=== PATIENT | female | born 1970 | race Caucasian/White ===

== ENCOUNTER 2017-12-30 13:15 | Inpatient (IN) | payer BC ==
[2017-12-30] MEDS ORDERED: SODIUM CHLORIDE 0.9% 1,000 ML IV ONE (14:04)
--- NOTE | 2017-12-30 14:12 | ED ---
Recheck HPI - General Chief Complaint: Recheck/Abnormal Lab/Rx Stated Complaint: Abnormal labs/Dr Sent Time Seen by Provider: 12/30/17 13:45 Source: patient Mode of arrival: ambulatory Limitations: physical limitation - History of Present Illness Initial Comments: This is a 47 show female who presents emergency department for bilateral lower extremity swelling. She states is been going on for the last couple of weeks. The right leg is been worse than the left. The patient does state that she sustained a spider bite to the right knee and had some swelling there however this has since subsided. No evidence for infection at this time and she went and saw Dr. Tejada's office who did an outpatient Doppler of bilateral lower [place] which was reportedly negative for DVT. The patient also had blood work performed that was reportedly abnormal. The patient states that she thinks that she had an elevated white blood cell count and anemia. She was directed to the emergency department for further evaluation. The patient otherwise states that she has no other complaints. States that she's been urinating normal amounts. Has not had any chest pain or shortness of breath. No lightheadedness. No fatigue. Denies any vaginal bleeding or discharge. No nausea, vomiting, or diarrhea. She states that she does have a history of lower extremity edema when she is on long flights. She also states that the edema seems to be better in the morning and worse throughout the day. She denies any other acute complaints. - Related Data Home Medications Medication Instructions Recorded Confirmed Amoxic-Pot Clav 875-125Mg 1 tab PO Q12HR 12/30/17 12/30/17 [Augmentin 875-125] Cyclafem 1 tab PO DAILY 12/30/17 12/30/17 Allergies Allergy/AdvReac Type Severity Reaction Status Date / Time No Known Allergies Allergy Verified 12/30/17 14:03 Review of Systems ROS Statement: Those systems with pertinent positive or pertinent negative responses have been documented in the HPI. ROS Other: All systems not noted in ROS Statement are negative. Past Medical History Past Medical History: No Reported History History of Any Multi-Drug Resistant Organisms: None Reported Past Surgical History: No Surgical Hx Reported Past Psychological History: No Psychological Hx Reported Smoking Status: Never smoker Past Alcohol Use History: None Reported Past Drug Use History: None Reported General Exam - General Exam Comments Initial Comments: Constitutional: Awake alert Appears comfortable Head: Normocephalic atraumatic Eyes: no conjunctival injection No scleral icterus EOMI Neck: No JVD Supple Heart: Regular rate rhythm normal S1-S2 no murmurs Lungs: Clear to auscultation bilaterally No wheezing No rales Abdomen: Soft nondistended nontender Extremities: There is edema to the right lower extremity from the knee down, there is mild pitting to this edema, left leg appears normal, there is a 0.5 cm round lesion to the anterior knee that is scabbed over. No surrounding erythema , no swelling, no fluctuance DP pulses intact Radial pulses intact Neuro: A&Ox3 No focal neurologic deficits Psych: Appropriate mood and affect . Limitations: physical limitation Course Vital Signs 12/30/17 12/30/17 13:35 14:53 Temperature 98.6 F Pulse Rate 108 H 131 H Respiratory 18 20 Rate Blood Pressure 132/68 O2 Sat by Pulse 96 97 Oximetry - Reevaluation(s) Reevaluation #1: 12/30/17 14:52 EKG showing normal sinus rhythm with a rate of 96. There is no abnormal ST segment changes or T-wave inversions. QTC is 451. Other intervals normal. No ectopy. Medical Decision Making - Medical Decision Making Is a 47 show female presents to the emergency department for abnormal labs. Labs are repeated and showed a significant leukocytosis also with anemia and from cytopenia. The findings are concerning for leukemia. The patient is going to stay in the hospital for blood transfusion and also to be seen by hematology. Spoke with Dr. Tejada who accepted the admission. - Lab Data Result diagrams: 12/30/17 14:25 12/30/17 14:25 Lab Results 12/30/17 12/30/17 12/30/17 Range/Units 14:25 14:25 14:25 WBC 29.9 H* (3.8-10.6) k/uL RBC 1.69 L (3.80-5.40) m/uL Hgb 5.9 L* (11.4-16.0) gm/dL Hct 16.8 L* (34.0-46.0) % MCV 99.8 (80.0-100.0) fL MCH 35.1 H (25.0-35.0) pg MCHC 35.1 (31.0-37.0) g/dL RDW 16.5 H (11.5-15.5) % PT 9.8 (9.0-12.0) sec INR 1.0 (<1.2) APTT 21.0 L (22.0-30.0) sec Sodium 140 (137-145) mmol/L Potassium 4.1 (3.5-5.1) mmol/L Chloride 105 (98-107) mmol/L Carbon Dioxide 23 (22-30) mmol/L Anion Gap 12 mmol/L BUN 13 (7-17) mg/dL Creatinine 0.60 (0.52-1.04) mg/dL Est GFR (CKD-EPI)AfAm >90 (>60 ml/min/1.73 sqM) Est GFR (CKD-EPI)NonAf >90 (>60 ml/min/1.73 sqM) Glucose 85 (74-99) mg/dL Calcium 8.7 (8.4-10.2) mg/dL Magnesium 1.9 (1.6-2.3) mg/dL Total Bilirubin 0.3 (0.2-1.3) mg/dL AST 16 (14-36) U/L ALT 22 (9-52) U/L Alkaline Phosphatase 54 (38-126) U/L Troponin I (0.000-0.034) ng/mL Total Protein 7.0 (6.3-8.2) g/dL Albumin 3.7 (3.5-5.0) g/dL Urine Color Urine Appearance (Clear) Urine pH (5.0-8.0) Ur Specific [place] (1.001-1.035) Urine Protein (Negative) Urine Glucose (UA) (Negative) Urine Ketones (Negative) Urine Blood (Negative) Urine Nitrite (Negative) Urine Bilirubin (Negative) Urine Urobilinogen (<2.0) mg/dL Ur Leukocyte Esterase (Negative) Urine RBC (0-5) /hpf Urine WBC (0-5) /hpf Ur Squamous Epith Cells (0-4) /hpf Urine Mucus (None) /hpf 18 12/30/17 Range/Units 14:25 14:50 WBC (3.8-10.6) k/uL RBC (3.80-5.40) m/uL Hgb (11.4-16.0) gm/dL Hct (34.0-46.0) % MCV (80.0-100.0) fL MCH (25.0-35.0) pg MCHC (31.0-37.0) g/dL RDW (11.5-15.5) % PT (9.0-12.0) sec INR (<1.2) APTT (22.0-30.0) sec Sodium (137-145) mmol/L Potassium (3.5-5.1) mmol/L Chloride (98-107) mmol/L Carbon Dioxide (22-30) mmol/L Anion Gap mmol/L BUN (7-17) mg/dL Creatinine (0.52-1.04) mg/dL Est GFR (CKD-EPI)AfAm (>60 ml/min/1.73 sqM) Est GFR (CKD-EPI)NonAf (>60 ml/min/1.73 sqM) Glucose (74-99) mg/dL Calcium (8.4-10.2) mg/dL Magnesium (1.6-2.3) mg/dL Total Bilirubin (0.2-1.3) mg/dL AST (14-36) U/L ALT (9-52) U/L Alkaline Phosphatase (38-126) U/L Troponin I <0.012 (0.000-0.034) ng/mL Total Protein (6.3-8.2) g/dL Albumin (3.5-5.0) g/dL Urine Color Light Yellow Urine Appearance Clear (Clear) Urine pH 5.5 (5.0-8.0) Ur Specific [place] 1.007 (1.001-1.035) Urine Protein Negative (Negative) Urine Glucose (UA) Negative (Negative) Urine Ketones Negative (Negative) Urine Blood Moderate H (Negative) Urine Nitrite Negative (Negative) Urine Bilirubin Negative (Negative) Urine Urobilinogen <2.0 (<2.0) mg/dL Ur Leukocyte Esterase Negative (Negative) Urine RBC 4 (0-5) /hpf Urine WBC 1 (0-5) /hpf Ur Squamous Epith Cells 1 (0-4) /hpf Urine Mucus Rare H (None) /hpf Disposition Clinical Impression: Leukocytosis, Anemia, Thrombocytopenia Disposition: ADMITTED IP TO THIS HOSP
[2017-12-30 14:55] LABS: Prothrombin Time 9.8 sec (9.0-12.0)
[2017-12-30 14:58] LABS: ALT 22 U/L (9-52); AST 16 U/L (14-36); Albumin 3.7 g/dL (3.5-5.0); Alkaline Phosphatase 54 U/L (38-126); Anion Gap 12 mmol/L; Blood Urea Nitrogen 13 mg/dL (7-17); Calcium 8.7 mg/dL (8.4-10.2); Carbon Dioxide 23 mmol/L (22-30); Chloride 105 mmol/L (98-107); Glucose 85 mg/dL (74-99); Magnesium 1.9 mg/dL (1.6-2.3); Potassium 4.1 mmol/L (3.5-5.1); Sodium 140 mmol/L (137-145); Total Bilirubin 0.3 mg/dL (0.2-1.3)
[2017-12-30 15:00] LABS: Anisocytosis Slight; MCH 35.1 pg (25.0-35.0); MCHC 35.1 g/dL (31.0-37.0); MCV 99.8 fL (80.0-100.0); Macrocytosis Slight; Mean Platelet Volume 8.4; RBC 1.69 m/uL (3.80-5.40); RDW 16.5 % (11.5-15.5)
[2017-12-30 15:07] LABS: Appearance,Urine Clear (Clear); Bilirubin,Urine Negative (Negative); Blood,Urine Moderate (Negative); Color,Urine Light Yellow; Glucose,Urine (UA) Negative (Negative); Ketones,Urine Negative (Negative); Leukocyte Esterase,Urine Negative (Negative); Mucus,Urine Rare /hpf; Nitrite,Urine Negative (Negative); PH, Urine 5.5 (5.0-8.0); Protein,Urine Negative (Negative); RBC,Urine 4 /hpf (0-5); Specific Gravity,Urine 1.007 (1.001-1.035); Squamous Epithelial Cell,Urine 1 /hpf (0-4); Urobilinogen,Urine <2.0 mg/dL (<2.0); WBC,Urine 1 /hpf (0-5)
[2017-12-30 15:10] LABS: HGB 5.9 gm/dL (11.4-16.0); WBC 29.9 k/uL (3.8-10.6)
[2017-12-30 15:11] LABS: HCT 16.8 % (34.0-46.0)
[2017-12-30 15:22] LABS: Platelet Count 8 k/uL (150-450)
[2017-12-30] MEDS ORDERED: NALOXONE 0.4 MG/ML 1 ML VIAL IV PRN (15:34)
[2017-12-30 17:41] VITALS: BMI 19.3
[2017-12-30] MEDS ORDERED: cefTRIAXone IN SWFI 1,000 MG/10 ML SYRINGE IVP SCH (20:30)
[2017-12-30 23:06] LABS: Nucleated Red Blood Cells 0 /100 WBC (0-0); Total Cells Counted 200
--- NOTE | 2017-12-31 07:13 | P.HPIM ---
History of Present Illness H&P Date: 12/31/17 Chief Complaint: Lower extremity edema. This is a history and physical a 47-year-old white female essentially with no significant past medical history except for ALLERGIC rhinitis who saw me 3 days ago for significant lower extremity edema with right knee cellulitis related to an insect bite. The patient states no fever or chills but is having mild dyspnea on exertion. The patient CBC showed significant anemia with, cytopenia. On recheck, this was found in the emergency room and the patient was then given appropriate transfusion. The patient is otherwise seemingly asymptomatic, she was at work yesterday when we called her. No voiding difficulties. No epistaxis no excessive menorrhagia. Although the patient is on contraception. The patient is nonsmoker. Family history is otherwise noncontributory to any type of hematologic illness except for a grandmother who had leukemia. Review of Systems Constitutional: Reports fatigue, Reports weakness Eyes: denies blurred vision, denies pain Ears, nose, mouth and throat: Denies headache, Denies sore throat Cardiovascular: Denies chest pain, Denies shortness of breath Respiratory: Denies cough Gastrointestinal: Denies abdominal pain, Denies diarrhea, Denies nausea, Denies vomiting Musculoskeletal: Denies myalgias Integumentary: Denies pruritus, Denies rash Neurological: Denies numbness, Denies weakness Past Medical History Past Medical History: No Reported History Additional Past Medical History / Comment(s): ALLERGIC rhinitis History of Any Multi-Drug Resistant Organisms: None Reported Past Surgical History: No Surgical Hx Reported Smoking Status: Never smoker - Past Family History Mother Family Medical History: No Reported History Father Family Medical History: No Reported History Medications and Allergies Home Medications Medication Instructions Recorded Confirmed Type Amoxic-Pot Clav 875-125Mg 1 tab PO Q12HR 12/30/17 12/30/17 History [Augmentin 875-125] Cyclafem 1 tab PO DAILY 12/30/17 12/30/17 History Allergies Allergy/AdvReac Type Severity Reaction Status Date / Time No Known Allergies Allergy Verified 12/30/17 14:03 Physical Exam Vitals: Vital Signs Temp Pulse Pulse Resp BP BP Pulse Ox 12/31/17 06:36 99.2 F 110 H 16 137/78 94 L 12/31/17 01:26 98.5 F 95 16 135/89 95 06/18/18 23:34 98.7 F 12/30/17 23:04 98.7 F 114 H 18 137/82 100 12/30/17 22:54 98.1 F 12/30/17 22:43 98.1 F 99 18 143/83 96 12/30/17 20:50 98.3 F 12/30/17 20:48 98.3 F 108 H 18 147/85 96 12/30/17 20:20 99.3 F 102 H 16 138/85 99 12/30/17 20:10 98.2 F 101 H 16 136/81 99 12/30/17 18:44 97.0 F L 99 18 125/67 100 12/30/17 18:14 98.0 F 100 20 132/78 100 12/30/17 18:04 96.7 F L 113 H 18 140/86 97 12/30/17 17:15 98.3 F 101 H 16 129/85 100 12/30/17 16:25 98.8 F 103 H 18 128/87 12/30/17 16:00 104 H 18 126/82 99 12/30/17 14:53 131 H 20 97 12/30/17 13:35 98.6 F 108 H 18 132/68 96 Intake and Output 12/30/17 12/31/17 12/31/17 22:59 06:59 14:59 Intake Total 612 360 Balance 612 360 Intake: IV 50 cefTRIAXone 1,000 mg In 50 Sodium Chloride 0.9% 50 ml @ 100 mls/hr IVPB Q24HR [facility] Rx#:[id number] Blood Product 612 310 Platelet Pheresis Acda2 302 Unit [id number] Rc As-1 Unit 0 310 [id number] Rc As-1 Unit 310 [id number] Other: Voiding Method Toilet # Voids 1 Weight 54.431 kg - Constitutional General appearance: no acute distress - EENT Eyes: EOMI - Neck Neck: no lymphadenopathy - Respiratory Respiratory: bilateral: CTA - Cardiovascular Rhythm: regular Heart sounds: normal: S1, S2 Abnormal Heart Sounds: no S3 Gallop - Gastrointestinal General gastrointestinal: no tenderness - Neurologic Neurologic: CNII-XII intact - Musculoskeletal Musculoskeletal: generalized weakness Results CBC & Chem 7: 12/30/17 14:25 12/30/17 14:25 Labs: Abnormal Lab Results - Last 24 Hours (Table) 12/30/17 12/30/17 12/30/17 Range/Units 14:25 14:25 14:25 WBC 29.9 H* (3.8-10.6) k/uL RBC 1.69 L (3.80-5.40) m/uL Hgb 5.9 L* (11.4-16.0) gm/dL Hct 16.8 L* (34.0-46.0) % MCH 35.1 H (25.0-35.0) pg RDW 16.5 H (11.5-15.5) % APTT 21.0 L (22.0-30.0) sec Urine Blood (Negative) Urine Mucus (None) /hpf Crossmatch See Detail 12/30/17 Range/Units 14:50 WBC (3.8-10.6) k/uL RBC (3.80-5.40) m/uL Hgb (11.4-16.0) gm/dL Hct (34.0-46.0) % MCH (25.0-35.0) pg RDW (11.5-15.5) % APTT (22.0-30.0) sec Urine Blood Moderate H (Negative) Urine Mucus Rare H (None) /hpf Crossmatch Thrombosis Risk Factor Assmnt - Choose All That Apply Any of the Below Risk Factors Present?: Yes Each Factor Represents 1 point: Age 41-60 years, Swollen legs (current) Other Risk Factors: No Other congenital or acquired thrombophilia - If yes, enter type in comment: No Thrombosis Risk Factor Assessment Total Risk Factor Score: 2 Thrombosis Risk Factor Assessment Level: Low Risk Assessment and Plan (1) Anemia Current Visit: Yes Status: Acute Code(s): D64.9 - ANEMIA, UNSPECIFIED SNOMED Code(s): 256340527 (2) Leukocytosis Current Visit: Yes Status: Acute Code(s): D72.829 - ELEVATED WHITE BLOOD CELL COUNT, UNSPECIFIED SNOMED Code(s): 367172255 (3) Thrombocytopenia Current Visit: Yes Status: Acute Code(s): D69.6 - THROMBOCYTOPENIA, UNSPECIFIED SNOMED Code(s): 343858285 Plan: Await hematologic workup. Transfusion of 2 units PRBC with platelets has been instituted. Check CBC and CMP in a.m. Appreciate oncologic/hematologic input. Otherwise, she is a full code. Time with Patient: Greater than 30
[2017-12-31 07:48] LABS: Anisocytosis Slight; HCT 25.7 % (34.0-46.0); MCH 33.2 pg (25.0-35.0); MCHC 35.7 g/dL (31.0-37.0); MCV 93.2 fL (80.0-100.0); Mean Platelet Volume 6.8; RBC 2.75 m/uL (3.80-5.40); RDW 17.8 % (11.5-15.5); WBC 23.3 k/uL (3.8-10.6)
[2017-12-31 08:04] LABS: HGB 9.2 gm/dL (11.4-16.0)
[2017-12-31 08:08] LABS: Platelet Count 38 k/uL (150-450)
[2017-12-31 10:36] LABS: Reticulocyte % 0.6 % (0.5-2.0)
[2017-12-31 11:22] LABS: Blast Cells # (M) 17.48 k/uL (0); Lymphocytes # (M) 4.19 k/uL (1.0-4.8); Neutrophils # (M) 0.47 k/uL (1.3-7.7); Neutrophils % (M) 2 %; Nucleated Red Blood Cells 0 /100 WBC (0-0); Total Cells Counted 200
[2017-12-31] MEDS ORDERED: LORazepam 2 MG/ML INJ IV STA (12:05)
[2017-12-31] MEDS ORDERED: HYDROmorphone 0.5 MG/0.5 ML SYRINGE IVP STA (12:06)
--- NOTE | 2017-12-31 12:45 | P.PN ---
Progress Note - Text Procedure note Bone Marrow aspirate & Biopsy Anesthesia: Local with 2% lidocaine Site: R iliac crest Details: utilizing sterile process, skin overlaying R iliac crest was prepared with Betadine & alcohol > after sterile draping size 11 Jamshidi needle was used to access R iliac crest with ease. Total of 16 ml aspirated, and 1 cm bone core biopsy obtained Total blood loss < 1ml The patient tolerated procedure very well Results: pending
--- NOTE | 2017-12-31 16:22 | P.CONS ---
History of Present Illness - Reason for Consult Consult date: 12/31/17 leukocytosis, anemia, thrombocytopenia Requesting physician: Matt Tejada - Chief Complaint Ankle swelling R>L - History of Present Illness Mrs. Garay is a very pleasant 47-year-old female patient of Dr. Tejada we have been asked to see for leukocytosis, anemia and thrombocytopenia. Patient denies any hematological history, she thinks she had a low white blood once about a year ago when she was sick. Patient states that at the end of November was when she first noted some changes in her health. Patient initially noted lower extremity "reddish rash", which on evaluation is petechiae, she noticed easy bruising over the last few weeks, no other bleeding to report. 2 weeks ago she noted ankle swelling, right greater than left, patient had a Doppler, no DVT, she has had BLE swelling before when she is flying. Patient had a spider bite on her right knee 5-6 days ago with swelling and redness of the knee which has now resolved. Patient is positive for 5 pound weight loss in 2 months, denies nausea or vomiting, "don't feel like eating", she has had shortness of breath on exertion and palpitations. Patient denies night sweats, lymphadenopathy, cold or flu, numbness or tingling, dysphagia, changes in bowel or bladder habits, pain or dizziness. Patient has no comorbid conditions, she had a mamogram last year, up to date on pelvic exams, she does travel frequently , was in [place] in November, [facility] in May, her only medication is control. Family healthy other than a maternal grandmother with pancreatic cancer and her paternal grandmother, she believes, had leukemia. Review of Systems 14 point ROS as stated in HPI Past Medical History Past Medical History: No Reported History Additional Past Medical History / Comment(s): ALLERGIC rhinitis History of Any Multi-Drug Resistant Organisms: None Reported Past Surgical History: No Surgical Hx Reported Past Psychological History: No Psychological Hx Reported Smoking Status: Never smoker Past Alcohol Use History: None Reported Past Drug Use History: None Reported - Past Family History Mother Family Medical History: No Reported History Father Family Medical History: No Reported History Additional Family Medical History / Comment(s): maternal grandmother pancreatic cancer, paternal grandmother leukemia Medications and Allergies Home Medications Medication Instructions Recorded Confirmed Type Amoxic-Pot Clav 875-125Mg 1 tab PO Q12HR 12/30/17 12/30/17 History [Augmentin 875-125] Cyclafem 1 tab PO DAILY 12/30/17 12/30/17 History Allergies Allergy/AdvReac Type Severity Reaction Status Date / Time No Known Allergies Allergy Verified 12/30/17 14:03 Physical Exam Vitals: Vital Signs Temp Pulse Pulse Resp BP BP Pulse Ox 12/31/17 07:43 94 L 12/31/17 07:22 100.0 F H 111 H 18 137/83 12/31/17 06:36 99.2 F 110 H 16 137/78 94 L 12/31/17 01:26 98.5 F 95 16 135/89 95 12/30/17 23:34 98.7 F 12/30/17 23:04 98.7 F 114 H 18 137/82 100 12/30/17 22:54 98.1 F 12/30/17 22:43 98.1 F 99 18 143/83 96 12/30/17 20:50 98.3 F 12/30/17 20:48 98.3 F 108 H 18 147/85 96 12/30/17 20:20 99.3 F 102 H 16 138/85 99 12/30/17 20:10 98.2 F 101 H 16 136/81 99 12/30/17 18:44 97.0 F L 99 18 125/67 100 12/30/17 18:14 98.0 F 100 20 132/78 100 12/30/17 18:04 96.7 F L 113 H 18 140/86 97 12/30/17 17:15 98.3 F 101 H 16 129/85 100 12/30/17 16:25 98.8 F 103 H 18 128/87 12/30/17 16:00 104 H 18 126/82 99 12/30/17 14:53 131 H 20 97 12/30/17 13:35 98.6 F 108 H 18 132/68 96 Intake and Output 12/30/17 12/31/17 12/31/17 22:59 06:59 14:59 Intake Total 612 360 Balance 612 360 Intake: IV 50 cefTRIAXone 1,000 mg In 50 Sodium Chloride 0.9% 50 ml @ 100 mls/hr IVPB Q24HR [facility] Rx#:[id number] Blood Product 612 310 Platelet Pheresis Acda2 302 Unit [id number] As-1 Unit 0 310 [id number] Rc As-1 Unit 310 [id number] Other: Voiding Method Toilet # Voids 1 Weight 54.431 kg - Constitutional General appearance: average body habitus, cooperative, no acute distress - EENT Eyes: anicteric sclerae, EOMI, normal appearance ENT: hearing grossly normal, normal oropharynx - Neck Neck: no lymphadenopathy - Respiratory Respiratory: bilateral: CTA - Cardiovascular Rhythm: regular Heart sounds: normal: S1, S2 Abnormal Heart Sounds: no systolic murmur, no diastolic murmur, no rub, no S3 Gallop, no S4 Gallop, no click, no other foot Peripheral Edema: bilateral: Trace - Gastrointestinal General gastrointestinal: no absent bowel sounds, no decreased bowel sounds, no distended, no hepatomegaly, no hyperactive bowel sounds, normal bowel sounds, no organomegaly, no rigid, no scaphoid, soft, no splenomegaly, no tenderness, no umbilical hernia, no ventral hernia - Integumentary Integumentary: normal turgor, pale - Neurologic Neurologic: CNII-XII intact - Musculoskeletal Musculoskeletal: strength equal bilaterally - Psychiatric Psychiatric: A&O x's 3, appropriate affect, intact judgment & insight Results CBC & Chem 7: 12/31/17 07:11 12/30/17 14:25 Labs: Abnormal Lab Results - Last 24 Hours (Table) 12/30/17 12/30/17 12/30/17 Range/Units 14:25 14:25 14:25 WBC 29.9 H* (3.8-10.6) k/uL RBC 1.69 L (3.80-5.40) m/uL Hgb 5.9 L* (11.4-16.0) gm/dL Hct 16.8 L* (34.0-46.0) % MCH 35.1 H (25.0-35.0) pg RDW 16.5 H (11.5-15.5) % Plt Count 8 L* (150-450) k/uL Neutrophils # (Manual) (1.3-7.7) k/uL Monocytes # (Manual) (0-1.0) k/uL Blast Cells # (Man) 28.70 H (0) k/uL APTT 21.0 L (22.0-30.0) sec Lactate Dehydrogenase (313-618) U/L Urine Blood (Negative) Urine Mucus (None) /hpf Crossmatch See Detail 12/30/17 12/31/17 12/31/17 Range/Units 14:50 07:11 09:47 WBC 23.3 H (3.8-10.6) k/uL RBC 2.75 L (3.80-5.40) m/uL Hgb 9.2 L D (11.4-16.0) gm/dL Hct 25.7 L (34.0-46.0) % MCH (25.0-35.0) pg RDW 17.8 H (11.5-15.5) % Plt Count 38 L* D (150-450) k/uL Neutrophils # (Manual) 0.47 L (1.3-7.7) k/uL Monocytes # (Manual) 1.40 H (0-1.0) k/uL Blast Cells # (Man) 17.48 H (0) k/uL APTT (22.0-30.0) sec Lactate Dehydrogenase 1037 H (313-618) U/L Urine Blood Moderate H (Negative) Urine Mucus Rare H (None) /hpf Crossmatch Assessment and Plan (1) Anemia Current Visit: Yes Status: Acute Priority: High Code(s): D64.9 - ANEMIA, UNSPECIFIED SNOMED Code(s): 905787695 (2) Leukocytosis Current Visit: Yes Status: Acute Priority: High Code(s): D72.829 - ELEVATED WHITE BLOOD CELL COUNT, UNSPECIFIED SNOMED Code(s): 390637688 (3) Thrombocytopenia Current Visit: Yes Status: Acute Priority: High Code(s): D69.6 - THROMBOCYTOPENIA, UNSPECIFIED SNOMED Code(s): 301797858 Plan: Pt has been transfused with PRBCs and platelets with anticipated increase in lab values. Conservative transfusions only. Irradiated/CMV negative blood products only Path review of peripheral smear report reviewed, 96% circulating blasts. Bone marrow biopsy and aspirate was discussed with pt when I saw her this AM, had RN ask pt if she was willing to do at bedside with local anesthetic or if she wanted to do it in the AM with sedation, pt opted for doing bone marrow now. Bone marrow has been done. Multiple other labs have been ordered for review. Acute leukemia is the anticipated diagnosis but, this has not been discussed in any detail with the pt. We will f/u in AM to discuss in more detail with patient and her . Doctor attests: I performed a history and physical examination of this patient, discussed with dictator. I agree with dictators note, documented as a scribe. Time with Patient: Greater than 30 (counseling and coordinating care)
[2017-12-31 17:27] LABS: Iron Saturation 96.09 (12.00-45.00); Protein, Total 6.8 g/dL (6.2-8.2); Rheumatoid Factor 7 IU/mL (0-15)
[2017-12-31 18:00] LABS: HIV AB P24 Non-Reactive (Non-Reactive); HIV P24 AG Non-Reactive (Non-Reactive)
[2017-12-31] MEDS: ACETAMINOPHEN TAB 325 MG TAB PO PRN (22:08)
--- NOTE | 2018-01-01 08:57 | P.PN ---
Subjective Progress Note Date: 01/01/18 Principal diagnosis: This is a continue process on a 47-year-old white female essentially admitted for leukocytosis, cytopenia and anemia. I suspect acute leukemia after discussing with pathology. Bone marrow biopsy is now pending. Objective - Vital Signs Vital signs: Vital Signs Temp 98.5 F 01/01/18 06:23 Pulse 108 H 01/01/18 06:23 Resp 16 01/01/18 06:23 BP 126/70 01/01/18 06:23 Pulse Ox 94 L 01/01/18 06:23 Intake & Output 12/31/17 01/01/18 01/01/18 18:59 06:59 18:59 Intake Total 240 600 Balance 240 600 Weight 54.431 kg Intake: Oral 240 600 Other: Voiding Method Toilet Toilet # Voids 2 2 - Constitutional General appearance: Present: average body habitus - EENT Eyes: Absent: abnormal pupil - Respiratory Respiratory: bilateral: CTA - Cardiovascular Rhythm: regular Heart sounds: normal: S1, S2 Abnormal Heart Sounds: Absent: S3 Gallop - Gastrointestinal General gastrointestinal: Present: soft. Absent: tenderness - Psychiatric Psychiatric: Present: A&O x's 3, appropriate affect - Labs CBC & Chem 7: 12/31/17 07:11 12/30/17 14:25 Labs: Abnormal Lab Results - Last 24 Hours (Table) 12/30/17 12/31/17 12/31/17 Range/Units 14:25 07:11 09:47 Plt Count 8 L* (150-450) k/uL Neutrophils # (Manual) 0.47 L (1.3-7.7) k/uL Monocytes # (Manual) 1.40 H (0-1.0) k/uL Blast Cells # (Man) 28.70 H 17.48 H (0) k/uL Pathologist Review See comment A Iron (50-170) ug/dL Iron Saturation (12.00-45.00) Ferritin (10.0-291.0) ng/mL Lactate Dehydrogenase 1037 H (313-618) U/L 12/31/17 Range/Units 09:47 Plt Count (150-450) k/uL Neutrophils # (Manual) (1.3-7.7) k/uL Monocytes # (Manual) (0-1.0) k/uL Blast Cells # (Man) (0) k/uL Pathologist Review Iron 270 H (50-170) ug/dL Iron Saturation 96.09 H (12.00-45.00) Ferritin 384.6 H (10.0-291.0) ng/mL Lactate Dehydrogenase (313-618) U/L Assessment and Plan (1) Anemia Current Visit: Yes Status: Acute Priority: High Code(s): D64.9 - ANEMIA, UNSPECIFIED SNOMED Code(s): 049005619 (2) Leukocytosis Current Visit: Yes Status: Acute Priority: High Code(s): D72.829 - ELEVATED WHITE BLOOD CELL COUNT, UNSPECIFIED SNOMED Code(s): 971760057 (3) Thrombocytopenia Current Visit: Yes Status: Acute Priority: High Code(s): D69.6 - THROMBOCYTOPENIA, UNSPECIFIED SNOMED Code(s): 025522873 (4) Acute leukemia Current Visit: Yes Status: Acute Code(s): C95.00 - ACUTE LEUKEMIA OF UNSP CELL TYPE NOT ACHIEVE REMISSION SNOMED Code(s): 85736928 Plan: Await bone marrow biopsy. Appreciate oncologic support. I spent a long time explaining to the patient expected course of treatment. Most likely this will be dependent on bone marrow biopsy results. We'll continue to follow closely.
[2018-01-01 09:23] LABS: Anisocytosis Slight; HCT 25.4 % (34.0-46.0); HGB 8.9 gm/dL (11.4-16.0); MCH 32.9 pg (25.0-35.0); MCHC 35.1 g/dL (31.0-37.0); MCV 93.7 fL (80.0-100.0); Mean Platelet Volume 6.7; RBC 2.71 m/uL (3.80-5.40); RDW 17.6 % (11.5-15.5); WBC 21.1 k/uL (3.8-10.6)
[2018-01-01 09:29] LABS: Platelet Count 28 k/uL (150-450)
[2018-01-01 09:38] LABS: ALT 23 U/L (9-52); AST 15 U/L (14-36); Albumin 3.7 g/dL (3.5-5.0); Alkaline Phosphatase 62 U/L (38-126); Anion Gap 13 mmol/L; Blood Urea Nitrogen 8 mg/dL (7-17); Calcium 8.8 mg/dL (8.4-10.2); Carbon Dioxide 24 mmol/L (22-30); Chloride 100 mmol/L (98-107); Glucose 126 mg/dL (74-99); Potassium 3.7 mmol/L (3.5-5.1); Sodium 137 mmol/L (137-145); Total Bilirubin 0.7 mg/dL (0.2-1.3); Total Protein 7.1 g/dL (6.3-8.2)
--- NOTE | 2018-01-01 10:30 | XR ---
EXAMINATION TYPE: XR chest 2V DATE OF EXAM: 01/01/2018 COMPARISON: NONE TECHNIQUE: PA and lateral views submitted. HISTORY: Fever FINDINGS: There is left lower lobe infiltrate correlate for pneumonia. Interstitial prominence also noted. No p neumothorax or pleural effusion. IMPRESSION: 1. Left lower lobe infiltrate correlate for pneumonia. Interstitial prominence may been the basis of interstitial pneumonitis or atypical pneumonia. Venous congestion not excluded. Correlate clinically.
--- NOTE | 2018-01-01 11:27 | P.PN ---
Subjective Progress Note Date: 01/01/18 Principal diagnosis: Acute leukemia Patient is seen today in follow-up. She is status post bone marrow biopsy and aspirate, results are pending. Patient and are very anxious about this diagnosis. Dr. Mari reviewed with the patient and can anticipate as a treatment course including inpatient chemotherapy, need for transfusions, risk for infections and side effects of medications. Patient today has no physical complaints, no bleeding, leg swelling is resolved, no pain to report, no complaints of pain or bruising at bone marrow site. Objective - Vital Signs Vital signs: Vital Signs Temp 98.5 F 01/01/18 06:23 Pulse 108 H 01/01/18 06:23 Resp 16 01/01/18 06:23 BP 126/70 01/01/18 06:23 Pulse Ox 94 L 01/01/18 06:23 Intake & Output 12/31/17 01/01/18 01/01/18 18:59 06:59 18:59 Intake Total 240 600 Balance 240 600 Weight 54.431 kg Intake: Oral 240 600 Other: Voiding Method Toilet Toilet # Voids 2 2 - Constitutional General appearance: Present: average body habitus, cooperative, no acute distress - EENT Eyes: Present: anicteric sclerae, normal appearance ENT: Present: normal oropharynx - Respiratory Respiratory: bilateral: CTA - Cardiovascular Rhythm: regular Heart sounds: normal: S1, S2 - Peripheral edema foot Peripheral Edema: bilateral: None - Gastrointestinal General gastrointestinal: Present: normal bowel sounds, soft. Absent: absent bowel sounds, decreased bowel sounds, distended, hepatomegaly, hyperactive bowel sounds, organomegaly, rigid, scaphoid, splenomegaly, tenderness, umbilical hernia, ventral hernia - Integumentary Integumentary: Present: normal - Neurologic Neurologic: Present: CNII-XII intact - Musculoskeletal Musculoskeletal: Present: strength equal bilaterally - Psychiatric Psychiatric: Present: A&O x's 3, appropriate affect, intact judgment & insight - Labs CBC & Chem 7: 01/01/18 07:27 01/01/18 07:27 Labs: Abnormal Lab Results - Last 24 Hours (Table) 12/30/17 12/31/17 12/31/17 Range/Units 14:25 07:11 09:47 WBC (3.8-10.6) k/uL RBC (3.80-5.40) m/uL Hgb (11.4-16.0) gm/dL Hct (34.0-46.0) % RDW (11.5-15.5) % Plt Count (150-450) k/uL Neutrophils # (Manual) 0.47 L (1.3-7.7) k/uL Monocytes # (Manual) 1.40 H (0-1.0) k/uL Blast Cells # (Man) 17.48 H (0) k/uL Pathologist Review See comment A Glucose (74-99) mg/dL Iron 270 H (50-170) ug/dL Iron Saturation 96.09 H (12.00-45.00) Ferritin 384.6 H (10.0-291.0) ng/mL 01/01/18 01/01/18 Range/Units 07:27 07:27 WBC 21.1 H (3.8-10.6) k/uL RBC 2.71 L (3.80-5.40) m/uL Hgb 8.9 L (11.4-16.0) gm/dL Hct 25.4 L (34.0-46.0) % RDW 17.6 H (11.5-15.5) % Plt Count 28 L* (150-450) k/uL Neutrophils # (Manual) (1.3-7.7) k/uL Monocytes # (Manual) (0-1.0) k/uL Blast Cells # (Man) (0) k/uL Pathologist Review Glucose 126 H (74-99) mg/dL Iron (50-170) ug/dL Iron Saturation (12.00-45.00) Ferritin (10.0-291.0) ng/mL Assessment and Plan (1) Anemia Current Visit: Yes Status: Acute Priority: High Code(s): D64.9 - ANEMIA, UNSPECIFIED SNOMED Code(s): 644667661 (2) Leukocytosis Current Visit: Yes Status: Acute Priority: High Code(s): D72.829 - ELEVATED WHITE BLOOD CELL COUNT, UNSPECIFIED SNOMED Code(s): 673129379 (3) Thrombocytopenia Current Visit: Yes Status: Acute Priority: High Code(s): D69.6 - THROMBOCYTOPENIA, UNSPECIFIED SNOMED Code(s): 258964547 Plan: Patient is status post bone marrow biopsy and aspirate, preliminary results are pending. It has been discussed with the patient and treatment course that can be anticipated (chemo drugs that will be used will not be determined until results of the cell line involved is known). Prognosis, side effects, risks of treatment including infection, need for transfusions, even the potential need for intensive care. Pt and verbalized understanding. Echo ordered for baseline cardiac function PICC line insertion ordered, platelets to be transfused during procedure Patient did have 100.5 fever, silva cultures ordered. Levaquin and Diflucan ordered prophylactically. Doctor attests: I performed a history and physical examination of this patient with dictator. I agree with dictators note, documented as a scribe. Time with Patient: Greater than 30 (counseling and coordinating care)
[2018-01-01] MEDS: LEVOFLOXACIN 500 MG TAB PO SCH (11:58)
[2018-01-01] MEDS: FLUCONAZOLE 100 MG TAB PO SCH (11:58)
[2018-01-01] MEDS: ACETAMINOPHEN TAB 325 MG TAB PO PRN (11:59)
--- NOTE | 2018-01-01 12:18 | ECHOF ---
Referral Reason:baseline cardiac function, chemotherapy MEASUREMENTS -------- HEIGHT: 165.1 cm WEIGHT: 54.4 kg BP: 126/70 RVIDd: 1.6 cm (< 3.3) IVSd: 0.9 cm (0.6 - 1.1) LVIDd: 3.2 cm (3.9 - 5.3) LVPWd: 1.2 cm (0.6 - 1.1) IVSs: 1.3 cm LVIDs: 2.7 cm LVPWs: 1.2 cm LA Diam: 3.1 cm (2.7 - 3.8) Ao Diam: 2.6 cm (2.0 - 3.7) AV Cusp: 1.6 cm (1.5 - 2.6) LA Diam: 3.1 cm (2.7 - 3.8) MV EXCURSION: 11.193 mm (> 18.000) MV EF SLOPE: 76 mm/s (70 - 150) EPSS: 0.4 cm MV E Valente: 0.82 m/s MV DecT: 179 ms MV A Valente: 0.99 m/s MV E/A Ratio: 0.84 RAP: 5.00 mmHg RVSP: 23.28 mmHg FINDINGS -------- Sinus rhythm. This was a technically good study. LV size, wall thickness and systolic function are normal, with an EF greater than 55%. The left karen tricular size is normal. The right ventricle is normal in size. The left atrial size is normal. The right atrial size is normal. The aortic valve is trileaflet, and appears structurally normal. No aortic stenosis or regurgitation. Mild mitral regurgitation is present. Mild tricuspid regurgitation present. There is no evidence of pulmonary hypertension. The right v entricular systolic pressure, as measured by Doppler, is 23.28mmHg. There is no pulmonic regurgitation present. The aortic root size is normal. There is no pericardial effusion. CONCLUSIONS -------- 1. LV size, wall thickness and systolic function are normal, with an EF greater than 55%. 2. The left ventricular size is normal. 3. The right ventricle is normal in size. 4. The left atrial size is normal. 5. The right atrial size is normal. 6. The aortic valve is trileaflet, and appears structurally normal. No aortic stenosis or regurgitati on. 7. Mild mitral regurgitation is present. 8. Mild tricuspid regurgitation present. 9. There is no evidence of pulmonary hypertension. 10. The right ventricular systolic pressure, as measured by Doppler, is 23.28mmHg. 11. There is no pulmonic regurgitation present. 12. The aortic root size is normal. 13. There is no pericardial effusion. OCCUPATIONAL THERAPIST AIDE: Ileana Elkins RDCS
[2018-01-01] MEDS ORDERED: LIDOCAINE 2% SYG (PF) 100 MG/5 ML MISCELLANE ONE (14:08)
--- NOTE | 2018-01-01 14:34 | IR ---
PICC LINE PLACEMENT: HISTORY: Chemotherapy PROCEDURE: Ultrasound and fluoroscopic guidance of PICC line placement. COMPLICATIONS: None ANESTHESIA: 1. 1% Lidocaine locally. FINDINGS/TECHNIQUE: The procedure was explained to the patient. The risks, complications, benefits and alternatives were discussed and any questions were answered. Informed consent was obtained. The patient was placed supine on the fluoroscopic table and prepped and draped in the usual sterile [facility] ion. Utilizing a 21 gauge needle and sonographic and fluoroscopic guidance, access in the vein was achieved and there is placement of a 0.018 guidewire. The vein is patent. A 5-Fr sheath was placed over the guidewire. The guidewire and dilator were removed and a 5-F. Double lumen PICC line was pl aced through the sheath with the tip at the level of the SVC. The sheath was removed, the catheter w as flushed and sutured into position. The patient was stable throughout the procedure and remained s table upon discharge from the Department of Radiology. The vein puncture was patent under ultrasound. A rashid scale image was obtained to document patency of the vein punctured. All elements of the maximal barrier technique were utilized. FLUOROSCOPY TIME: 0.2 minutes, one image submitted IMPRESSION: Successful PICC double lumen line placement under ultrasound and fluoroscopic guidance.
[2018-01-01] MEDS ORDERED: LORazepam 0.5 MG TAB PO PRN (18:43)
[2018-01-01 21:54] VITALS: RESP 18
[2018-01-02 06:09] VITALS: BP 118/75; PULSE 100; TEMP 98.2
[2018-01-02] MEDS: LEVOFLOXACIN 500 MG TAB PO SCH (09:09)
[2018-01-02] MEDS: FLUCONAZOLE 100 MG TAB PO SCH (09:10)
[2018-01-02 09:42] LABS: Albumin 3.27 g/dL (3.80-4.90); Gamma Globulin 1.39 g/dL (0.70-1.50)
--- NOTE | 2018-01-02 11:02 | P.PN ---
Subjective Progress Note Date: 01/02/18 Principal diagnosis: Acute leukemia Pt seen in f/u, she states feeling better today then yesterday, not feeling warm , no chills, she is eating and drinking without nausea or vomiting, no SOB, chest pain, cough, abd pain, diarrhea, constipation, bleeding, her lower extremity petechiae are less, fully ambulatory and independent, energy levels decent, she really wants to go home for a few days to prepare for chemo. Objective - Vital Signs Vital signs: Vital Signs Temp 98.2 F 01/02/18 06:08 Pulse 100 01/02/18 06:08 Resp 18 01/02/18 06:08 BP 118/75 01/02/18 06:08 Pulse Ox 94 L 01/02/18 06:08 Intake & Output 01/01/18 01/02/18 01/02/18 18:59 06:59 18:59 Intake Total 199 360 Balance 199 360 Intake: Oral 360 Blood Product 199 Platelet Irr Pheresis 3 199 Acda Unit [id number] Other: Voiding Method Toilet Toilet # Voids 1 1 - Constitutional General appearance: Present: average body habitus, cooperative, no acute distress - EENT Eyes: Present: anicteric sclerae, EOMI, normal appearance ENT: Present: hearing grossly normal, normal oropharynx - Respiratory Respiratory: bilateral: CTA (slightly diminished left base) - Cardiovascular Rhythm: regular Heart sounds: normal: S1, S2 Abnormal Heart Sounds: Absent: systolic murmur, diastolic murmur, rub, S3 Gallop , S4 Gallop, click, other - Peripheral edema leg Peripheral Edema: bilateral: None - Gastrointestinal General gastrointestinal: Present: normal bowel sounds, soft. Absent: absent bowel sounds, decreased bowel sounds, distended, hepatomegaly, hyperactive bowel sounds, organomegaly, rigid, scaphoid, splenomegaly, tenderness, umbilical hernia, ventral hernia - Integumentary Integumentary Comment(s): petechiae on BLE improved Integumentary: Present: normal - Neurologic Neurologic: Present: CNII-XII intact - Musculoskeletal Musculoskeletal: Present: strength equal bilaterally - Psychiatric Psychiatric: Present: A&O x's 3, appropriate affect, intact judgment & insight - Labs CBC & Chem 7: 01/02/18 11:54 01/01/18 07:27 Labs: Abnormal Lab Results - Last 24 Hours (Table) 12/31/17 Range/Units 09:47 Albumin (PEP) 3.27 L (3.80-4.90) g/dL Assessment and Plan (1) Anemia Current Visit: Yes Status: Acute Priority: High Code(s): D64.9 - ANEMIA, UNSPECIFIED SNOMED Code(s): 374433065 (2) Leukocytosis Current Visit: Yes Status: Acute Priority: High Code(s): D72.829 - ELEVATED WHITE BLOOD CELL COUNT, UNSPECIFIED SNOMED Code(s): 847635898 (3) Thrombocytopenia Current Visit: Yes Status: Acute Priority: High Code(s): D69.6 - THROMBOCYTOPENIA, UNSPECIFIED SNOMED Code(s): 889437376 Plan: Hgb and plt low but adequate, pt is asymptomatic. No intervention today. WBC being monitored, noted increase today. Acute leukemia, pending bone marrow preliminary for cell line involved to determine treatment. We discussed induction, consolidation chemo with favorable cellular genetics and unfavorable genetics and bone marrow transplant. Reviewed infection and bleeding precautions and safety. ECHO report reviewed and discussed normal LVEF with pt. PICC line inserted, discussed maintenance and care-this will be provided by Dr. Lyle's office Pt would like to go home for a few days before beginning inpatient treatment, she has been afebrile since the , CXR showed a small LLL infiltrate, pt is asymptomatic, no suspicious cultures yet, will follow up with until resulted. Daily oral levaquin and diflucan prescribed. Did discuss case with Dr. Mari, will discuss case with Dr. Tejada. Time with Patient: Greater than 30 (counseling and coordinating care)
[2018-01-02 12:07] LABS: Anisocytosis Slight; HGB 8.9 gm/dL (11.4-16.0); MCH 33.3 pg (25.0-35.0); MCHC 34.2 g/dL (31.0-37.0); MCV 97.5 fL (80.0-100.0); Macrocytosis Slight; Mean Platelet Volume 6.5; RBC 2.67 m/uL (3.80-5.40); RDW 18.6 % (11.5-15.5)
[2018-01-02 12:11] LABS: Platelet Count 45 k/uL (150-450)
[2018-01-02 12:39] LABS: Blast Cells # (M) 27.69 k/uL (0); Lymphocytes # (M) 6.24 k/uL (1.0-4.8); Monocytes # (M) 3.51 k/uL (0-1.0); Neutrophils # (M) 1.56 k/uL (1.3-7.7); Neutrophils % (M) 4 %; Nucleated Red Blood Cells 0 /100 WBC (0-0); Total Cells Counted 200
[2018-01-02 12:40] LABS: Poikilocytosis (M) Present
--- NOTE | 2018-01-05 17:34 | P.DS ---
Providers Date of admission: 12/30/17 15:35 Expected date of discharge: 01/03/18 Attending physician: Matt Tejada Consults: 12/30/17 15:36 Consult Physician Routine Consulting Provider: Mulugeta Mari Consult Reason/Comments: Leukocytosis, Anemia, Thrombocytopenia Do you want consulting provider notified?: Yes Primary care physician: Matt Tejada - Discharge Diagnosis(es) (1) Anemia Status: Acute Priority: High (2) Leukocytosis Status: Acute Priority: High (3) Thrombocytopenia Status: Acute Priority: High (4) Acute leukemia Status: Acute Hospital Course: The patient is a 47-year-old white female essentially admitted for, cytopenia with anemia and acute leukocytosis. The patient received multiple platelet transfusions with PRBC. After bone marrow biopsy was done, she was diagnosed with acute leukemia. Evaluation with oncology ensued, and the patient is now to be started with chemotherapy treatment as an outpatient. The patient was discharged in stable but guarded condition. Patient Condition at Discharge: Serious Plan - Discharge Summary Discharge Rx Participant: No New Discharge Prescriptions: New Fluconazole [Diflucan] 100 mg PO DAILY #30 tab Levofloxacin [Levaquin] 500 mg PO Q24H #30 tab Continue Cyclafem 1 tab PO DAILY Discharge Medication List Cyclafem 1 tab PO DAILY 12/30/17 [History] Fluconazole [Diflucan] 100 mg PO DAILY #30 tab 01/02/18 [Rx] Levofloxacin [Levaquin] 500 mg PO Q24H #30 tab 01/02/18 [Rx] Follow up Appointment(s)/Referral(s): Allen Lyle MD [STAFF PHYSICIAN] - 01/03/18 9:45 am (for CBC and PICC flush Appt on Saturday 01/06 1030 for CBC and PICC flush) Patient Instructions/Handouts: Fluconazole (By mouth), Levofloxacin (By mouth) , Leukocytosis (DC), Anemia (DC), Thrombocytopenia (DC) Activity/Diet/Wound Care/Special Instructions: Bleeding and infection precautions discussed. RETURN TO HOSPITAL FOR FEVER 100.5F or higher [place] fluids PICC dressing changes weekly on Saturday three times a week PICC line flush (to be done at Dr. Lyle's office) Discharge Disposition: HOME SELF-CARE
--- NOTE | 2018-01-05 17:37 | P.PN ---
Subjective Progress Note Date: 01/02/18 Principal diagnosis: This is a continue process on a 47-year-old white female essentially admitted for leukocytosis, cytopenia and anemia. I suspect acute leukemia after discussing with pathology. Bone marrow biopsy is now pending. The patient is essentially [id number] and, cytopenia with anemia. The patient is pending bone marrow biopsy but has changes of acute leukemia. Otherwise no pain is noted. The patient Objective - Vital Signs Vital signs: Vital Signs Temp 98.2 F 01/02/18 06:08 Pulse 100 01/02/18 06:08 Resp 18 01/02/18 06:08 BP 118/75 01/02/18 06:08 Pulse Ox 94 L 01/02/18 06:08 - Constitutional General appearance: Present: average body habitus - EENT Eyes: Absent: abnormal pupil - Respiratory Respiratory: bilateral: CTA - Cardiovascular Rhythm: regular Heart sounds: normal: S1, S2 Abnormal Heart Sounds: Absent: S3 Gallop - Gastrointestinal General gastrointestinal: Present: soft. Absent: tenderness - Integumentary Integumentary: Absent: ulcer - Labs CBC & Chem 7: 01/02/18 11:54 01/01/18 07:27 Labs: Microbiology - Last 24 Hours (Table) 01/01/18 10:48 Blood Culture - Preliminary Blood No Growth after 96 hours Assessment and Plan (1) Anemia Status: Acute Priority: High Code(s): D64.9 - ANEMIA, UNSPECIFIED SNOMED Code(s): 969955668 (2) Leukocytosis Status: Acute Priority: High Code(s): D72.829 - ELEVATED WHITE BLOOD CELL COUNT, UNSPECIFIED SNOMED Code(s): 393962753 (3) Thrombocytopenia Status: Acute Priority: High Code(s): D69.6 - THROMBOCYTOPENIA, UNSPECIFIED SNOMED Code(s): 096388064 (4) Acute leukemia Status: Acute Code(s): C95.00 - ACUTE LEUKEMIA OF UNSP CELL TYPE NOT ACHIEVE REMISSION SNOMED Code(s): 47174296 Plan: Continue current regimen of treatment. Check CBC in a.m. Await oncologic suggestion. Time with Patient: Less than 30
== END 2018-01-02 14:25 | disposition home or self-care (01) | DRG 835 ==
LOC: EC 13:15 → 5ONC 15:35
PROVIDERS: ADMIT Family Medicine; ATTEND Family Medicine
PROC: 30233R1 Transfusion of Nonautologous Platelets into Peripheral Vein, Percutaneous Approach (ICD-10-PCS; 2017-12-30)
PROC: 30233N1 Transfusion of Nonautologous Red Blood Cells into Peripheral Vein, Percutaneous Approach (ICD-10-PCS; 2017-12-30)
PROC: 07DR3ZX Extraction of Iliac Bone Marrow, Percutaneous Approach, Diagnostic (ICD-10-PCS; 2017-12-31)
PROC: 02HV33Z Insertion of Infusion Device into Superior Vena Cava, Percutaneous Approach (ICD-10-PCS; principal; 2018-01-01 13:53)
DX: C95.00 Acute leukemia of unspecified cell type not having achieved remission (principal); L03.115 Cellulitis of right lower limb; D69.6 Thrombocytopenia, unspecified; D64.9 Anemia, unspecified; Z80.6 Family history of leukemia; Z79.3 Long term (current) use of hormonal contraceptives; Z79.2 Long term (current) use of antibiotics
CPT/HCPCS: 36415; 36569; 71046; 76937; 77001; 80053; 81001; 82607; 82728; 82747; 83540; 83550; 83615; 83735; 83883; 84165; 84484; 85025; 85027; 85045; 85610; 85730; 86038; 86334; 86431; 86850; 86900; 86901; 86920; 87040; 87390; 93005; 93306; 96360; 99284

== ENCOUNTER 2018-01-08 07:00 | Inpatient (IN) | payer BC ==
[~2018-01-08 07:00] MED LIST: Pre Op ABX Message 1 EACH MISC MISCELLANE ONE
[2018-01-08] MEDS ORDERED: ACETAMINOPHEN TAB 325 MG TAB PO PRN (11:34)
[2018-01-08] MEDS: SODIUM CHLORIDE 0.9% 1,000 ML IV SCH ×2 (11:34→19:43)
[2018-01-08] MEDS ORDERED: DOCUSATE 100 MG CAP PO PRN (11:36)
--- NOTE | 2018-01-08 12:14 | P.HPIM ---
History of Present Illness H&P Date: 01/08/18 Chief Complaint: AML, 7+3 induction chemo Mrs. Garay is a very pleasant 47-year-old female who was seen on consult 12/31/2017 for pancytopenia, only presenting symptoms were swelling in the bilateral lower extremities, right greater than left (patient had sustained a spider bite on the right knee the week before) and mild petechiae on the lower extremities. Primary care physician Dr. Tejada checked her lab work, severe pancytopenia was noted and he sent her immediately to the hospital for evaluation. Patient had bone marrow biopsy and aspirate same day with Dr. Lyle, patient required platelet transfusion, she had PIC line placed and was awaiting bone marrow results so, she was sent home with strict instructions, antibiotics, antifungals and orders for lab draws. Patient was seen in the office on 01/03 and did not need transfusion, she was seen on 01/06 and received platelet transfusion, 01/[address] Lyle in office for diagnosis. Preliminary bone marrow had mixed results, favoring AML, cytogenetics partially report were favorable. Patient is being admitted today for treatment of the same. On admission patient denies fevers, chills, headache, oral irritation, nausea, shortness of breath, palpitations, abdominal discomfort, dysuria, diarrhea, constipation, lower extremity swelling is minimal, no current petechiae on the legs, no bleeding, she is independently ambulatory, appetite is fair, energy levels fair, mild anxiety, no pain. Review of Systems 14 point ROS as stated in HPI Past Medical History Past Medical History: No Reported History, Cancer Additional Past Medical History / Comment(s): ALLERGIC rhinitis, AML History of Any Multi-Drug Resistant Organisms: None Reported Past Surgical History: No Surgical Hx Reported Past Anesthesia/Blood Transfusion Reactions: No Reported Reaction Past Psychological History: No Psychological Hx Reported Smoking Status: Never smoker Past Alcohol Use History: None Reported Past Drug Use History: None Reported - Past Family History Mother Family Medical History: No Reported History Father Family Medical History: No Reported History Additional Family Medical History / Comment(s): maternal grandmother pancreatic cancer, paternal grandmother leukemia Medications and Allergies Home Medications Medication Instructions Recorded Confirmed Type Cyclafem 1 tab PO DAILY 12/30/17 01/08/18 History Fluconazole [Diflucan] 100 mg PO DAILY #30 tab 01/02/18 01/08/18 Rx Levofloxacin [Levaquin] 500 mg PO Q24H #30 tab 01/02/18 01/08/18 Rx Allergies Allergy/AdvReac Type Severity Reaction Status Date / Time No Known Allergies Allergy Verified 01/07/18 12:24 Physical Exam Vitals: Intake and Output 01/07/18 01/08/18 01/08/18 22:59 06:59 14:59 Other: Weight 58.967 kg - Constitutional General appearance: average body habitus, cooperative, no acute distress - EENT Eyes: anicteric sclerae, EOMI, PERRLA, normal appearance ENT: hearing grossly normal, normal oropharynx - Neck Neck: no lymphadenopathy - Respiratory Respiratory: bilateral: CTA - Cardiovascular Rhythm: regular Heart sounds: normal: S1, S2 Abnormal Heart Sounds: no systolic murmur, no diastolic murmur, no rub, no S3 Gallop, no S4 Gallop, no click, no other leg Peripheral Edema: bilateral: None - Gastrointestinal General gastrointestinal: no absent bowel sounds, no decreased bowel sounds, no distended, no hepatomegaly, no hyperactive bowel sounds, normal bowel sounds, no organomegaly, no rigid, no scaphoid, soft, no splenomegaly, no tenderness, no umbilical hernia, no ventral hernia - Integumentary LUE PICC line, no redness, warmth, s/s infection Integumentary: normal turgor, pale - Neurologic Neurologic: CNII-XII intact - Musculoskeletal Musculoskeletal: gait normal, strength equal bilaterally - Psychiatric Psychiatric: A&O x's 3, appropriate affect, intact judgment & insight Thrombosis Risk Factor Assmnt - DVT/VTE Prophylaxis DVT/VTE Prophylaxis: Contraindicated - See note (platelets <50,000) Assessment and Plan (1) Acute myeloblastic leukemia Narrative/Plan: Admit for 7+3 chemo induction. Chemo orders reviewed. Supportive medications ordered. discussed with patient and that thus far favorable cytogenetic profile has been reported. Treatment plan currently is to have induction and 3 consolidation chemotherapies, no BM transplant at this time. Plan is subject to change as there are still cytogenetics pending and based on response to induction. Patient and verbalized understanding. Dr. Tejada consulted for medical management Labs daily Daily follow-up Current Visit: Yes Status: Acute Priority: High Code(s): C92.00 - ACUTE MYELOBLASTIC LEUKEMIA, NOT HAVING ACHIEVED REMISSION SNOMED Code(s): 24798159
[2018-01-08 13:04] LABS: Anisocytosis Slight; HCT 24.5 % (34.0-46.0); HGB 8.2 gm/dL (11.4-16.0); MCH 32.8 pg (25.0-35.0); MCHC 33.5 g/dL (31.0-37.0); MCV 97.9 fL (80.0-100.0); Macrocytosis Slight; Mean Platelet Volume 6.8; RDW 17.7 % (11.5-15.5); WBC 17.2 k/uL (3.8-10.6)
[2018-01-08 13:16] LABS: Platelet Count 43 k/uL (150-450)
[2018-01-08 13:18] LABS: Blast Cells # (M) 16.86 k/uL (0); Lymphocytes # (M) 0.17 k/uL (1.0-4.8); Monocytes # (M) 0.17 k/uL (0-1.0); Nucleated Red Blood Cells 0 /100 WBC (0-0); Total Cells Counted 100
[2018-01-08 13:19] LABS: Poikilocytosis (M) Present
[2018-01-08] MEDS: ALLOPURINOL 300 MG TAB PO SCH (13:19)
[2018-01-08 14:43] LABS: ALT 23 U/L (9-52); AST 16 U/L (14-36); Albumin 4.1 g/dL (3.5-5.0); Alkaline Phosphatase 57 U/L (38-126); Anion Gap 15 mmol/L; Blood Urea Nitrogen 16 mg/dL (7-17); Calcium 9.4 mg/dL (8.4-10.2); Carbon Dioxide 22 mmol/L (22-30); Chloride 103 mmol/L (98-107); Glucose 100 mg/dL (74-99); Phosphorus 4.4 mg/dL (2.5-4.5); Potassium 4.3 mmol/L (3.5-5.1); Sodium 140 mmol/L (137-145); Total Bilirubin 0.3 mg/dL (0.2-1.3); Total Protein 7.6 g/dL (6.3-8.2); Uric Acid 7.5 mg/dL (3.7-7.4)
[2018-01-08] MEDS: ETHINYL ESTRADIOL PO SCH (19:43)
[2018-01-08] MEDS: NORETHINDRONE PO SCH (19:43)
[2018-01-08] MEDS: [UNRECOGNIZED DRUG - OTHER] PO SCH (19:43)
[2018-01-08] MEDS ORDERED: CYTARABINE IV SCH (21:00)
[2018-01-08] MEDS ORDERED: ONDANSETRON 16 MG in SODIUM CHLORIDE 0.9% 50 ML IVPB SCH (21:00)
[2018-01-08] MEDS ORDERED: DEXAMETHASONE SOD PHOSPHATE 10 MG/ML 1 ML VIAL IV SCH (21:00)
[2018-01-08] MEDS ORDERED: IDARUBICIN HCL IV SCH (21:00)
[2018-01-08] MEDS ORDERED: SODIUM CHLORIDE 0.9% IV SCH (21:00)
[2018-01-08] MEDS: LORazepam 0.5 MG TAB PO PRN (22:53)
[2018-01-09] MEDS: SODIUM CHLORIDE 0.9% 1,000 ML IV SCH ×3 (02:45→17:26)
[2018-01-09 07:57] LABS: Anisocytosis Slight; HCT 23.2 % (34.0-46.0); HGB 7.8 gm/dL (11.4-16.0); MCHC 33.6 g/dL (31.0-37.0); MCV 98.2 fL (80.0-100.0); Macrocytosis Slight; Mean Platelet Volume 7.6; RBC 2.36 m/uL (3.80-5.40); RDW 17.1 % (11.5-15.5)
[2018-01-09 07:58] LABS: Platelet Count 34 k/uL (150-450)
[2018-01-09 08:00] LABS: WBC 1.9 k/uL (3.8-10.6)
[2018-01-09 08:15] LABS: ALT 16 U/L (9-52); AST 14 U/L (14-36); Albumin 3.6 g/dL (3.5-5.0); Alkaline Phosphatase 54 U/L (38-126); Anion Gap 14 mmol/L; Blood Urea Nitrogen 11 mg/dL (7-17); Calcium 8.6 mg/dL (8.4-10.2); Carbon Dioxide 20 mmol/L (22-30); Chloride 107 mmol/L (98-107); Glucose 124 mg/dL (74-99); Potassium 4.3 mmol/L (3.5-5.1); Sodium 141 mmol/L (137-145); Total Bilirubin 0.3 mg/dL (0.2-1.3); Uric Acid 4.7 mg/dL (3.7-7.4)
[2018-01-09 08:25] LABS: Blast Cells # (M) 1.08 k/uL (0); Lymphocytes # (M) 0.48 k/uL (1.0-4.8); Monocytes # (M) 0.25 k/uL (0-1.0); Neutrophils % (M) 5 %; Nucleated Red Blood Cells 0 /100 WBC (0-0); Total Cells Counted 100
[2018-01-09] MEDS: ALLOPURINOL 300 MG TAB PO SCH (10:22)
--- NOTE | 2018-01-09 13:22 | P.PN ---
Subjective Progress Note Date: 01/09/18 Principal diagnosis: Induction chemo for AML, 7+3 Pt seen today in f/u, she denies fever, oral irritation, she has decent appetite , drinking lots of fluids, no cough, SOB, palpitations, indigestion, nausea, dysuria, hematuria, diarrhea, constipation, black or bloody stool, swelling, rashes or pain ,she is fully ambulatory. Objective - Vital Signs Vital signs: Vital Signs Temp 98.1 F 01/09/18 12:30 Pulse 86 01/09/18 12:30 Resp 18 01/09/18 12:30 BP 130/84 01/09/18 12:30 Pulse Ox 98 01/09/18 12:30 Intake & Output 01/08/18 01/09/18 01/09/18 18:59 06:59 18:59 Intake Total 1000 2003 Balance 1000 2003 Weight 58.967 kg Intake: IV 2004 Cytarabine/Pf 160 mg In 504 Sodium Chloride 0.9% 1, 000 ml @ 42 mls/hr IV Q24H NATHANAEL Rx#:[id number] Sodium Chloride 0.9% 1, 1500 000 ml @ 125 mls/hr IV . Q8H NATHANAEL Rx#:[id number] Intake, IV Titration 1000 Amount Sodium Chloride 0.9% 1, 1000 000 ml @ 125 mls/hr IV . Q8H NATHANAEL Rx#:[id number] Other: Voiding Method Toilet Toilet - Constitutional General appearance: Present: average body habitus, cooperative, no acute distress - EENT Eyes: Present: anicteric sclerae, EOMI, normal appearance ENT: Present: hearing grossly normal, normal oropharynx - Respiratory Respiratory: bilateral: CTA - Cardiovascular Rhythm: regular Heart sounds: normal: S1, S2 Abnormal Heart Sounds: Absent: systolic murmur, diastolic murmur, rub, S3 Gallop , S4 Gallop, click, other - Peripheral edema leg Peripheral Edema: bilateral: None - Gastrointestinal General gastrointestinal: Present: normal bowel sounds, soft. Absent: absent bowel sounds, decreased bowel sounds, distended, hepatomegaly, hyperactive bowel sounds, organomegaly, rigid, scaphoid, splenomegaly, tenderness, umbilical hernia, ventral hernia - Integumentary Integumentary Comment(s): no petechiae, few scatter bruises on extremities, one near PICC line, no hematoma Integumentary: Present: pale - Neurologic Neurologic: Present: CNII-XII intact - Musculoskeletal Musculoskeletal: Present: strength equal bilaterally - Psychiatric Psychiatric: Present: A&O x's 3, appropriate affect, intact judgment & insight - Labs CBC & Chem 7: 01/09/18 07:13 01/09/18 07:13 Labs: Abnormal Lab Results - Last 24 Hours (Table) 01/08/18 01/08/18 01/09/18 Range/Units 06:55 06:55 07:13 WBC 1.9 L* (3.8-10.6) k/uL RBC 2.36 L (3.80-5.40) m/uL Hgb 7.8 L (11.4-16.0) gm/dL Hct 23.2 L (34.0-46.0) % RDW 17.1 H (11.5-15.5) % Plt Count 34 L* (150-450) k/uL Neutrophils # (Manual) 0.10 L (1.3-7.7) k/uL Lymphocytes # (Manual) 0.17 L 0.48 L (1.0-4.8) k/uL Blast Cells # (Man) 16.86 H 1.08 H (0) k/uL Carbon Dioxide (22-30) mmol/L Glucose 100 H (74-99) mg/dL Uric Acid 7.5 H (3.7-7.4) mg/dL 01/09/18 Range/Units 07:13 WBC (3.8-10.6) k/uL RBC (3.80-5.40) m/uL Hgb (11.4-16.0) gm/dL Hct (34.0-46.0) % RDW (11.5-15.5) % Plt Count (150-450) k/uL Neutrophils # (Manual) (1.3-7.7) k/uL Lymphocytes # (Manual) (1.0-4.8) k/uL Blast Cells # (Man) (0) k/uL Carbon Dioxide 20 L (22-30) mmol/L Glucose 124 H (74-99) mg/dL Uric Acid (3.7-7.4) mg/dL Assessment and Plan (1) Acute myeloblastic leukemia Current Visit: Yes Status: Acute Priority: High Code(s): C92.00 - ACUTE MYELOBLASTIC LEUKEMIA, NOT HAVING ACHIEVED REMISSION SNOMED Code(s): 42836489 Plan: Meds, labs reviewed, cont current plan of care, no adjustments to meds, no new medications. Daily labs and f/u. Doctor attests: I performed a history and physical examination of this patient, discussed with dictator. I agree with dictators note, documented as a scribe.
[2018-01-09] MEDS: DEXAMETHASONE SOD PHOSPHATE 10 MG/ML 1 ML VIAL IV SCH (16:13)
[2018-01-09] MEDS: ONDANSETRON 16 MG in SODIUM CHLORIDE 0.9% 50 ML IVPB SCH (16:13)
[2018-01-09] MEDS: CYTARABINE IV SCH (17:25)
[2018-01-09] MEDS: SODIUM CHLORIDE 0.9% IV SCH (17:25)
[2018-01-09] MEDS: IDARUBICIN HCL IV SCH (17:26)
[2018-01-09] MEDS: LORazepam 0.5 MG TAB PO PRN (22:27)
[2018-01-09] MEDS: [UNRECOGNIZED DRUG - OTHER] PO SCH (22:28)
[2018-01-09] MEDS: NORETHINDRONE PO SCH (22:28)
[2018-01-09] MEDS: ETHINYL ESTRADIOL PO SCH (22:28)
[2018-01-10] MEDS: SODIUM CHLORIDE 0.9% 1,000 ML IV SCH ×3 (01:04→17:07)
[2018-01-10 06:53] LABS: Anisocytosis Slight; HCT 21.5 % (34.0-46.0); HGB 7.3 gm/dL (11.4-16.0); MCH 33.5 pg (25.0-35.0); MCHC 34.1 g/dL (31.0-37.0); MCV 98.1 fL (80.0-100.0); Macrocytosis Slight; RBC 2.19 m/uL (3.80-5.40); RDW 17.4 % (11.5-15.5)
[2018-01-10 07:05] LABS: Platelet Count 18 k/uL (150-450); WBC 0.5 k/uL (3.8-10.6)
[2018-01-10 07:14] LABS: ALT 15 U/L (9-52); AST 14 U/L (14-36); Albumin 3.4 g/dL (3.5-5.0); Alkaline Phosphatase 44 U/L (38-126); Anion Gap 11 mmol/L; Blood Urea Nitrogen 16 mg/dL (7-17); Calcium 8.2 mg/dL (8.4-10.2); Carbon Dioxide 20 mmol/L (22-30); Chloride 106 mmol/L (98-107); Glucose 119 mg/dL (74-99); Phosphorus 4.8 mg/dL (2.5-4.5); Potassium 4.2 mmol/L (3.5-5.1); Sodium 137 mmol/L (137-145); Total Bilirubin 0.3 mg/dL (0.2-1.3); Total Protein 6.6 g/dL (6.3-8.2); Uric Acid 4.6 mg/dL (3.7-7.4)
[2018-01-10 08:47] LABS: Poikilocytosis (M) Present
[2018-01-10] MEDS ORDERED: CYCLAFEM PO SCH (09:00)
[2018-01-10] MEDS: ALLOPURINOL 300 MG TAB PO SCH (09:13)
--- NOTE | 2018-01-10 15:47 | P.PN ---
Subjective Progress Note Date: 01/10/18 The patient is tolerating her treatment well. Other than fatigue, she reports no significant adverse events Objective - Vital Signs Vital signs: Vital Signs Temp 98.3 F 01/10/18 09:56 Pulse 96 01/10/18 09:56 Resp 16 01/10/18 09:56 BP 137/78 01/10/18 09:56 Pulse Ox 98 01/10/18 09:56 Intake & Output 01/09/18 01/10/18 01/10/18 18:59 06:59 18:59 Intake Total 1336 2041 1000 Balance 1336 2041 1000 Intake: IV 1336 2041 1000 Cytarabine/Pf 160 mg In 336 Sodium Chloride 0.9% 1, 000 ml @ 42 mls/hr IV Q24H [facility] Rx#:[id number] Cytarabine/Pf 160 mg In 541 Sodium Chloride 0.9% 1, 000 ml @ 42 mls/hr IV Q24H [facility] Rx#:[id number] Sodium Chloride 0.9% 1, 1000 1500 1000 000 ml @ 125 mls/hr IV . Q8H [facility] Rx#:[id number] Other: Voiding Method Toilet Toilet Toilet - Constitutional General appearance: Present: no acute distress - EENT Eyes: Present: EOMI ENT: Present: hearing grossly normal, normal oropharynx - Respiratory Respiratory: bilateral: CTA - Cardiovascular Rhythm: regular Heart sounds: normal: S1, S2 - Gastrointestinal General gastrointestinal: Present: normal bowel sounds, soft - Integumentary Integumentary: Present: normal - Neurologic Neurologic: Present: CNII-XII intact - Musculoskeletal Musculoskeletal: Present: strength equal bilaterally - Psychiatric Psychiatric: Present: A&O x's 3, appropriate affect, intact judgment & insight - Labs CBC & Chem 7: 01/10/18 06:30 01/10/18 06:30 Labs: Abnormal Lab Results - Last 24 Hours (Table) 01/10/18 01/10/18 Range/Units 06:30 06:30 WBC 0.5 L* (3.8-10.6) k/uL RBC 2.19 L (3.80-5.40) m/uL Hgb 7.3 L (11.4-16.0) gm/dL Hct 21.5 L (34.0-46.0) % RDW 17.4 H (11.5-15.5) % Plt Count 18 L* (150-450) k/uL Carbon Dioxide 20 L (22-30) mmol/L Glucose 119 H (74-99) mg/dL Calcium 8.2 L (8.4-10.2) mg/dL Phosphorus 4.8 H (2.5-4.5) mg/dL Albumin 3.4 L (3.5-5.0) g/dL Assessment and Plan (1) Acute myeloblastic leukemia Narrative/Plan: The patient is on day #3 of induction chemotherapy with the 7+3 regimen. She is tolerating treatment well so far. She reports no major adverse events. Continue chemotherapy per protocol with close monitoring with clinical exams and labs, which have been ordered. So far labs indicate no evidence of tumor lysis. Continue IV hydration and allopurinol Current Visit: Yes Status: Acute Priority: High Code(s): C92.00 - ACUTE MYELOBLASTIC LEUKEMIA, NOT HAVING ACHIEVED REMISSION SNOMED Code(s): 91260010 (2) Pancytopenia due to antineoplastic chemotherapy Narrative/Plan: The patient is having a rapid response to chemotherapy in terms of decline of her white count. Hemoglobin and platelets of also declined but remained in a safe range. Continue to monitor and transfuse for hemoglobin less than 7, or platelets less than 10 (as long as there is no evidence of active bleeding). Only irradiated blood products to be used Current Visit: Yes Status: Acute Code(s): D61.810 - ANTINEOPLASTIC CHEMOTHERAPY INDUCED PANCYTOPENIA; T45.1X5A - ADVERSE EFFECT OF ANTINEOPLASTIC AND IMMUNOSUP DRUGS, INIT SNOMED Code(s): 229279608474735
[2018-01-10] MEDS: ONDANSETRON 16 MG in SODIUM CHLORIDE 0.9% 50 ML IVPB SCH (17:07)
[2018-01-10] MEDS: DEXAMETHASONE SOD PHOSPHATE 10 MG/ML 1 ML VIAL IV SCH (17:10)
[2018-01-10] MEDS: CYTARABINE IV SCH (17:43)
[2018-01-10] MEDS: IDARUBICIN HCL IV SCH (17:43)
[2018-01-10] MEDS: SODIUM CHLORIDE 0.9% IV SCH (17:43)
[2018-01-10] MEDS: LORazepam 0.5 MG TAB PO PRN (21:54)
[2018-01-10] MEDS: NORETHINDRONE PO SCH (21:55)
[2018-01-10] MEDS: [UNRECOGNIZED DRUG - OTHER] PO SCH (21:55)
[2018-01-10] MEDS: ETHINYL ESTRADIOL PO SCH (21:55)
[2018-01-11] MEDS: SODIUM CHLORIDE 0.9% 1,000 ML IV SCH ×3 (00:35→18:17)
[2018-01-11 07:48] LABS: ALT 17 U/L (9-52); AST 13 U/L (14-36); Albumin 3.3 g/dL (3.5-5.0); Alkaline Phosphatase 41 U/L (38-126); Anion Gap 12 mmol/L; Blood Urea Nitrogen 16 mg/dL (7-17); Calcium 8.2 mg/dL (8.4-10.2); Carbon Dioxide 20 mmol/L (22-30); Chloride 106 mmol/L (98-107); Glucose 115 mg/dL (74-99); Phosphorus 4.1 mg/dL (2.5-4.5); Potassium 4.2 mmol/L (3.5-5.1); Sodium 138 mmol/L (137-145); Total Bilirubin 0.3 mg/dL (0.2-1.3); Total Protein 6.4 g/dL (6.3-8.2); Uric Acid 4.8 mg/dL (3.7-7.4)
[2018-01-11 07:50] LABS: Anisocytosis Slight; HCT 20.6 % (34.0-46.0); MCH 32.3 pg (25.0-35.0); MCV 97.9 fL (80.0-100.0); Macrocytosis Slight; Mean Platelet Volume 7.5; RDW 16.9 % (11.5-15.5)
[2018-01-11 07:53] LABS: WBC 0.3 k/uL (3.8-10.6)
[2018-01-11 07:56] LABS: HGB 6.8 gm/dL (11.4-16.0); Platelet Count 13 k/uL (150-450)
[2018-01-11] MEDS: ALLOPURINOL 300 MG TAB PO SCH (08:14)
[2018-01-11 08:42] LABS: Poikilocytosis (M) Present
[2018-01-11] MEDS: SALT AND SODA MOUTHWASH 1,000 ML PO SCH ×4 (10:34→21:27)
--- NOTE | 2018-01-11 17:14 | P.PN ---
Subjective Progress Note Date: 01/11/18 Principal diagnosis: AML Mrs. Garay is a very pleasant 47-year-old female who was seen on consult 12/31/2017 for pancytopenia, only presenting symptoms were swelling in the bilateral lower extremities, right greater than left (patient had sustained a spider bite on the right knee the week before) and mild petechiae on the lower extremities. Primary care physician Dr. Tejada checked her lab work, severe pancytopenia was noted and he sent her immediately to the hospital for evaluation. Patient had bone marrow biopsy and aspirate same day with Dr. Lyle, patient required platelet transfusion, she had PIC line placed and was awaiting bone marrow results so, she was sent home with strict instructions, antibiotics, antifungals and orders for lab draws. Patient was seen in the office on 01/03 and did not need transfusion, she was seen on 01/06 and received platelet transfusion, 01/[address] Lyle in office for diagnosis. Preliminary bone marrow had mixed results, favoring AML, cytogenetics partially report were favorable. 01/11/18 - patient seen and Evaluated today in follow-up. She is doing well, day 4 of treatment. No Nausea, Vomiting, Diarrhea. Tolerating diet well. No sore throat, no fevers or subjective signs of fevers. Objective - Vital Signs Vital signs: Vital Signs Temp 98.4 F 01/11/18 11:33 Pulse 81 01/11/18 11:33 Resp 20 01/11/18 11:33 BP 128/68 01/11/18 11:33 Pulse Ox 98 01/11/18 11:33 Intake & Output 01/10/18 01/11/18 01/11/18 18:59 06:59 18:59 Intake Total 1000 1926 0 Balance 1000 1926 0 Intake: IV 1000 1336 Cytarabine/Pf 160 mg In 336 Sodium Chloride 0.9% 1, 000 ml @ 42 mls/hr IV Q24H [facility] Rx#:[id number] Sodium Chloride 0.9% 1, 1000 1000 000 ml @ 125 mls/hr IV . Q8H [facility] Rx#:[id number] Oral 590 Blood Product 0 Rc Irr As3 Unit 0 [id number] Other: Voiding Method Toilet Toilet # Voids 2 - Constitutional General appearance: Present: cooperative, no acute distress - EENT Eyes: Present: EOMI, PERRLA, dentition normal ENT: Present: NA/AT, normal oropharynx - Neck Details: supple, trachea midline Neck: Present: normal ROM - Respiratory Respiratory: bilateral: CTA (No increased effort) - Cardiovascular Rhythm: regular Heart sounds: normal: S1, S2 - Gastrointestinal General gastrointestinal: Present: normal bowel sounds, soft - Integumentary Integumentary: Present: pale - Neurologic Neurologic Comment(s): No focal Defects Neurologic: Present: CNII-XII intact - Musculoskeletal Musculoskeletal: Present: gait normal, strength equal bilaterally - Psychiatric Psychiatric: Present: A&O x's 3, appropriate affect, intact judgment & insight - Labs CBC & Chem 7: 01/11/18 06:35 01/11/18 06:35 Labs: Abnormal Lab Results - Last 24 Hours (Table) 01/11/18 01/11/1818 Range/Units 06:35 06:35 09:10 WBC 0.3 L* (3.8-10.6) k/uL RBC 2.10 L (3.80-5.40) m/uL Hgb 6.8 L* (11.4-16.0) gm/dL Hct 20.6 L (34.0-46.0) % RDW 16.9 H (11.5-15.5) % Plt Count 13 L* (150-450) k/uL Carbon Dioxide 20 L (22-30) mmol/L Glucose 115 H (74-99) mg/dL Calcium 8.2 L (8.4-10.2) mg/dL AST 13 L (14-36) U/L Albumin 3.3 L (3.5-5.0) g/dL Crossmatch See Detail Assessment and Plan Plan: Assessment and Plan (1) Acute myeloblastic leukemia Narrative/Plan: - The patient is on day #4 of induction chemotherapy with the 7+3 regimen. She is tolerating treatment well so far. She reports no major adverse events. Continue chemotherapy per protocol with close monitoring with clinical exams and labs, which have been ordered. So far labs indicate no evidence of tumor lysis. - Continue IV hydration and allopurinol Current Visit: Yes Status: Acute Priority: High Code(s): C92.00 - ACUTE MYELOBLASTIC LEUKEMIA, NOT HAVING ACHIEVED REMISSION SNOMED Code(s): 08769415 (2) Pancytopenia due to antineoplastic chemotherapy Narrative/Plan: - The patient is having a rapid response to chemotherapy in terms of decline of her white count. Hemoglobin and platelets of also declined but remained in a safe range. Continue to monitor and transfuse for hemoglobin less than 7, or platelets less than 10 (as long as there is no evidence of active bleeding). Only irradiated blood products to be used - Hemoglobin 6.8 today - transfuse one unit of PRBC Current Visit: Yes Status: Acute Code(s): D61.810 - ANTINEOPLASTIC CHEMOTHERAPY INDUCED PANCYTOPENIA; T45.1X5A - ADVERSE EFFECT OF ANTINEOPLASTIC AND IMMUNOSUP DRUGS, INIT SNOMED Code(s): 284537483443946
[2018-01-11] MEDS: ONDANSETRON 16 MG in SODIUM CHLORIDE 0.9% 50 ML IVPB SCH (18:08)
[2018-01-11] MEDS: DEXAMETHASONE SOD PHOSPHATE 10 MG/ML 1 ML VIAL IV SCH (18:09)
[2018-01-11] MEDS: SODIUM CHLORIDE 0.9% IV SCH (18:45)
[2018-01-11] MEDS: CYTARABINE IV SCH (18:45)
[2018-01-11] MEDS: ETHINYL ESTRADIOL PO SCH (21:27)
[2018-01-11] MEDS: LORazepam 0.5 MG TAB PO PRN (21:27)
[2018-01-11] MEDS: NORETHINDRONE PO SCH (21:27)
[2018-01-11] MEDS: [UNRECOGNIZED DRUG - OTHER] PO SCH (21:27)
[2018-01-12] MEDS: SODIUM CHLORIDE 0.9% 1,000 ML IV SCH ×4 (04:25→23:59)
[2018-01-12 08:00] LABS: Anisocytosis Slight; HCT 26.1 % (34.0-46.0); MCH 32.1 pg (25.0-35.0); MCHC 35.3 g/dL (31.0-37.0); MCV 90.7 fL (80.0-100.0); Mean Platelet Volume 6.8; RBC 2.88 m/uL (3.80-5.40); RDW 17.2 % (11.5-15.5)
[2018-01-12 08:06] LABS: WBC 0.2 k/uL (3.8-10.6)
[2018-01-12 08:07] LABS: Platelet Count 9 k/uL (150-450)
[2018-01-12 08:09] LABS: HGB 9.2 gm/dL (11.4-16.0)
[2018-01-12] MEDS: ALLOPURINOL 300 MG TAB PO SCH (08:13)
[2018-01-12] MEDS: SALT AND SODA MOUTHWASH 1,000 ML PO SCH ×4 (08:13→21:44)
[2018-01-12 08:14] LABS: ALT 20 U/L (9-52); AST 13 U/L (14-36); Albumin 3.3 g/dL (3.5-5.0); Alkaline Phosphatase 39 U/L (38-126); Anion Gap 13 mmol/L; Blood Urea Nitrogen 16 mg/dL (7-17); Calcium 7.9 mg/dL (8.4-10.2); Carbon Dioxide 20 mmol/L (22-30); Chloride 105 mmol/L (98-107); Glucose 102 mg/dL (74-99); Phosphorus 4.4 mg/dL (2.5-4.5); Potassium 4.2 mmol/L (3.5-5.1); Sodium 138 mmol/L (137-145); Total Bilirubin 0.7 mg/dL (0.2-1.3); Total Protein 6.4 g/dL (6.3-8.2); Uric Acid 4.2 mg/dL (3.7-7.4)
--- NOTE | 2018-01-12 15:50 | P.PN ---
Subjective Progress Note Date: 01/12/18 Principal diagnosis: AML Mrs. Garay is a very pleasant 47-year-old female who was seen on consult 12/31/2017 for pancytopenia, only presenting symptoms were swelling in the bilateral lower extremities, right greater than left (patient had sustained a spider bite on the right knee the week before) and mild petechiae on the lower extremities. Primary care physician Dr. Tejada checked her lab work, severe pancytopenia was noted and he sent her immediately to the hospital for evaluation. Patient had bone marrow biopsy and aspirate same day with Dr. Lyle, patient required platelet transfusion, she had PIC line placed and was awaiting bone marrow results so, she was sent home with strict instructions, antibiotics, antifungals and orders for lab draws. Patient was seen in the office on 01/03 and did not need transfusion, she was seen on 01/06 and received platelet transfusion, 01/[address] Lyle in office for diagnosis. Preliminary bone marrow had mixed results, favoring AML, cytogenetics partially report were favorable. 01/11/18 - patient seen and Evaluated today in follow-up. She is doing well, day 4 of treatment. No Nausea, Vomiting, Diarrhea. Tolerating diet well. No sore throat, no fevers or subjective signs of fevers. 01/12/18 - She is doing well, tolerating chemo well. No acute complaints with the exception of some acid reflux. Objective - Vital Signs Vital signs: Vital Signs Temp 98.1 F 01/12/18 11:59 Pulse 64 01/12/18 11:59 Resp 16 01/12/18 11:59 BP 136/94 01/12/18 11:59 Pulse Ox 99 01/12/18 11:59 Intake & Output 01/11/18 01/12/18 01/12/18 18:59 06:59 18:59 Intake Total 1805 1837 Balance 1805 1837 Intake: IV 1185 1837 Cytarabine/Pf 160 mg In 360 462 Sodium Chloride 0.9% 1, 000 ml @ 42 mls/hr IV Q24H [facility] Rx#:[id number] Sodium Chloride 0.9% 1, 825 1375 000 ml @ 125 mls/hr IV . Q8H [facility] Rx#:[id number] Blood Product 620 Rc Irr As1 Unit 310 [id number] Rc Irr As3 Unit 310 [id number] Other: Voiding Method Toilet Toilet # Voids 2 - Constitutional General appearance: Present: cooperative, no acute distress - EENT Eyes: Present: EOMI, PERRLA, dentition normal ENT: Present: NA/AT, normal oropharynx - Neck Details: Supple, Trachea Midline Neck: Present: normal ROM - Respiratory Respiratory: bilateral: CTA (No increased effort) - Cardiovascular Rhythm: regular Heart sounds: normal: S1, S2 - Gastrointestinal General gastrointestinal: Present: normal bowel sounds, soft - Integumentary Integumentary: Present: pale - Neurologic Neurologic Comment(s): No focal Defects Neurologic: Present: CNII-XII intact - Musculoskeletal Musculoskeletal: Present: generalized weakness, strength equal bilaterally - Psychiatric Psychiatric: Present: A&O x's 3, appropriate affect, intact judgment & insight - Labs CBC & Chem 7: 01/12/18 07:30 01/12/18 07:30 Labs: Abnormal Lab Results - Last 24 Hours (Table) 01/11/18 01/12/18 01/12/18 Range/Units 09:10 07:30 07:30 WBC 0.2 L* (3.8-10.6) k/uL RBC 2.88 L (3.80-5.40) m/uL Hgb 9.2 L D (11.4-16.0) gm/dL Hct 26.1 L (34.0-46.0) % RDW 17.2 H (11.5-15.5) % Plt Count 9 L* (150-450) k/uL Carbon Dioxide 20 L (22-30) mmol/L Glucose 102 H (74-99) mg/dL Calcium 7.9 L (8.4-10.2) mg/dL AST 13 L (14-36) U/L Albumin 3.3 L (3.5-5.0) g/dL Crossmatch See Detail Assessment and Plan Plan: Assessment and Plan (1) Acute myeloblastic leukemia Narrative/Plan: - The patient is on day #5 of induction chemotherapy with the 7+3 regimen. She is tolerating treatment well so far. She reports no major adverse events. Continue chemotherapy per protocol with close monitoring with clinical exams and labs, which have been ordered. So far labs indicate no evidence of tumor lysis. - Continue IV hydration and allopurinol Current Visit: Yes Status: Acute Priority: High Code(s): C92.00 - ACUTE MYELOBLASTIC LEUKEMIA, NOT HAVING ACHIEVED REMISSION SNOMED Code(s): 68153127 (2) Pancytopenia due to antineoplastic chemotherapy Narrative/Plan: - The patient is having a rapid response to chemotherapy in terms of decline of her white count. Hemoglobin and platelets of also declined but remained in a safe range. Continue to monitor and transfuse for hemoglobin less than 7, or platelets less than 10 (as long as there is no evidence of active bleeding). Only irradiated blood products to be used - Status Post Transfusion PRBC on 01/11 - Platelets 9 today, Will Transfuse Current Visit: Yes Status: Acute Code(s): D61.810 - ANTINEOPLASTIC CHEMOTHERAPY INDUCED PANCYTOPENIA; T45.1X5A - ADVERSE EFFECT OF ANTINEOPLASTIC AND IMMUNOSUP DRUGS, INIT SNOMED Code(s): 290891214906295 (3) Discomfort when Swallowing, Likely GERD from Steroids - Will Add PPI Physician Attestation: I have Completed the full History and physical of this patient and agree with above dictation by Carolin Veras NP. Dictated as a scribe.
[2018-01-12] MEDS: DEXAMETHASONE SOD PHOSPHATE 10 MG/ML 1 ML VIAL IV SCH (17:33)
[2018-01-12] MEDS: ONDANSETRON 16 MG in SODIUM CHLORIDE 0.9% 50 ML IVPB SCH (17:39)
[2018-01-12] MEDS: PANTOPRAZOLE 40 MG TABLET PO SCH (17:42)
[2018-01-12] MEDS: CYTARABINE IV SCH (18:37)
[2018-01-12] MEDS: SODIUM CHLORIDE 0.9% IV SCH (18:37)
[2018-01-12] MEDS: LORazepam 0.5 MG TAB PO PRN (21:43)
[2018-01-12] MEDS: ACYCLOVIR 200 MG CAP PO SCH (21:43)
[2018-01-12] MEDS: [UNRECOGNIZED DRUG - OTHER] PO SCH (21:44)
[2018-01-12] MEDS: ETHINYL ESTRADIOL PO SCH (21:44)
[2018-01-12] MEDS: NORETHINDRONE PO SCH (21:44)
[2018-01-13 06:41] LABS: Anisocytosis Slight; HCT 25.7 % (34.0-46.0); MCH 32.6 pg (25.0-35.0); MCHC 35.1 g/dL (31.0-37.0); MCV 92.9 fL (80.0-100.0); Mean Platelet Volume 7.5; RBC 2.76 m/uL (3.80-5.40); RDW 17.4 % (11.5-15.5)
[2018-01-13 06:51] LABS: WBC 0.5 k/uL (3.8-10.6)
[2018-01-13 06:52] LABS: Platelet Count 48 k/uL (150-450)
[2018-01-13 06:57] LABS: Albumin 3.4 g/dL (3.5-5.0); Anion Gap 13 mmol/L; Calcium 8.1 mg/dL (8.4-10.2); Carbon Dioxide 20 mmol/L (22-30); Chloride 104 mmol/L (98-107); Glucose 111 mg/dL (74-99); Sodium 137 mmol/L (137-145); Total Bilirubin 0.8 mg/dL (0.2-1.3); Total Protein 6.5 g/dL (6.3-8.2); Uric Acid 3.8 mg/dL (3.7-7.4)
[2018-01-13 07:04] LABS: ALT 16 U/L (9-52); AST 20 U/L (14-36); Alkaline Phosphatase 33 U/L (38-126); Blood Urea Nitrogen 16 mg/dL (7-17); Potassium 4.4 mmol/L (3.5-5.1)
[2018-01-13 07:31] LABS: Poikilocytosis (M) Present
[2018-01-13] MEDS: SODIUM CHLORIDE 0.9% 1,000 ML IV SCH ×2 (07:37→15:13)
[2018-01-13] MEDS: ALLOPURINOL 300 MG TAB PO SCH (07:38)
[2018-01-13] MEDS: ACYCLOVIR 200 MG CAP PO SCH ×2 (07:38→20:35)
[2018-01-13] MEDS: SALT AND SODA MOUTHWASH 1,000 ML PO SCH ×4 (07:38→22:02)
[2018-01-13] MEDS: PANTOPRAZOLE 40 MG TABLET PO SCH ×2 (09:12→18:04)
[2018-01-13] MEDS: ONDANSETRON 16 MG in SODIUM CHLORIDE 0.9% 50 ML IVPB SCH (17:15)
[2018-01-13] MEDS: DEXAMETHASONE SOD PHOSPHATE 10 MG/ML 1 ML VIAL IV SCH (17:16)
[2018-01-13] MEDS: CYTARABINE IV SCH (17:40)
[2018-01-13] MEDS: SODIUM CHLORIDE 0.9% IV SCH (17:40)
--- NOTE | 2018-01-13 19:34 | P.PN ---
Subjective Progress Note Date: 01/13/18 The patient continues on chemotherapy per protocol. She denies any fevers/ chills/nausea/vomiting. No significant mouth sores or obvious bleeding. Stools have been mildly loose. She does feel somewhat fatigued. Appetite is maintained Objective - Vital Signs Vital signs: Vital Signs Temp 98.1 F 01/13/18 16:00 Pulse 77 01/13/18 16:00 Resp 17 01/13/18 16:00 BP 132/87 01/13/18 16:00 Pulse Ox 98 01/13/18 16:00 Intake & Output 01/13/18 01/13/18 01/14/18 06:59 18:59 06:59 Intake Total 2051 1368 Balance 2050 1368 Intake: IV 1857 1368 Cytarabine/Pf 160 mg In 482 368 Sodium Chloride 0.9% 1, 000 ml @ 42 mls/hr IV Q24H [facility] Rx#:[id number] Sodium Chloride 0.9% 1, 1375 1000 000 ml @ 125 mls/hr IV . Q8H [facility] Rx#:[id number] Blood Product 194 Platelet Irr Pheresis 2 194 Acda Unit [id number] Other: Voiding Method Toilet # Voids 1 - Constitutional General appearance: Present: no acute distress - EENT Eyes: Present: EOMI ENT: Present: normal oropharynx - Respiratory Respiratory: bilateral: CTA - Cardiovascular Rhythm: regular Heart sounds: normal: S1, S2 - Gastrointestinal General gastrointestinal: Present: soft - Integumentary Integumentary: Present: normal - Neurologic Neurologic: Present: CNII-XII intact - Musculoskeletal Musculoskeletal: Present: strength equal bilaterally - Psychiatric Psychiatric: Present: A&O x's 3, appropriate affect - Labs CBC & Chem 7: 01/13/18 06:27 01/13/18 06:27 Labs: Abnormal Lab Results - Last 24 Hours (Table) 01/13/18 01/13/18 Range/Units 06:27 06:27 WBC 0.5 L* (3.8-10.6) k/uL RBC 2.76 L (3.80-5.40) m/uL Hgb 9.0 L (11.4-16.0) gm/dL Hct 25.7 L (34.0-46.0) % RDW 17.4 H (11.5-15.5) % Plt Count 48 L* D (150-450) k/uL Carbon Dioxide 20 L (22-30) mmol/L Creatinine 0.50 L (0.52-1.04) mg/dL Glucose 111 H (74-99) mg/dL Calcium 8.1 L (8.4-10.2) mg/dL Alkaline Phosphatase 33 L (38-126) U/L Albumin 3.4 L (3.5-5.0) g/dL Assessment and Plan (1) Acute myeloblastic leukemia Narrative/Plan: The patient is currently on day #6 of induction chemotherapy with a 7+3 regimen. She is tolerating treatment reasonably well so far. No major side effects noted. Continue treatment per protocol. Labs show no evidence of tumor lysis syndrome developing. Continue to monitor with clinical exams, and labs which have been ordered. Current Visit: Yes Status: Acute Priority: High Code(s): C92.00 - ACUTE MYELOBLASTIC LEUKEMIA, NOT HAVING ACHIEVED REMISSION SNOMED Code(s): 49526517 (2) Pancytopenia due to antineoplastic chemotherapy Narrative/Plan: Due to chemotherapy. The patient received platelets yesterday with significant improvement in her platelet count. Hemoglobin and platelets are in a safe range, with no supplementation required. The patient has had marked decrease in WBC, as expected, due to chemotherapy effect. Prophylactic antibiotics have been started Current Visit: Yes Status: Acute Code(s): D61.810 - ANTINEOPLASTIC CHEMOTHERAPY INDUCED PANCYTOPENIA; T45.1X5A - ADVERSE EFFECT OF ANTINEOPLASTIC AND IMMUNOSUP DRUGS, INIT SNOMED Code(s): 645947819850679
[2018-01-13] MEDS: NORETHINDRONE PO SCH (22:02)
[2018-01-13] MEDS: ETHINYL ESTRADIOL PO SCH (22:02)
[2018-01-13] MEDS: LORazepam 0.5 MG TAB PO PRN (22:02)
[2018-01-13] MEDS: [UNRECOGNIZED DRUG - OTHER] PO SCH (22:02)
[2018-01-14] MEDS: SODIUM CHLORIDE 0.9% 1,000 ML IV SCH ×4 (00:11→23:57)
[2018-01-14] MEDS: ALLOPURINOL 300 MG TAB PO SCH (07:56)
[2018-01-14] MEDS: SALT AND SODA MOUTHWASH 1,000 ML PO SCH ×4 (07:56→21:03)
[2018-01-14] MEDS: PANTOPRAZOLE 40 MG TABLET PO SCH ×2 (07:56→18:01)
[2018-01-14] MEDS: ACYCLOVIR 200 MG CAP PO SCH ×2 (07:56→21:03)
[2018-01-14 07:57] LABS: Anisocytosis Slight; HCT 25.1 % (34.0-46.0); HGB 8.9 gm/dL (11.4-16.0); MCH 32.4 pg (25.0-35.0); MCHC 35.4 g/dL (31.0-37.0); MCV 91.6 fL (80.0-100.0); RBC 2.74 m/uL (3.80-5.40); RDW 16.8 % (11.5-15.5)
[2018-01-14 07:58] LABS: ALT 16 U/L (9-52); AST 13 U/L (14-36); Albumin 3.3 g/dL (3.5-5.0); Alkaline Phosphatase 39 U/L (38-126); Anion Gap 12 mmol/L; Blood Urea Nitrogen 14 mg/dL (7-17); Calcium 7.9 mg/dL (8.4-10.2); Carbon Dioxide 23 mmol/L (22-30); Chloride 102 mmol/L (98-107); Glucose 90 mg/dL (74-99); Phosphorus 3.6 mg/dL (2.5-4.5); Sodium 137 mmol/L (137-145); Total Bilirubin 0.6 mg/dL (0.2-1.3); Total Protein 6.1 g/dL (6.3-8.2); Uric Acid 3.6 mg/dL (3.7-7.4)
[2018-01-14 08:09] LABS: Platelet Count 23 k/uL (150-450); WBC 0.3 k/uL (3.8-10.6)
[2018-01-14 10:20] VITALS: BMI 22.3
[2018-01-14] MEDS: ONDANSETRON 16 MG in SODIUM CHLORIDE 0.9% 50 ML IVPB SCH (18:00)
[2018-01-14] MEDS: DEXAMETHASONE SOD PHOSPHATE 10 MG/ML 1 ML VIAL IV SCH (18:00)
[2018-01-14] MEDS: CYTARABINE IV SCH (18:38)
[2018-01-14] MEDS: SODIUM CHLORIDE 0.9% IV SCH (18:38)
--- NOTE | 2018-01-14 19:01 | P.PN ---
Subjective Progress Note Date: 01/14/18 Principal diagnosis: AML Mrs. Garay is a very pleasant 47-year-old female who was seen on consult 12/31/2017 for pancytopenia, only presenting symptoms were swelling in the bilateral lower extremities, right greater than left (patient had sustained a spider bite on the right knee the week before) and mild petechiae on the lower extremities. Primary care physician Dr. Tejada checked her lab work, severe pancytopenia was noted and he sent her immediately to the hospital for evaluation. Patient had bone marrow biopsy and aspirate same day with Dr. Lyle, patient required platelet transfusion, she had PIC line placed and was awaiting bone marrow results so, she was sent home with strict instructions, antibiotics, antifungals and orders for lab draws. Patient was seen in the office on 01/03 and did not need transfusion, she was seen on 01/06 and received platelet transfusion, 01/[address] Lyle in office for diagnosis. Preliminary bone marrow had mixed results, favoring AML, cytogenetics partially report were favorable. 01/11/18 - patient seen and Evaluated today in follow-up. She is doing well, day 4 of treatment. No Nausea, Vomiting, Diarrhea. Tolerating diet well. No sore throat, no fevers or subjective signs of fevers. 01/12/18 - She is doing well, tolerating chemo well. No acute complaints with the exception of some acid reflux. 01/14/18 - Pilar is on Day 6 of Induction and doing well. She denies nausea, vomiting, diarrhea. She does have some increased adenopathy that is mildly painful, worse when she first woke up, now decreased. She remains afebrile. Objective - Vital Signs Vital signs: Vital Signs Temp 98.2 F 01/14/18 12:00 Pulse 67 01/14/18 12:00 Resp 18 01/14/18 12:00 BP 139/92 01/14/18 12:00 Pulse Ox 96 01/14/18 12:00 Intake & Output 01/13/18 01/14/18 01/14/18 18:59 06:59 18:59 Intake Total 1368 1190 Balance 1368 1190 Weight 59.03 kg 59.03 kg Intake: IV 1368 Cytarabine/Pf 160 mg In 368 Sodium Chloride 0.9% 1, 000 ml @ 42 mls/hr IV Q24H [facility] Rx#:[id number] Sodium Chloride 0.9% 1, 1000 000 ml @ 125 mls/hr IV . Q8H [facility] Rx#:[id number] Oral 1190 Other: Voiding Method Toilet # Voids 2 - Constitutional General appearance: Present: cooperative, no acute distress - EENT Eyes: Present: EOMI, PERRLA, dentition normal, normal appearance ENT: Present: NA/AT, normal oropharynx - Neck Details: supple, mild shotty cervical lymphadenopathy bilateral Neck: Present: lymphadenopathy - Respiratory Respiratory: bilateral: CTA (No increased respiratory effort. ) - Cardiovascular Rhythm: regular Heart sounds: normal: S1, S2 - Gastrointestinal General gastrointestinal: Present: normal bowel sounds, soft - Integumentary Integumentary: Present: pale - Neurologic Neurologic Comment(s): No focal Defects Neurologic: Present: CNII-XII intact - Musculoskeletal Musculoskeletal: Present: gait normal, generalized weakness, strength equal bilaterally - Psychiatric Psychiatric: Present: A&O x's 3, appropriate affect, intact judgment & insight - Labs CBC & Chem 7: 01/14/18 07:17 01/14/18 07:17 Labs: Abnormal Lab Results - Last 24 Hours (Table) 01/14/18 01/14/18 Range/Units 07:17 07:17 WBC 0.3 L* (3.8-10.6) k/uL RBC 2.74 L (3.80-5.40) m/uL Hgb 8.9 L (11.4-16.0) gm/dL Hct 25.1 L (34.0-46.0) % RDW 16.8 H (11.5-15.5) % Plt Count 23 L* D (150-450) k/uL Uric Acid 3.6 L (3.7-7.4) mg/dL Calcium 7.9 L (8.4-10.2) mg/dL AST 13 L (14-36) U/L Total Protein 6.1 L (6.3-8.2) g/dL Albumin 3.3 L (3.5-5.0) g/dL Assessment and Plan Plan: Assessment and Plan (1) Acute myeloblastic leukemia Narrative/Plan: - The patient is on day #5 of induction chemotherapy with the 7+3 regimen. She is tolerating treatment well so far. She reports no major adverse events. Continue chemotherapy per protocol with close monitoring with clinical exams and labs, which have been ordered. So far labs indicate no evidence of tumor lysis. - Continue IV hydration and allopurinol Current Visit: Yes Status: Acute Priority: High Code(s): C92.00 - ACUTE MYELOBLASTIC LEUKEMIA, NOT HAVING ACHIEVED REMISSION SNOMED Code(s): 80273354 (2) Pancytopenia due to antineoplastic chemotherapy Narrative/Plan: - The patient is having a rapid response to chemotherapy in terms of decline of her white count. Hemoglobin and platelets of also declined but remained in a safe range. Continue to monitor and transfuse for hemoglobin less than 7, or platelets less than 10 (as long as there is no evidence of active bleeding). Only irradiated blood products to be used - Platelets recovered after transfusion on 01/13/18 Current Visit: Yes Status: Acute Code(s): D61.810 - ANTINEOPLASTIC CHEMOTHERAPY INDUCED PANCYTOPENIA; T45.1X5A - ADVERSE EFFECT OF ANTINEOPLASTIC AND IMMUNOSUP DRUGS, INIT SNOMED Code(s): 097953215286189 (3) Discomfort when Swallowing, Likely GERD from Steroids - Will Add PPI Greater than 30 minutes spent with patient and today discussing ex[ ectations of treatment, side effects, prevention of infection, bleeding risks, sustaining from alcohol, and safe practices on treatment. DISPO PLAN - Likely Morning after chemotherapy as long as afebrile and symptoms are controlled. She will be discharged with prophylaxic anti-viral, anti- bacterial, and anti-fungal. Physician Attestation: I have Completed the full History and physical of this patient and agree with above dictation by Carolin Veras NP. Dictated as a scribe. Time with Patient: Greater than 30
[2018-01-14 20:17] VITALS: RESP 16
[2018-01-14] MEDS: LORazepam 0.5 MG TAB PO PRN (21:53)
[2018-01-14] MEDS: NORETHINDRONE PO SCH (21:53)
[2018-01-14] MEDS: ETHINYL ESTRADIOL PO SCH (21:53)
[2018-01-14] MEDS: [UNRECOGNIZED DRUG - OTHER] PO SCH (21:53)
[2018-01-15 07:18] LABS: Anisocytosis Slight; HCT 25.2 % (34.0-46.0); HGB 8.8 gm/dL (11.4-16.0); MCH 32.1 pg (25.0-35.0); MCHC 34.9 g/dL (31.0-37.0); Mean Platelet Volume 7.1; RBC 2.74 m/uL (3.80-5.40)
[2018-01-15 07:22] LABS: Platelet Count 20 k/uL (150-450); WBC 0.2 k/uL (3.8-10.6)
[2018-01-15 07:28] LABS: ALT 18 U/L (9-52); AST 13 U/L (14-36); Albumin 3.3 g/dL (3.5-5.0); Alkaline Phosphatase 39 U/L (38-126); Anion Gap 14 mmol/L; Blood Urea Nitrogen 13 mg/dL (7-17); Calcium 7.7 mg/dL (8.4-10.2); Carbon Dioxide 22 mmol/L (22-30); Chloride 102 mmol/L (98-107); Glucose 95 mg/dL (74-99); Phosphorus 3.7 mg/dL (2.5-4.5); Potassium 4.1 mmol/L (3.5-5.1); Sodium 138 mmol/L (137-145); Total Bilirubin 0.6 mg/dL (0.2-1.3); Total Protein 6.1 g/dL (6.3-8.2); Uric Acid 3.2 mg/dL (3.7-7.4)
[2018-01-15] MEDS: ALLOPURINOL 300 MG TAB PO SCH (07:36)
[2018-01-15] MEDS: PANTOPRAZOLE 40 MG TABLET PO SCH ×2 (07:36→17:08)
[2018-01-15] MEDS: SALT AND SODA MOUTHWASH 1,000 ML PO SCH ×4 (07:36→21:09)
[2018-01-15] MEDS: SODIUM CHLORIDE 0.9% 1,000 ML IV SCH ×2 (07:36→17:08)
[2018-01-15] MEDS: ACYCLOVIR 200 MG CAP PO SCH ×2 (07:36→21:08)
[2018-01-15 08:23] LABS: Poikilocytosis (M) Present
[2018-01-15 10:39] VITALS: TEMP 98.2
--- NOTE | 2018-01-15 12:21 | P.PN ---
Subjective Progress Note Date: 01/15/18 The patient continues on chemotherapy, with no specific new complaints. No history of fever/chills/nausea/vomiting. She had noted slight enlargement of an upper right neck node, which has since resolved. Objective - Vital Signs Vital signs: Vital Signs Temp 98.2 F 01/15/18 10:30 Pulse 70 01/15/18 10:30 Resp 16 01/15/18 10:30 BP 139/88 01/15/18 10:30 Pulse Ox 96 01/15/18 10:30 Intake & Output 01/14/18 01/15/18 01/15/18 18:59 06:59 18:59 Intake Total 2494 Balance 2494 Weight 59.03 kg 59 kg Intake: IV 1500 Sodium Chloride 0.9% 1, 1500 000 ml @ 125 mls/hr IV . Q8H [facility] Rx#:[id number] Intake, IV Titration 164 Amount Cytarabine/Pf 160 mg In 164 Sodium Chloride 0.9% 1, 000 ml @ 42 mls/hr IV Q24H [facility] Rx#:[id number] Oral 830 Other: Voiding Method Toilet # Voids 2 - Constitutional General appearance: Present: no acute distress - EENT Eyes: Present: EOMI ENT: Present: hearing grossly normal, normal oropharynx - Respiratory Respiratory: bilateral: CTA - Cardiovascular Rhythm: regular Heart sounds: normal: S1, S2 - Gastrointestinal General gastrointestinal: Present: normal bowel sounds, soft - Integumentary Integumentary: Present: normal - Neurologic Neurologic: Present: CNII-XII intact - Musculoskeletal Musculoskeletal: Present: strength equal bilaterally - Psychiatric Psychiatric: Present: A&O x's 3, appropriate affect - Labs CBC & Chem 7: 01/15/18 07:05 01/15/18 07:05 Labs: Abnormal Lab Results - Last 24 Hours (Table) 01/15/18 01/15/18 Range/Units 07:05 07:05 WBC 0.2 L* (3.8-10.6) k/uL RBC 2.74 L (3.80-5.40) m/uL Hgb 8.8 L (11.4-16.0) gm/dL Hct 25.2 L (34.0-46.0) % RDW 16.0 H (11.5-15.5) % Plt Count 20 L* (150-450) k/uL Creatinine 0.50 L (0.52-1.04) mg/dL Uric Acid 3.2 L (3.7-7.4) mg/dL Calcium 7.7 L (8.4-10.2) mg/dL AST 13 L (14-36) U/L Total Protein 6.1 L (6.3-8.2) g/dL Albumin 3.3 L (3.5-5.0) g/dL Assessment and Plan (1) Acute myeloblastic leukemia Narrative/Plan: The patient is continuing on chemotherapy. She is on day #7/7 of the 7+3 regimen for induction. She is tolerating chemotherapy reasonably well. Continue treatment per protocol. Continue to monitor with clinical exams and labs which have been ordered. There is no evidence of any tumor lysis. Assuming no new complications, the plan is for her to be discharged home tomorrow on for lactic antibiotics, and close outpatient follow-up. Current Visit: Yes Status: Acute Priority: High Code(s): C92.00 - ACUTE MYELOBLASTIC LEUKEMIA, NOT HAVING ACHIEVED REMISSION SNOMED Code(s): 84607726 (2) Pancytopenia due to antineoplastic chemotherapy Narrative/Plan: Counts are in a safe range, with hemoglobin 8+, and platelets of 20. Continue to monitor with transfusion support as needed Current Visit: Yes Status: Acute Code(s): D61.810 - ANTINEOPLASTIC CHEMOTHERAPY INDUCED PANCYTOPENIA; T45.1X5A - ADVERSE EFFECT OF ANTINEOPLASTIC AND IMMUNOSUP DRUGS, INIT SNOMED Code(s): 427258428242173
[2018-01-15] MEDS: [UNRECOGNIZED DRUG - OTHER] PO SCH (21:08)
[2018-01-15] MEDS: NORETHINDRONE PO SCH (21:08)
[2018-01-15] MEDS: ETHINYL ESTRADIOL PO SCH (21:08)
[2018-01-15] MEDS: LORazepam 0.5 MG TAB PO PRN (21:12)
[2018-01-16] MEDS: SODIUM CHLORIDE 0.9% 1,000 ML IV SCH ×2 (02:58→08:06)
[2018-01-16] MEDS: ACYCLOVIR 200 MG CAP PO SCH (07:56)
[2018-01-16] MEDS: PANTOPRAZOLE 40 MG TABLET PO SCH (07:56)
[2018-01-16] MEDS: SALT AND SODA MOUTHWASH 1,000 ML PO SCH ×2 (07:57→12:10)
[2018-01-16] MEDS: ALLOPURINOL 300 MG TAB PO SCH (07:57)
[2018-01-16 08:26] VITALS: BP 127/96; PULSE 85
[2018-01-16 10:48] LABS: ALT 19 U/L (9-52); AST 12 U/L (14-36); Albumin 3.4 g/dL (3.5-5.0); Alkaline Phosphatase 42 U/L (38-126); Anion Gap 13 mmol/L; Blood Urea Nitrogen 16 mg/dL (7-17); Calcium 7.6 mg/dL (8.4-10.2); Carbon Dioxide 22 mmol/L (22-30); Chloride 98 mmol/L (98-107); Glucose 93 mg/dL (74-99); Phosphorus 3.6 mg/dL (2.5-4.5); Potassium 3.5 mmol/L (3.5-5.1); Sodium 133 mmol/L (137-145); Total Bilirubin 0.6 mg/dL (0.2-1.3); Total Protein 6.3 g/dL (6.3-8.2); Uric Acid 2.7 mg/dL (3.7-7.4)
[2018-01-16 11:13] LABS: Anisocytosis Slight; HCT 26.3 % (34.0-46.0); HGB 8.8 gm/dL (11.4-16.0); MCH 31.1 pg (25.0-35.0); MCHC 33.5 g/dL (31.0-37.0); MCV 93.1 fL (80.0-100.0); Mean Platelet Volume 7.5; RBC 2.82 m/uL (3.80-5.40); RDW 16.6 % (11.5-15.5)
[2018-01-16 11:14] LABS: Platelet Count 12 k/uL (150-450); WBC 0.5 k/uL (3.8-10.6)
[2018-01-16 11:25] LABS: Poikilocytosis (M) Present
--- NOTE | 2018-01-16 17:52 | P.DS ---
Providers Date of admission: 01/08/18 07:00 Expected date of discharge: 01/16/18 Attending physician: Allen Lyle Primary care physician: Allen Lyle - Discharge Diagnosis(es) (1) Acute myeloblastic leukemia Status: Acute Priority: High (2) Pancytopenia due to antineoplastic chemotherapy Status: Acute Priority: High Hospital Course: the patient had recently presented, Elevated WBC with blasts on peripheral smear, as well as anemia and thrombo-cytopenia. Bone marrow aspiration biopsy revealed evidence of acute myeloid leukemia. The patient had been discharged after her previous admission, and was readmitted after the bone marrow results were obtained for induction chemotherapy for acute myeloid leukemia with the 7+ 3 regimen. The patient received treatment per protocol with good tolerance. She had no untoward side effects. She had rapid decline in her WBC, without any evidence of tumor lysis syndrome. She received allopurinol, as well as IV hydration with close monitoring for evidence of tumor lysis. There was no evidence of the same. She did require intermittent transfusion support. After completion of her chemotherapy, as the patient was stable with no evidence of fever, it was decided to discharge her home on prophylactic antibiotics and close outpatient follow-up. Pertinent Studies: none Procedures: high-dose infusional chemotherapy Blood product transfusion Patient Condition at Discharge: Fair Plan - Discharge Summary New Discharge Prescriptions: New Acyclovir [Zovirax] 400 mg PO BID #42 tab Prochlorperazine [Compazine] 10 mg PO Q6H PRN #50 tab PRN Reason: Nausea And Vomiting No Action Cyclafem 1 tab PO DAILY Fluconazole [Diflucan] 100 mg PO DAILY #30 tab Levofloxacin [Levaquin] 500 mg PO Q24H #30 tab Discharge Medication List Cyclafem 1 tab PO DAILY 12/30/17 [History] Fluconazole [Diflucan] 100 mg PO DAILY #30 tab 01/02/18 [Rx] Levofloxacin [Levaquin] 500 mg PO Q24H #30 tab 01/02/18 [Rx] Acyclovir [Zovirax] 400 mg PO BID #42 tab 01/16/18 [Rx] Prochlorperazine [Compazine] 10 mg PO Q6H PRN #50 tab 01/16/18 [Rx] Follow up Appointment(s)/Referral(s): Allen Lyle MD [Primary Care Provider] - As Needed (to come to office [facility] for blood draw. 1st visit on 01/17/18 at 1115 AM ) Patient Instructions/Handouts: Prochlorperazine (By mouth), Acyclovir (By mouth ), Cytarabine (By injection), Idarubicin (By injection), Eating During Cancer Treatment (GEN), Preventing Infections (GEN), Acute Myeloid Leukemia (DC), Leukocytosis (DC), Self Care Measures With Cancer (DC), How To Wash Your Hands ( DC), Mouth Care for the Cancer Patient (DC), Intravenous Chemotherapy (DC), Types of Chemotherapy (GEN), Pancytopenia (DC) Discharge Disposition: HOME SELF-CARE
== END 2018-01-16 13:50 | disposition home or self-care (01) | DRG 837 ==
LOC: 5ONC 07:00
PROVIDERS: ADMIT Internal Medicine Hematology & Oncology; ATTEND Internal Medicine Hematology & Oncology
PROC: 3E03305 Introduction of Other Antineoplastic into Peripheral Vein, Percutaneous Approach (ICD-10-PCS; principal; 2018-01-08)
PROC: 30233N1 Transfusion of Nonautologous Red Blood Cells into Peripheral Vein, Percutaneous Approach (ICD-10-PCS; 2018-01-11)
DX: Z51.11 Encounter for antineoplastic chemotherapy (principal); D61.810 Antineoplastic chemotherapy induced pancytopenia; C92.00 Acute myeloblastic leukemia, not having achieved remission; K21.9 Gastro-esophageal reflux disease without esophagitis; T45.1X5A Adverse effect of antineoplastic and immunosuppressive drugs, initial encounter; Z80.0 Family history of malignant neoplasm of digestive organs; Z80.6 Family history of leukemia; Z79.2 Long term (current) use of antibiotics; Z79.3 Long term (current) use of hormonal contraceptives; Z79.899 Other long term (current) drug therapy
CPT/HCPCS: 80053; 84100; 84550; 85025; 86850; 86900; 86901; 86920

== ENCOUNTER 2018-02-05 11:01 | Day surgery (SDC) | payer BC ==
[2018-02-04 10:03] VITALS: BMI 20.2
[~2018-02-05 11:01] MED LIST changes: +LACTATED RINGERS 1,000 ML IV SCH
[2018-02-05] MEDS ORDERED: LIDOCAINE 1% INJ 10MG/ML (20 ML MDV) SQ ONE (11:24)
[2018-02-05 11:32] VITALS: TEMP 98.3
[2018-02-05 11:53] LABS: Anisocytosis Slight; HCT 23.3 % (34.0-46.0); HGB 7.7 gm/dL (11.4-16.0); MCHC 32.8 g/dL (31.0-37.0); MCV 88.5 fL (80.0-100.0); Mean Platelet Volume 8.1; Platelet Count 513 k/uL (150-450); RBC 2.64 m/uL (3.80-5.40); RDW 16.6 % (11.5-15.5)
[2018-02-05 11:58] LABS: WBC 1.2 k/uL (3.8-10.6)
[2018-02-05] MEDS ORDERED: fentaNYL (PF) 50 MCG/ML 2 ML AMP ONE (12:06)
[2018-02-05] MEDS ORDERED: PROPOFOL 10 MG/ML 20 ML VIAL IV ONE (12:06)
[2018-02-05] MEDS ORDERED: LIDOCAINE 1% INJ 10MG/ML (20 ML MDV) ONE (12:06)
[2018-02-05 12:58] VITALS: RESP 18
[2018-02-05 13:02] VITALS: BP 106/72; PULSE 82
--- NOTE | 2018-02-05 13:06 | PCN ---
PROCEDURE NOTE DATE OF PROCEDURE: 02/05/2018. PREOPERATIVE DIAGNOSIS: Acute myelocytic leukemia. POSTOP DIAGNOSES: Acute myelocytic leukemia status post chemotherapy. ANESTHESIA: Local with IV systemic sedation. Details utilizing skills and sterile technique, the skin overlying the right iliac crest was prepared bed on the left side. After adequate sterile draping, local anesthesia with 1% lidocaine and systemic sedation size 11 4 inch Jamshidi needle was utilized to access the periosteum with ease. A total of 15 mL of aspirate as well as a 1 cm core biopsies were obtained. The patient tolerated the procedure very well. There was no immediate procedure related complications. TOTAL BLOOD LOSS: Less than 1 mL results pending this summary of sound. MMODL / IJN: [id number] /
[2018-02-05 13:23] LABS: Blast Cells # (M) 0.01 k/uL (0); Metamyelocytes # (M) 0.01 k/uL (0); Metamyelocytes % 1 %; Myelocytes # (M) 0.01 k/uL (0); Myelocytes % 1 %; Nucleated Red Blood Cells 0 /100 WBC (0-0)
[2018-02-05 13:29] LABS: Lymphocytes # (M) 0.83 k/uL (1.0-4.8); Monocytes # (M) 0.17 k/uL (0-1.0); Neutrophils # (M) 0.19 k/uL (1.3-7.7); Neutrophils % (M) 16 %; Total Cells Counted 200
[2018-02-05 13:30] LABS: Polychromasia Present
== END 2018-02-05 13:29 | disposition home or self-care (01) ==
LOC: OR 11:01
PROVIDERS: ATTEND Internal Medicine Hematology & Oncology
DX: C92.00 Acute myeloblastic leukemia, not having achieved remission (principal); Z92.21 Personal history of antineoplastic chemotherapy; K21.9 Gastro-esophageal reflux disease without esophagitis; Z79.2 Long term (current) use of antibiotics; Z79.3 Long term (current) use of hormonal contraceptives; Z79.899 Other long term (current) drug therapy
CPT/HCPCS: 81025; 85025; 38222; J2001; J3010; J2704

== ENCOUNTER 2018-02-24 10:12 | Inpatient (IN) | payer BC ==
[~2018-02-24 10:12] MED LIST changes: -LACTATED RINGERS 1,000 ML IV SCH; +ONDANSETRON 4 MG/2 ML VIAL IVP PRN; -Pre Op ABX Message 1 EACH MISC MISCELLANE ONE
[2018-02-24] MEDS: SODIUM CHLORIDE 0.9% 1,000 ML IV SCH ×4 (10:26→23:32)
[2018-02-24] MEDS: prednisoLONE ACETATE 1% OPHTH DROPS 5 ML BTL BOTH EYES SCH ×5 (10:26→21:12)
[2018-02-24 11:29] LABS: Prothrombin Time 9.8 sec (9.0-12.0)
[2018-02-24 11:33] LABS: ALT 15 U/L (9-52); AST 19 U/L (14-36); Albumin 4.4 g/dL (3.5-5.0); Alkaline Phosphatase 46 U/L (38-126); Anion Gap 14 mmol/L; Blood Urea Nitrogen 10 mg/dL (7-17); Calcium 9.2 mg/dL (8.4-10.2); Carbon Dioxide 19 mmol/L (22-30); Chloride 106 mmol/L (98-107); Glucose 97 mg/dL (74-99); Potassium 3.8 mmol/L (3.5-5.1); Sodium 139 mmol/L (137-145); Total Bilirubin 0.4 mg/dL (0.2-1.3); Total Protein 7.6 g/dL (6.3-8.2); Uric Acid 4.4 mg/dL (3.7-7.4)
[2018-02-24 11:59] LABS: Basophils % (A) 1 %; Eosinophils # (A) 0.1 k/uL (0-0.7); Eosinophils % (A) 1 %; HCT 35.8 % (34.0-46.0); Hypochromasia Slight; Lymphocytes # (A) 1.4 k/uL (1.0-4.8); Lymphocytes % (A) 19 %; MCH 31.3 pg (25.0-35.0); MCHC 32.8 g/dL (31.0-37.0); Mean Platelet Volume 6.8; Monocytes # (A) 0.8 k/uL (0-1.0); Monocytes % (A) 11 %; Neutrophils # (A) 4.8 k/uL (1.3-7.7); Neutrophils % (A) 67 %; Platelet Count 410 k/uL (150-450); RBC 3.74 m/uL (3.80-5.40); RDW 15.9 % (11.5-15.5); WBC 7.1 k/uL (3.8-10.6)
[2018-02-24 12:00] LABS: HGB 11.7 gm/dL (11.4-16.0)
[2018-02-24] MEDS ORDERED: ONDANSETRON 16 MG in SODIUM CHLORIDE 0.9% 50 ML IVPB SCH (12:00)
[2018-02-24] MEDS ORDERED: DEXAMETHASONE SOD PHOSPHATE 10 MG/ML 1 ML VIAL IV SCH (12:00)
[2018-02-24 12:01] LABS: MCV 95.6 fL (80.0-100.0)
[2018-02-24] MEDS ORDERED: SALT AND SODA MOUTHWASH 1,000 ML PO PRN (12:30)
[2018-02-24] MEDS: SALT AND SODA MOUTHWASH 1,000 ML PO SCH ×3 (12:57→17:57)
[2018-02-24] MEDS ORDERED: LIDOCAINE 1% (PF) 10MG/ML VIAL SQ ONE (14:08)
--- NOTE | 2018-02-24 15:22 | IR ---
PICC LINE PLACEMENT: HISTORY: Chemotherapy requiring long-term therapy PROCEDURE: Ultrasound and fluoroscopic guidance of PICC line placement. COMPLICATIONS: None ANESTHESIA: 1. 1% Lidocaine locally. FINDINGS/TECHNIQUE: The procedure was explained to the patient. The risks, complications, benefits and alternatives were discussed and any questions were answered. Informed consent was obtained. The patient was placed supine on the fluoroscopic table and prepped and draped in the usual sterile fash ion. Utilizing a 21 gauge needle and sonographic and fluoroscopic guidance, access in the vein was achieved and there is placement of a 0.018 guidewire. The vein is patent. A 5-Fr sheath was placed over the guidewire. The guidewire and dilator were removed and a 5-F. Double lumen PICC line was pl aced through the sheath with the tip at the level of the SVC. The sheath was removed, the catheter w as flushed and sutured into position. The patient was stable throughout the procedure and remained s table upon discharge from the Department of Radiology. The vein puncture was patent under ultrasound. A rashid scale image was obtained to document patency of the vein punctured. All elements of the maximal barrier technique were utilized. FLUOROSCOPY TIME: 3.2 minutes and one image submitted IMPRESSION: Successful PICC double lumen line placement under ultrasound and fluoroscopic guidance.
[2018-02-24] MEDS ORDERED: PROCHLORPERAZINE 10 MG TAB PO PRN (16:56)
--- NOTE | 2018-02-24 16:57 | P.HPIM ---
History of Present Illness H&P Date: 02/24/18 Chief Complaint: 2nd consolidation for AML with high dose Lorna-C Mrs. Garay is a very pleasant 47-year-old female who was seen on consult 12/31/2017 for pancytopenia, only presenting symptoms were swelling in the bilateral lower extremities, right greater than left (patient had sustained a spider bite on the right knee the week before) and mild petechiae on the lower extremities. Primary care physician Dr. Tejada checked her lab work, severe pancytopenia was noted and he sent her immediately to the hospital for evaluation. Patient had bone marrow biopsy and aspirate same day with Dr. Lyle, patient required platelet transfusion, she had PICC line placed and was awaiting bone marrow results so, she was sent home with strict instructions , antibiotics, antifungals and orders for lab draws. Patient was seen in the office on 01/03 and did not need transfusion, she was seen on 01/06 and received platelet transfusion, 01/[address] Lyle in office for diagnosis. Final bone marrow had favorable cytogenetic profile, FLT3 positive. Pt had induction with 7+3 chemo regimen 01/08/18, which she tolerated well, she did require blood and platelet transfusions but, no other significant SE or toxicities, she had repeat bone marrow on 02/05/18 with complete response! She is admitted for #1 consolidation with High Dose Lorna-C. On admission patient had PICC replaced as previous one was pulled due to blockage. Coming into today pt feels good, she thinks she may even feel better then she did before treatment, denies fevers, chills, oral irritation, nausea, shortness of breath, cough, palpitations, abdominal discomfort, dysuria, diarrhea, constipation, swelling, bruises, petechiae, bleeding, she is independently ambulatory, appetite is good, energy levels good, no pain. Review of Systems 14 point ROS as stated in HPI Past Medical History Past Medical History: Cancer, GERD/Reflux Additional Past Medical History / Comment(s): AML-chemo, allergic rhinitis History of Any Multi-Drug Resistant Organisms: None Reported Additional Past Surgical History / Comment(s): wisdom teeth removed, bone marrow aspirations/biopsies Past Anesthesia/Blood Transfusion Reactions: No Reported Reaction Additional Past Anesthesia/Blood Transfusion Reaction / Comment(s): Pt states last time she recieved blood and platelets she had a fever during and for a couple days after. Past Psychological History: No Psychological Hx Reported Smoking Status: Never smoker Past Alcohol Use History: Rare Past Drug Use History: None Reported - Past Family History Mother Additional Family Medical History / Comment(s): Maternal grandmother had pancreatic cancer. Father Additional Family Medical History / Comment(s): paternal grandmother leukemia Medications and Allergies Home Medications Medication Instructions Recorded Confirmed Type Cyclafem 1 tab PO HS 12/30/17 02/24/18 History Fluconazole [Diflucan] 100 mg PO DAILY #30 tab 01/02/18 02/24/18 Rx Levofloxacin [Levaquin] 500 mg PO Q24H #30 tab 01/02/18 02/24/18 Rx Acyclovir [Zovirax] 400 mg PO BID #42 tab 01/16/18 02/24/18 Rx Prochlorperazine [Compazine] 10 mg PO Q6H PRN #50 tab 01/16/18 02/24/18 Rx Omeprazole Magnesium [PriLOSEC OTC] 20 mg PO DAILY 02/04/18 02/24/18 History Allergies Allergy/AdvReac Type Severity Reaction Status Date / Time No Known Allergies Allergy Verified 02/24/18 11:57 Physical Exam Vitals: Vital Signs Temp Pulse Resp BP Pulse Ox 02/24/18 14:46 98.1 F 89 16 99 02/24/18 10:31 97.9 F 93 16 124/80 99 Intake and Output 02/24/18 02/24/18 02/24/18 06:59 14:59 22:59 Other: Voiding Method Toilet # Voids 1 - Constitutional General appearance: average body habitus, cooperative, no acute distress - EENT Eyes: anicteric sclerae, EOMI, normal appearance ENT: hearing grossly normal, normal oropharynx - Neck Neck: no lymphadenopathy - Respiratory Respiratory: bilateral: CTA - Cardiovascular Rhythm: regular Heart sounds: normal: S1, S2 Abnormal Heart Sounds: systolic murmur, no diastolic murmur, no rub, no S3 Gallop, no S4 Gallop, no click, no other leg Peripheral Edema: bilateral: None - Gastrointestinal General gastrointestinal: no absent bowel sounds, no decreased bowel sounds, no distended, no hepatomegaly, no hyperactive bowel sounds, normal bowel sounds, no organomegaly, no rigid, no scaphoid, soft, no splenomegaly, no tenderness, no umbilical hernia, no ventral hernia - Integumentary Integumentary: normal, normal turgor - Neurologic Neurologic: CNII-XII intact - Musculoskeletal Musculoskeletal: strength equal bilaterally - Psychiatric Psychiatric: A&O x's 3, appropriate affect, intact judgment & insight Results CBC & Chem 7: 02/24/18 11:08 02/24/18 11:08 Labs: Abnormal Lab Results - Last 24 Hours (Table) 02/24/18 02/24/18 Range/Units 11:08 11:08 RBC 3.74 L (3.80-5.40) m/uL RDW 15.9 H (11.5-15.5) % Carbon Dioxide 19 L (22-30) mmol/L Thrombosis Risk Factor Assmnt - DVT/VTE Prophylaxis DVT/VTE Prophylaxis: Low risk, early ambulation encouraged - Choose All That Apply Any of the Below Risk Factors Present?: Yes Each Factor Represents 1 point: Age 41-60 years Other Risk Factors: Yes Each Risk Factor Represents 2 Points: Malignancy Other congenital or acquired thrombophilia - If yes, enter type in comment: No Thrombosis Risk Factor Assessment Total Risk Factor Score: 3 Thrombosis Risk Factor Assessment Level: Moderate Risk Assessment and Plan (1) Acute myeloblastic leukemia Narrative/Plan: Admit for cycle #2 consolidation chemotherapy. Home meds reconciled, Dr. Tejada PCP, consulted for Medical Management Supportive meds ordered Daily labs Daily follow up GI prophylaxis Pt ambulatory ad rory and active Current Visit: Yes Status: Acute Priority: High Code(s): C92.00 - ACUTE MYELOBLASTIC LEUKEMIA, NOT HAVING ACHIEVED REMISSION SNOMED Code(s): 01445450
[2018-02-24] MEDS: DEXAMETHASONE SOD PHOSPHATE 10 MG/ML 1 ML VIAL IV SCH (17:00)
[2018-02-24] MEDS: ONDANSETRON 16 MG in SODIUM CHLORIDE 0.9% 50 ML IVPB SCH (17:09)
[2018-02-24] MEDS: LEVOFLOXACIN 500 MG TAB PO SCH (17:12)
[2018-02-24] MEDS: SODIUM CHLORIDE 0.9% IV SCH (17:55)
[2018-02-24] MEDS: CYTARABINE IV SCH (17:55)
[2018-02-24] MEDS: ACYCLOVIR 200 MG CAP PO SCH (21:11)
[2018-02-25] MEDS: SODIUM CHLORIDE 0.9% 1,000 ML IV SCH ×3 (06:09→18:45)
[2018-02-25] MEDS: SODIUM CHLORIDE 0.9% IV SCH (06:14)
[2018-02-25] MEDS: CYTARABINE IV SCH (06:14)
[2018-02-25 07:24] LABS: Basophils % (A) 0 %; Eosinophils % (A) 0 %; HCT 34.2 % (34.0-46.0); HGB 10.8 gm/dL (11.4-16.0); Lymphocytes # (A) 0.3 k/uL (1.0-4.8); Lymphocytes % (A) 5 %; MCHC 31.7 g/dL (31.0-37.0); MCV 94.7 fL (80.0-100.0); Mean Platelet Volume 6.8; Monocytes # (A) 0.1 k/uL (0-1.0); Monocytes % (A) 1 %; Neutrophils # (A) 6.5 k/uL (1.3-7.7); Neutrophils % (A) 94 %; Platelet Count 334 k/uL (150-450); RBC 3.61 m/uL (3.80-5.40); RDW 15.7 % (11.5-15.5); WBC 6.9 k/uL (3.8-10.6)
[2018-02-25 07:51] LABS: ALT 17 U/L (9-52); AST 17 U/L (14-36); Albumin 3.5 g/dL (3.5-5.0); Alkaline Phosphatase 45 U/L (38-126); Anion Gap 11 mmol/L; Blood Urea Nitrogen 8 mg/dL (7-17); Calcium 8.5 mg/dL (8.4-10.2); Carbon Dioxide 17 mmol/L (22-30); Chloride 110 mmol/L (98-107); Glucose 130 mg/dL (74-99); Potassium 4.2 mmol/L (3.5-5.1); Sodium 138 mmol/L (137-145); Total Bilirubin 0.5 mg/dL (0.2-1.3); Total Protein 6.4 g/dL (6.3-8.2); Uric Acid 5.1 mg/dL (3.7-7.4)
[2018-02-25] MEDS: FLUCONAZOLE 100 MG TAB PO SCH (08:23)
[2018-02-25] MEDS: ACYCLOVIR 200 MG CAP PO SCH ×2 (08:23→21:50)
[2018-02-25] MEDS: prednisoLONE ACETATE 1% OPHTH DROPS 5 ML BTL BOTH EYES SCH ×4 (08:23→21:50)
[2018-02-25] MEDS: SALT AND SODA MOUTHWASH 1,000 ML PO SCH ×3 (08:23→17:17)
[2018-02-25] MEDS: PANTOPRAZOLE 40 MG TABLET PO SCH (08:23)
--- NOTE | 2018-02-25 15:27 | P.PN ---
Subjective Progress Note Date: 02/25/18 Principal diagnosis: AML, high dose Lorna-C CIVI Pt seen in follow up. She denies any physical c/o today, no fever, oral iritation, able to eat and drink in decent amounts, no nausea, cough, chest discomfort, indigestion, abd discomfort, diarrhea, constipation, swelling, bleeding or pain. She is ambulating. Objective - Vital Signs Vital signs: Vital Signs Temp 98.1 F 02/25/18 12:10 Pulse 84 02/25/18 12:10 Resp 16 02/25/18 12:10 BP 125/77 02/25/18 12:10 Pulse Ox 97 02/25/18 12:10 Intake & Output 02/24/18 02/25/18 02/25/18 18:59 06:59 18:59 Intake Total 2160 1700 Balance 2160 1700 Intake: IV 360 500 Cytarabine/Pf 4,800 mg In 360 500 Sodium Chloride 0.9% 500 ml @ 182.667 mls/hr IV Q48H [facility] Rx#:[id number] Intake, IV Titration 1800 1200 Amount Sodium Chloride 0.9% 1, 1800 1200 000 ml @ 150 mls/hr IV . Q6H40M [facility] Rx#:[id number] Other: Voiding Method Toilet Toilet # Voids 1 - Constitutional General appearance: Present: average body habitus, cooperative, no acute distress - EENT Eyes: Present: anicteric sclerae ENT: Present: normal oropharynx - Respiratory Respiratory: bilateral: CTA - Cardiovascular Rhythm: regular Heart sounds: normal: S1, S2 Abnormal Heart Sounds: Absent: systolic murmur, diastolic murmur, rub, S3 Gallop , S4 Gallop, click, other - Peripheral edema leg Peripheral Edema: bilateral: None - Gastrointestinal General gastrointestinal: Present: normal bowel sounds, soft. Absent: absent bowel sounds, decreased bowel sounds, distended, hepatomegaly, hyperactive bowel sounds, organomegaly, rigid, scaphoid, splenomegaly, tenderness, umbilical hernia, ventral hernia - Integumentary Integumentary: Present: normal - Neurologic Neurologic: Present: CNII-XII intact - Musculoskeletal Musculoskeletal: Present: strength equal bilaterally - Psychiatric Psychiatric: Present: A&O x's 3, appropriate affect, intact judgment & insight - Labs CBC & Chem 7: 02/25/18 07:06 02/25/18 07:06 Labs: Abnormal Lab Results - Last 24 Hours (Table) 02/25/18 02/25/18 Range/Units 07:06 07:06 RBC 3.61 L (3.80-5.40) m/uL Hgb 10.8 L (11.4-16.0) gm/dL RDW 15.7 H (11.5-15.5) % Lymphocytes # 0.3 L (1.0-4.8) k/uL Chloride 110 H (98-107) mmol/L Carbon Dioxide 17 L (22-30) mmol/L Creatinine 0.51 L (0.52-1.04) mg/dL Glucose 130 H (74-99) mg/dL Assessment and Plan (1) Acute myeloblastic leukemia Narrative/Plan: Cont chemo as prescribed. CBC, CMP reviewed, no acute interventions necessary Cont daily f/u, labs and supportive care Current Visit: Yes Status: Acute Priority: High Code(s): C92.00 - ACUTE MYELOBLASTIC LEUKEMIA, NOT HAVING ACHIEVED REMISSION SNOMED Code(s): 19607068 Plan: Ativan added at HS PRN for anxiety and insomnia
[2018-02-25] MEDS: LEVOFLOXACIN 500 MG TAB PO SCH (17:17)
[2018-02-25] MEDS: LORazepam 0.5 MG TAB PO PRN (23:24)
[2018-02-26] MEDS: SODIUM CHLORIDE 0.9% 1,000 ML IV SCH ×4 (01:34→22:30)
[2018-02-26 07:42] LABS: Basophils % (A) 0 %; Eosinophils % (A) 0 %; HCT 31.2 % (34.0-46.0); HGB 10.2 gm/dL (11.4-16.0); Lymphocytes # (A) 0.9 k/uL (1.0-4.8); Lymphocytes % (A) 9 %; MCH 31.1 pg (25.0-35.0); MCHC 32.8 g/dL (31.0-37.0); MCV 94.9 fL (80.0-100.0); Mean Platelet Volume 6.8; Monocytes # (A) 0.5 k/uL (0-1.0); Monocytes % (A) 5 %; Neutrophils # (A) 8.5 k/uL (1.3-7.7); Neutrophils % (A) 85 %; Platelet Count 282 k/uL (150-450); RBC 3.29 m/uL (3.80-5.40); RDW 15.6 % (11.5-15.5)
[2018-02-26 07:58] LABS: ALT 15 U/L (9-52); AST 14 U/L (14-36); Albumin 3.3 g/dL (3.5-5.0); Alkaline Phosphatase 37 U/L (38-126); Anion Gap 7 mmol/L; Blood Urea Nitrogen 11 mg/dL (7-17); Calcium 8.5 mg/dL (8.4-10.2); Carbon Dioxide 23 mmol/L (22-30); Chloride 108 mmol/L (98-107); Glucose 91 mg/dL (74-99); Potassium 3.8 mmol/L (3.5-5.1); Sodium 138 mmol/L (137-145); Total Bilirubin 0.7 mg/dL (0.2-1.3); Total Protein 6.1 g/dL (6.3-8.2)
[2018-02-26] MEDS: PANTOPRAZOLE 40 MG TABLET PO SCH (08:36)
[2018-02-26] MEDS: ACYCLOVIR 200 MG CAP PO SCH ×2 (08:36→20:31)
[2018-02-26] MEDS: SALT AND SODA MOUTHWASH 1,000 ML PO SCH ×3 (08:36→16:31)
[2018-02-26] MEDS: FLUCONAZOLE 100 MG TAB PO SCH (08:36)
[2018-02-26] MEDS: prednisoLONE ACETATE 1% OPHTH DROPS 5 ML BTL BOTH EYES SCH ×4 (08:37→20:31)
[2018-02-26] MEDS: ENOXAPARIN 40 MG/0.4 ML SYRINGE SQ SCH (08:37)
--- NOTE | 2018-02-26 12:49 | P.CONS ---
History of Present Illness - Reason for Consult Consult date: 02/25/18 Requesting physician: Allen Lyle - Chief Complaint Acute myelogenous leukemia - History of Present Illness This is a consultation on 47-year-old white female essentially admitted for chemotherapy. This is her second round and she has an element of acute myelogenous leukemia with history of pancytopenia which is stabilized with recent treatment. I'm consulted for medical management assistance. The patient states no voiding difficulties. Some mild weakness. No significant nausea, vomiting or diarrhea stated. Review of Systems Constitutional: Reports fatigue, Reports weakness Eyes: denies blurred vision, denies pain Cardiovascular: Denies chest pain, Denies shortness of breath Integumentary: Denies pruritus, Denies rash Neurological: Denies numbness, Denies weakness Past Medical History Past Medical History: Cancer, GERD/Reflux Additional Past Medical History / Comment(s): AML-chemo, allergic rhinitis History of Any Multi-Drug Resistant Organisms: None Reported Past Surgical History: No Surgical Hx Reported Additional Past Surgical History / Comment(s): wisdom teeth removed, bone marrow aspirations/biopsies Past Anesthesia/Blood Transfusion Reactions: No Reported Reaction Additional Past Anesthesia/Blood Transfusion Reaction / Comm: Pt states last time she recieved blood and platelets she had a fever during and for a couple days after. Past Psychological History: No Psychological Hx Reported Smoking Status: Never smoker Past Alcohol Use History: Rare Past Drug Use History: None Reported - Past Family History Mother Family Medical History: No Reported History Additional Family Medical History / Comment(s): Maternal grandmother had pancreatic cancer. Father Family Medical History: No Reported History Additional Family Medical History / Comment(s): paternal grandmother leukemia Medications and Allergies Home Medications Medication Instructions Recorded Confirmed Type Cyclafem 1 tab PO HS 12/30/17 02/24/18 History Fluconazole [Diflucan] 100 mg PO DAILY #30 tab 01/02/18 02/24/18 Rx Levofloxacin [Levaquin] 500 mg PO Q24H #30 tab 01/02/18 02/24/18 Rx Acyclovir [Zovirax] 400 mg PO BID #42 tab 01/16/18 02/24/18 Rx Prochlorperazine [Compazine] 10 mg PO Q6H PRN #50 tab 01/16/18 02/24/18 Rx Omeprazole Magnesium [PriLOSEC OTC] 20 mg PO DAILY 02/04/18 02/24/18 History Allergies Allergy/AdvReac Type Severity Reaction Status Date / Time No Known Allergies Allergy Verified 02/24/18 11:57 Physical Exam Vitals: Vital Signs Temp Pulse Pulse Resp BP Pulse Ox 02/26/18 12:10 98.3 F 81 18 112/75 98 02/26/18 08:30 97.9 F 82 18 130/79 98 02/26/18 04:21 98.1 F 74 15 131/76 96 02/25/18 23:00 97.9 F 75 15 140/89 97 02/25/18 21:40 14 02/25/18 20:46 97.8 F 72 15 133/87 100 02/25/18 15:37 97.8 F 83 16 150/82 97 Intake and Output 02/25/18 02/26/18 02/26/18 22:59 06:59 14:59 Intake Total 2600 Balance 2600 Intake: Intake, IV Titration 2100 Amount Sodium Chloride 0.9% 1, 2100 000 ml @ 150 mls/hr IV . Q6H40M [facility] Rx#:[id number] Oral 500 Other: Voiding Method Toilet Toilet # Voids 2 - Constitutional General appearance: no acute distress - EENT Eyes: EOMI - Respiratory Respiratory: bilateral: CTA - Cardiovascular Rhythm: regular Abnormal Heart Sounds: no S3 Gallop - Gastrointestinal General gastrointestinal: soft, no tenderness - Neurologic Neurologic: CNII-XII intact - Musculoskeletal Musculoskeletal: generalized weakness Results CBC & Chem 7: 02/26/18 07:24 02/26/18 07:24 Labs: Abnormal Lab Results - Last 24 Hours (Table) 02/26/18 02/26/18 Range/Units 07:24 07:24 RBC 3.29 L (3.80-5.40) m/uL Hgb 10.2 L (11.4-16.0) gm/dL Hct 31.2 L (34.0-46.0) % RDW 15.6 H (11.5-15.5) % Neutrophils # 8.5 H (1.3-7.7) k/uL Lymphocytes # 0.9 L (1.0-4.8) k/uL Chloride 108 H (98-107) mmol/L Alkaline Phosphatase 37 L (38-126) U/L Total Protein 6.1 L (6.3-8.2) g/dL Albumin 3.3 L (3.5-5.0) g/dL Assessment and Plan (1) Acute myeloblastic leukemia Current Visit: Yes Status: Acute Priority: High Code(s): C92.00 - ACUTE MYELOBLASTIC LEUKEMIA, NOT HAVING ACHIEVED REMISSION SNOMED Code(s): 48184088 (2) Pancytopenia due to antineoplastic chemotherapy Current Visit: No Status: Acute Priority: High Code(s): D61.810 - ANTINEOPLASTIC CHEMOTHERAPY INDUCED PANCYTOPENIA; T45.1X5A - ADVERSE EFFECT OF ANTINEOPLASTIC AND IMMUNOSUP DRUGS, INIT SNOMED Code(s): 705980400016136 Plan: Reconcile home medications. Continue To follow With oncology. Comfort measures as necessary including pain and sleep Time with Patient: Greater than 30
--- NOTE | 2018-02-26 12:50 | P.PN ---
Subjective Progress Note Date: 02/26/18 Principal diagnosis: Acute myelogenous leukemia This is a continuing progress note on a 47-year-old white female who is admitted for chemotherapy. The patient actually is in no acute distress with no significant nausea or vomiting. Objective - Vital Signs Vital signs: Vital Signs Temp 98.3 F 02/26/18 12:10 Pulse 81 02/26/18 12:10 Resp 18 02/26/18 12:10 BP 112/75 02/26/18 12:10 Pulse Ox 98 02/26/18 12:10 Intake & Output 02/25/18 02/26/18 02/26/18 18:59 06:59 18:59 Intake Total 1700 2600 Balance 1700 2600 Intake: IV 500 Cytarabine/Pf 4,800 mg In 500 Sodium Chloride 0.9% 500 ml @ 182.667 mls/hr IV Q48H [facility] Rx#:[id number] Intake, IV Titration 1200 2100 Amount Sodium Chloride 0.9% 1, 1200 2100 000 ml @ 150 mls/hr IV . Q6H40M [facility] Rx#:[id number] Oral 500 Other: Voiding Method Toilet Toilet # Voids 2 - Constitutional General appearance: Present: average body habitus - EENT Eyes: Absent: abnormal pupil - Respiratory Respiratory: bilateral: CTA - Cardiovascular Rhythm: regular Heart sounds: normal: S1, S2 - Integumentary Integumentary: Absent: cellulitis - Musculoskeletal Musculoskeletal: Present: gait normal - Labs CBC & Chem 7: 02/26/18 07:24 02/26/18 07:24 Labs: Abnormal Lab Results - Last 24 Hours (Table) 02/26/18 02/26/18 Range/Units 07:24 07:24 RBC 3.29 L (3.80-5.40) m/uL Hgb 10.2 L (11.4-16.0) gm/dL Hct 31.2 L (34.0-46.0) % RDW 15.6 H (11.5-15.5) % Neutrophils # 8.5 H (1.3-7.7) k/uL Lymphocytes # 0.9 L (1.0-4.8) k/uL Chloride 108 H (98-107) mmol/L Alkaline Phosphatase 37 L (38-126) U/L Total Protein 6.1 L (6.3-8.2) g/dL Albumin 3.3 L (3.5-5.0) g/dL Assessment and Plan (1) Acute myeloblastic leukemia Current Visit: Yes Status: Acute Priority: High Code(s): C92.00 - ACUTE MYELOBLASTIC LEUKEMIA, NOT HAVING ACHIEVED REMISSION SNOMED Code(s): 42013759 (2) Pancytopenia due to antineoplastic chemotherapy Current Visit: No Status: Acute Priority: High Code(s): D61.810 - ANTINEOPLASTIC CHEMOTHERAPY INDUCED PANCYTOPENIA; T45.1X5A - ADVERSE EFFECT OF ANTINEOPLASTIC AND IMMUNOSUP DRUGS, INIT SNOMED Code(s): 061406297499534 Plan: Continue current regimen or treatment. We'll continue to follow closely as necessary. Time with Patient: Less than 30
--- NOTE | 2018-02-26 13:13 | P.PN ---
Subjective Progress Note Date: 02/26/18 Principal diagnosis: AML, high dose Lorna-C CIVI Pt seen in f/u, she is doing well with treatment, no oral irritation, nausea, OB < cough, activity intolerance, indigestion, heartburn, dysuria, hematuria, last BM was yesterday, fully ambulatory, no pain. Objective - Vital Signs Vital signs: Vital Signs Temp 98.3 F 02/26/18 12:10 Pulse 81 02/26/18 12:10 Resp 18 02/26/18 12:10 BP 112/75 02/26/18 12:10 Pulse Ox 98 02/26/18 12:10 Intake & Output 02/25/18 02/26/18 02/26/18 18:59 06:59 18:59 Intake Total 1700 2600 Balance 1700 2600 Intake: IV 500 Cytarabine/Pf 4,800 mg In 500 Sodium Chloride 0.9% 500 ml @ 182.667 mls/hr IV Q48H [facility] Rx#:[id number] Intake, IV Titration 1200 2100 Amount Sodium Chloride 0.9% 1, 1200 2100 000 ml @ 150 mls/hr IV . Q6H40M [facility] Rx#:[id number] Oral 500 Other: Voiding Method Toilet Toilet # Voids 2 - Constitutional General appearance: Present: average body habitus, cooperative, no acute distress - EENT Eyes: Present: anicteric sclerae ENT: Present: normal oropharynx - Respiratory Respiratory: bilateral: CTA - Cardiovascular Rhythm: regular Heart sounds: normal: S1, S2 Abnormal Heart Sounds: Absent: systolic murmur, diastolic murmur, rub, S3 Gallop , S4 Gallop, click, other - Peripheral edema foot Peripheral Edema: bilateral: None - Gastrointestinal General gastrointestinal: Present: normal bowel sounds, soft. Absent: absent bowel sounds, decreased bowel sounds, distended, hepatomegaly, hyperactive bowel sounds, organomegaly, rigid, scaphoid, splenomegaly, tenderness, umbilical hernia, ventral hernia - Integumentary Integumentary: Present: normal - Neurologic Neurologic: Present: CNII-XII intact - Musculoskeletal Musculoskeletal: Present: strength equal bilaterally - Psychiatric Psychiatric: Present: A&O x's 3, appropriate affect, intact judgment & insight - Labs CBC & Chem 7: 02/26/18 07:24 08/15/18 07:24 Labs: Abnormal Lab Results - Last 24 Hours (Table) 02/26/18 02/26/18 Range/Units 07:24 07:24 RBC 3.29 L (3.80-5.40) m/uL Hgb 10.2 L (11.4-16.0) gm/dL Hct 31.2 L (34.0-46.0) % RDW 15.6 H (11.5-15.5) % Neutrophils # 8.5 H (1.3-7.7) k/uL Lymphocytes # 0.9 L (1.0-4.8) k/uL Chloride 108 H (98-107) mmol/L Alkaline Phosphatase 37 L (38-126) U/L Total Protein 6.1 L (6.3-8.2) g/dL Albumin 3.3 L (3.5-5.0) g/dL Assessment and Plan (1) Acute myeloblastic leukemia Narrative/Plan: Cont treatment without adjustment GI/DVT prophylaxis Cont supportive meds Encouraged fluids, ambulation and rest Current Visit: Yes Status: Acute Priority: High Code(s): C92.00 - ACUTE MYELOBLASTIC LEUKEMIA, NOT HAVING ACHIEVED REMISSION SNOMED Code(s): 03217711 Plan: Dr. Tejada med mgmt
[2018-02-26] MEDS: LEVOFLOXACIN 500 MG TAB PO SCH (16:31)
[2018-02-26] MEDS: DEXAMETHASONE SOD PHOSPHATE 10 MG/ML 1 ML VIAL IV SCH (16:31)
[2018-02-26] MEDS: ONDANSETRON 16 MG in SODIUM CHLORIDE 0.9% 50 ML IVPB SCH (16:31)
[2018-02-26] MEDS: SODIUM CHLORIDE 0.9% IV SCH (17:19)
[2018-02-26] MEDS: CYTARABINE IV SCH (17:19)
[2018-02-26] MEDS: LORazepam 0.5 MG TAB PO PRN (22:31)
[2018-02-27] MEDS: CYTARABINE IV SCH (04:59)
[2018-02-27] MEDS: SODIUM CHLORIDE 0.9% IV SCH (04:59)
[2018-02-27] MEDS: SODIUM CHLORIDE 0.9% 1,000 ML IV SCH ×3 (04:59→17:47)
[2018-02-27 07:36] LABS: ALT 14 U/L (9-52); AST 16 U/L (14-36); Alkaline Phosphatase 42 U/L (38-126); Anion Gap 10 mmol/L; Blood Urea Nitrogen 10 mg/dL (7-17); Calcium 9.1 mg/dL (8.4-10.2); Carbon Dioxide 24 mmol/L (22-30); Chloride 105 mmol/L (98-107); Glucose 113 mg/dL (74-99); Potassium 4.4 mmol/L (3.5-5.1); Sodium 139 mmol/L (137-145); Total Protein 7.3 g/dL (6.3-8.2); Uric Acid 3.1 mg/dL (3.7-7.4)
[2018-02-27 07:46] LABS: Basophils % (A) 0 %; Eosinophils % (A) 0 %; HCT 35.1 % (34.0-46.0); HGB 11.4 gm/dL (11.4-16.0); Lymphocytes # (A) 0.3 k/uL (1.0-4.8); Lymphocytes % (A) 4 %; MCHC 32.5 g/dL (31.0-37.0); MCV 95.4 fL (80.0-100.0); Mean Platelet Volume 6.8; Monocytes # (A) 0.1 k/uL (0-1.0); Monocytes % (A) 2 %; Neutrophils # (A) 6.5 k/uL (1.3-7.7); Neutrophils % (A) 95 %; Platelet Count 284 k/uL (150-450); RBC 3.68 m/uL (3.80-5.40); RDW 15.3 % (11.5-15.5); WBC 6.9 k/uL (3.8-10.6)
[2018-02-27] MEDS: PANTOPRAZOLE 40 MG TABLET PO SCH (08:24)
[2018-02-27] MEDS: FLUCONAZOLE 100 MG TAB PO SCH (08:24)
[2018-02-27] MEDS: ENOXAPARIN 40 MG/0.4 ML SYRINGE SQ SCH (08:25)
[2018-02-27] MEDS: prednisoLONE ACETATE 1% OPHTH DROPS 5 ML BTL BOTH EYES SCH ×4 (08:25→20:13)
[2018-02-27] MEDS: ACYCLOVIR 200 MG CAP PO SCH ×2 (08:25→20:13)
[2018-02-27] MEDS: SALT AND SODA MOUTHWASH 1,000 ML PO SCH ×3 (08:26→17:35)
--- NOTE | 2018-02-27 16:03 | P.PN ---
Subjective Progress Note Date: 02/27/18 Principal diagnosis: AML, high dose Lorna-C CIVI Patient seen today in follow-up, she is no side effects to report from chemotherapy, no physical complaints, feeling okay, not sleeping well, fully ambulatory ad rory., denies any pain. Objective - Vital Signs Vital signs: Vital Signs Temp 97.6 F 02/27/18 12:37 Pulse 72 02/27/18 15:54 Resp 18 02/27/18 15:54 BP 156/88 02/27/18 12:37 Pulse Ox 98 02/27/18 12:37 Intake & Output 02/26/18 02/27/18 02/27/18 18:59 06:59 18:59 Intake Total 1200 2050 240 Balance 1200 2050 240 Intake: Intake, IV Titration 1200 1600 Amount Ondansetron 16 mg In 400 Sodium Chloride 0.9% 50 ml @ 100 mls/hr IVPB Q48H [facility] Rx#:[id number] Sodium Chloride 0.9% 1, 1200 1200 000 ml @ 150 mls/hr IV . Q6H40M [facility] Rx#:[id number] Oral 450 240 Other: Voiding Method Toilet Toilet Toilet # Voids 2 2 3 - Constitutional General appearance: Present: average body habitus, cooperative, no acute distress - EENT Eyes: Present: anicteric sclerae ENT: Present: normal oropharynx - Respiratory Respiratory: bilateral: CTA - Cardiovascular Rhythm: regular Heart sounds: normal: S1, S2 - Gastrointestinal General gastrointestinal: Present: normal bowel sounds, soft - Integumentary Integumentary: Present: normal - Neurologic Neurologic: Present: CNII-XII intact - Musculoskeletal Musculoskeletal: Present: strength equal bilaterally - Psychiatric Psychiatric: Present: A&O x's 3, appropriate affect, intact judgment & insight - Labs CBC & Chem 7: 02/27/18 06:47 02/27/18 06:47 Labs: Abnormal Lab Results - Last 24 Hours (Table) 02/27/18 02/27/18 Range/Units 06:47 06:47 RBC 3.68 L (3.80-5.40) m/uL Lymphocytes # 0.3 L (1.0-4.8) k/uL Creatinine 0.50 L (0.52-1.04) mg/dL Glucose 113 H (74-99) mg/dL Uric Acid 3.1 L (3.7-7.4) mg/dL Assessment and Plan (1) Acute myeloblastic leukemia Narrative/Plan: Cont chemotherapy without adjustment Continue supportive meds and prophylactic treatments Follow-up and labs daily. Patient has lab draw scheduled for Saturday, appt date and time in chart Outpatient medication refills have been sent to her pharmacy already. Continue GI and DVT prophylaxis. Current Visit: Yes Status: Acute Priority: High Code(s): C92.00 - ACUTE MYELOBLASTIC LEUKEMIA, NOT HAVING ACHIEVED REMISSION SNOMED Code(s): 49994418 Plan: Dr. Tejada medical management
[2018-02-27] MEDS: LEVOFLOXACIN 500 MG TAB PO SCH (17:35)
[2018-02-27] MEDS: LORazepam 0.5 MG TAB PO PRN (23:09)
[2018-02-28] MEDS: SODIUM CHLORIDE 0.9% 1,000 ML IV SCH ×3 (01:56→20:45)
[2018-02-28 07:56] LABS: Basophils % (A) 0 %; Eosinophils # (A) 0.1 k/uL (0-0.7); Eosinophils % (A) 1 %; HCT 32.5 % (34.0-46.0); HGB 10.5 gm/dL (11.4-16.0); Lymphocytes # (A) 0.9 k/uL (1.0-4.8); Lymphocytes % (A) 13 %; MCH 30.2 pg (25.0-35.0); MCHC 32.2 g/dL (31.0-37.0); MCV 93.9 fL (80.0-100.0); Mean Platelet Volume 6.5; Monocytes # (A) 0.1 k/uL (0-1.0); Monocytes % (A) 2 %; Neutrophils # (A) 6.3 k/uL (1.3-7.7); Neutrophils % (A) 85 %; Platelet Count 253 k/uL (150-450); RBC 3.46 m/uL (3.80-5.40); RDW 15.3 % (11.5-15.5); WBC 7.5 k/uL (3.8-10.6)
[2018-02-28 08:23] LABS: ALT 16 U/L (9-52); AST 16 U/L (14-36); Albumin 3.6 g/dL (3.5-5.0); Alkaline Phosphatase 37 U/L (38-126); Anion Gap 9 mmol/L; Blood Urea Nitrogen 12 mg/dL (7-17); Calcium 8.9 mg/dL (8.4-10.2); Carbon Dioxide 23 mmol/L (22-30); Chloride 106 mmol/L (98-107); Glucose 83 mg/dL (74-99); Potassium 3.8 mmol/L (3.5-5.1); Sodium 138 mmol/L (137-145); Total Bilirubin 0.7 mg/dL (0.2-1.3); Total Protein 6.7 g/dL (6.3-8.2); Uric Acid 3.1 mg/dL (3.7-7.4)
[2018-02-28] MEDS: PANTOPRAZOLE 40 MG TABLET PO SCH (09:23)
[2018-02-28] MEDS: FLUCONAZOLE 100 MG TAB PO SCH (09:23)
[2018-02-28] MEDS: ACYCLOVIR 200 MG CAP PO SCH ×2 (09:23→20:45)
[2018-02-28] MEDS: SALT AND SODA MOUTHWASH 1,000 ML PO SCH ×2 (09:23→17:31)
[2018-02-28] MEDS: ENOXAPARIN 40 MG/0.4 ML SYRINGE SQ SCH (09:23)
[2018-02-28] MEDS: prednisoLONE ACETATE 1% OPHTH DROPS 5 ML BTL BOTH EYES SCH ×3 (09:23→20:45)
--- NOTE | 2018-02-28 15:42 | P.PN ---
Subjective Progress Note Date: 02/28/18 Principal diagnosis: AML No acute complaints overnight. Her chemotherapy is planned to complete tomorrow am and patient is anxious for discharge at that time. Objective - Vital Signs Vital signs: Vital Signs Temp 98 F 02/28/18 07:00 Pulse 79 02/28/18 07:00 Resp 16 02/28/18 07:00 BP 134/84 02/28/18 07:00 Pulse Ox 97 02/28/18 07:00 Intake & Output 02/27/18 02/28/18 02/28/18 18:59 06:59 18:59 Intake Total 240 1540 1200 Balance 240 1540 1200 Weight 54.5 kg Intake: Intake, IV Titration 950 1200 Amount Sodium Chloride 0.9% 1, 950 1200 000 ml @ 150 mls/hr IV . Q6H40M [facility] Rx#:[id number] Oral 240 590 Other: Voiding Method Toilet Toilet Toilet # Voids 3 2 - Constitutional General appearance: Present: cooperative, no acute distress - EENT Eyes: Present: EOMI, PERRLA, dentition normal ENT: Present: NA/AT, normal oropharynx - Neck Neck: Present: normal ROM - Respiratory Respiratory: bilateral: CTA - Cardiovascular Rhythm: regular Heart sounds: normal: S1, S2 - Gastrointestinal General gastrointestinal: Present: normal bowel sounds, soft - Integumentary Integumentary: Present: pale - Neurologic Neurologic: Present: CNII-XII intact - Musculoskeletal Musculoskeletal: Present: gait normal, strength equal bilaterally - Psychiatric Psychiatric: Present: A&O x's 3, appropriate affect, intact judgment & insight - Labs CBC & Chem 7: 02/28/18 07:32 02/28/18 07:32 Labs: Abnormal Lab Results - Last 24 Hours (Table) 02/28/18 02/28/18 Range/Units 07:32 07:32 RBC 3.46 L (3.80-5.40) m/uL Hgb 10.5 L (11.4-16.0) gm/dL Hct 32.5 L (34.0-46.0) % Lymphocytes # 0.9 L (1.0-4.8) k/uL Uric Acid 3.1 L (3.7-7.4) mg/dL Alkaline Phosphatase 37 L (38-126) U/L Assessment and Plan Plan: Assessment and Plan (1) Acute myeloblastic leukemia Narrative/Plan: Cont chemotherapy without adjustment Continue supportive meds and prophylactic treatments Follow-up and labs daily. Patient has lab draw scheduled for Saturday, appt date and time in chart Outpatient medication refills have been sent to her pharmacy already. Greater than 30minutes spent with patient and counseling and coorditinating care discussing the treatment plan with new Radatz TKI medication she will begin on Saturday after treatment in patient. Continue GI and DVT prophylaxis. DISPO - OK to discharge home after chemotherapy has completed in the am.
[2018-02-28] MEDS: ONDANSETRON 16 MG in SODIUM CHLORIDE 0.9% 50 ML IVPB SCH (16:59)
[2018-02-28] MEDS: DEXAMETHASONE SOD PHOSPHATE 10 MG/ML 1 ML VIAL IV SCH (16:59)
[2018-02-28] MEDS: CYTARABINE IV SCH (17:31)
[2018-02-28] MEDS: SODIUM CHLORIDE 0.9% IV SCH (17:31)
[2018-02-28] MEDS: LEVOFLOXACIN 500 MG TAB PO SCH (17:31)
[2018-02-28] MEDS: LORazepam 0.5 MG TAB PO PRN (23:29)
--- NOTE | 2018-02-28 23:49 | P.PN ---
Subjective Principal diagnosis: Acute myelogenous leukemia This is a continuing progress note on a 47-year-old white female who is admitted for chemotherapy. The patient actually is in no acute distress with no significant nausea or vomiting. Objective - Vital Signs Vital signs: Vital Signs Temp 97.5 F L 02/28/18 20:00 Pulse 99 02/28/18 20:00 Resp 16 02/28/18 20:00 BP 123/76 02/28/18 20:00 Pulse Ox 97 02/28/18 20:00 Intake & Output 02/28/18 02/28/18 03/01/18 06:59 18:59 06:59 Intake Total 1540 1200 960 Balance 1540 1200 960 Weight 54.5 kg Intake: IV 360 Cytarabine/Pf 4,800 mg In 360 Sodium Chloride 0.9% 500 ml @ 182.667 mls/hr IV Q48H [facility] Rx#:[id number] Intake, IV Titration 950 1200 600 Amount Sodium Chloride 0.9% 1, 950 1200 600 000 ml @ 150 mls/hr IV . Q6H40M [facility] Rx#:[id number] Oral 590 Other: Voiding Method Toilet Toilet # Voids 2 - Constitutional General appearance: Present: average body habitus - Neck Neck: Absent: lymphadenopathy - Respiratory Respiratory: bilateral: CTA - Cardiovascular Rhythm: regular Heart sounds: normal: S1, S2 Abnormal Heart Sounds: Absent: S3 Gallop - Psychiatric Psychiatric: Present: A&O x's 3, appropriate affect - Labs CBC & Chem 7: 02/28/18 07:32 02/28/18 07:32 Labs: Abnormal Lab Results - Last 24 Hours (Table) 02/28/18 02/28/18 Range/Units 07:32 07:32 RBC 3.46 L (3.80-5.40) m/uL Hgb 10.5 L (11.4-16.0) gm/dL Hct 32.5 L (34.0-46.0) % Lymphocytes # 0.9 L (1.0-4.8) k/uL Uric Acid 3.1 L (3.7-7.4) mg/dL Alkaline Phosphatase 37 L (38-126) U/L Assessment and Plan (1) Acute myeloblastic leukemia Current Visit: Yes Status: Acute Priority: High Code(s): C92.00 - ACUTE MYELOBLASTIC LEUKEMIA, NOT HAVING ACHIEVED REMISSION SNOMED Code(s): 25620690 (2) Pancytopenia due to antineoplastic chemotherapy Current Visit: No Status: Acute Priority: High Code(s): D61.810 - ANTINEOPLASTIC CHEMOTHERAPY INDUCED PANCYTOPENIA; T45.1X5A - ADVERSE EFFECT OF ANTINEOPLASTIC AND IMMUNOSUP DRUGS, INIT SNOMED Code(s): 095538515432612 Plan: Continue current regimen of treatment. Anticipate discharge in a.m. after her normal chemotherapeutic infusion. Dr. Smart's group will be covering the weekend.. See orders otherwise.
[2018-03-01] MEDS: SODIUM CHLORIDE 0.9% 1,000 ML IV SCH (03:50)
[2018-03-01] MEDS: CYTARABINE IV SCH (06:07)
[2018-03-01] MEDS: SODIUM CHLORIDE 0.9% IV SCH (06:07)
[2018-03-01 07:15] LABS: Basophils % (A) 0 %; Eosinophils # (A) 0.1 k/uL (0-0.7); Eosinophils % (A) 1 %; HCT 32.1 % (34.0-46.0); HGB 10.7 gm/dL (11.4-16.0); Lymphocytes # (A) 0.3 k/uL (1.0-4.8); Lymphocytes % (A) 4 %; MCH 31.2 pg (25.0-35.0); MCHC 33.2 g/dL (31.0-37.0); MCV 94.2 fL (80.0-100.0); Mean Platelet Volume 6.6; Monocytes # (A) 0.1 k/uL (0-1.0); Monocytes % (A) 1 %; Neutrophils # (A) 6.1 k/uL (1.3-7.7); Neutrophils % (A) 94 %; Platelet Count 196 k/uL (150-450); RBC 3.41 m/uL (3.80-5.40); RDW 15.1 % (11.5-15.5); WBC 6.4 k/uL (3.8-10.6)
[2018-03-01 07:29] LABS: ALT 17 U/L (9-52); AST 16 U/L (14-36); Albumin 3.6 g/dL (3.5-5.0); Alkaline Phosphatase 37 U/L (38-126); Anion Gap 8 mmol/L; Blood Urea Nitrogen 12 mg/dL (7-17); Calcium 8.9 mg/dL (8.4-10.2); Carbon Dioxide 24 mmol/L (22-30); Chloride 106 mmol/L (98-107); Glucose 111 mg/dL (74-99); Potassium 4.2 mmol/L (3.5-5.1); Sodium 138 mmol/L (137-145); Total Bilirubin 0.8 mg/dL (0.2-1.3); Total Protein 6.7 g/dL (6.3-8.2)
[2018-03-01] MEDS: PANTOPRAZOLE 40 MG TABLET PO SCH (07:53)
[2018-03-01] MEDS: LEVOFLOXACIN 500 MG TAB PO SCH (07:53)
[2018-03-01] MEDS: ACYCLOVIR 200 MG CAP PO SCH (07:53)
[2018-03-01] MEDS: prednisoLONE ACETATE 1% OPHTH DROPS 5 ML BTL BOTH EYES SCH (07:54)
[2018-03-01] MEDS: FLUCONAZOLE 100 MG TAB PO SCH (07:54)
[2018-03-01] MEDS: ENOXAPARIN 40 MG/0.4 ML SYRINGE SQ SCH (07:54)
[2018-03-01] MEDS: SALT AND SODA MOUTHWASH 1,000 ML PO SCH (07:56)
[2018-03-01 08:28] VITALS: BP 156/89; PULSE 76; RESP 18; TEMP 97.7
== END 2018-03-01 09:00 | disposition home or self-care (01) | DRG 839 ==
LOC: 5ONC 10:12
PROVIDERS: ADMIT Internal Medicine Hematology & Oncology; ATTEND Internal Medicine Hematology & Oncology
PROC: 3E04305 Introduction of Other Antineoplastic into Central Vein, Percutaneous Approach (ICD-10-PCS; principal; 2018-02-24 13:51)
PROC: 02HV33Z Insertion of Infusion Device into Superior Vena Cava, Percutaneous Approach (ICD-10-PCS; 2018-02-24 13:51)
DX: Z51.11 Encounter for antineoplastic chemotherapy (principal); C92.00 Acute myeloblastic leukemia, not having achieved remission; K21.9 Gastro-esophageal reflux disease without esophagitis; Z79.899 Other long term (current) drug therapy; Z80.0 Family history of malignant neoplasm of digestive organs; Z80.6 Family history of leukemia
CPT/HCPCS: 36569; 76937; 77001; 80053; 84550; 85025; 85610

== ENCOUNTER 2018-03-31 08:09 | Inpatient (IN) | payer BC ==
[2018-03-31] MEDS ORDERED: ALTEPLASE 2 MG VIAL (CATHFLO) IV STA (09:50)
[2018-03-31 10:56] LABS: ALT 12 U/L (9-52); AST 20 U/L (14-36); Albumin 4.2 g/dL (3.5-5.0); Alkaline Phosphatase 54 U/L (38-126); Anion Gap 11 mmol/L; Blood Urea Nitrogen 11 mg/dL (7-17); Calcium 9.3 mg/dL (8.4-10.2); Carbon Dioxide 24 mmol/L (22-30); Chloride 106 mmol/L (98-107); Glucose 87 mg/dL (74-99); Sodium 141 mmol/L (137-145); Total Bilirubin 0.2 mg/dL (0.2-1.3); Total Protein 7.7 g/dL (6.3-8.2); Uric Acid 5.3 mg/dL (3.7-7.4)
[2018-03-31 10:59] LABS: HCG,Qualitative Serum Not Detected
[2018-03-31 11:08] LABS: Anisocytosis Slight; Basophils # (A) 0.1 k/uL (0-0.2); Basophils % (A) 1 %; Eosinophils # (A) 0.1 k/uL (0-0.7); Eosinophils % (A) 1 %; HCT 32.4 % (34.0-46.0); HGB 10.2 gm/dL (11.4-16.0); Hypochromasia Slight; Lymphocytes # (A) 1.4 k/uL (1.0-4.8); Lymphocytes % (A) 14 %; MCH 29.5 pg (25.0-35.0); MCHC 31.3 g/dL (31.0-37.0); Macrocytosis Slight; Mean Platelet Volume 6.4; Monocytes # (A) 0.7 k/uL (0-1.0); Monocytes % (A) 7 %; Neutrophils # (A) 7.4 k/uL (1.3-7.7); Neutrophils % (A) 76 %; Platelet Count 532 k/uL (150-450); RBC 3.44 m/uL (3.80-5.40); RDW 18.3 % (11.5-15.5); WBC 9.8 k/uL (3.8-10.6)
[2018-03-31 11:12] LABS: MCV 94.3 fL (80.0-100.0)
[2018-03-31] MEDS: SODIUM CHLORIDE 0.9% 1,000 ML IV SCH ×3 (12:16→19:08)
[2018-03-31] MEDS: ONDANSETRON 16 MG in SODIUM CHLORIDE 0.9% 50 ML IVPB SCH (12:21)
[2018-03-31] MEDS ORDERED: LORazepam 2 MG/ML INJ IV PRN (13:10)
[2018-03-31] MEDS: prednisoLONE ACETATE 1% OPHTH DROPS 5 ML BTL BOTH EYES SCH ×4 (13:15→20:56)
[2018-03-31] MEDS: DEXAMETHASONE SOD PHOSPHATE 10 MG/ML 1 ML VIAL IV SCH (13:15)
[2018-03-31] MEDS: CYTARABINE IV SCH (13:39)
[2018-03-31] MEDS: SODIUM CHLORIDE 0.9% IV SCH (13:39)
[2018-03-31] MEDS: SALT AND SODA MOUTHWASH 1,000 ML PO SCH ×2 (14:10→17:49)
[2018-03-31] MEDS: SALT AND SODA MOUTHWASH 1,000 ML PO PRN (17:48)
--- NOTE | 2018-03-31 18:59 | P.HPIM ---
History of Present Illness H&P Date: 03/31/18 Chief Complaint: AML Mrs. Garay is a very pleasant 47-year-old female who is admitted for cycle #2 consolidation with high dose Lorna-C. 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 She only required 1 platelet transfusion. Coming into today pt feels good, no fevers, chills, oral irritation , nausea, shortness of breath, cough, palpitations, abdominal discomfort, dysuria, diarrhea, constipation, swelling, bruises, petechiae, bleeding, she is independently ambulatory, appetite is good, energy levels good, no pain. Malignancy Hx: Initial consult 12/31/17 for pancytopenia, only presenting symptoms were swelling in the bilateral lower extremities, right greater than left (patient had sustained a spider bite on the right knee the week before) and mild petechiae on the lower extremities. PCP Dr. Tejada checked her lab work, severe pancytopenia was noted, pt sent hospital for evaluation. Bone marrow biopsy and aspirate same day with Dr. Lyle. Patient required supportive transfusions while awaiting bone marrow results. 01/07 bone marrow results, AML, eventually cytogenetic profile was finalized and reveled FLT3 positive. Pt had induction with 7+3 chemo regimen 01/08/18, which she tolerated well, she did require blood and platelet transfusions but, no other significant SE or toxicities, she had repeat bone marrow on 02/05/18 with complete response! She completed #1 consolidation with High Dose Lorna-C and 1 cycle of oral midostaurin. Review of Systems 14 point ROS as stated in HPI Past Medical History Past Medical History: Cancer, GERD/Reflux Additional Past Medical History / Comment(s): AML-chemo, allergic rhinitis History of Any Multi-Drug Resistant Organisms: None Reported Past Surgical History: No Surgical Hx Reported Additional Past Surgical History / Comment(s): wisdom teeth removed, bone marrow aspirations/biopsies, picc line Past Anesthesia/Blood Transfusion Reactions: No Reported Reaction Additional Past Anesthesia/Blood Transfusion Reaction / Comment(s): Pt states last time she recieved blood and platelets she had a fever during and for a couple days after. Smoking Status: Never smoker - Past Family History Mother Family Medical History: No Reported History Additional Family Medical History / Comment(s): Maternal grandmother had pancreatic cancer. Father Family Medical History: No Reported History Additional Family Medical History / Comment(s): paternal grandmother leukemia Medications and Allergies Home Medications Medication Instructions Recorded Confirmed Type Cyclafem 1 tab PO HS 12/30/17 03/31/18 History Acyclovir [Zovirax] 400 mg PO BID #42 tab 01/16/18 03/31/18 Rx Nystatin 100,000 Unit/ml Susp 5 ml PO QID 03/08/18 03/31/18 History [Mycostatin Oral Susp] Allergies Allergy/AdvReac Type Severity Reaction Status Date / Time sulfamethoxazole Allergy Rash/Hives Verified 03/31/18 09:55 [From Bactrim] trimethoprim [From Bactrim] Allergy Rash/Hives Verified 03/31/18 09:55 Physical Exam Vitals: Vital Signs Temp Pulse Resp BP Pulse Ox 03/31/18 16:00 93 16 03/31/18 15:00 98.3 F 93 16 129/73 99 03/31/18 13:20 98.3 F 93 16 129/73 99 03/31/18 08:55 98.3 F 93 16 129/73 99 Intake and Output 03/31/18 03/31/18 03/31/18 06:59 14:59 22:59 Intake Total 1430 Balance 1430 Intake: Intake, IV Titration 1030 Amount Cytarabine/Pf 4,000 mg 580 Cytarabine/Pf 800 mg In Sodium Chloride 0.9% 500 ml @ 193.333 mls/hr IV Q48H [facility] Rx#:[id number] Sodium Chloride 0.9% 1, 450 000 ml @ 150 mls/hr IV . Q6H40M [facility] Rx#:[id number] Oral 400 Other: Weight 57.153 kg - Constitutional General appearance: average body habitus, cooperative, no acute distress - EENT Eyes: anicteric sclerae, EOMI, normal appearance ENT: hearing grossly normal, normal oropharynx - Neck Neck: no lymphadenopathy - Respiratory Respiratory: bilateral: CTA - Cardiovascular Rhythm: regular Heart sounds: normal: S1, S2 Abnormal Heart Sounds: no systolic murmur, no diastolic murmur, no rub, no S3 Gallop, no S4 Gallop, no click, no other leg Peripheral Edema: bilateral: None - Gastrointestinal General gastrointestinal: no absent bowel sounds, no decreased bowel sounds, no distended, no hepatomegaly, no hyperactive bowel sounds, normal bowel sounds, no organomegaly, no rigid, no scaphoid, soft, no splenomegaly, no tenderness, no umbilical hernia, no ventral hernia - Integumentary Integumentary: normal - Neurologic Neurologic: CNII-XII intact - Musculoskeletal Musculoskeletal: strength equal bilaterally - Psychiatric Psychiatric: A&O x's 3, appropriate affect, intact judgment & insight Results CBC & Chem 7: 03/31/18 10:28 03/31/18 10:28 Labs: Abnormal Lab Results - Last 24 Hours (Table) 03/31/18 Range/Units 10:28 RBC 3.44 L (3.80-5.40) m/uL Hgb 10.2 L (11.4-16.0) gm/dL Hct 32.4 L (34.0-46.0) % RDW 18.3 H (11.5-15.5) % Plt Count 532 H (150-450) k/uL Thrombosis Risk Factor Assmnt - DVT/VTE Prophylaxis DVT/VTE Prophylaxis: Pharmacologic Prophylaxis ordered - Choose All That Apply Any of the Below Risk Factors Present?: Yes Each Factor Represents 1 point: Age 41-60 years Other Risk Factors: Yes Each Risk Factor Represents 2 Points: Malignancy Other congenital or acquired thrombophilia - If yes, enter type in comment: No Thrombosis Risk Factor Assessment Total Risk Factor Score: 3 Thrombosis Risk Factor Assessment Level: Moderate Risk Assessment and Plan (1) Acute myeloblastic leukemia Narrative/Plan: Admit for consolidation #2. Orders reviewed Labs daily Supportive meds ordered Daily f/u Home meds reconciled Current Visit: Yes Status: Acute Priority: High Code(s): C92.00 - ACUTE MYELOBLASTIC LEUKEMIA, NOT HAVING ACHIEVED REMISSION SNOMED Code(s): 29314511
[2018-04-01] MEDS: ONDANSETRON 16 MG in SODIUM CHLORIDE 0.9% 50 ML IVPB SCH (01:11)
[2018-04-01] MEDS: SODIUM CHLORIDE 0.9% 1,000 ML IV SCH ×4 (01:23→21:49)
[2018-04-01] MEDS: SODIUM CHLORIDE 0.9% IV SCH (01:44)
[2018-04-01] MEDS: CYTARABINE IV SCH (01:44)
[2018-04-01] MEDS: ENOXAPARIN 40 MG/0.4 ML SYRINGE SQ SCH (07:32)
[2018-04-01] MEDS: prednisoLONE ACETATE 1% OPHTH DROPS 5 ML BTL BOTH EYES SCH ×4 (07:34→21:39)
[2018-04-01] MEDS: SALT AND SODA MOUTHWASH 1,000 ML PO PRN ×3 (07:35→17:28)
[2018-04-01] MEDS: SALT AND SODA MOUTHWASH 1,000 ML PO SCH ×3 (07:35→17:29)
[2018-04-01 08:10] LABS: Anisocytosis Slight; Basophils % (A) 0 %; Eosinophils % (A) 1 %; HCT 29.3 % (34.0-46.0); HGB 9.3 gm/dL (11.4-16.0); Hypochromasia Slight; Lymphocytes # (A) 0.4 k/uL (1.0-4.8); Lymphocytes % (A) 6 %; MCH 29.9 pg (25.0-35.0); MCHC 31.7 g/dL (31.0-37.0); MCV 94.2 fL (80.0-100.0); Macrocytosis Slight; Mean Platelet Volume 6.5; Monocytes # (A) 0.3 k/uL (0-1.0); Monocytes % (A) 4 %; Neutrophils # (A) 5.7 k/uL (1.3-7.7); Neutrophils % (A) 88 %; Platelet Count 419 k/uL (150-450); RBC 3.11 m/uL (3.80-5.40); RDW 17.5 % (11.5-15.5); WBC 6.5 k/uL (3.8-10.6)
[2018-04-01 08:20] LABS: ALT 12 U/L (9-52); AST 15 U/L (14-36); Albumin 3.3 g/dL (3.5-5.0); Alkaline Phosphatase 44 U/L (38-126); Anion Gap 10 mmol/L; Blood Urea Nitrogen 6 mg/dL (7-17); Calcium 8.3 mg/dL (8.4-10.2); Carbon Dioxide 19 mmol/L (22-30); Chloride 112 mmol/L (98-107); Glucose 109 mg/dL (74-99); Potassium 4.2 mmol/L (3.5-5.1); Sodium 141 mmol/L (137-145); Total Bilirubin 0.3 mg/dL (0.2-1.3); Total Protein 6.3 g/dL (6.3-8.2); Uric Acid 4.9 mg/dL (3.7-7.4)
[2018-04-01] MEDS: PANTOPRAZOLE 40 MG/10 ML VIAL IVP SCH (12:07)
--- NOTE | 2018-04-01 18:22 | P.PN ---
Subjective Progress Note Date: 04/01/18 Principal diagnosis: AML, inpatient chemotherapy, consolidation cycle #3 Patient seen today in follow-up, she is tolerating treatment well at this time, no fevers, oral irritation, sore throat, nausea or vomiting, difficulty in breathing, abdominal discomfort, indigestion, changes in bowel or bladder habits , swelling of the legs, rash, bleeding or pain. Objective - Vital Signs Vital signs: Vital Signs Temp 98.6 F 04/01/18 16:10 Pulse 83 04/01/18 16:10 Resp 16 04/01/18 16:10 BP 129/79 04/01/18 16:10 Pulse Ox 100 04/01/18 16:10 Intake & Output 03/31/18 04/01/18 04/01/18 18:59 06:59 18:59 Intake Total 1430 1800 1200 Balance 1430 1800 1200 Weight 57.153 kg Intake: Intake, IV Titration 1030 1350 1200 Amount Cytarabine/Pf 4,000 mg 580 Cytarabine/Pf 800 mg In Sodium Chloride 0.9% 500 ml @ 193.333 mls/hr IV Q48H [facility] Rx#:[id number] Sodium Chloride 0.9% 1, 450 1350 1200 000 ml @ 150 mls/hr IV . Q6H40M [facility] Rx#:[id number] Oral 400 450 Other: Voiding Method Toilet Toilet # Voids 1 4 - Constitutional General appearance: Present: average body habitus, cooperative, no acute distress - EENT Eyes: Present: anicteric sclerae, EOMI, normal appearance ENT: Present: hearing grossly normal, normal oropharynx - Respiratory Respiratory: bilateral: CTA - Cardiovascular Rhythm: regular Heart sounds: normal: S1, S2 - Peripheral edema leg Peripheral Edema: bilateral: None - Gastrointestinal General gastrointestinal: Present: normal bowel sounds, soft - Integumentary Integumentary: Present: normal - Neurologic Neurologic: Present: CNII-XII intact - Musculoskeletal Musculoskeletal: Present: strength equal bilaterally - Psychiatric Psychiatric: Present: A&O x's 3, appropriate affect, intact judgment & insight - Labs CBC & Chem 7: 04/01/18 07:32 04/01/18 07:32 Labs: Abnormal Lab Results - Last 24 Hours (Table) 04/01/18 04/01/18 Range/Units 07:32 07:32 RBC 3.11 L (3.80-5.40) m/uL Hgb 9.3 L (11.4-16.0) gm/dL Hct 29.3 L (34.0-46.0) % RDW 17.5 H (11.5-15.5) % Lymphocytes # 0.4 L (1.0-4.8) k/uL Chloride 112 H (98-107) mmol/L Carbon Dioxide 19 L (22-30) mmol/L BUN 6 L (7-17) mg/dL Glucose 109 H (74-99) mg/dL Calcium 8.3 L (8.4-10.2) mg/dL Albumin 3.3 L (3.5-5.0) g/dL Assessment and Plan (1) Acute myeloblastic leukemia Narrative/Plan: Continue chemotherapy without adjustment Continue labs daily Discharge planning for this weekend after chemotherapy complete. Follow-up CBCs outpatient Current Visit: Yes Status: Acute Priority: High Code(s): C92.00 - ACUTE MYELOBLASTIC LEUKEMIA, NOT HAVING ACHIEVED REMISSION SNOMED Code(s): 36465980 Plan: Doctor attests: I performed a history and physical examination of this patient, discussed with dictator. I agree with dictators note, documented as a scribe.
[2018-04-01] MEDS: LORazepam 0.5 MG TAB PO SCH (21:38)
[2018-04-02] MEDS: SODIUM CHLORIDE 0.9% 1,000 ML IV SCH ×3 (03:31→22:58)
[2018-04-02] MEDS: SALT AND SODA MOUTHWASH 1,000 ML PO PRN ×3 (09:26→18:48)
[2018-04-02 09:27] LABS: Anisocytosis Slight; Basophils % (A) 0 %; Eosinophils % (A) 1 %; HCT 28.5 % (34.0-46.0); HGB 9.4 gm/dL (11.4-16.0); Hypochromasia Slight; Lymphocytes # (A) 0.7 k/uL (1.0-4.8); Lymphocytes % (A) 20 %; MCH 31.1 pg (25.0-35.0); MCV 94.1 fL (80.0-100.0); Macrocytosis Slight; Mean Platelet Volume 6.1; Monocytes # (A) 0.3 k/uL (0-1.0); Monocytes % (A) 9 %; Neutrophils # (A) 2.3 k/uL (1.3-7.7); Neutrophils % (A) 68 %; Platelet Count 347 k/uL (150-450); RBC 3.03 m/uL (3.80-5.40); WBC 3.3 k/uL (3.8-10.6)
[2018-04-02] MEDS: SALT AND SODA MOUTHWASH 1,000 ML PO SCH ×3 (09:27→18:49)
[2018-04-02] MEDS: ENOXAPARIN 40 MG/0.4 ML SYRINGE SQ SCH (09:28)
[2018-04-02] MEDS: PANTOPRAZOLE 40 MG/10 ML VIAL IVP SCH (09:28)
[2018-04-02] MEDS: prednisoLONE ACETATE 1% OPHTH DROPS 5 ML BTL BOTH EYES SCH ×4 (09:28→22:59)
[2018-04-02 09:44] LABS: ALT 7 U/L (9-52); AST 17 U/L (14-36); Albumin 3.3 g/dL (3.5-5.0); Alkaline Phosphatase 37 U/L (38-126); Anion Gap 12 mmol/L; Blood Urea Nitrogen 7 mg/dL (7-17); Calcium 8.2 mg/dL (8.4-10.2); Carbon Dioxide 22 mmol/L (22-30); Chloride 107 mmol/L (98-107); Glucose 94 mg/dL (74-99); Potassium 3.5 mmol/L (3.5-5.1); Sodium 141 mmol/L (137-145); Total Bilirubin 0.3 mg/dL (0.2-1.3); Total Protein 6.3 g/dL (6.3-8.2); Uric Acid 3.6 mg/dL (3.7-7.4)
[2018-04-02] MEDS: DEXAMETHASONE SOD PHOSPHATE 10 MG/ML 1 ML VIAL IV SCH (13:13)
[2018-04-02] MEDS: SODIUM CHLORIDE 0.9% IV SCH (13:18)
[2018-04-02] MEDS: CYTARABINE IV SCH (13:18)
--- NOTE | 2018-04-02 14:05 | P.PN ---
Subjective Progress Note Date: 04/02/18 Principal diagnosis: AML, inpatient chemotherapy, consolidation cycle #3 Pt seen in f/u, she continues to tolerate tx well, no fever, oral irritation, nausea, appetite is good, no SOB, cough, indigestion, changes in bowel or bladder habits, bleeding, swelling, she is fully and independently ambulatory. She feels in general good. Objective - Vital Signs Vital signs: Vital Signs Temp 98.2 F 04/02/18 13:03 Pulse 94 04/02/18 13:03 Resp 16 04/02/18 13:03 BP 129/80 04/02/18 13:03 Pulse Ox 98 04/02/18 13:03 Intake & Output 04/01/18 04/02/18 04/02/18 18:59 06:59 18:59 Intake Total 1200 1550 Balance 1200 1550 Intake: Intake, IV Titration 1200 1350 Amount Sodium Chloride 0.9% 1, 1200 1350 000 ml @ 150 mls/hr IV . Q6H40M [facility] Rx#:[id number] Oral 200 Other: Voiding Method Toilet Toilet Toilet # Voids 4 1 - Constitutional General appearance: Present: average body habitus, cooperative, no acute distress - EENT Eyes: Present: anicteric sclerae, EOMI, normal appearance ENT: Present: normal oropharynx - Respiratory Respiratory: bilateral: CTA - Cardiovascular Rhythm: regular Heart sounds: normal: S1, S2 Abnormal Heart Sounds: Absent: systolic murmur, diastolic murmur, rub, S3 Gallop , S4 Gallop, click, other - Peripheral edema leg Peripheral Edema: bilateral: None - Gastrointestinal General gastrointestinal: Present: normal bowel sounds, soft - Neurologic Neurologic: Present: CNII-XII intact - Musculoskeletal Musculoskeletal: Present: strength equal bilaterally - Psychiatric Psychiatric: Present: A&O x's 3, appropriate affect, intact judgment & insight - Labs CBC & Chem 7: 04/02/18 09:13 04/02/18 09:13 Labs: Abnormal Lab Results - Last 24 Hours (Table) 04/02/18 04/02/18 Range/Units 09:13 09:13 WBC 3.3 L (3.8-10.6) k/uL RBC 3.03 L (3.80-5.40) m/uL Hgb 9.4 L (11.4-16.0) gm/dL Hct 28.5 L (34.0-46.0) % RDW 18.0 H (11.5-15.5) % Lymphocytes # 0.7 L (1.0-4.8) k/uL Creatinine 0.48 L (0.52-1.04) mg/dL Uric Acid 3.6 L (3.7-7.4) mg/dL Calcium 8.2 L (8.4-10.2) mg/dL ALT 7 L (9-52) U/L Alkaline Phosphatase 37 L (38-126) U/L Albumin 3.3 L (3.5-5.0) g/dL Assessment and Plan (1) Acute myeloblastic leukemia Narrative/Plan: Cont chemo without adjustment Labs daily F/U daily Meds reviewed, no adjustments needed today Cont supportive care measures Current Visit: Yes Status: Acute Priority: High Code(s): C92.00 - ACUTE MYELOBLASTIC LEUKEMIA, NOT HAVING ACHIEVED REMISSION SNOMED Code(s): 58622160
[2018-04-02] MEDS: ONDANSETRON 16 MG in SODIUM CHLORIDE 0.9% 50 ML IVPB SCH (16:34)
[2018-04-02] MEDS: LORazepam 0.5 MG TAB PO SCH (22:59)
[2018-04-03] MEDS: CYTARABINE IV SCH (01:07)
[2018-04-03] MEDS: SODIUM CHLORIDE 0.9% IV SCH (01:07)
[2018-04-03] MEDS: SODIUM CHLORIDE 0.9% 1,000 ML IV SCH ×4 (02:45→22:12)
[2018-04-03 07:45] LABS: Anisocytosis Slight; Basophils % (A) 0 %; Eosinophils # (A) 0.1 k/uL (0-0.7); Eosinophils % (A) 2 %; HCT 29.3 % (34.0-46.0); HGB 9.4 gm/dL (11.4-16.0); Hypochromasia Slight; Lymphocytes # (A) 0.2 k/uL (1.0-4.8); Lymphocytes % (A) 6 %; MCH 30.2 pg (25.0-35.0); MCHC 32.1 g/dL (31.0-37.0); MCV 94.2 fL (80.0-100.0); Mean Platelet Volume 6.8; Monocytes # (A) 0.1 k/uL (0-1.0); Monocytes % (A) 3 %; Neutrophils # (A) 3.4 k/uL (1.3-7.7); Neutrophils % (A) 89 %; Platelet Count 306 k/uL (150-450); RBC 3.11 m/uL (3.80-5.40); RDW 17.3 % (11.5-15.5); WBC 3.9 k/uL (3.8-10.6)
[2018-04-03 08:10] LABS: ALT 8 U/L (9-52); AST 18 U/L (14-36); Albumin 3.4 g/dL (3.5-5.0); Alkaline Phosphatase 40 U/L (38-126); Anion Gap 13 mmol/L; Blood Urea Nitrogen 8 mg/dL (7-17); Calcium 8.1 mg/dL (8.4-10.2); Carbon Dioxide 20 mmol/L (22-30); Chloride 107 mmol/L (98-107); Glucose 102 mg/dL (74-99); Potassium 3.9 mmol/L (3.5-5.1); Sodium 140 mmol/L (137-145); Total Bilirubin 0.3 mg/dL (0.2-1.3); Total Protein 6.4 g/dL (6.3-8.2); Uric Acid 3.3 mg/dL (3.7-7.4)
[2018-04-03] MEDS: ENOXAPARIN 40 MG/0.4 ML SYRINGE SQ SCH (09:08)
[2018-04-03] MEDS: PANTOPRAZOLE 40 MG/10 ML VIAL IVP SCH (09:08)
[2018-04-03] MEDS: SALT AND SODA MOUTHWASH 1,000 ML PO PRN ×2 (09:10→18:41)
[2018-04-03] MEDS: prednisoLONE ACETATE 1% OPHTH DROPS 5 ML BTL BOTH EYES SCH ×4 (09:11→22:11)
[2018-04-03] MEDS: SALT AND SODA MOUTHWASH 1,000 ML PO SCH ×3 (09:11→18:41)
--- NOTE | 2018-04-03 18:14 | P.PN ---
Subjective Progress Note Date: 04/03/18 Principal diagnosis: AML, inpatient chemotherapy, consolidation cycle #3 patient seen today in follow-up. She continues to tolerate chemotherapy well, one episode of nausea, no vomiting, resolved after administration of anti- emetic. No fevers, vital sign abnormalities, physical complaints on 14 point review of systems, tolerating oral intake, mild to moderate insomnia/anxiety at night, she is fully ambulatory, denies pain, no other complaints, questions or concerns. Objective - Vital Signs Vital signs: Vital Signs Temp 98.0 F 04/03/18 12:17 Pulse 87 04/03/18 12:17 Resp 20 04/03/18 12:17 BP 145/87 04/03/18 12:17 Pulse Ox 98 04/03/18 12:17 Intake & Output 04/02/18 04/03/18 04/03/18 18:59 06:59 18:59 Intake Total 1200 2780 1200 Balance 1200 2780 1200 Intake: Intake, IV Titration 1200 2300 1200 Amount Cytarabine/Pf 4,000 mg 500 Cytarabine/Pf 800 mg In Sodium Chloride 0.9% 500 ml @ 193.333 mls/hr IV Q48H [facility] Rx#:[id number] Sodium Chloride 0.9% 1, 1200 1800 1200 000 ml @ 150 mls/hr IV . Q6H40M [facility] Rx#:[id number] Oral 480 Other: Voiding Method Toilet Toilet Toilet # Voids 2 - Constitutional General appearance: Present: average body habitus, cooperative, no acute distress - EENT Eyes: Present: anicteric sclerae, EOMI ENT: Present: normal oropharynx - Respiratory Respiratory: bilateral: CTA - Cardiovascular Rhythm: regular Heart sounds: normal: S1, S2 Abnormal Heart Sounds: Absent: systolic murmur, diastolic murmur, rub, S3 Gallop , S4 Gallop, click, other - Peripheral edema leg Peripheral Edema: bilateral: None - Gastrointestinal General gastrointestinal: Present: normal bowel sounds, soft - Integumentary Integumentary: Present: normal, pale - Neurologic Neurologic: Present: CNII-XII intact - Musculoskeletal Musculoskeletal: Present: strength equal bilaterally - Psychiatric Psychiatric: Present: A&O x's 3, appropriate affect, intact judgment & insight - Labs CBC & Chem 7: 04/03/18 07:31 04/03/18 07:31 Labs: Abnormal Lab Results - Last 24 Hours (Table) 04/03/18 04/03/18 Range/Units 07:31 07:31 RBC 3.11 L (3.80-5.40) m/uL Hgb 9.4 L (11.4-16.0) gm/dL Hct 29.3 L (34.0-46.0) % RDW 17.3 H (11.5-15.5) % Lymphocytes # 0.2 L (1.0-4.8) k/uL Carbon Dioxide 20 L (22-30) mmol/L Creatinine 0.47 L (0.52-1.04) mg/dL Glucose 102 H (74-99) mg/dL Uric Acid 3.3 L (3.7-7.4) mg/dL Calcium 8.1 L (8.4-10.2) mg/dL ALT 8 L (9-52) U/L Albumin 3.4 L (3.5-5.0) g/dL Assessment and Plan (1) Acute myeloblastic leukemia Narrative/Plan: continue chemotherapy without adjustment. Medications reviewed, no changes Supportive medications ordered, when necessary medications for chemotherapy side effects available Labs daily Follow-up daily Planning for discharge Saturday morning after lab draw. Current Visit: Yes Status: Acute Priority: High Code(s): C92.00 - ACUTE MYELOBLASTIC LEUKEMIA, NOT HAVING ACHIEVED REMISSION SNOMED Code(s): 00308454
[2018-04-03] MEDS: LORazepam 0.5 MG TAB PO SCH (22:11)
[2018-04-04] MEDS: SODIUM CHLORIDE 0.9% 1,000 ML IV SCH ×4 (05:30→23:27)
[2018-04-04 07:24] LABS: Anisocytosis Slight; Basophils % (A) 0 %; Eosinophils # (A) 0.1 k/uL (0-0.7); Eosinophils % (A) 2 %; HCT 28.2 % (34.0-46.0); Lymphocytes # (A) 0.7 k/uL (1.0-4.8); Lymphocytes % (A) 28 %; MCH 29.4 pg (25.0-35.0); MCHC 31.9 g/dL (31.0-37.0); MCV 92.3 fL (80.0-100.0); Mean Platelet Volume 6.8; Monocytes % (A) 2 %; Neutrophils # (A) 1.8 k/uL (1.3-7.7); Neutrophils % (A) 68 %; Platelet Count 296 k/uL (150-450); RBC 3.05 m/uL (3.80-5.40); WBC 2.6 k/uL (3.8-10.6)
[2018-04-04 07:40] LABS: ALT 13 U/L (9-52); AST 18 U/L (14-36); Albumin 3.2 g/dL (3.5-5.0); Alkaline Phosphatase 35 U/L (38-126); Anion Gap 8 mmol/L; Blood Urea Nitrogen 9 mg/dL (7-17); Calcium 8.2 mg/dL (8.4-10.2); Carbon Dioxide 23 mmol/L (22-30); Chloride 108 mmol/L (98-107); Glucose 81 mg/dL (74-99); Potassium 3.9 mmol/L (3.5-5.1); Sodium 139 mmol/L (137-145); Total Bilirubin 0.5 mg/dL (0.2-1.3); Total Protein 6.2 g/dL (6.3-8.2); Uric Acid 3.3 mg/dL (3.7-7.4)
[2018-04-04] MEDS: SALT AND SODA MOUTHWASH 1,000 ML PO PRN ×3 (09:21→21:16)
[2018-04-04] MEDS: PANTOPRAZOLE 40 MG/10 ML VIAL IVP SCH (09:27)
[2018-04-04] MEDS: ENOXAPARIN 40 MG/0.4 ML SYRINGE SQ SCH (09:27)
[2018-04-04] MEDS: SALT AND SODA MOUTHWASH 1,000 ML PO SCH ×3 (09:28→21:16)
[2018-04-04] MEDS: prednisoLONE ACETATE 1% OPHTH DROPS 5 ML BTL BOTH EYES SCH ×4 (09:28→23:39)
[2018-04-04] MEDS: ONDANSETRON 16 MG in SODIUM CHLORIDE 0.9% 50 ML IVPB SCH (12:23)
[2018-04-04] MEDS: DEXAMETHASONE SOD PHOSPHATE 10 MG/ML 1 ML VIAL IV SCH (12:23)
--- NOTE | 2018-04-04 12:24 | P.DS ---
Providers Date of admission: 03/31/18 08:09 Expected date of discharge: 04/05/18 Attending physician: Allen Lyle Primary care physician: Stated None - Discharge Diagnosis(es) (1) Acute myeloblastic leukemia Pt admitted for 3rd consolidation for AML. She tolerated treatment well, mild side effects of nausea, managed with antiemetics. She remained afebrile, acitve , tolerated oral intake, no cough, MYRIAM, bowel or bladder changes, bleeding or pain. She will be receiving her final cytarabine infusion at 3AM on the . She is anxious to get home. She is to be seen in office on Saturday morning at 8 am for labs and to schedule further appts. Current Visit: Yes Status: Acute Priority: High Pertinent Studies: none Procedures: none Plan - Discharge Summary Discharge Rx Participant: No New Discharge Prescriptions: New Amoxicillin 500 mg PO DAILY #30 capsule No Action Cyclafem 1 tab PO HS Acyclovir [Zovirax] 400 mg PO BID #42 tab Nystatin 100,000 Unit/ml Susp [Mycostatin Oral Susp] 5 ml PO QID Discharge Medication List Cyclafem 1 tab PO HS 12/30/17 [History] Acyclovir [Zovirax] 400 mg PO BID #42 tab 01/16/18 [Rx] Nystatin 100,000 Unit/ml Susp [Mycostatin Oral Susp] 5 ml PO QID 03/08/18 [ History] Amoxicillin 500 mg PO DAILY #30 capsule 04/04/18 [Rx] Follow up Appointment(s)/Referral(s): Allen Lyle MD [STAFF PHYSICIAN] - 04/07/18 8:00 am Patient Instructions/Handouts: Acute Lymphocytic Leukemia (DC) Activity/Diet/Wound Care/Special Instructions: Nystatin refill sent to pt [facility] (03/31/18) Kendell Simpson amoxicillin sent to pt [facility] (04/04/18) Margret Diet as tolerate Activity as tolerate Neutropenic precautions Monitor for fever. Call Doctor with temp 100.5F Discharge Disposition: HOME SELF-CARE
[2018-04-04 13:01] VITALS: RESP 16
--- NOTE | 2018-04-04 13:29 | P.PN ---
Subjective Progress Note Date: 04/04/18 Principal diagnosis: AML Feeling good overall No Nausea, Vomiting, Diarrhea. Afebrile, No signs of bleeding Should complete cycle 2 of 3 of consolidation at 3am . Objective - Vital Signs Vital signs: Vital Signs Temp 98.1 F 04/04/18 13:00 Pulse 86 04/04/18 13:00 Resp 16 04/04/18 13:00 BP 134/87 04/04/18 13:00 Pulse Ox 99 04/04/18 05:33 Intake & Output 04/03/18 04/04/18 04/04/18 18:59 06:59 18:59 Intake Total 1200 3070 Balance 1200 3070 Intake: Intake, IV Titration 1200 1800 Amount Sodium Chloride 0.9% 1, 1200 1800 000 ml @ 150 mls/hr IV . Q6H40M [facility] Rx#:[id number] Oral 1270 Other: Voiding Method Toilet Toilet Toilet # Voids 4 - Exam Constitutional General appearance: Present: average body habitus, cooperative, no acute distress - EENT Eyes: Present: anicteric sclerae, EOMI ENT: Present: normal oropharynx - Respiratory Respiratory: bilateral: CTA - Cardiovascular Rhythm: regular Heart sounds: normal: S1, S2 Abnormal Heart Sounds: Absent: systolic murmur, diastolic murmur, rub, S3 Gallop , S4 Gallop, click, other - Peripheral edema leg Peripheral Edema: bilateral: None - Gastrointestinal General gastrointestinal: Present: normal bowel sounds, soft - Integumentary Integumentary: Present: normal, pale - Neurologic Neurologic: Present: CNII-XII intact - Musculoskeletal Musculoskeletal: Present: strength equal bilaterally - Psychiatric Psychiatric: Present: A&O x's 3, appropriate affect, intact judgment & insight - Labs CBC & Chem 7: 04/04/18 07:10 04/04/18 07:10 Labs: Abnormal Lab Results - Last 24 Hours (Table) 04/04/18 04/04/18 Range/Units 07:10 07:10 WBC 2.6 L (3.8-10.6) k/uL RBC 3.05 L (3.80-5.40) m/uL Hgb 9.0 L (11.4-16.0) gm/dL Hct 28.2 L (34.0-46.0) % RDW 17.0 H (11.5-15.5) % Lymphocytes # 0.7 L (1.0-4.8) k/uL Chloride 108 H (98-107) mmol/L Creatinine 0.50 L (0.52-1.04) mg/dL Uric Acid 3.3 L (3.7-7.4) mg/dL Calcium 8.2 L (8.4-10.2) mg/dL Alkaline Phosphatase 35 L (38-126) U/L Total Protein 6.2 L (6.3-8.2) g/dL Albumin 3.2 L (3.5-5.0) g/dL Assessment and Plan Plan: Assessment and Plan (1) Acute myeloblastic leukemia Narrative/Plan: continue chemotherapy without adjustment. Medications reviewed, no changes Supportive medications ordered, when necessary medications for chemotherapy side effects available Labs daily Follow-up daily Planning for discharge Saturday morning after lab draw. - Patient may be discharged if labs stable, VSS, and no acute issues overnight. Prophylaxic antibiotics already sent to pharmacy.
[2018-04-04] MEDS: CYTARABINE IV SCH (13:34)
[2018-04-04] MEDS: SODIUM CHLORIDE 0.9% IV SCH (13:34)
[2018-04-04] MEDS: LORazepam 0.5 MG TAB PO SCH (23:27)
[2018-04-05] MEDS: CYTARABINE IV SCH (01:41)
[2018-04-05] MEDS: SODIUM CHLORIDE 0.9% IV SCH (01:41)
[2018-04-05 05:15] VITALS: BP 154/88; PULSE 76; TEMP 97.7
[2018-04-05 06:42] LABS: Anisocytosis Slight; Basophils % (A) 0 %; Eosinophils # (A) 0.1 k/uL (0-0.7); Eosinophils % (A) 1 %; HCT 28.4 % (34.0-46.0); HGB 9.2 gm/dL (11.4-16.0); Hypochromasia Slight; Lymphocytes # (A) 0.3 k/uL (1.0-4.8); Lymphocytes % (A) 6 %; MCH 30.9 pg (25.0-35.0); MCHC 32.5 g/dL (31.0-37.0); MCV 95.2 fL (80.0-100.0); Mean Platelet Volume 6.6; Monocytes # (A) 0.1 k/uL (0-1.0); Monocytes % (A) 1 %; Neutrophils # (A) 3.8 k/uL (1.3-7.7); Neutrophils % (A) 91 %; Platelet Count 243 k/uL (150-450); RBC 2.99 m/uL (3.80-5.40); RDW 16.7 % (11.5-15.5); WBC 4.2 k/uL (3.8-10.6)
[2018-04-05 06:57] LABS: ALT 11 U/L (9-52); AST 17 U/L (14-36); Albumin 3.4 g/dL (3.5-5.0); Alkaline Phosphatase 39 U/L (38-126); Anion Gap 12 mmol/L; Blood Urea Nitrogen 11 mg/dL (7-17); Calcium 8.9 mg/dL (8.4-10.2); Carbon Dioxide 20 mmol/L (22-30); Chloride 107 mmol/L (98-107); Glucose 100 mg/dL (74-99); Potassium 4.1 mmol/L (3.5-5.1); Sodium 139 mmol/L (137-145); Total Bilirubin 0.5 mg/dL (0.2-1.3); Total Protein 6.5 g/dL (6.3-8.2); Uric Acid 2.7 mg/dL (3.7-7.4)
== END 2018-04-05 08:30 | disposition home or self-care (01) | DRG 839 ==
LOC: 5ONC 08:09
PROVIDERS: ADMIT Internal Medicine Hematology & Oncology; ATTEND Internal Medicine Hematology & Oncology
DX: Z51.11 Encounter for antineoplastic chemotherapy (principal); C92.00 Acute myeloblastic leukemia, not having achieved remission; Z79.899 Other long term (current) drug therapy; Z88.2 Allergy status to sulfonamides; K21.9 Gastro-esophageal reflux disease without esophagitis; J30.9 Allergic rhinitis, unspecified; Z80.0 Family history of malignant neoplasm of digestive organs; Z80.6 Family history of leukemia
CPT/HCPCS: 38222; 80053; 84550; 84703; 85025

== ENCOUNTER 2018-04-28 08:30 | Inpatient (IN) | payer BC ==
[2018-04-28] MEDS ORDERED: LORazepam 0.5 MG TAB PO PRN (10:38)
[2018-04-28] MEDS: prednisoLONE ACETATE 1% OPHTH DROPS 5 ML BTL BOTH EYES SCH ×2 (11:23→18:26)
[2018-04-28] MEDS: SALT AND SODA MOUTHWASH 1,000 ML PO SCH ×2 (11:24→18:26)
[2018-04-28] MEDS: SODIUM CHLORIDE 0.9% 1,000 ML IV SCH ×2 (11:24→18:26)
[2018-04-28 11:29] LABS: ALT 11 U/L (9-52); AST 16 U/L (14-36); Albumin 3.6 g/dL (3.5-5.0); Alkaline Phosphatase 55 U/L (38-126); Anion Gap 7 mmol/L; Blood Urea Nitrogen 8 mg/dL (7-17); Calcium 8.7 mg/dL (8.4-10.2); Carbon Dioxide 24 mmol/L (22-30); Chloride 108 mmol/L (98-107); Glucose 84 mg/dL (74-99); Potassium 3.7 mmol/L (3.5-5.1); Sodium 139 mmol/L (137-145); Total Bilirubin 0.2 mg/dL (0.2-1.3); Total Protein 6.7 g/dL (6.3-8.2); Uric Acid 5.6 mg/dL (3.7-7.4)
[2018-04-28 11:51] LABS: Anisocytosis Moderate; HCT 26.1 % (34.0-46.0); HGB 8.7 gm/dL (11.4-16.0); MCH 30.4 pg (25.0-35.0); MCHC 33.2 g/dL (31.0-37.0); MCV 91.5 fL (80.0-100.0); Macrocytosis Slight; Platelet Count 271 k/uL (150-450); RBC 2.86 m/uL (3.80-5.40); RDW 20.1 % (11.5-15.5)
--- NOTE | 2018-04-28 12:34 | P.HPIM ---
History of Present Illness H&P Date: 04/28/18 Chief Complaint: AML consolidation chemo #3 Pt is admitted for cycle #3 consolidation with high dose A-RAC to be followed by oral midostaurin for FLT 3 mutation. Coming in today pt has good appetite, fair energy levels, no fevers, oral irritation, nausea, cough, palpitations, indigestion, dysuria, bleeding or swelling, she had diarrhea daily for the last few days, no blood, mucus or rectal pain, no other pain to report. Malignancy Hx: Initial consult 12/31/17 for pancytopenia, only presenting symptoms were swelling in the bilateral lower extremities, right greater than left (patient had sustained a spider bite on the right knee the week before) and mild petechiae on the lower extremities. PCP Dr. Tejada checked her lab work, severe pancytopenia was noted, pt sent hospital for evaluation. Bone marrow biopsy and aspirate same day with Dr. Lyle. Patient required supportive transfusions while awaiting bone marrow results. 01/07 bone marrow results, AML, eventually cytogenetic profile was finalized and reveled FLT3 positive. Pt had induction with 7+3 chemo regimen 01/08/18, which she tolerated well, she has require blood and platelet transfusions but, no other significant SE or toxicities, she did receive GCS-F after 2nd consolidation. Repeat bone marrow on 02/05/18 with complete response! She has completed #2 consolidations with High Dose Lorna-C and 2 cycles of oral midostaurin. Review of Systems 14 point ROS is negative except as stated in HPI Past Medical History Past Medical History: Cancer, GERD/Reflux Additional Past Medical History / Comment(s): 12/31/17 Pt had spider bite R knee week before then bilateral lower extremity swelling (R side worse) and mild petechia-labwork showed pancytopenia-had BMA/bx-diagnosed with AML. Other hx; allergic rhinitis. History of Any Multi-Drug Resistant Organisms: None Reported Past Surgical History: No Surgical Hx Reported Additional Past Surgical History / Comment(s): wisdom teeth removed, bone marrow aspirations/biopsies, picc line Past Anesthesia/Blood Transfusion Reactions: No Reported Reaction Additional Past Anesthesia/Blood Transfusion Reaction / Comment(s): Pt states last time she recieved blood and platelets she had a fever during and for a couple days after. Past Psychological History: Anxiety (mild, usually during admission for chemo) Smoking Status: Never smoker Past Alcohol Use History: None Reported Past Drug Use History: None Reported - Past Family History Mother Family Medical History: No Reported History Additional Family Medical History / Comment(s): Maternal grandmother had pancreatic cancer. Father Family Medical History: No Reported History Additional Family Medical History / Comment(s): paternal grandmother leukemia Medications and Allergies Home Medications Medication Instructions Recorded Confirmed Type Cyclafem 1 tab PO HS 12/30/17 04/28/18 History Acyclovir [Zovirax] 400 mg PO BID #42 tab 01/16/18 04/28/18 Rx Nystatin 100,000 Unit/ml Susp 5 ml PO QID 03/08/18 04/28/18 History [Mycostatin Oral Susp] Amoxic-Pot Clav 875-125Mg 1 tab PO Q12HR #30 tablet 04/04/18 04/28/18 Rx [Augmentin 875-125] Allergies Allergy/AdvReac Type Severity Reaction Status Date / Time sulfamethoxazole Allergy Rash/Hives Verified 04/28/18 11:11 [From Bactrim] trimethoprim [From Bactrim] Allergy Rash/Hives Verified 04/28/18 11:11 Physical Exam Vitals: Vital Signs Temp Pulse Resp BP Pulse Ox 04/28/18 09:26 97.2 F L 98 20 131/76 98 Intake and Output 04/27/18 04/28/18 04/28/18 22:59 06:59 14:59 Other: Weight 59.5 kg - Constitutional General appearance: average body habitus, cooperative, no acute distress - EENT Eyes: no abnormal pupil, anicteric sclerae, no disc margins sharp, no edentulous , EOMI, no PERRLA, no fundus normal, no photophobia, no dentition normal, no poor dentition, no ptosis, no scleral icterus, normal appearance ENT: no hard of hearing, hearing grossly normal, no NA/AT, normal oropharynx, no other, no pharyngeal erythema, no thrush, no tonsillar exudates, no tonsillar swelling - Neck Neck: no lymphadenopathy - Respiratory Respiratory: bilateral: CTA - Cardiovascular Rhythm: regular Heart sounds: normal: S1, S2 Abnormal Heart Sounds: no systolic murmur, no diastolic murmur, no rub, no S3 Gallop, no S4 Gallop, no click, no other leg Peripheral Edema: bilateral: None - Gastrointestinal General gastrointestinal: no absent bowel sounds, no decreased bowel sounds, no distended, no hepatomegaly, no hyperactive bowel sounds, normal bowel sounds, no organomegaly, no rigid, no scaphoid, soft, no splenomegaly, no tenderness, no umbilical hernia, no ventral hernia - Integumentary Integumentary: no calor, no cellulitis, no cyanotic, no decreased turgor, no flushed, no jaundiced, normal, normal turgor, pale, no rash, no ulcer - Neurologic Neurologic: CNII-XII intact - Musculoskeletal Musculoskeletal: strength equal bilaterally - Psychiatric Psychiatric: A&O x's 3, appropriate affect, intact judgment & insight Results CBC & Chem 7: 04/28/18 10:50 04/28/18 10:50 Labs: Abnormal Lab Results - Last 24 Hours (Table) 04/28/18 04/28/18 Range/Units 10:50 10:50 RBC 2.86 L (3.80-5.40) m/uL Hgb 8.7 L (11.4-16.0) gm/dL Hct 26.1 L (34.0-46.0) % RDW 20.1 H (11.5-15.5) % Chloride 108 H (98-107) mmol/L Thrombosis Risk Factor Assmnt - DVT/VTE Prophylaxis DVT/VTE Prophylaxis: Pharmacologic Prophylaxis ordered - Choose All That Apply Any of the Below Risk Factors Present?: Yes Each Factor Represents 1 point: Age 41-60 years Other Risk Factors: Yes Each Risk Factor Represents 2 Points: Malignancy Other congenital or acquired thrombophilia - If yes, enter type in comment: No Thrombosis Risk Factor Assessment Total Risk Factor Score: 3 Thrombosis Risk Factor Assessment Level: Moderate Risk Assessment and Plan (1) Acute myeloblastic leukemia Narrative/Plan: Admit for final cycle of consolidation. Pt will have bone marrow f/u after completing oral midostaurin for FLT 3 mutation. Labs daily Supportive and preventative medications ordered Home meds reconciled Current Visit: Yes Status: Acute Priority: High Code(s): C92.00 - ACUTE MYELOBLASTIC LEUKEMIA, NOT HAVING ACHIEVED REMISSION SNOMED Code(s): 04141029 (2) Antineoplastic chemotherapy induced anemia Narrative/Plan: CBC daily, conservative transfusions only. Current Visit: Yes Status: Acute Priority: Medium Code(s): D64.81 - ANEMIA DUE TO ANTINEOPLASTIC CHEMOTHERAPY; T45.1X5A - ADVERSE EFFECT OF ANTINEOPLASTIC AND IMMUNOSUP DRUGS, INIT SNOMED Code(s): 083884694 (3) Anxiety about health Narrative/Plan: Typically pt experiences during admission for chemo. HS PRN ativan ordered Current Visit: Yes Status: Acute Priority: Medium Code(s): F41.8 - OTHER SPECIFIED ANXIETY DISORDERS SNOMED Code(s): 330342747 Plan: Daily evaluation of pt Admitting orders entered Attests: I have performed H&P and developed impression and plan of care of patient, discussed with dictator. I agree with dictated note, documented as a scribe.
[2018-04-28 12:56] LABS: Myelocytes % 1 %; Neutrophils % (M) 86 %; Nucleated Red Blood Cells 2 /100 WBC (0-0); Total Cells Counted 200
[2018-04-28 12:57] LABS: Poikilocytosis (M) Present; Polychromasia Present; Toxic Granulation Present
[2018-04-28 12:58] LABS: RBC Fragments Present; Spherocytes Present
[2018-04-28] MEDS ORDERED: CYTARABINE IV SCH ×2 (13:00→21:00)
[2018-04-28] MEDS ORDERED: SODIUM CHLORIDE 0.9% IV SCH ×2 (13:00→21:00)
[2018-04-28] MEDS ORDERED: DEXAMETHASONE SOD PHOSPHATE 10 MG/ML 1 ML VIAL IV SCH (21:00)
[2018-04-28] MEDS ORDERED: ONDANSETRON 16 MG in SODIUM CHLORIDE 0.9% 50 ML IVPB SCH (21:00)
[2018-04-29] MEDS: CYTARABINE IV SCH (00:29)
[2018-04-29] MEDS: SODIUM CHLORIDE 0.9% IV SCH (00:29)
[2018-04-29] MEDS: SODIUM CHLORIDE 0.9% 1,000 ML IV SCH ×4 (00:33→20:07)
[2018-04-29] MEDS: prednisoLONE ACETATE 1% OPHTH DROPS 5 ML BTL BOTH EYES SCH ×5 (00:36→21:41)
[2018-04-29 07:52] LABS: Anisocytosis Slight; Basophils % (A) 0 %; Eosinophils % (A) 0 %; HCT 24.8 % (34.0-46.0); HGB 7.9 gm/dL (11.4-16.0); Hypochromasia Slight; Lymphocytes # (A) 0.5 k/uL (1.0-4.8); Lymphocytes % (A) 4 %; MCH 30.3 pg (25.0-35.0); MCHC 31.9 g/dL (31.0-37.0); MCV 94.9 fL (80.0-100.0); Macrocytosis Slight; Mean Platelet Volume 7.4; Monocytes # (A) 0.6 k/uL (0-1.0); Monocytes % (A) 5 %; Neutrophils # (A) 11.1 k/uL (1.3-7.7); Neutrophils % (A) 91 %; Platelet Count 254 k/uL (150-450); RBC 2.61 m/uL (3.80-5.40); RDW 19.9 % (11.5-15.5); WBC 12.2 k/uL (3.8-10.6)
[2018-04-29 08:12] LABS: ALT 21 U/L (9-52); AST 12 U/L (14-36); Albumin 3.2 g/dL (3.5-5.0); Alkaline Phosphatase 46 U/L (38-126); Anion Gap 8 mmol/L; Blood Urea Nitrogen 5 mg/dL (7-17); Calcium 8.1 mg/dL (8.4-10.2); Carbon Dioxide 20 mmol/L (22-30); Chloride 110 mmol/L (98-107); Glucose 106 mg/dL (74-99); Potassium 4.1 mmol/L (3.5-5.1); Sodium 138 mmol/L (137-145); Total Bilirubin 0.2 mg/dL (0.2-1.3); Uric Acid 4.1 mg/dL (3.7-7.4)
[2018-04-29] MEDS: SALT AND SODA MOUTHWASH 1,000 ML PO SCH ×3 (09:07→18:19)
[2018-04-29] MEDS: ENOXAPARIN 40 MG/0.4 ML SYRINGE SQ SCH (09:13)
--- NOTE | 2018-04-29 11:24 | P.PN ---
Subjective Progress Note Date: 04/29/18 Principal diagnosis: Admit for continuous IV infusion chemotherapy with high-dose araC for AML. Patient seen in follow-up, she is doing well today, appetite is good, no oral irritation, nausea, difficulty breathing, palpitations, indigestion, heartburn, acute changes in bowel or bladder habits, she has had no more diarrhea since admission, no swelling, bleeding or pain. She is independently ambulatory. Objective - Vital Signs Vital signs: Vital Signs Temp 97.9 F 04/29/18 08:00 Pulse 93 04/29/18 08:00 Resp 18 04/29/18 08:00 BP 137/82 04/29/18 08:00 Pulse Ox 98 04/29/18 08:00 Intake & Output 04/28/18 04/29/18 04/29/18 18:59 06:59 18:59 Intake Total 300 1190 Balance 300 1190 Weight 59.5 kg 62.284 kg Intake: Intake, IV Titration 300 600 Amount Sodium Chloride 0.9% 1, 300 600 000 ml @ 150 mls/hr IV . Q6H40M [facility] Rx#:[id number] Oral 590 Other: Voiding Method Toilet Toilet Toilet # Voids 2 - Constitutional General appearance: Present: average body habitus, cooperative, no acute distress - EENT Eyes: Present: anicteric sclerae, EOMI, normal appearance ENT: Present: hearing grossly normal, normal oropharynx - Respiratory Respiratory: bilateral: CTA - Cardiovascular Rhythm: regular Heart sounds: normal: S1, S2 Abnormal Heart Sounds: Absent: systolic murmur, diastolic murmur, rub, S3 Gallop , S4 Gallop, click, other - Peripheral edema leg Peripheral Edema: bilateral: None - Gastrointestinal General gastrointestinal: Present: normal bowel sounds, soft - Integumentary Integumentary: Present: normal turgor, pale - Neurologic Neurologic: Present: CNII-XII intact - Musculoskeletal Musculoskeletal: Present: strength equal bilaterally - Psychiatric Psychiatric: Present: A&O x's 3, appropriate affect, intact judgment & insight - Labs CBC & Chem 7: 04/29/18 07:20 04/29/18 07:20 Labs: Abnormal Lab Results - Last 24 Hours (Table) 04/28/18 04/28/18 04/29/18 Range/Units 10:50 10:50 07:20 WBC 12.2 H (3.8-10.6) k/uL RBC 2.86 L 2.61 L (3.80-5.40) m/uL Hgb 8.7 L 7.9 L (11.4-16.0) gm/dL Hct 26.1 L 24.8 L (34.0-46.0) % RDW 20.1 H 19.9 H (11.5-15.5) % Neutrophils # 11.1 H (1.3-7.7) k/uL Neutrophils # (Manual) 8.60 H (1.3-7.7) k/uL Lymphocytes # 0.5 L (1.0-4.8) k/uL Myelocytes # (Manual) 0.10 H (0) k/uL Nucleated RBCs 2 H (0-0) /100 WBC Chloride 108 H (98-107) mmol/L Carbon Dioxide (22-30) mmol/L BUN (7-17) mg/dL Creatinine (0.52-1.04) mg/dL Glucose (74-99) mg/dL Calcium (8.4-10.2) mg/dL AST (14-36) U/L Total Protein (6.3-8.2) g/dL Albumin (3.5-5.0) g/dL 04/29/18 Range/Units 07:20 WBC (3.8-10.6) k/uL RBC (3.80-5.40) m/uL Hgb (11.4-16.0) gm/dL Hct (34.0-46.0) % RDW (11.5-15.5) % Neutrophils # (1.3-7.7) k/uL Neutrophils # (Manual) (1.3-7.7) k/uL Lymphocytes # (1.0-4.8) k/uL Myelocytes # (Manual) (0) k/uL Nucleated RBCs (0-0) /100 WBC Chloride 110 H (98-107) mmol/L Carbon Dioxide 20 L (22-30) mmol/L BUN 5 L (7-17) mg/dL Creatinine 0.51 L (0.52-1.04) mg/dL Glucose 106 H (74-99) mg/dL Calcium 8.1 L (8.4-10.2) mg/dL AST 12 L (14-36) U/L Total Protein 6.0 L (6.3-8.2) g/dL Albumin 3.2 L (3.5-5.0) g/dL Assessment and Plan (1) Acute myeloblastic leukemia Narrative/Plan: Admit for final cycle of consolidation. Pt will have bone marrow f/u after completing oral midostaurin for FLT 3 mutation. Labs daily Supportive and preventative medications ordered Current Visit: Yes Status: Acute Priority: High Code(s): C92.00 - ACUTE MYELOBLASTIC LEUKEMIA, NOT HAVING ACHIEVED REMISSION SNOMED Code(s): 17109982 (2) Antineoplastic chemotherapy induced anemia Narrative/Plan: No transfusion today, CBC daily. Current Visit: Yes Status: Acute Priority: Medium Code(s): D64.81 - ANEMIA DUE TO ANTINEOPLASTIC CHEMOTHERAPY; T45.1X5A - ADVERSE EFFECT OF ANTINEOPLASTIC AND IMMUNOSUP DRUGS, INIT SNOMED Code(s): 562537751 (3) Anxiety about health Narrative/Plan: Antianxiety medication at bedtime allows patient a good night's sleep, decreased anxiety. Cont current medications Current Visit: Yes Status: Acute Priority: Medium Code(s): F41.8 - OTHER SPECIFIED ANXIETY DISORDERS SNOMED Code(s): 623401237 Plan: GI and DVT prophylaxis.
[2018-04-29] MEDS ORDERED: ONDANSETRON 4 MG/2 ML VIAL IVP PRN (11:25)
[2018-04-30] MEDS: SODIUM CHLORIDE 0.9% 1,000 ML IV SCH ×3 (04:24→15:01)
[2018-04-30 07:59] LABS: Anisocytosis Slight; Basophils % (A) 0 %; Eosinophils % (A) 1 %; HCT 24.2 % (34.0-46.0); HGB 8.1 gm/dL (11.4-16.0); Hypochromasia Slight; Lymphocytes # (A) 0.6 k/uL (1.0-4.8); Lymphocytes % (A) 18 %; MCH 31.4 pg (25.0-35.0); MCHC 33.6 g/dL (31.0-37.0); MCV 93.5 fL (80.0-100.0); Macrocytosis Slight; Mean Platelet Volume 6.7; Monocytes # (A) 0.3 k/uL (0-1.0); Monocytes % (A) 8 %; Neutrophils # (A) 2.4 k/uL (1.3-7.7); Neutrophils % (A) 71 %; Platelet Count 249 k/uL (150-450); RBC 2.59 m/uL (3.80-5.40); RDW 19.7 % (11.5-15.5); WBC 3.3 k/uL (3.8-10.6)
[2018-04-30 08:18] LABS: ALT 10 U/L (9-52); AST 12 U/L (14-36); Albumin 3.1 g/dL (3.5-5.0); Alkaline Phosphatase 40 U/L (38-126); Anion Gap 9 mmol/L; Blood Urea Nitrogen 7 mg/dL (7-17); Calcium 7.8 mg/dL (8.4-10.2); Carbon Dioxide 21 mmol/L (22-30); Chloride 109 mmol/L (98-107); Glucose 79 mg/dL (74-99); Potassium 3.9 mmol/L (3.5-5.1); Sodium 139 mmol/L (137-145); Total Bilirubin 0.2 mg/dL (0.2-1.3); Total Protein 5.9 g/dL (6.3-8.2); Uric Acid 3.2 mg/dL (3.7-7.4)
--- NOTE | 2018-04-30 09:13 | P.PN ---
Subjective Progress Note Date: 04/30/18 The patient denies any new complaints overnight. She is on day #3 of her high dose chemotherapy with cytarabine. No history of any significant fever/chills/ nausea/vomiting. Bowel movements are fairly regular. Appetite is maintained. Objective - Vital Signs Vital signs: Vital Signs Temp 97.4 F L 04/30/18 08:00 Pulse 88 04/30/18 08:00 Resp 16 04/30/18 08:00 BP 136/84 04/30/18 08:00 Pulse Ox 96 04/30/18 08:00 Intake & Output 04/29/18 04/30/18 04/30/18 18:59 06:59 18:59 Intake Total 1050 1650 Balance 1050 1650 Weight 61.5 kg Intake: Intake, IV Titration 1050 1650 Amount Sodium Chloride 0.9% 1, 1050 1650 000 ml @ 150 mls/hr IV . Q6H40M [facility] Rx#:[id number] Other: Voiding Method Toilet Toilet - Constitutional General appearance: Present: no acute distress - EENT Eyes: Present: EOMI ENT: Present: hearing grossly normal, normal oropharynx - Respiratory Respiratory: bilateral: CTA - Cardiovascular Rhythm: regular Heart sounds: normal: S1, S2 - Gastrointestinal General gastrointestinal: Present: normal bowel sounds, soft - Integumentary Integumentary: Present: normal - Neurologic Neurologic: Present: CNII-XII intact - Musculoskeletal Musculoskeletal: Present: strength equal bilaterally - Psychiatric Psychiatric: Present: A&O x's 3, appropriate affect - Labs CBC & Chem 7: 04/30/18 07:46 04/30/18 07:46 Labs: Abnormal Lab Results - Last 24 Hours (Table) 04/30/18 04/30/18 Range/Units 07:46 07:46 WBC 3.3 L (3.8-10.6) k/uL RBC 2.59 L (3.80-5.40) m/uL Hgb 8.1 L (11.4-16.0) gm/dL Hct 24.2 L (34.0-46.0) % RDW 19.7 H (11.5-15.5) % Lymphocytes # 0.6 L (1.0-4.8) k/uL Chloride 109 H (98-107) mmol/L Carbon Dioxide 21 L (22-30) mmol/L Creatinine 0.50 L (0.52-1.04) mg/dL Uric Acid 3.2 L (3.7-7.4) mg/dL Calcium 7.8 L (8.4-10.2) mg/dL AST 12 L (14-36) U/L Total Protein 5.9 L (6.3-8.2) g/dL Albumin 3.1 L (3.5-5.0) g/dL Assessment and Plan (1) Acute myeloblastic leukemia Narrative/Plan: The patient achieved remission with induction chemotherapy, and is currently on cycle #3 of consolidation with high-dose cytarabine. She is on day #3 of her regimen. She is tolerating treatment well so far subjectively with no untoward side effects. Continue to monitor his clinical exams, and labs have been ordered. Continue treatment per protocol Current Visit: Yes Status: Acute Priority: High Code(s): C92.00 - ACUTE MYELOBLASTIC LEUKEMIA, NOT HAVING ACHIEVED REMISSION SNOMED Code(s): 92303381 (2) Pancytopenia due to antineoplastic chemotherapy Narrative/Plan: Drop in counts is occurring earlier compared to before, which is expected. The patient and her was reassured that this is due to cumulative effect of her chemotherapy. Counts are all in a safe range and today and no supplementation is required. Continue to monitor with transfusion support as needed. She'll also receive white cell growth factors post discharge Current Visit: No Status: Acute Priority: High Code(s): D61.810 - ANTINEOPLASTIC CHEMOTHERAPY INDUCED PANCYTOPENIA; T45.1X5A - ADVERSE EFFECT OF ANTINEOPLASTIC AND IMMUNOSUP DRUGS, INIT SNOMED Code(s): 852217659199214
[2018-04-30] MEDS: PANTOPRAZOLE 40 MG TABLET PO SCH (09:20)
[2018-04-30] MEDS: ENOXAPARIN 40 MG/0.4 ML SYRINGE SQ SCH (09:20)
[2018-04-30] MEDS: SALT AND SODA MOUTHWASH 1,000 ML PO SCH ×3 (09:22→18:14)
[2018-04-30] MEDS: prednisoLONE ACETATE 1% OPHTH DROPS 5 ML BTL BOTH EYES SCH ×4 (09:22→22:01)
[2018-04-30] MEDS: ONDANSETRON 16 MG in SODIUM CHLORIDE 0.9% 50 ML IVPB SCH (11:56)
[2018-04-30] MEDS: DEXAMETHASONE SOD PHOSPHATE 10 MG/ML 1 ML VIAL IV SCH (11:57)
[2018-04-30] MEDS: CYTARABINE IV SCH (12:55)
[2018-04-30] MEDS: SODIUM CHLORIDE 0.9% IV SCH (12:55)
[2018-05-01] MEDS: SODIUM CHLORIDE 0.9% IV SCH (00:58)
[2018-05-01] MEDS: CYTARABINE IV SCH (00:58)
[2018-05-01 06:03] VITALS: RESP 16
[2018-05-01] MEDS: SODIUM CHLORIDE 0.9% 1,000 ML IV SCH ×4 (07:15→17:07)
[2018-05-01] MEDS: SALT AND SODA MOUTHWASH 1,000 ML PO SCH ×3 (08:11→17:06)
[2018-05-01] MEDS: ENOXAPARIN 40 MG/0.4 ML SYRINGE SQ SCH (08:11)
[2018-05-01] MEDS: prednisoLONE ACETATE 1% OPHTH DROPS 5 ML BTL BOTH EYES SCH ×4 (08:11→21:23)
[2018-05-01] MEDS: PANTOPRAZOLE 40 MG TABLET PO SCH (08:11)
[2018-05-01 09:28] LABS: Anisocytosis Slight; Basophils % (A) 0 %; Eosinophils % (A) 0 %; HGB 8.1 gm/dL (11.4-16.0); Lymphocytes # (A) 0.3 k/uL (1.0-4.8); Lymphocytes % (A) 4 %; MCH 30.2 pg (25.0-35.0); MCHC 32.3 g/dL (31.0-37.0); MCV 93.6 fL (80.0-100.0); Macrocytosis Slight; Mean Platelet Volume 7.3; Monocytes # (A) 0.2 k/uL (0-1.0); Monocytes % (A) 2 %; Neutrophils % (A) 93 %; Platelet Count 225 k/uL (150-450); RBC 2.67 m/uL (3.80-5.40); RDW 19.1 % (11.5-15.5); WBC 7.5 k/uL (3.8-10.6)
[2018-05-01 09:48] LABS: ALT 13 U/L (9-52); AST 13 U/L (14-36); Albumin 3.4 g/dL (3.5-5.0); Alkaline Phosphatase 45 U/L (38-126); Anion Gap 11 mmol/L; Blood Urea Nitrogen 8 mg/dL (7-17); Calcium 8.6 mg/dL (8.4-10.2); Carbon Dioxide 19 mmol/L (22-30); Chloride 108 mmol/L (98-107); Glucose 120 mg/dL (74-99); Potassium 3.8 mmol/L (3.5-5.1); Sodium 138 mmol/L (137-145); Total Bilirubin 0.2 mg/dL (0.2-1.3); Total Protein 6.5 g/dL (6.3-8.2); Uric Acid 2.7 mg/dL (3.7-7.4)
--- NOTE | 2018-05-01 18:21 | P.PN ---
Subjective Progress Note Date: 05/01/18 Principal diagnosis: Admit for continuous IV infusion chemotherapy with high-dose araC for AML. Pt seen in f/u, she did have 3 episodes of loose stool, denied mucus, rectal pain or bleeding, she is eating and drinking well, no pain, no other c/o on a 14 point ROS. Objective - Vital Signs Vital signs: Vital Signs Temp 98 F 05/01/18 16:00 Pulse 98 05/01/18 16:00 Resp 16 05/01/18 16:00 BP 129/77 05/01/18 16:00 Pulse Ox 99 05/01/18 16:00 Intake & Output 04/30/18 05/01/18 05/01/18 18:59 06:59 18:59 Intake Total 1200 Balance 1200 Weight 61.5 kg Intake: Intake, IV Titration 1200 Amount Sodium Chloride 0.9% 1, 1200 000 ml @ 150 mls/hr IV . Q6H40M [facility] Rx#:[id number] Other: Voiding Method Toilet Toilet # Voids 2 1 - Constitutional General appearance: Present: average body habitus, cooperative, no acute distress - EENT Eyes: Present: anicteric sclerae, EOMI, PERRLA, normal appearance ENT: Present: hearing grossly normal, normal oropharynx - Respiratory Respiratory: bilateral: CTA - Cardiovascular Rhythm: regular Heart sounds: normal: S1, S2 Abnormal Heart Sounds: Absent: systolic murmur, diastolic murmur, rub, S3 Gallop , S4 Gallop, click, other - Peripheral edema leg Peripheral Edema: bilateral: None - Gastrointestinal General gastrointestinal: Present: normal bowel sounds, soft. Absent: absent bowel sounds, decreased bowel sounds, distended, hepatomegaly, hyperactive bowel sounds, organomegaly, rigid, scaphoid, splenomegaly, tenderness, umbilical hernia, ventral hernia - Integumentary Integumentary: Present: pale - Neurologic Neurologic: Present: CNII-XII intact - Musculoskeletal Musculoskeletal: Present: strength equal bilaterally - Psychiatric Psychiatric: Present: A&O x's 3, appropriate affect, intact judgment & insight - Labs CBC & Chem 7: 05/01/18 09:08 05/01/18 09:08 Labs: Abnormal Lab Results - Last 24 Hours (Table) 05/01/18 05/01/18 Range/Units 09:08 09:08 RBC 2.67 L (3.80-5.40) m/uL Hgb 8.1 L (11.4-16.0) gm/dL Hct 25.0 L (34.0-46.0) % RDW 19.1 H (11.5-15.5) % Lymphocytes # 0.3 L (1.0-4.8) k/uL Chloride 108 H (98-107) mmol/L Carbon Dioxide 19 L (22-30) mmol/L Creatinine 0.47 L (0.52-1.04) mg/dL Glucose 120 H (74-99) mg/dL Uric Acid 2.7 L (3.7-7.4) mg/dL AST 13 L (14-36) U/L Albumin 3.4 L (3.5-5.0) g/dL Assessment and Plan (1) Acute myeloblastic leukemia Narrative/Plan: Cont chemo without adjustment Labs daily f/u daily supportive meds ordered Current Visit: Yes Status: Acute Priority: High Code(s): C92.00 - ACUTE MYELOBLASTIC LEUKEMIA, NOT HAVING ACHIEVED REMISSION SNOMED Code(s): 35299260 (2) Antineoplastic chemotherapy induced anemia Narrative/Plan: Stable, no intervention today Current Visit: Yes Status: Acute Priority: Medium Code(s): D64.81 - ANEMIA DUE TO ANTINEOPLASTIC CHEMOTHERAPY; T45.1X5A - ADVERSE EFFECT OF ANTINEOPLASTIC AND IMMUNOSUP DRUGS, INIT SNOMED Code(s): 576673304 (3) Anxiety about health Narrative/Plan: Continue ativan at HS Current Visit: Yes Status: Acute Priority: Medium Code(s): F41.8 - OTHER SPECIFIED ANXIETY DISORDERS SNOMED Code(s): 391633750 Plan: GI and DVT prophylaxis.
[2018-05-02] MEDS: SODIUM CHLORIDE 0.9% 1,000 ML IV SCH ×4 (03:48→18:37)
[2018-05-02] MEDS: SALT AND SODA MOUTHWASH 1,000 ML PO SCH ×3 (08:15→17:19)
[2018-05-02] MEDS: ENOXAPARIN 40 MG/0.4 ML SYRINGE SQ SCH (08:15)
[2018-05-02] MEDS: prednisoLONE ACETATE 1% OPHTH DROPS 5 ML BTL BOTH EYES SCH ×4 (08:15→20:42)
[2018-05-02] MEDS: PANTOPRAZOLE 40 MG TABLET PO SCH (08:15)
[2018-05-02 08:54] LABS: Anisocytosis Slight; Basophils % (A) 1 %; Eosinophils % (A) 0 %; HCT 23.8 % (34.0-46.0); Lymphocytes # (A) 0.6 k/uL (1.0-4.8); Lymphocytes % (A) 27 %; MCH 31.6 pg (25.0-35.0); MCHC 33.7 g/dL (31.0-37.0); MCV 93.6 fL (80.0-100.0); Macrocytosis Slight; Mean Platelet Volume 6.9; Monocytes # (A) 0.1 k/uL (0-1.0); Monocytes % (A) 2 %; Neutrophils # (A) 1.5 k/uL (1.3-7.7); Neutrophils % (A) 69 %; Platelet Count 208 k/uL (150-450); RBC 2.54 m/uL (3.80-5.40); RDW 18.9 % (11.5-15.5); WBC 2.2 k/uL (3.8-10.6)
[2018-05-02 09:19] LABS: Anion Gap 11 mmol/L; Blood Urea Nitrogen 7 mg/dL (7-17); Carbon Dioxide 20 mmol/L (22-30); Chloride 107 mmol/L (98-107); Glucose 100 mg/dL (74-99); Potassium 3.5 mmol/L (3.5-5.1); Sodium 138 mmol/L (137-145)
[2018-05-02 09:20] LABS: ALT 9 U/L (9-52); AST 14 U/L (14-36); Albumin 3.2 g/dL (3.5-5.0); Alkaline Phosphatase 43 U/L (38-126); Calcium 7.8 mg/dL (8.4-10.2); Total Bilirubin 0.3 mg/dL (0.2-1.3); Total Protein 6.1 g/dL (6.3-8.2); Uric Acid 2.7 mg/dL (3.7-7.4)
[2018-05-02] MEDS: ONDANSETRON 16 MG in SODIUM CHLORIDE 0.9% 50 ML IVPB SCH (11:57)
[2018-05-02] MEDS: DEXAMETHASONE SOD PHOSPHATE 10 MG/ML 1 ML VIAL IV SCH (12:01)
[2018-05-02] MEDS: CYTARABINE IV SCH (13:28)
[2018-05-02] MEDS: SODIUM CHLORIDE 0.9% IV SCH (13:28)
--- NOTE | 2018-05-02 18:19 | P.DS ---
Providers Date of admission: 04/28/18 08:30 Expected date of discharge: 05/03/18 Attending physician: Allen Lyle Primary care physician: Matt Terrell - Discharge Diagnosis(es) (1) Acute myeloblastic leukemia Current Visit: Yes Status: Acute Priority: High (2) Pancytopenia due to antineoplastic chemotherapy Current Visit: No Status: Acute Priority: High Hospital Course: The patient is a 47-year-old white female, who was diagnosed with acute myeloid leukemia in 12/30. She achieved remission with the 7+3 regimen. As she was FLT 3 positive she was also treated with Midostaurin. She then had consolidation with chemotherapy and Midostaurin. She was admitted for cycle #3 of consolidation with high-dose cytarabine. She received chemotherapy per protocol, and tolerated it well without any untoward side effects. She was monitored with clinical exams and labs. She did not require any transient support during her admission. The patient will complete her treatment in the early a.m. of 05/03/18. As she is stable, it was decided discharge her after completion of chemotherapy, assuming that there are no new issues. She will have a CBC checked prior to discharge. Procedures: High dose infusional chemotherapy Patient Condition at Discharge: Fair Plan - Discharge Summary Discharge Rx Participant: No New Discharge Prescriptions: No Action Cyclafem 1 tab PO HS Acyclovir [Zovirax] 400 mg PO BID #42 tab Nystatin 100,000 Unit/ml Susp [Mycostatin Oral Susp] 5 ml PO QID Amoxic-Pot Clav 875-125Mg [Augmentin 875-125] 1 tab PO Q12HR #30 tablet Discharge Medication List Cyclafem 1 tab PO HS 12/30/17 [History] Acyclovir [Zovirax] 400 mg PO BID #42 tab 01/16/18 [Rx] Nystatin 100,000 Unit/ml Susp [Mycostatin Oral Susp] 5 ml PO QID 03/08/18 [ History] Amoxic-Pot Clav 875-125Mg [Augmentin 875-125] 1 tab PO Q12HR #30 tablet [Rx] Follow up Appointment(s)/Referral(s): Allen Lyle MD [STAFF PHYSICIAN] - 05/05/18 2:00 pm (For CBC adn EKG. Please make more f/u appts ) Activity/Diet/Wound Care/Special Instructions: Activity as tolerated Diet as tolerated Pt has Rx needed Discharge Disposition: HOME SELF-CARE
[2018-05-03] MEDS: SODIUM CHLORIDE 0.9% IV SCH (01:00)
[2018-05-03] MEDS: CYTARABINE IV SCH (01:00)
[2018-05-03] MEDS: SODIUM CHLORIDE 0.9% 1,000 ML IV SCH (01:04)
[2018-05-03 05:55] VITALS: BP 136/81; PULSE 85; TEMP 97.8
[2018-05-03 06:59] LABS: Anisocytosis Slight; Basophils % (A) 0 %; Eosinophils % (A) 1 %; HCT 22.1 % (34.0-46.0); HGB 7.7 gm/dL (11.4-16.0); Lymphocytes # (A) 0.3 k/uL (1.0-4.8); Lymphocytes % (A) 6 %; MCH 32.1 pg (25.0-35.0); MCHC 34.6 g/dL (31.0-37.0); MCV 92.7 fL (80.0-100.0); Macrocytosis Slight; Mean Platelet Volume 6.5; Monocytes # (A) 0.1 k/uL (0-1.0); Monocytes % (A) 1 %; Neutrophils # (A) 4.4 k/uL (1.3-7.7); Neutrophils % (A) 92 %; Platelet Count 168 k/uL (150-450); RBC 2.39 m/uL (3.80-5.40); RDW 19.2 % (11.5-15.5); WBC 4.9 k/uL (3.8-10.6)
[2018-05-03 07:32] LABS: ALT 13 U/L (9-52); AST 13 U/L (14-36); Albumin 3.3 g/dL (3.5-5.0); Alkaline Phosphatase 42 U/L (38-126); Anion Gap 9 mmol/L; Blood Urea Nitrogen 9 mg/dL (7-17); Calcium 8.7 mg/dL (8.4-10.2); Carbon Dioxide 21 mmol/L (22-30); Chloride 107 mmol/L (98-107); Glucose 104 mg/dL (74-99); Potassium 4.1 mmol/L (3.5-5.1); Sodium 137 mmol/L (137-145); Total Bilirubin 0.4 mg/dL (0.2-1.3); Uric Acid 2.4 mg/dL (3.7-7.4)
== END 2018-05-03 08:02 | disposition home or self-care (01) | DRG 837 ==
LOC: 3NMEDONC 08:30 → UNDOADMIN 08:30 → 3NMEDONC 04-30 11:11
PROVIDERS: ADMIT Internal Medicine Hematology & Oncology; ATTEND Internal Medicine Hematology & Oncology
DX: Z51.11 Encounter for antineoplastic chemotherapy (principal); D61.810 Antineoplastic chemotherapy induced pancytopenia; C92.00 Acute myeloblastic leukemia, not having achieved remission; K21.9 Gastro-esophageal reflux disease without esophagitis; F41.9 Anxiety disorder, unspecified; T45.1X5A Adverse effect of antineoplastic and immunosuppressive drugs, initial encounter; Z79.899 Other long term (current) drug therapy; Z88.2 Allergy status to sulfonamides; Z80.0 Family history of malignant neoplasm of digestive organs; Z80.6 Family history of leukemia
CPT/HCPCS: 80053; 84550; 85025

== ENCOUNTER → 2018-05-16 | Outpatient (CLI) | payer BC ==
[~2018-05-16] MED LIST changes: -ONDANSETRON 4 MG/2 ML VIAL IVP PRN; +SODIUM CHLORIDE 0.9% 500 ML 500 ML in EMPTY BAG 1 BAG IV PRN
[2018-05-16 13:55] VITALS: RESP 16
[2018-05-16 15:51] VITALS: BP 115/67; PULSE 108; TEMP 98.8
== END | disposition home or self-care (01) ==
LOC: PROCWHC3 12:22
PROVIDERS: ATTEND Internal Medicine Hematology & Oncology
DX: D64.81 Anemia due to antineoplastic chemotherapy (principal)
CPT/HCPCS: 86900; 86901; 86850; 86920; 36430; P9016

== ENCOUNTER 2018-06-24 05:47 | Day surgery (SDC) | payer BC ==
[2018-06-12 15:07] VITALS: BMI 20.9
[~2018-06-24 05:47] MED LIST changes: +LACTATED RINGERS 1,000 ML IV SCH; +LIDOCAINE 1% 20 ML VIAL (10MG/ML) FOR IV START INTRADERMA PRN; +MIDAZOLAM (PF) 2 MG/2 ML VIAL IV PRN; +Pre Op ABX Message 1 EACH MISC MISCELLANE ONE; -SODIUM CHLORIDE 0.9% 500 ML 500 ML in EMPTY BAG 1 BAG IV PRN
[2018-06-24 06:18] VITALS: TEMP 98
[2018-06-24] MEDS ORDERED: PROPOFOL 10 MG/ML 20 ML VIAL IV ONE (06:57)
[2018-06-24] MEDS ORDERED: fentaNYL (PF) 50 MCG/ML 2 ML AMP ONE (06:57)
[2018-06-24] MEDS ORDERED: LIDOCAINE 2% INJ 20 MG/ML SQ ONE ×2 (07:01→07:11)
[2018-06-24 07:45] VITALS: BP 123/85; PULSE 82; RESP 18
--- NOTE | 2018-06-24 07:58 | PCN ---
PROCEDURE NOTE PREOPERATIVE DIAGNOSIS: Acute leukemia. POSTOPERATIVE DIAGNOSIS: Acute leukemia. PROCEDURE: Bone marrow aspirate and biopsy ANESTHESIA: Local with IV systemic sedation. DETAILS: Utilizing sterile technique, the skin overlying the right iliac crest was prepared with Betadine and alcohol. After adequate sterile draping and local anesthesia, a size 11 Jamshidi needle was utilized to access the periosteum with ease. A total of 16 mL as well as 2 cm bone core biopsies were obtained. The patient tolerated the procedure well. There was no immediate procedure related complication. TOTAL BLOOD LOSS: Less than 1 mL. RESULTS: Pending. MMODL / IJN: [id number] /
[2018-06-24 08:27] LABS: Anisocytosis Slight; Basophils # (A) 0.1 k/uL (0-0.2); Basophils % (A) 1 %; Eosinophils # (A) 0.3 k/uL (0-0.7); Eosinophils % (A) 3 %; HCT 40.8 % (34.0-46.0); Lymphocytes # (A) 1.3 k/uL (1.0-4.8); Lymphocytes % (A) 13 %; MCH 30.3 pg (25.0-35.0); MCHC 31.8 g/dL (31.0-37.0); MCV 95.4 fL (80.0-100.0); Mean Platelet Volume 7.1; Monocytes # (A) 0.9 k/uL (0-1.0); Monocytes % (A) 9 %; Neutrophils # (A) 7.1 k/uL (1.3-7.7); Neutrophils % (A) 72 %; RBC 4.27 m/uL (3.80-5.40); RDW 16.6 % (11.5-15.5); WBC 9.8 k/uL (3.8-10.6)
[2018-06-24 08:33] LABS: Platelet Count 368 k/uL (150-450)
== END 2018-06-24 07:55 | disposition home or self-care (01) ==
LOC: OR 05:47
PROVIDERS: ATTEND Internal Medicine Hematology & Oncology
DX: C92.00 Acute myeloblastic leukemia, not having achieved remission (principal); Z92.21 Personal history of antineoplastic chemotherapy
CPT/HCPCS: 81025; 85025; 38222; J2001; J3010; J2704

== ENCOUNTER → 2019-05-14 | Day surgery (SDC) | payer OTHER ==
[2019-05-11 10:34] VITALS: BMI 22.3
[~2019-05-14] MED LIST changes: +LIDOCAINE 1% 20 ML VIAL (10MG/ML) FOR IV START INTRADERMA ONE; -LIDOCAINE 1% 20 ML VIAL (10MG/ML) FOR IV START INTRADERMA PRN; -MIDAZOLAM (PF) 2 MG/2 ML VIAL IV PRN; +PROPOFOL 10 MG/ML 20 ML VIAL IV ONE; -Pre Op ABX Message 1 EACH MISC MISCELLANE ONE
[2019-05-14 06:34] VITALS: RESP 16; TEMP 97.5
[2019-05-14 07:18] LABS: HCT 33.7 % (34.0-46.0); HGB 12.2 gm/dL (11.4-16.0); MCHC 36.1 g/dL (31.0-37.0); MCV 91.4 fL (80.0-100.0); Mean Platelet Volume 6.9; RBC 3.69 m/uL (3.80-5.40); RDW 15.9 % (11.5-15.5); WBC 1.5 k/uL (3.8-10.6)
[2019-05-14 07:50] VITALS: BP 136/89; PULSE 81
[2019-05-14 08:11] LABS: Reticulocyte % 1.2 % (0.5-2.0)
[2019-05-14 08:26] LABS: Blast Cells # (M) 0.71 k/uL (0); Lymphocytes # (M) 0.48 k/uL (1.0-4.8); Monocytes # (M) 0.12 k/uL (0-1.0); Neutrophils % (M) 13 %; Nucleated Red Blood Cells 0 /100 WBC (0-0); Total Cells Counted 100
[2019-05-14 08:42] LABS: Platelet Count 8 k/uL (150-450); Poikilocytosis (M) Present
--- NOTE | 2019-05-14 20:55 | PCN ---
PROCEDURE NOTE DATE OF SERVICE: 05/14/2019. PROCEDURE: Bone marrow aspirate and biopsy. PREOP DIAGNOSIS: Acute myeloid leukemia. POSTOP DIAGNOSIS: Acute myeloid leukemia. ANESTHESIA: Local with IV systemic sedation. SITE: Right iliac crest. PROCEDURE DETAILS: Utilizing sterile technique, the skin overlying the right iliac crest were prepared with Betadine and alcohol. After adequate draping, and systemic sedation, a size 11 4 inch Jamshidi needle was utilized to access the periosteum with ease. A total of 15 mL of aspirate and 3 cm bone core biopsies were obtained. The patient tolerated the procedure very well. There was no immediate procedure related complication. TOTAL BLOOD LOSS: Less than 1 mL. RESULTS: Pending. MMODL / IJN: [id number] /
== END ==
LOC: OR 06:02
PROVIDERS: ATTEND Internal Medicine Hematology & Oncology
DX: C92.02 Acute myeloblastic leukemia, in relapse (principal); F41.9 Anxiety disorder, unspecified; L65.9 Nonscarring hair loss, unspecified; Z79.3 Long term (current) use of hormonal contraceptives; Z91.09 Other allergy status, other than to drugs and biological substances; Z88.1 Allergy status to other antibiotic agents; Z98.890 Other specified postprocedural states; Z92.21 Personal history of antineoplastic chemotherapy; Z80.0 Family history of malignant neoplasm of digestive organs; Z80.6 Family history of leukemia
CPT/HCPCS: 81025; 85025; 85045; 38222; J2704

== ENCOUNTER 2019-06-04 11:19 | Day surgery (SDC) | payer OTHER ==
[~2019-06-04 11:19] MED LIST changes: +DEXAMETHASONE SOD PHOSPHATE 10 MG/ML 1 ML VIAL IV ONE; +HYDROmorphone 0.5 MG/0.5 ML SYRINGE IVP PRN; -LIDOCAINE 1% 20 ML VIAL (10MG/ML) FOR IV START INTRADERMA ONE; +LIDOCAINE 1% 20 ML VIAL (10MG/ML) FOR IV START INTRADERMA PRN; +ONDANSETRON 4 MG/2 ML VIAL IVP ONE; -PROPOFOL 10 MG/ML 20 ML VIAL IV ONE; +Pre Op ABX Message 1 EACH MISC MISCELLANE ONE
[2019-06-04 11:52] VITALS: TEMP 98.7
[2019-06-04] MEDS ORDERED: PROPOFOL 10 MG/ML 20 ML VIAL IV ONE (12:32)
[2019-06-04] MEDS ORDERED: MIDAZOLAM 2 MG/2 ML VIAL ONE (12:32)
[2019-06-04] MEDS ORDERED: fentaNYL (PF) 50 MCG/ML 2 ML AMP ONE (12:32)
[2019-06-04] MEDS ORDERED: HEPARIN SODIUM,PORCINE 100 UNIT/ML 5 ML VIAL IV ONE ×2 (12:56)
[2019-06-04] MEDS ORDERED: BUPIVACAINE (PF) 0.25% 30 ML VIAL SQ ONE ×2 (12:57)
--- NOTE | 2019-06-04 13:29 | P.OP ---
Date of Procedure: 06/04/19 Preoperative Diagnosis: AML Postoperative Diagnosis: AML Procedure(s) Performed: Mediport placement under fluoroscopic guidance Surgeon: Viri Bowens Pathology: none sent Condition: stable Disposition: same day Indications for Procedure: 48-year-old female with history of AML. She has undergone chemotherapy in the past with PICC line placement. Currently, she is requiring additional chemotherapy and Mediport placement is required. The patient was explained the risks, benefits and alternatives to the procedure and did provide consent prior to attending the operating suite. Operative Findings: Appropriate withdrawal and flow from Mediport site Description of Procedure: The patient was brought into the operating suite and placed in supine position on the operating table. Sedation was provided by anesthesia and the patient was prepped and draped in regular sterile fashion. Local anesthetic was administered in the right chest and to the periosteum of the clavicle. Introducer needle was then placed and the subclavian vein was accessed on first attempt. Guidewire was then placed and location was confirmed by fluoroscopic guidance. At this point a small incision was made just below the guidewire site and a pocket was created for the port site. A small incision was made along the guidewire and dilator sheath was placed under fluoroscopic guidance. The guidewire was removed and catheter was placed. Catheter location was confirmed with fluoroscopy and catheter was cut and attached the port. Port was inserted into the previously made pocket. The port was sutured into place with 2 2-0 Prolene sutures. A Villalba needle was inserted into the Mediport and appropriate flush and withdrawal was noted with saline. Heparin lock was placed. The incision site was then closed with 4-0 Vicryl subcuticular suture. Sterile dressing was applied. The patient was awakened in the operating suite and taken to postanesthesia care unit in stable condition.
[2019-06-04 13:47] VITALS: BP 103/69; PULSE 92; RESP 18
--- NOTE | 2019-06-04 14:11 | XR ---
EXAMINATION TYPE: XR chest 1V DATE OF EXAM: 06/04/2019 COMPARISON: 01/01/2018 HISTORY: 48-year-old female Mediport placement TECHNIQUE: Single frontal view of the chest is obtained. FINDINGS: Right anterior chest wall injection port with subclavian access and catheter tip at the upper and mid SVC level. Heart normal size. Mild interstitial densities. Mild patchy bibasilar density showing imp roving aeration. No appreciable pneumothorax or pleural effusion. IMPRESSION: 1. Right-sided injection port with catheter tip at the upper to mid SVC level. 2. Residual but improving basilar interstitial infiltrates.
--- NOTE | 2019-06-04 14:22 | FL ---
Fluoroscopy HISTORY: Order catheter placement 20 seconds fluoroscopy time supplied to the referring clinician. 2 intraoperative C-arm images docum ent the procedure. See dictated report from general surgery.
== END 2019-06-04 14:37 | disposition home or self-care (01) ==
LOC: OR 11:19
PROVIDERS: ATTEND Surgery
DX: C92.00 Acute myeloblastic leukemia, not having achieved remission (principal); Z88.2 Allergy status to sulfonamides; Z79.3 Long term (current) use of hormonal contraceptives
CPT/HCPCS: 36573; 81025; C1788; J2250; J1642; J1100; J2405; J3010; J2704; 71045; 77001

== ENCOUNTER 2019-06-09 09:16 | Inpatient (IN) | payer OTHER ==
[~2019-06-09 09:16] MED LIST changes: -DEXAMETHASONE SOD PHOSPHATE 10 MG/ML 1 ML VIAL IV ONE; -HYDROmorphone 0.5 MG/0.5 ML SYRINGE IVP PRN; -LACTATED RINGERS 1,000 ML IV SCH; -LIDOCAINE 1% 20 ML VIAL (10MG/ML) FOR IV START INTRADERMA PRN; -ONDANSETRON 4 MG/2 ML VIAL IVP ONE; -Pre Op ABX Message 1 EACH MISC MISCELLANE ONE; +VENETOCLAX PO SCH; +VORICONAZOLE PO SCH
[2019-06-09] MEDS ORDERED: VORICONAZOLE 50 MG TABLET PO SCH (12:00)
[2019-06-09] MEDS ORDERED: VENCLEXTA 100 MG PO SCH (12:00)
[2019-06-09] MEDS ORDERED: diphenhydrAMINE 50 MG/ML 1 ML VIAL IVP STA (13:54)
[2019-06-09] MEDS: ALLOPURINOL 300 MG TAB PO SCH ×2 (14:08→19:32)
[2019-06-09] MEDS: SODIUM CHLORIDE 0.9% 1,000 ML IV SCH ×3 (14:08→22:44)
[2019-06-09] MEDS: ONDANSETRON 16 MG in SODIUM CHLORIDE 0.9% 50 ML IVPB SCH (14:12)
[2019-06-09 15:03] LABS: ALT 20 U/L (9-52); AST 22 U/L (14-36); African American GFR (CKD) >90 (>60 ml/min/1.73 sqM); Albumin 4.6 g/dL (3.5-5.0); Alkaline Phosphatase 63 U/L (38-126); Anion Gap 11 mmol/L; Blood Urea Nitrogen 14 mg/dL (7-17); Calcium 9.5 mg/dL (8.4-10.2); Carbon Dioxide 24 mmol/L (22-30); Chloride 103 mmol/L (98-107); Glucose 102 mg/dL (74-99); Magnesium 2.1 mg/dL (1.6-2.3); Non-African American GFR(CKD) >90 (>60 ml/min/1.73 sqM); Phosphorus 3.2 mg/dL (2.5-4.5); Potassium 4.5 mmol/L (3.5-5.1); Sodium 138 mmol/L (137-145); Total Bilirubin 0.5 mg/dL (0.2-1.3); Uric Acid 7.2 mg/dL (3.7-7.4)
[2019-06-09 15:18] LABS: Anisocytosis Slight; HCT 20.4 % (34.0-46.0); MCV 94.5 fL (80.0-100.0); Macrocytosis Slight; RBC 2.16 m/uL (3.80-5.40); RDW 17.2 % (11.5-15.5); WBC 19.1 k/uL (3.8-10.6)
[2019-06-09 15:33] LABS: HGB 7.3 gm/dL (11.4-16.0)
--- NOTE | 2019-06-09 15:33 | USB ---
EXAMINATION TYPE: US breast complete RT DATE OF EXAM: 06/09/2019 COMPARISON: NONE CLINICAL HISTORY: 48-year-old female Edema surrounding new Mediport. Mediport placed last week. TECHNIQUE: Whole right breast ultrasound was performed including scanning of the subareolar region an d axilla. FINDINGS: Within the breast, there is no solid or cystic lesion. No axillary lymphadenopathy. Attention is turn ed to the patient's right anterior chest wall Mediport. The Mediport is visualized with a 3.2 x 3.1 x 2.3 cm hypoechoic collection surrounding the Mediport. There is no associated hyperemia. IMPRESSION: 1. A 3.2 x 3.1 x 2.3 cm collection around the patient's Mediport. Differential considerations include postoperative seroma or hematoma. Infected fluid collection is considered less likely as there is no associated hyperemia. Clinically correlate. 2. Overall BI-RADS assessment 0, incomplete, as the patient has not had a mammogram. RECOMMENDATION: 1. Appropriate medical/surgical evaluation and intervention of the fluid collection around the right Mediport. 2. Bilateral diagnostic mammograms following successful treatment.
[2019-06-09 16:10] LABS: Basophils # (M) 0.19 k/uL (0-0.2); Lymphocytes # (M) 8.98 k/uL (1.0-4.8); Monocytes # (M) 0.38 k/uL (0-1.0); Neutrophils # (M) 0.57 k/uL (1.3-7.7); Neutrophils % (M) 3 %
[2019-06-09 16:11] LABS: Blast Cells # (M) 9.17 k/uL (0); Nucleated Red Blood Cells 0 /100 WBC (0-0); Poikilocytosis (M) Present; Total Cells Counted 200
[2019-06-09 16:12] LABS: Platelet Count 7 k/uL (150-450)
[2019-06-09] MEDS ORDERED: LOPERAMIDE 2 MG CAP PO PRN (19:10)
--- NOTE | 2019-06-09 19:10 | P.HPIM ---
History of Present Illness H&P Date: 06/09/19 Chief Complaint: Recurrent AML Mrs. Garay is a very pleasant 48-year-old female patient of Dr. Lyle who was initially diagnosed with AML in 2018. She presented to [facility] with petechial lesions on her lower extremities, noted after spider bite. Her only other symptom was progressively worsening generalized fatigue. Routine lab work showed leukocytosis with thrombocytopenia and anemia. Peripheral smear showed strict circulating blasts, bone marrow biopsy and aspirate was consistent with acute myeloid leukemia. Patient went through induction chemotherapy with 7+14 February 2018. She completed consolidation with high-dose araC and started rydapt due to FLT 3 positive cytogenetics. Patient completed treatment and had done well until late Apr. She presented with the same symptoms of fatigue and bruising. 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 She was seen by Dr. Paz with plan for allo SCT. She has required multiple platelet transfusions and will likely continue to do so until she has treatment for the same. She is admitted today to begin treatment. She has no complaints on a 14 point review of systems other than bruising. She also had a port placed with bruising in the chest area. This will be ultrasounded for monitoring, port is not accessible at this time. Patient denies any other bleeding Review of Systems 14 point ROS is negative except as stated in HPI Past Medical History Past Medical History: Cancer, GERD/Reflux Additional Past Medical History / Comment(s): AML-first diagnosed in December 2017 and had chemotherapy, pancytopenia, current reoccurrence AML, allergic rh innitis, gerd with first round chemotherapy. History of Any Multi-Drug Resistant Organisms: None Reported Past Surgical History: No Surgical Hx Reported Additional Past Surgical History / Comment(s): 06/04/19 mediport, wisdom teeth removed, bone marrow aspirations/biopsies X 4, picc line, Past Anesthesia/Blood Transfusion Reactions: No Reported Reaction, Blood Transfusion Reaction Additional Past Anesthesia/Blood Transfusion Reaction / Comment(s): Once when receiving platlets/packed RBC pt had mild fever during infusion/treated with tylenol. Past Psychological History: No Psychological Hx Reported Additional Psychological History / Comment(s): Pt resides with her spouse. She is independent. Smoking Status: Never smoker Past Alcohol Use History: None Reported Past Drug Use History: None Reported - Past Family History Mother Family Medical History: No Reported History Additional Family Medical History / Comment(s): Maternal grandmother had pancreatic cancer. Father Family Medical History: No Reported History Additional Family Medical History / Comment(s): paternal grandmother leukemia Medications and Allergies Home Medications Medication Instructions Recorded Confirmed Type Biotin 1 tab PO DAILY 06/02/19 06/04/19 History Cholecalciferol [Vitamin D3 (25 5,000 unit PO DAILY 06/02/19 06/04/19 History Mcg = 1000 Iu)] Multivitamins, Thera [Multivitamin 1 tab PO DAILY 06/02/19 06/04/19 History (formulary)] Norethindrone-Ethinyl Estrad 1 tab PO DAILY 06/02/19 06/04/19 History [Ortho-Novum 7-7-7-28 Tablet] Rhodiolia Rosea Root 400 mg PO DAILY 06/02/19 06/04/19 History Allergies Allergy/AdvReac Type Severity Reaction Status Date / Time sulfamethoxazole Allergy Rash/Hives Verified 06/04/19 11:52 [From Bactrim] trimethoprim [From Bactrim] Allergy Rash/Hives Verified 06/04/19 11:52 Physical Exam Vitals: Vital Signs Temp Pulse Resp BP Pulse Ox 06/09/19 11:33 98 F 116 H 18 130/80 98 - Constitutional General appearance: average body habitus, cooperative, no acute distress - EENT Eyes: anicteric sclerae, EOMI ENT: hearing grossly normal, normal oropharynx - Neck Neck: no lymphadenopathy - Respiratory Respiratory: bilateral: CTA - Cardiovascular Rhythm: regular Heart sounds: normal: S1, S2 Abnormal Heart Sounds: no systolic murmur, no diastolic murmur, no rub, no S3 Gallop, no S4 Gallop, no click, no other leg Peripheral Edema: bilateral: None - Gastrointestinal General gastrointestinal: no absent bowel sounds, no decreased bowel sounds, no distended, no hepatomegaly, no hyperactive bowel sounds, normal bowel sounds, no organomegaly, no rigid, no scaphoid, soft, no splenomegaly, no tenderness, no umbilical hernia, no ventral hernia - Integumentary multiple bruises, large bruise on the right breast, multiple bruises - Neurologic Neurologic: CNII-XII intact - Musculoskeletal Musculoskeletal: strength equal bilaterally - Psychiatric Psychiatric: A&O x's 3, appropriate affect, intact judgment & insight Results CBC & Chem 7: 06/09/19 10:42 06/09/19 10:42 Thrombosis Risk Factor Assmnt - DVT/VTE Prophylaxis DVT/VTE Prophylaxis: Contraindicated - See note (low platelets) Assessment and Plan (1) Acute myeloblastic leukemia Narrative/Plan: Unfortunate relapse disease. New treatment regimen is ordered. Patient is going to be receiving 7 daily doses of Vidaza IV along with oral venetoclax with antifungal as a potentiating agent. She will start treatment today. Patient is at a very high risk tumor lysis syndrome, these labs been ordered every 4 hours for the first 48 hours. Aggressive hydration. Daily follow up Supportive medications Current Visit: Yes Status: Acute Priority: High Code(s): C92.00 - ACUTE MYELOBLASTIC LEUKEMIA, NOT HAVING ACHIEVED REMISSION SNOMED Code(s): 28848781 (2) Pancytopenia due to antineoplastic chemotherapy Narrative/Plan: Conservative blood transfusions. Transfuse for hemoglobin less than 7, unless symptomatic. Platelet count less than 10,000 or if symptomatic. No intervention for white blood cell counts at this time. Current Visit: Yes Status: Acute Priority: High Code(s): D61.810 - ANTINEOPLASTIC CHEMOTHERAPY INDUCED PANCYTOPENIA; T45.1X5A - ADVERSE EFFECT OF ANTINEOPLASTIC AND IMMUNOSUP DRUGS, INIT SNOMED Code(s): 754779733641768 Plan: GI prophylaxis No DVT prophylaxis due to plt counts Ultrasound of the right chest wall due to hematoma status post port placement.
[2019-06-09] MEDS ORDERED: MAGNESIUM HYDROXIDE 2,400 MG/10 ML CUP PO PRN (19:11)
[2019-06-09] MEDS: VENCLEXTA 100 MG PO SCH (19:32)
[2019-06-09] MEDS: VORICONAZOLE 50 MG TABLET PO SCH (19:32)
[2019-06-09] MEDS: AZACITIDINE IV SCH (19:56)
[2019-06-09] MEDS: SODIUM CHLORIDE 0.9% IV SCH (19:56)
[2019-06-09] MEDS: SALT AND SODA MOUTHWASH 1,000 ML PO SCH ×2 (19:56→23:55)
[2019-06-09] MEDS: ALPRAZolam 0.25 MG TAB PO PRN (22:43)
[2019-06-10 00:33] LABS: ALT 20 U/L (9-52); AST 26 U/L (14-36); African American GFR (CKD) >90 (>60 ml/min/1.73 sqM); Albumin 4.4 g/dL (3.5-5.0); Alkaline Phosphatase 64 U/L (38-126); Anion Gap 10 mmol/L; Blood Urea Nitrogen 13 mg/dL (7-17); Calcium 9.1 mg/dL (8.4-10.2); Carbon Dioxide 23 mmol/L (22-30); Chloride 106 mmol/L (98-107); Glucose 116 mg/dL (74-99); Magnesium 2.1 mg/dL (1.6-2.3); Non-African American GFR(CKD) >90 (>60 ml/min/1.73 sqM); Phosphorus 4.1 mg/dL (2.5-4.5); Potassium 4.6 mmol/L (3.5-5.1); Sodium 139 mmol/L (137-145); Total Bilirubin 0.4 mg/dL (0.2-1.3); Total Protein 7.3 g/dL (6.3-8.2); Uric Acid 4.8 mg/dL (3.7-7.4)
[2019-06-10 01:46] LABS: Anisocytosis Slight; HCT 20.4 % (34.0-46.0); MCH 33.3 pg (25.0-35.0); MCHC 34.4 g/dL (31.0-37.0); MCV 96.7 fL (80.0-100.0); Macrocytosis Slight; Mean Platelet Volume 6.5; RBC 2.11 m/uL (3.80-5.40); RDW 16.9 % (11.5-15.5); WBC 16.7 k/uL (3.8-10.6)
[2019-06-10] MEDS: ONDANSETRON 4 MG/2 ML VIAL IVP PRN ×2 (02:18→20:56)
[2019-06-10 03:35] LABS: Blast Cells # (M) 6.35 k/uL (0); Lymphocytes # (M) 9.02 k/uL (1.0-4.8); Neutrophils % (M) 3 %; Nucleated Red Blood Cells 0 /100 WBC (0-0); Total Cells Counted 200
[2019-06-10 03:42] LABS: Platelet Count 69 k/uL (150-450)
[2019-06-10] MEDS: ACETAMINOPHEN TAB 325 MG TAB PO PRN ×4 (04:11→23:13)
[2019-06-10 05:20] LABS: ALT 17 U/L (9-52); AST 41 U/L (14-36); African American GFR (CKD) >90 (>60 ml/min/1.73 sqM); Alkaline Phosphatase 64 U/L (38-126); Anion Gap 8 mmol/L; Blood Urea Nitrogen 14 mg/dL (7-17); Calcium 8.7 mg/dL (8.4-10.2); Carbon Dioxide 24 mmol/L (22-30); Chloride 104 mmol/L (98-107); Glucose 139 mg/dL (74-99); Non-African American GFR(CKD) >90 (>60 ml/min/1.73 sqM); Potassium 4.1 mmol/L (3.5-5.1); Sodium 136 mmol/L (137-145); Total Bilirubin 0.3 mg/dL (0.2-1.3); Total Protein 6.8 g/dL (6.3-8.2); Uric Acid 4.4 mg/dL (3.7-7.4)
[2019-06-10 05:27] LABS: Anisocytosis Slight; MCH 34.7 pg (25.0-35.0); MCHC 37.1 g/dL (31.0-37.0); MCV 93.7 fL (80.0-100.0); Mean Platelet Volume 6.7; RBC 1.93 m/uL (3.80-5.40); RDW 16.6 % (11.5-15.5); WBC 6.3 k/uL (3.8-10.6)
[2019-06-10 05:37] LABS: Platelet Count 47 k/uL (150-450)
[2019-06-10 05:39] LABS: HCT 18.1 % (34.0-46.0); HGB 6.7 gm/dL (11.4-16.0)
[2019-06-10] MEDS: SODIUM CHLORIDE 0.9% 1,000 ML IV SCH ×4 (05:44→20:34)
[2019-06-10] MEDS: SALT AND SODA MOUTHWASH 1,000 ML PO SCH ×4 (05:45→20:59)
[2019-06-10 07:21] LABS: Neutrophils % (M) 4 %
[2019-06-10 07:23] LABS: Band Neutrophils % 1 %; Basophils # (M) 0.06 k/uL (0-0.2); Blast Cells # (M) 2.46 k/uL (0); Eosinophils # (M) 0.06 k/uL (0-0.7); Lymphocytes # (M) 2.96 k/uL (1.0-4.8); Monocytes # (M) 0.57 k/uL (0-1.0); Nucleated Red Blood Cells 0 /100 WBC (0-0); Total Cells Counted 200
[2019-06-10] MEDS: ALLOPURINOL 300 MG TAB PO SCH ×2 (08:35→21:01)
[2019-06-10] MEDS: MULTIVITAMINS, THERA 1 EACH TAB PO SCH (08:35)
[2019-06-10] MEDS: ONDANSETRON 16 MG in SODIUM CHLORIDE 0.9% 50 ML IVPB SCH (08:36)
[2019-06-10] MEDS: CHOLECALCIFEROL 1,000 UNIT TAB PO SCH (08:36)
[2019-06-10 08:41] LABS: Anisocytosis Slight; MCH 34.3 pg (25.0-35.0); MCHC 36.2 g/dL (31.0-37.0); MCV 94.8 fL (80.0-100.0); Mean Platelet Volume 6.1; RBC 1.92 m/uL (3.80-5.40); RDW 16.7 % (11.5-15.5); WBC 3.2 k/uL (3.8-10.6)
[2019-06-10] MEDS ORDERED: diphenhydrAMINE 50 MG/ML 1 ML VIAL IVP STA (08:50)
[2019-06-10 08:51] LABS: HCT 18.2 % (34.0-46.0); HGB 6.6 gm/dL (11.4-16.0)
[2019-06-10 08:52] LABS: Platelet Count 44 k/uL (150-450)
[2019-06-10 08:57] LABS: ALT 20 U/L (9-52); AST 49 U/L (14-36); African American GFR (CKD) >90 (>60 ml/min/1.73 sqM); Alkaline Phosphatase 61 U/L (38-126); Anion Gap 13 mmol/L; Blood Urea Nitrogen 13 mg/dL (7-17); Calcium 8.6 mg/dL (8.4-10.2); Carbon Dioxide 21 mmol/L (22-30); Chloride 105 mmol/L (98-107); Glucose 121 mg/dL (74-99); Magnesium 2.1 mg/dL (1.6-2.3); Non-African American GFR(CKD) >90 (>60 ml/min/1.73 sqM); Phosphorus 4.2 mg/dL (2.5-4.5); Potassium 3.9 mmol/L (3.5-5.1); Sodium 139 mmol/L (137-145); Total Bilirubin 0.4 mg/dL (0.2-1.3); Total Protein 7.2 g/dL (6.3-8.2); Uric Acid 4.4 mg/dL (3.7-7.4)
[2019-06-10] MEDS ORDERED: RHODIOLA PO SCH (09:00)
[2019-06-10] MEDS ORDERED: BIOTIN PO SCH (09:00)
[2019-06-10 10:34] LABS: Band Neutrophils % 1 %; Eosinophils # (M) 0.03 k/uL (0-0.7); Metamyelocytes # (M) 0.03 k/uL (0); Metamyelocytes % 1 %; Monocytes # (M) 0.35 k/uL (0-1.0); Neutrophils % (M) 7 %
[2019-06-10 10:35] LABS: Nucleated Red Blood Cells 0 /100 WBC (0-0); Total Cells Counted 100
[2019-06-10 10:36] LABS: Blast Cells # (M) 1.63 k/uL (0)
--- NOTE | 2019-06-10 13:02 | XR ---
EXAMINATION TYPE: XR chest 2V DATE OF EXAM: 06/10/2019 COMPARISON: Prior chest x-ray 06/04/2019 HISTORY: Neutropenic fever, abnormal chest x-ray TECHNIQUE: Frontal and lateral views of the chest are obtained. FINDINGS: Right-sided Port-A-Cath is stable in appearance and shows a kink at the level of the margin between the clavicle and anterior first rib. Distal tip is overlying the innominate vein region on t he right. There are overlying cardiac leads. There is improved lung volume. Interstitium mildly incre ased, some minimal patchy density of the costophrenic angles reflect subsegmental atelectasis or scar ring There is no focal air space opacity, pleural effusion, or pneumothorax seen. The cardiac silho uette size is within normal limits. The osseous structures are intact. IMPRESSION: Probable subsegmental basilar atelectatic changes or scarring. Overall improved aeration as compared to prior exam.
--- NOTE | 2019-06-10 13:02 | P.GSCN ---
History of Present Illness Consult date: 06/10/19 History of present illness: 48-year-old female patient of Dr. Lyle who was initially diagnosed with AML in 2018. 48-year-old female presented to the hospital she did undergo treatment and was found to have recurrence of AML in April of this year. Mediport was placed for treatment on 06/04/2019. She states that after the procedure she did have a significant amount of ecchymosis around the wound site. Prior to Mediport placement, the patient did require platelet infusion as she has been having thrombocytopenic episodes. She is noted to easily bruise. On arrival for beginning her treatment, the Mediport was unable to be accessed. Review of Systems All systems: negative Past Medical History Past Medical History: Cancer, GERD/Reflux Additional Past Medical History / Comment(s): AML-first diagnosed in December 2017 and had chemotherapy, pancytopenia, current reoccurrence AML, allergic rhinnitis, gerd with first round chemotherapy. History of Any Multi-Drug Resistant Organisms: None Reported Past Surgical History: No Surgical Hx Reported Additional Past Surgical History / Comment(s): 06/04/19 mediport, wisdom teeth removed, bone marrow aspirations/biopsies X 4, picc line, Past Anesthesia/Blood Transfusion Reactions: No Reported Reaction, Blood T ransfusion Reaction Additional Past Anesthesia/Blood Transfusion Reaction / Comm: Once when receiving platlets/packed RBC pt had mild fever during infusion/treated with tylenol. Past Psychological History: No Psychological Hx Reported Additional Psychological History / Comment(s): Pt resides with her spouse. She is independent. Smoking Status: Never smoker Past Alcohol Use History: None Reported Past Drug Use History: None Reported - Past Family History Mother Family Medical History: No Reported History Additional Family Medical History / Comment(s): Maternal grandmother had pancreatic cancer. Father Family Medical History: No Reported History Additional Family Medical History / Comment(s): paternal grandmother leukemia Medications and Allergies Home Medications Medication Instructions Recorded Confirmed Type Biotin 1 tab PO DAILY 06/02/19 06/04/19 History Cholecalciferol [Vitamin D3 (25 5,000 unit PO DAILY 06/02/19 06/04/19 History Mcg = 1000 Iu)] Multivitamins, Thera [Multivitamin 1 tab PO DAILY 06/02/19 06/04/19 History (formulary)] Norethindrone-Ethinyl Estrad 1 tab PO DAILY 06/02/19 06/04/19 History [Ortho-Novum 7-7-7-28 Tablet] Rhodleeann Corrigana Root 400 mg PO DAILY 06/02/19 06/04/19 History Allergies Allergy/AdvReac Type Severity Reaction Status Date / Time sulfamethoxazole Allergy Rash/Hives Verified 06/04/19 11:52 [From Bactrim] trimethoprim [From Bactrim] Allergy Rash/Hives Verified 06/04/19 11:52 Surgical - Exam Osteopathic Statement: *. No significant issues noted on an osteopathic structural exam other than those noted in the History and Physical/Consult. Vital Signs Pulse Resp 92 16 06/09/19 10:00 06/09/19 10:00 - General well nourished, no distress - Eyes PERRL - ENT normal mucosa, no hearing loss - Respiratory normal expansion, normal respiratory effort - Integumentary Chest incision site with surrounding ecchymosis and palpable hematoma. There does not appear to be any erythema or purulent drainage. - Psychiatric oriented to time, oriented to person, oriented to place Results - Labs 06/10/19 07:58 06/10/19 07:58 Abnormal Lab Results - Last 24 Hours (Table) 06/09/19 06/09/19 06/09/19 Range/Units 10:42 10:42 10:44 WBC 19.1 H (3.8-10.6) k/uL RBC 2.16 L (3.80-5.40) m/uL Hgb 7.3 L D (11.4-16.0) gm/dL Hct 20.4 L (34.0-46.0) % MCHC (31.0-37.0) g/dL RDW 17.2 H (11.5-15.5) % Plt Count 7 L* (150-450) k/uL Blast Cells % 48 H* % Neutrophils # (Manual) 0.57 L (1.3-7.7) k/uL Lymphocytes # (Manual) 8.98 H (1.0-4.8) k/uL Metamyelocytes # (Man) (0) k/uL Blast Cells # (Man) 9.17 H (0) k/uL Sodium (137-145) mmol/L Carbon Dioxide (22-30) mmol/L Glucose 102 H (74-99) mg/dL AST (14-36) U/L Crossmatch See Detail 06/10/19 06/10/19 06/10/19 Range/Units 00:03 00:03 04:05 WBC 16.7 H (3.8-10.6) k/uL RBC 2.11 L 1.93 L (3.80-5.40) m/uL Hgb 7.0 L 6.7 L* (11.4-16.0) gm/dL Hct 20.4 L 18.1 L* (34.0-46.0) % MCHC 37.1 H (31.0-37.0) g/dL RDW 16.9 H 16.6 H (11.5-15.5) % Plt Count 69 L D 47 L (150-450) k/uL Blast Cells % 38 H* 39 H* % Neutrophils # (Manual) 0.50 L 0.30 L* (1.3-7.7) k/uL Lymphocytes # (Manual) 9.02 H (1.0-4.8) k/uL Metamyelocytes # (Man) (0) k/uL Blast Cells # (Man) 6.35 H 2.46 H (0) k/uL Sodium (137-145) mmol/L Carbon Dioxide (22-30) mmol/L Glucose 116 H (74-99) mg/dL AST (14-36) U/L Crossmatch 06/10/19 06/10/19 06/10/19 Range/Units 04:05 07:58 07:58 WBC 3.2 L (3.8-10.6) k/uL RBC 1.92 L (3.80-5.40) m/uL Hgb 6.6 L* (11.4-16.0) gm/dL Hct 18.2 L* (34.0-46.0) % MCHC (31.0-37.0) g/dL RDW 16.7 H (11.5-15.5) % Plt Count 44 L (150-450) k/uL Blast Cells % 51 H* % Neutrophils # (Manual) 0.20 L* (1.3-7.7) k/uL Lymphocytes # (Manual) 0.90 L (1.0-4.8) k/uL Metamyelocytes # (Man) 0.03 H (0) k/uL Blast Cells # (Man) 1.63 H (0) k/uL Sodium 136 L (137-145) mmol/L Carbon Dioxide 21 L (22-30) mmol/L Glucose 139 H 121 H (74-99) mg/dL AST 41 H 49 H (14-36) U/L Crossmatch Diabetes panel 06/09/19 06/10/19 06/10/19 Range/Units 10:42 00:03 04:05 Sodium 138 139 136 L (137-145) mmol/L Potassium 4.5 4.6 4.1 (3.5-5.1) mmol/L Chloride 103 106 104 (98-107) mmol/L Carbon Dioxide 24 23 24 (22-30) mmol/L BUN 14 13 14 (7-17) mg/dL Creatinine 0.75 0.78 0.69 (0.52-1.04) mg/dL Glucose 102 H 116 H 139 H (74-99) mg/dL Calcium 9.5 9.1 8.7 (8.4-10.2) mg/dL AST 22 26 41 H (14-36) U/L ALT 20 20 17 (9-52) U/L Alkaline Phosphatase 63 64 64 (38-126) U/L Total Protein 8.0 7.3 6.8 (6.3-8.2) g/dL Albumin 4.6 4.4 4.0 (3.5-5.0) g/dL 06/10/19 Range/Units 07:58 Sodium 139 (137-145) mmol/L Potassium 3.9 (3.5-5.1) mmol/L Chloride 105 (98-107) mmol/L Carbon Dioxide 21 L (22-30) mmol/L BUN 13 (7-17) mg/dL Creatinine 0.73 (0.52-1.04) mg/dL Glucose 121 H (74-99) mg/dL Calcium 8.6 (8.4-10.2) mg/dL AST 49 H (14-36) U/L ALT 20 (9-52) U/L Alkaline Phosphatase 61 (38-126) U/L Total Protein 7.2 (6.3-8.2) g/dL Albumin 4.0 (3.5-5.0) g/dL Calcium panel 06/09/19 06/10/19 06/10/19 Range/Units 10:42 00:03 04:05 Calcium 9.5 9.1 8.7 (8.4-10.2) mg/dL Phosphorus 3.2 4.1 4.0 (2.5-4.5) mg/dL Albumin 4.6 4.4 4.0 (3.5-5.0) g/dL 06/10/19 Range/Units 07:58 Calcium 8.6 (8.4-10.2) mg/dL Phosphorus 4.2 (2.5-4.5) mg/dL Albumin 4.0 (3.5-5.0) g/dL Pituitary panel 06/09/19 06/10/19 06/10/19 Range/Units 10:42 00:03 04:05 Sodium 138 139 136 L (137-145) mmol/L Potassium 4.5 4.6 4.1 (3.5-5.1) mmol/L Chloride 103 106 104 (98-107) mmol/L Carbon Dioxide 24 23 24 (22-30) mmol/L BUN 14 13 14 (7-17) mg/dL Creatinine 0.75 0.78 0.69 (0.52-1.04) mg/dL Glucose 102 H 116 H 139 H (74-99) mg/dL Calcium 9.5 9.1 8.7 (8.4-10.2) mg/dL 06/10/19 Range/Units 07:58 Sodium 139 (137-145) mmol/L Potassium 3.9 (3.5-5.1) mmol/L Chloride 105 (98-107) mmol/L Carbon Dioxide 21 L (22-30) mmol/L BUN 13 (7-17) mg/dL Creatinine 0.73 (0.52-1.04) mg/dL Glucose 121 H (74-99) mg/dL Calcium 8.6 (8.4-10.2) mg/dL Adrenal panel 06/09/19 06/10/19 06/10/19 Range/Units 10:42 00:03 04:05 Sodium 138 139 136 L (137-145) mmol/L Potassium 4.5 4.6 4.1 (3.5-5.1) mmol/L Chloride 103 106 104 (98-107) mmol/L Carbon Dioxide 24 23 24 (22-30) mmol/L BUN 14 13 14 (7-17) mg/dL Creatinine 0.75 0.78 0.69 (0.52-1.04) mg/dL Glucose 102 H 116 H 139 H (74-99) mg/dL Calcium 9.5 9.1 8.7 (8.4-10.2) mg/dL Total Bilirubin 0.5 0.4 0.3 (0.2-1.3) mg/dL AST 22 26 41 H (14-36) U/L ALT 20 20 17 (9-52) U/L Alkaline Phosphatase 63 64 64 (38-126) U/L Total Protein 8.0 7.3 6.8 (6.3-8.2) g/dL Albumin 4.6 4.4 4.0 (3.5-5.0) g/dL 06/10/19 Range/Units 07:58 Sodium 139 (137-145) mmol/L Potassium 3.9 (3.5-5.1) mmol/L Chloride 105 (98-107) mmol/L Carbon Dioxide 21 L (22-30) mmol/L BUN 13 (7-17) mg/dL Creatinine 0.73 (0.52-1.04) mg/dL Glucose 121 H (74-99) mg/dL Calcium 8.6 (8.4-10.2) mg/dL Total Bilirubin 0.4 (0.2-1.3) mg/dL AST 49 H (14-36) U/L ALT 20 (9-52) U/L Alkaline Phosphatase 61 (38-126) U/L Total Protein 7.2 (6.3-8.2) g/dL Albumin 4.0 (3.5-5.0) g/dL Assessment and Plan (1) Acute myeloblastic leukemia Narrative/Plan: I discussed the case in depth with the patient's oncologist. Due to the finding of thrombocytopenia and history of recent Mediport placement, it is most likely that the patient does have a hematoma at the site of the Mediport. On exam, the Mediport itself is difficult to palpate due to the hematoma. The patient would be at high risk of introducing infection if this hematoma were to be drained. Oncology is in agreement with this. We will use warm compresses on the area for the time being. The patient is understanding and agreeable to this plan. Current Visit: Yes Status: Acute Priority: High Code(s): C92.00 - ACUTE MYELOBLASTIC LEUKEMIA, NOT HAVING ACHIEVED REMISSION SNOMED Code(s): 20729721
--- NOTE | 2019-06-10 15:23 | P.PN ---
Subjective Progress Note Date: 06/10/19 Principal diagnosis: recurrent AML In follow-up today patient has complaints of an intermittent upset stomach, food smells and taste are terrible, MAXIMUM TEMPERATURE of 100.3, pancultures ordered, no antibiotics just yet. She did have an ultrasound of her right chest wall to evaluate hematoma, status post port placement, everything is stable, Surgeon did follow up with patient, no acute intervention other than supportive care. Patient's oral irritation is gone, she denies any other bleeding, sore throat, cough, abdominal pain or cramping, suprapubic pain, dysuria, hematuria, diarrhea or swelling. Objective - Vital Signs Vital signs: Vital Signs Temp 98.7 F 06/10/19 14:38 Pulse 121 H 06/10/19 11:21 Resp 18 06/10/19 11:21 BP 115/70 06/10/19 11:21 Pulse Ox 100 06/10/19 11:21 Intake & Output 06/09/19 06/10/19 06/10/19 18:59 06:59 18:59 Intake Total 0 3383 2612 Balance 0 3383 2612 Weight 60.9 kg Intake: Intake, IV Titration 1200 2132 Amount Ondansetron 16 mg In 232 Sodium Chloride 0.9% 50 ml @ 232 mls/hr IVPB DAILY [facility] Rx#:[id number] Sodium Chloride 0.9% 1, 1200 1800 000 ml @ 150 mls/hr IV . Q6H40M NATHANAEL Rx#:[id number] azaCITIDine 130 mg In 100 Sodium Chloride 0.9% 100 ml @ 200 mls/hr IV Q24H NATHANAEL Rx#:[id number] Oral 1540 480 Blood Product 0 643 Platelet Irr Pheresis 0 643 Acda Unit [id number] Other: Voiding Method Toilet Toilet Toilet # Voids 1 2 4 - Constitutional General appearance: Present: average body habitus, cooperative, morbidly obese - EENT Eyes: Present: anicteric sclerae, EOMI ENT: Present: hearing grossly normal, normal oropharynx - Respiratory Respiratory: bilateral: CTA - Cardiovascular Rhythm: regular Heart sounds: normal: S1, S2 Abnormal Heart Sounds: Absent: systolic murmur, diastolic murmur, rub, S3 Gallop, S4 Gallop, click, other - Peripheral edema leg Peripheral Edema: bilateral: None - Gastrointestinal General gastrointestinal: Present: normal bowel sounds, soft. Absent: absent bowel sounds, decreased bowel sounds, distended, hepatomegaly, hyperactive bowel sounds, organomegaly, rigid, scaphoid, splenomegaly, tenderness, umbilical hernia, ventral hernia - Integumentary Integumentary Comment(s): bruising noted in areas of trauma, rt chest wall hematoma is stable Integumentary: Present: pale - Neurologic Neurologic: Present: CNII-XII intact - Musculoskeletal Musculoskeletal: Present: strength equal bilaterally - Psychiatric Psychiatric: Present: A&O x's 3, appropriate affect, intact judgment & insight - Labs CBC & Chem 7: 06/10/19 07:58 06/10/19 07:58 Labs: Abnormal Lab Results - Last 24 Hours (Table) 06/09/19 06/09/19 06/10/19 Range/Units 10:42 10:44 00:03 WBC 19.1 H (3.8-10.6) k/uL RBC 2.16 L (3.80-5.40) m/uL Hgb 7.3 L D (11.4-16.0) gm/dL Hct 20.4 L (34.0-46.0) % MCHC (31.0-37.0) g/dL RDW 17.2 H (11.5-15.5) % Plt Count 7 L* (150-450) k/uL Blast Cells % 48 H* % Neutrophils # (Manual) 0.57 L (1.3-7.7) k/uL Lymphocytes # (Manual) 8.98 H (1.0-4.8) k/uL Metamyelocytes # (Man) (0) k/uL Blast Cells # (Man) 9.17 H (0) k/uL Sodium (137-145) mmol/L Carbon Dioxide (22-30) mmol/L Glucose 116 H (74-99) mg/dL AST (14-36) U/L Crossmatch See Detail 06/10/19 06/10/19 06/10/19 Range/Units 00:03 04:05 04:05 WBC 16.7 H (3.8-10.6) k/uL RBC 2.11 L 1.93 L (3.80-5.40) m/uL Hgb 7.0 L 6.7 L* (11.4-16.0) gm/dL Hct 20.4 L 18.1 L* (34.0-46.0) % MCHC 37.1 H (31.0-37.0) g/dL RDW 16.9 H 16.6 H (11.5-15.5) % Plt Count 69 L D 47 L (150-450) k/uL Blast Cells % 38 H* 39 H* % Neutrophils # (Manual) 0.50 L 0.30 L* (1.3-7.7) k/uL Lymphocytes # (Manual) 9.02 H (1.0-4.8) k/uL Metamyelocytes # (Man) (0) k/uL Blast Cells # (Man) 6.35 H 2.46 H (0) k/uL Sodium 136 L (137-145) mmol/L Carbon Dioxide (22-30) mmol/L Glucose 139 H (74-99) mg/dL AST 41 H (14-36) U/L Crossmatch 06/10/19 06/10/19 Range/Units 07:58 07:58 WBC 3.2 L (3.8-10.6) k/uL RBC 1.92 L (3.80-5.40) m/uL Hgb 6.6 L* (11.4-16.0) gm/dL Hct 18.2 L* (34.0-46.0) % MCHC (31.0-37.0) g/dL RDW 16.7 H (11.5-15.5) % Plt Count 44 L (150-450) k/uL Blast Cells % 51 H* % Neutrophils # (Manual) 0.20 L* (1.3-7.7) k/uL Lymphocytes # (Manual) 0.90 L (1.0-4.8) k/uL Metamyelocytes # (Man) 0.03 H (0) k/uL Blast Cells # (Man) 1.63 H (0) k/uL Sodium (137-145) mmol/L Carbon Dioxide 21 L (22-30) mmol/L Glucose 121 H (74-99) mg/dL AST 49 H (14-36) U/L Crossmatch - Imaging and Cardiology ultrasound report reviewe Assessment and Plan (1) Acute myeloblastic leukemia Narrative/Plan: Unfortunate relapse disease. 7 daily doses of Vidaza IV with daily oral venetoclax with antifungal as a potentiating agent. Treatment started 06/09/2019. Patient is at a very high risk tumor lysis syndrome, these labs been ordered every 4 hours for the first 48 hours. Aggressive hydration. Labs reviewed today, everything looks well from a tumor lysis perspective Daily follow up Supportive medications Current Visit: Yes Status: Acute Priority: High Code(s): C92.00 - ACUTE MYELOBLASTIC LEUKEMIA, NOT HAVING ACHIEVED REMISSION SNOMED Code(s): 47404848 (2) Pancytopenia due to antineoplastic chemotherapy Narrative/Plan: Conservative blood transfusions. Transfuse for hemoglobin less than 7, 1 unit irradiated PRBCs today for hemogl obin of 6.6 Platelet count less than 10,000 or if symptomatic. No intervention for white blood cell counts at this time. Current Visit: Yes Status: Acute Priority: High Code(s): D61.810 - ANTI NEOPLASTIC CHEMOTHERAPY INDUCED PANCYTOPENIA; T45.1X5A - ADVERSE EFFECT OF ANTINEOPLASTIC AND IMMUNOSUP DRUGS, INIT SNOMED Code(s): 141960861884381 Plan: Fever reported, tachycardia: pancultures ordered, close VS monitoring Activity as tolerated, diet as tolerated. GI prophylaxis No aspirin, NSAIDs, anticoagulation because of low platelets
[2019-06-10] MEDS: VENCLEXTA 100 MG PO SCH (17:23)
[2019-06-10] MEDS: VORICONAZOLE 50 MG TABLET PO SCH (17:23)
[2019-06-10] MEDS ORDERED: VANCOMYCIN IV PER PHARMACY 1 EACH MISC MISCELLANE ONE (18:00)
[2019-06-10] MEDS: CEFEPIME 2 GM in SODIUM CHLORIDE 0.9% 100 ML IVPB SCH (18:58)
[2019-06-10] MEDS ORDERED: VANCOMYCIN 1,000 MG in SODIUM CHLORIDE 0.9% 250 ML IVPB SCH (19:00)
[2019-06-10 19:55] LABS: Anisocytosis Slight; MCH 34.4 pg (25.0-35.0); MCHC 35.7 g/dL (31.0-37.0); MCV 96.2 fL (80.0-100.0); Macrocytosis Slight; RBC 1.93 m/uL (3.80-5.40); RDW 16.6 % (11.5-15.5); WBC 1.7 k/uL (3.8-10.6)
[2019-06-10 20:01] LABS: HCT 18.6 % (34.0-46.0); HGB 6.6 gm/dL (11.4-16.0)
[2019-06-10 20:02] LABS: Platelet Count 29 k/uL (150-450)
[2019-06-10 20:14] LABS: ALT 15 U/L (9-52); AST 53 U/L (14-36); African American GFR (CKD) >90 (>60 ml/min/1.73 sqM); Albumin 3.9 g/dL (3.5-5.0); Alkaline Phosphatase 54 U/L (38-126); Anion Gap 10 mmol/L; Blood Urea Nitrogen 9 mg/dL (7-17); Calcium 8.5 mg/dL (8.4-10.2); Carbon Dioxide 21 mmol/L (22-30); Chloride 107 mmol/L (98-107); Glucose 155 mg/dL (74-99); Magnesium 2.1 mg/dL (1.6-2.3); Non-African American GFR(CKD) >90 (>60 ml/min/1.73 sqM); Phosphorus 2.4 mg/dL (2.5-4.5); Potassium 3.4 mmol/L (3.5-5.1); Sodium 138 mmol/L (137-145); Total Bilirubin 0.5 mg/dL (0.2-1.3); Total Protein 6.9 g/dL (6.3-8.2); Uric Acid 3.5 mg/dL (3.7-7.4)
[2019-06-10 20:25] LABS: Blast Cells # (M) 0.68 k/uL (0); Metamyelocytes # (M) 0.03 k/uL (0); Metamyelocytes % 2 %; Monocytes # (M) 0.07 k/uL (0-1.0); Myelocytes # (M) 0.02 k/uL (0); Myelocytes % 1 %; Neutrophils % (M) 6 %; Nucleated Red Blood Cells 0 /100 WBC (0-0); Total Cells Counted 100
[2019-06-10] MEDS: AZACITIDINE IV SCH (20:29)
[2019-06-10] MEDS: SODIUM CHLORIDE 0.9% IV SCH (20:29)
[2019-06-10] MEDS: VANCOMYCIN 1,000 MG in SODIUM CHLORIDE 0.9% 250 ML IVPB SCH (21:39)
[2019-06-10] MEDS: ALPRAZolam 0.25 MG TAB PO PRN (23:13)
[2019-06-11] MEDS: CEFEPIME 2 GM in SODIUM CHLORIDE 0.9% 100 ML IVPB SCH ×3 (00:02→18:28)
[2019-06-11] MEDS: SALT AND SODA MOUTHWASH 1,000 ML PO SCH ×5 (00:04→21:21)
[2019-06-11] MEDS: VANCOMYCIN 1,000 MG in SODIUM CHLORIDE 0.9% 250 ML IVPB SCH ×3 (05:08→22:11)
[2019-06-11] MEDS: ALPRAZolam 0.25 MG TAB PO PRN ×2 (07:00→21:21)
[2019-06-11 08:52] LABS: Anisocytosis Slight; HGB 7.1 gm/dL (11.4-16.0); MCH 32.2 pg (25.0-35.0); MCHC 36.2 g/dL (31.0-37.0); Mean Platelet Volume 7.5; RBC 2.22 m/uL (3.80-5.40)
[2019-06-11 09:00] LABS: HCT 19.7 % (34.0-46.0); MCV 88.8 fL (80.0-100.0); WBC 0.7 k/uL (3.8-10.6)
[2019-06-11 09:20] LABS: Anisocytosis (M) Present; Hypochromasia (M) Present; Platelet Count 16 k/uL (150-450)
[2019-06-11] MEDS: ALLOPURINOL 300 MG TAB PO SCH ×2 (09:22→21:21)
[2019-06-11] MEDS: CHOLECALCIFEROL 1,000 UNIT TAB PO SCH (09:22)
[2019-06-11] MEDS: MULTIVITAMINS, THERA 1 EACH TAB PO SCH (09:23)
[2019-06-11] MEDS: ACETAMINOPHEN TAB 325 MG TAB PO PRN ×2 (09:23→15:39)
[2019-06-11] MEDS: SODIUM CHLORIDE 0.9% 1,000 ML IV SCH ×4 (09:24→22:13)
[2019-06-11 11:11] LABS: ALT 21 U/L (9-52); AST 34 U/L (14-36); African American GFR (CKD) >90 (>60 ml/min/1.73 sqM); Albumin 3.4 g/dL (3.5-5.0); Alkaline Phosphatase 52 U/L (38-126); Anion Gap 7 mmol/L; Blood Urea Nitrogen 7 mg/dL (7-17); Calcium 7.9 mg/dL (8.4-10.2); Carbon Dioxide 23 mmol/L (22-30); Chloride 105 mmol/L (98-107); Glucose 138 mg/dL (74-99); Non-African American GFR(CKD) >90 (>60 ml/min/1.73 sqM); Phosphorus 1.5 mg/dL (2.5-4.5); Potassium 3.3 mmol/L (3.5-5.1); Sodium 135 mmol/L (137-145); Total Protein 6.2 g/dL (6.3-8.2); Uric Acid 2.5 mg/dL (3.7-7.4)
[2019-06-11] MEDS: ONDANSETRON 16 MG in SODIUM CHLORIDE 0.9% 50 ML IVPB SCH (13:13)
[2019-06-11] MEDS: VORICONAZOLE 50 MG TABLET PO SCH (18:29)
[2019-06-11] MEDS: VENCLEXTA 100 MG PO SCH (18:30)
[2019-06-11] MEDS: HYDROcodone/APAP 5-325MG 1 EACH TAB PO PRN (19:58)
--- NOTE | 2019-06-11 20:29 | P.PN ---
Subjective Progress Note Date: 06/11/19 acute myeloid leukemia recurrent AML In follow-up today patient has complaints of an intermittent upset stomach, food smells and taste are terrible, MAXIMUM TEMPERATURE of 100.3, pancultures ordered, no antibiotics just yet. She did have an ultrasound of her right chest wall to evaluate hematoma, status post port placement, everything is stable, Surgeon did follow up with patient, no acute intervention other than supportive care. Patient's oral irritation is gone, she denies any other bleeding, sore throat, cough, abdominal pain or cramping, suprapubic pain, dysuria, hematuria, diarrhea or swelling. Pertinent oncology history: Mrs. Garay is a very pleasant 48-year-old female patient of Dr. Lyle who was initially diagnosed with AML in 2018. She presented to [facility] with petechial lesions on her lower extremities, noted after spider bite. Her only other symptom was progressively worsening generalized fatigue. Routine lab work showed leukocytosis with thrombocytopenia and anemia. Peripheral smear showed strict circulating blasts, bone marrow biopsy and aspirate was consistent with acute myeloid leukemia. Patient went through induction chemotherapy with 7+14 February 2018. She completed consolidation with high-dose araC and started rydapt due to FLT 3 positive cytogenetics. Patient completed treatment and had done well until late Apr. She presented with the same symptoms of fatigue and bruising. 05/14/19 bone marrow showed recurrent AML + for CBFB inversion, tra nslocation 16;16, FLT3 negative. She was seen by Dr. Paz with plan for allo SCT. She has required multiple platelet transfusions and will likely continue to do so until she has treatment for the same. She is admitted today to begin treatment. She has no complaints on a 14 point review of systems other than bruising. She also had a port placed with bruising in the chest area. This will be ultrasounded for monitoring, port is not accessible at this time. Patient denies any other bleeding . Objective - Vital Signs Vital signs: Vital Signs Temp 98.6 F 06/11/19 13:32 Pulse 118 H 06/11/19 15:45 Resp 17 06/11/19 15:45 BP 123/72 06/11/19 13:32 Pulse Ox 99 06/11/19 13:32 Intake & Output 06/11/19 06/11/19 06/12/19 06:59 18:59 06:59 Intake Total 3330 1300 590 Balance 3330 1300 590 Intake: Intake, IV Titration 1950 1300 Amount Cefepime 2 gm In Sodium 200 100 Chloride 0.9% 100 ml @ 200 mls/hr IVPB Q8HR [facility]HA[facility]EL Rx#:[id number] Sodium Chloride 0.9% 1, 1400 1200 000 ml @ 150 mls/hr IV . Q6H40M [facility]HANAEL Rx#:[id number] Vancomycin 1,000 mg In 250 Sodium Chloride 0.9% 250 ml @ 125 mls/hr IVPB Q8H [facility]HANA[facility] Rx#:[id number] azaCITIDine 130 mg In 100 Sodium Chloride 0.9% 100 ml @ 200 mls/hr IV Q24H NATHANAEL Rx#:[id number] Oral 1070 590 Blood Product 310 Rc Irr As1 Unit 310 [id number] Other: Voiding Method Toilet Toilet # Voids 3 3 - Exam The patient appeared well nourished and normally developed. Vital signs as documented. Head exam is unremarkable. No scleral icterus or corneal arcus noted. Neck is without jugular venous distension, thyromegaly, or carotid bruits. Carotid upstrokes are brisk bilaterally. Lungs are clear to auscultation and percussion. Cardiac exam reveals the PMI to be normally sized and situated. Rhythm is regular. First and second heart sounds normal. No murmurs, rubs or gallops. Abdominal exam reveals normal bowel sounds, no masses, no organomegaly and no aortic enlargement. Extremities are nonedematous and both femoral and pedal pulses are normal. - Labs CBC & Chem 7: 06/11/19 08:05 06/11/19 10:18 Labs: Abnormal Lab Results - Last 24 Hours (Table) 06/09/19 06/10/19 06/11/19 Range/Units 10:44 19:25 08:05 WBC 0.7 L* (3.8-10.6) k/uL RBC 2.22 L (3.80-5.40) m/uL Hgb 7.1 L (11.4-16.0) gm/dL Hct 19.7 L* (34.0-46.0) % RDW 17.0 H (11.5-15.5) % Plt Count 29 L 16 L* (150-450) k/uL Blast Cells % 40 H* % Neutrophils # (Manual) 0.10 L* (1.3-7.7) k/uL Lymphocytes # (Manual) 0.80 L (1.0-4.8) k/uL Metamyelocytes # (Man) 0.03 H (0) k/uL Myelocytes # (Manual) 0.02 H (0) k/uL Blast Cells # (Man) 0.68 H (0) k/uL Sodium (137-145) mmol/L Potassium (3.5-5.1) mmol/L Glucose (74-99) mg/dL Uric Acid (3.7-7.4) mg/dL Calcium (8.4-10.2) mg/dL Phosphorus (2.5-4.5) mg/dL Total Protein (6.3-8.2) g/dL Albumin (3.5-5.0) g/dL Crossmatch See Detail 06/11/19 Range/Units 10:18 WBC (3.8-10.6) k/uL RBC (3.80-5.40) m/uL Hgb (11.4-16.0) gm/dL Hct (34.0-46.0) % RDW (11.5-15.5) % Plt Count (150-450) k/uL Blast Cells % % Neutrophils # (Manual) (1.3-7.7) k/uL Lymphocytes # (Manual) (1.0-4.8) k/uL Metamyelocytes # (Man) (0) k/uL Myelocytes # (Manual) (0) k/uL Blast Cells # (Man) (0) k/uL Sodium 135 L (137-145) mmol/L Potassium 3.3 L (3.5-5.1) mmol/L Glucose 138 H (74-99) mg/dL Uric Acid 2.5 L (3.7-7.4) mg/dL Calcium 7.9 L (8.4-10.2) mg/dL Phosphorus 1.5 L (2.5-4.5) mg/dL Total Protein 6.2 L (6.3-8.2) g/dL Albumin 3.4 L (3.5-5.0) g/dL Crossmatch Microbiology - Last 24 Hours (Table) 06/10/19 13:02 Blood Culture - Preliminary Blood No Growth after 24 hours 06/10/19 14:20 Urine Culture - Preliminary Urine,Voided Assessment and Plan Assessment: Impression and plan: (1) Acute myeloblastic leukemia Narrative/Plan: Unfortunate relapse disease. 7 daily doses of Vidaza IV with daily oral venetoclax with antifungal as a potentiating agent. Treatment started 06/09/2019. Patient is at a very high risk tumor lysis syndrome, these labs been ordered every 4 hours for the first 48 hours. Aggressive hydration. Labs reviewed today, everything looks well from a tumor lysis perspective Daily follow up Supportive medications Current Visit: Yes Status: Acute Priority: High Code(s): C92.00 - ACUTE MYELOBLASTIC LEUKEMIA, NOT HAVING ACHIEVED REMISSION SNOMED Code(s): 74330403 (2) Pancytopenia due to antineoplastic chemotherapy Narrative/Plan: Conservative blood transfusions. Transfuse for hemoglobin less than 7, 1 unit irradiated PRBCs today for hemoglobin of 6.6 Platelet count less than 10,000 or if symptomatic. No intervention for white blood cell counts at this time. Current Visit: Yes Status: Acute Priority: High Code(s): D61.810 - ANTINEOPLASTIC CHEMOTHERAPY INDUCED PANCYTOPENIA; T45.1X5A - ADVERSE EFFECT OF ANTINEOPLASTIC AND IMMUNOSUP DRUGS, INIT SNOMED Code(s): 090748586298194 (3) neutropenic fever: tender Mediport site: seroma/infection: Fever reported, tachycardia: pancultures Patient's temp 101.3 F. Tylenol administered. Vancomycin 1 GM IVPB Q 24 Hours. Cefepime 2G IVPB Q 8 hours. - oral and IV scheduled chemo - follow up on the cultures consider infectious disease consult. 4. Mediport site tenderness with seroma will not use it for now. Patient counseled at length. Transfusions as required. Activity as tolerated, diet as tolerated. GI prophylaxis No aspirin, NSAIDs, anticoagulation because of low platelets Thank you for allowing me to participate in the care of your patient. Sherwin Mauro MD Floor Runner, [facility] Hematology Oncology [id number] , [address] [place] [address] Office: [phone] Time with Patient: Greater than 30
[2019-06-11] MEDS: SODIUM CHLORIDE 0.9% IV SCH (21:24)
[2019-06-11] MEDS: AZACITIDINE IV SCH (21:24)
[2019-06-11] MEDS: ONDANSETRON 4 MG/2 ML VIAL IVP PRN (21:31)
[2019-06-12] MEDS: CEFEPIME 2 GM in SODIUM CHLORIDE 0.9% 100 ML IVPB SCH ×4 (00:24→23:58)
[2019-06-12] MEDS: SALT AND SODA MOUTHWASH 1,000 ML PO SCH ×5 (00:24→22:32)
[2019-06-12] MEDS ORDERED: VANCOMYCIN TROUGH DUE 1 EACH MISC MISCELLANE ONE (05:00)
[2019-06-12] MEDS: VANCOMYCIN 1,000 MG in SODIUM CHLORIDE 0.9% 250 ML IVPB SCH (05:46)
[2019-06-12] MEDS: HYDROcodone/APAP 5-325MG 1 EACH TAB PO PRN (05:51)
[2019-06-12] MEDS: ALPRAZolam 0.25 MG TAB PO PRN ×2 (05:52→22:31)
[2019-06-12 06:12] LABS: Anisocytosis Slight; HGB 7.2 gm/dL (11.4-16.0); MCH 33.2 pg (25.0-35.0); MCV 89.8 fL (80.0-100.0); Mean Platelet Volume 6.5; RBC 2.17 m/uL (3.80-5.40); RDW 16.6 % (11.5-15.5)
[2019-06-12 06:28] LABS: ALT 16 U/L (9-52); AST 19 U/L (14-36); African American GFR (CKD) >90 (>60 ml/min/1.73 sqM); Albumin 3.2 g/dL (3.5-5.0); Alkaline Phosphatase 50 U/L (38-126); Anion Gap 9 mmol/L; Blood Urea Nitrogen 7 mg/dL (7-17); Calcium 7.9 mg/dL (8.4-10.2); Carbon Dioxide 23 mmol/L (22-30); Chloride 105 mmol/L (98-107); Glucose 137 mg/dL (74-99); Non-African American GFR(CKD) >90 (>60 ml/min/1.73 sqM); Phosphorus 1.4 mg/dL (2.5-4.5); Potassium 3.4 mmol/L (3.5-5.1); Sodium 137 mmol/L (137-145); Total Protein 6.1 g/dL (6.3-8.2); Uric Acid 1.9 mg/dL (3.7-7.4)
[2019-06-12 06:36] LABS: HCT 19.5 % (34.0-46.0); Platelet Count 10 k/uL (150-450); WBC 0.7 k/uL (3.8-10.6)
[2019-06-12] MEDS: CHOLECALCIFEROL 1,000 UNIT TAB PO SCH (12:02)
[2019-06-12] MEDS: ALLOPURINOL 300 MG TAB PO SCH ×2 (12:03→22:31)
[2019-06-12] MEDS: MULTIVITAMINS, THERA 1 EACH TAB PO SCH (12:03)
[2019-06-12] MEDS: ONDANSETRON 16 MG in SODIUM CHLORIDE 0.9% 50 ML IVPB SCH (12:13)
[2019-06-12] MEDS: VANCOMYCIN 1,250 MG in SODIUM CHLORIDE 0.9% 250 ML IVPB SCH ×2 (13:54→22:32)
[2019-06-12] MEDS ORDERED: diphenhydrAMINE 50 MG/ML 1 ML VIAL IVP STA (17:17)
[2019-06-12] MEDS: SODIUM CHLORIDE 0.9% 1,000 ML IV SCH ×2 (17:53→17:56)
[2019-06-12] MEDS: VORICONAZOLE 50 MG TABLET PO SCH (17:57)
[2019-06-12] MEDS: VENCLEXTA 100 MG PO SCH (17:57)
[2019-06-12] MEDS ORDERED: methylPREDNISolone SOD SUCCI 125 MG/2 ML VIAL IV STA (19:12)
[2019-06-12] MEDS ORDERED: diphenhydrAMINE 25 MG CAP PO STA (19:13)
[2019-06-12] MEDS: ACETAMINOPHEN TAB 325 MG TAB PO PRN (19:18)
--- NOTE | 2019-06-12 21:19 | P.PN ---
Subjective Progress Note Date: 06/12/19 acute myeloid leukemia recurrent AML In follow-up today patient has complaints of an intermittent upset stomach, food smells and taste are terrible, MAXIMUM TEMPERATURE of 100.3, pancultures ordered, no antibiotics just yet. She did have an ultrasound of her right chest wall to evaluate hematoma, status post port placement, everything is stable, Surgeon did follow up with patient, no acute intervention other than supportive care. Patient's oral irritation is gone, she denies any other bleeding, sore throat, cough, abdominal pain or cramping, suprapubic pain, dysuria, hematuria, diarrhea or swelling. patient had a spike of fever continues to be on antibiotics. We'll consult infectious disease. Pertinent oncology history: Mrs. Garay is a very pleasant 48-year-old female patient of Dr. Lyle who was initially diagnosed with AML in 2018. She presented to [facility] with petechial lesions on her lower extremities, noted after spider bite. Her only other symptom was progressively worsening generalized fatigue. Routine lab work showed leukocytosis with thrombocytopenia and anemia. Peripheral smear showed strict circulating blasts, bone marrow biopsy and aspirate was consistent with acute myeloid leukemia. Patient went through induction chemotherapy with 7+14 February 2018. She completed consolidation with high-dose araC and started rydapt due to FLT 3 positive cytogenetics. Patient completed treatment and had done well until late Apr. She presented with the same symptoms of fatigue and bruising. 05/14/19 bone marrow showed recurrent AML + for CBFB inversion, transl ocation 16;16, FLT3 negative. She was seen by Dr. Paz with plan for allo SCT. She has required multiple platelet transfusions and will likely continue to do so until she has treatment for the same. She is admitted today to begin treatment. She has no complaints on a 14 point review of systems other than bruising. She also had a port placed with bruising in the chest area. This will be ultrasounded for monitoring, port is not accessible at this time. Patient denies any other bleeding . Objective - Vital Signs Vital signs: Vital Signs Temp 98.3 F 06/12/19 20:59 Pulse 119 H 06/12/19 20:59 Resp 16 06/12/19 20:59 BP 131/83 06/12/19 20:59 Pulse Ox 92 L 06/12/19 20:59 Intake & Output 06/12/19 06/12/19 06/13/19 06:59 18:59 06:59 Intake Total 3700 1950 304 Balance 3700 1950 304 Intake: Intake, IV Titration 2100 1350 Amount Cefepime 2 gm In Sodium 200 Chloride 0.9% 100 ml @ 200 mls/hr IVPB Q8HR [facility]EL Rx#:[id number] Ondansetron 16 mg In 50 Sodium Chloride 0.9% 50 ml @ 232 mls/hr IVPB DAILY NATHANAEL Rx#:[id number] Sodium Chloride 0.9% 1, 1450 1200 000 ml @ 150 mls/hr IV . Q6H40M NATHANAEL Rx#:[id number] Vancomycin 1,000 mg In 250 Sodium Chloride 0.9% 250 ml @ 125 mls/hr IVPB Q8H NATHANAEL Rx#:[id number] azaCITIDine 130 mg In 200 100 Sodium Chloride 0.9% 100 ml @ 200 mls/hr IV Q24H NATHANAEL Rx#:[id number] Oral 1600 600 Blood Product 0 304 Platelet Irr Pheresis 0 304 Acda1 Unit [id number] Other: Voiding Method Toilet Toilet # Voids 3 3 - Exam The patient appeared well nourished and normally developed. Vital signs as documented. Head exam is unremarkable. No scleral icterus or corneal arcus noted. Neck is without jugular venous distension, thyromegaly, or carotid bruits. Carotid upstrokes are brisk bilaterally. Lungs are clear to auscultation and percussion. Cardiac exam reveals the PMI to be normally sized and situated. Rhythm is regular. First and second heart sounds normal. No murmurs, rubs or gallops. Abdominal exam reveals normal bowel sounds, no masses, no organomegaly and no aortic enlargement. Extremities are nonedematous and both femoral and pedal pulses are normal. - Labs CBC & Chem 7: 06/12/19 05:34 06/12/19 05:34 Labs: Abnormal Lab Results - Last 24 Hours (Table) 06/12/19 06/12/19 Range/Units 05:34 05:34 WBC 0.7 L* (3.8-10.6) k/uL RBC 2.17 L (3.80-5.40) m/uL Hgb 7.2 L (11.4-16.0) gm/dL Hct 19.5 L* (34.0-46.0) % RDW 16.6 H (11.5-15.5) % Plt Count 10 L* (150-450) k/uL Potassium 3.4 L (3.5-5.1) mmol/L Glucose 137 H (74-99) mg/dL Uric Acid 1.9 L (3.7-7.4) mg/dL Calcium 7.9 L (8.4-10.2) mg/dL Phosphorus 1.4 L (2.5-4.5) mg/dL Total Protein 6.1 L (6.3-8.2) g/dL Albumin 3.2 L (3.5-5.0) g/dL Microbiology - Last 24 Hours (Table) 06/10/19 13:02 Blood Culture - Preliminary Blood No Growth after 48 hours 06/10/19 14:20 Urine Culture - Final Urine,Voided Assessment and Plan Assessment: Impression and plan: (1) Acute myeloid leukemia: - relapsed or refractory disease. . 7 daily doses of Vidaza IV with daily oral venetoclax with antifungal as a potentiating agent. Treatment started 06/09/2019. Patient is at a very high risk tumor lysis syndrome, these labs been ordered every 4 hours for the first 48 hours. Aggressive hydration. Labs reviewed today, everything looks well from a tumor lysis perspective Daily follow up Supportive medications - patient has already met transplant team at [facility], Dr Paz. had an extensive discussion with the patient, brother is ready to get HLA type being tested - plan for transplant evaluation soon after discharge. (2) Pancytopenia due to antineoplastic chemotherapy Narrative/Plan: Conservative blood transfusions. Transfuse for hemoglobin less than 7, 1 unit irradiated PRBCs today for hemoglobin of 6.6 Platelet count less than 10,000 or if symptomatic. No intervention for white blood cell counts at this time. Current Visit: Yes Status: Acute Priority: High Code(s): D61.810 - ANTINEOPLASTIC CHEMOTHERAPY INDUCED PANCYTOPENIA; T45.1X5A - ADVERSE EFFECT OF ANTINEOPLASTIC AND IMMUNOSUP DRUGS, INIT SNOMED Code(s): 737892656845509 (3) neutropenic fever: tender Mediport site: seroma/infection: Fever reported, tachycardia: pancultures Patient's temp 101.3 F. Tylenol administered. Vancomycin 1 GM IVPB Q 24 Hours. Cefepime 2G IVPB Q 8 hours. - oral and IV scheduled chemo - follow up on the cultures - infectious disease consult. 4. Mediport site tenderness with seroma will not use it for now. - infectious disease consult. Patient counseled at length. Transfusions as required. Activity as tolerated, diet as tolerated. GI prophylaxis No aspirin, NSAIDs, anticoagulation because of low platelets 5. migraines. 6. Transfusion of platelets to keep platelets about 10,000 and hemoglobin above 7. 7. and extensive counseling provided. Thank you for allowing me to participate in the care of your patient. Sherwin Mauro MD Jewelry Setter, [facility] Hematology Oncology [id number], [address] [place] [address] Office: [phone] Time with Patient: Greater than 30
[2019-06-12] MEDS: SODIUM CHLORIDE 0.9% IV SCH (21:20)
[2019-06-12] MEDS: AZACITIDINE IV SCH (21:20)
[2019-06-12 22:32] LABS: Anisocytosis Slight; MCH 32.6 pg (25.0-35.0); MCHC 36.2 g/dL (31.0-37.0); RBC 1.93 m/uL (3.80-5.40); RDW 16.5 % (11.5-15.5)
[2019-06-12 22:38] LABS: WBC 0.3 k/uL (3.8-10.6)
[2019-06-12 22:40] LABS: HGB 6.3 gm/dL (11.4-16.0)
[2019-06-12 22:41] LABS: HCT 17.3 % (34.0-46.0); Platelet Count 28 k/uL (150-450)
[2019-06-12 22:57] LABS: AST 22 U/L (14-36); African American GFR (CKD) >90 (>60 ml/min/1.73 sqM); Albumin 3.4 g/dL (3.5-5.0); Blood Urea Nitrogen 7 mg/dL (7-17); Glucose 171 mg/dL (74-99); Non-African American GFR(CKD) >90 (>60 ml/min/1.73 sqM); Total Bilirubin 0.7 mg/dL (0.2-1.3)
[2019-06-12 22:59] LABS: Magnesium 2.3 mg/dL (1.6-2.3); Phosphorus 1.2 mg/dL (2.5-4.5); Potassium 3.7 mmol/L (3.5-5.1)
[2019-06-12 23:21] LABS: ALT 19 U/L (9-52); Alkaline Phosphatase 56 U/L (38-126); Anion Gap 7 mmol/L; Calcium 8.6 mg/dL (8.4-10.2); Carbon Dioxide 24 mmol/L (22-30); Chloride 107 mmol/L (98-107); Sodium 138 mmol/L (137-145); Total Protein 6.2 g/dL (6.3-8.2); Uric Acid 1.8 mg/dL (3.7-7.4)
[2019-06-12 23:52] LABS: LDH 2149 U/L (313-618)
[2019-06-13] MEDS: SALT AND SODA MOUTHWASH 1,000 ML PO SCH ×5 (00:49→20:21)
[2019-06-13] MEDS: SODIUM CHLORIDE 0.9% 1,000 ML IV SCH ×4 (02:02→19:39)
[2019-06-13] MEDS: VANCOMYCIN 1,250 MG in SODIUM CHLORIDE 0.9% 250 ML IVPB SCH ×3 (05:00→21:52)
[2019-06-13 07:30] LABS: Anisocytosis Slight; MCH 32.5 pg (25.0-35.0); MCHC 35.7 g/dL (31.0-37.0); MCV 91.1 fL (80.0-100.0); Mean Platelet Volume 6.8; RBC 1.91 m/uL (3.80-5.40); RDW 16.3 % (11.5-15.5)
[2019-06-13 07:45] LABS: HGB 6.2 gm/dL (11.4-16.0); WBC 0.2 k/uL (3.8-10.6)
[2019-06-13 07:46] LABS: HCT 17.4 % (34.0-46.0); Platelet Count 31 k/uL (150-450)
[2019-06-13] MEDS: ALLOPURINOL 300 MG TAB PO SCH ×2 (07:47→20:21)
[2019-06-13] MEDS: CHOLECALCIFEROL 1,000 UNIT TAB PO SCH (07:47)
[2019-06-13] MEDS: MULTIVITAMINS, THERA 1 EACH TAB PO SCH (07:47)
[2019-06-13] MEDS: CEFEPIME 2 GM in SODIUM CHLORIDE 0.9% 100 ML IVPB SCH ×2 (07:47→17:37)
[2019-06-13 07:48] LABS: ALT 24 U/L (9-52); AST 20 U/L (14-36); African American GFR (CKD) >90 (>60 ml/min/1.73 sqM); Albumin 3.3 g/dL (3.5-5.0); Alkaline Phosphatase 51 U/L (38-126); Anion Gap 8 mmol/L; Blood Urea Nitrogen 11 mg/dL (7-17); Calcium 8.1 mg/dL (8.4-10.2); Carbon Dioxide 24 mmol/L (22-30); Chloride 108 mmol/L (98-107); Glucose 164 mg/dL (74-99); Non-African American GFR(CKD) >90 (>60 ml/min/1.73 sqM); Phosphorus 1.6 mg/dL (2.5-4.5); Potassium 3.7 mmol/L (3.5-5.1); Sodium 140 mmol/L (137-145); Total Bilirubin 0.6 mg/dL (0.2-1.3); Total Protein 6.1 g/dL (6.3-8.2); Uric Acid 1.2 mg/dL (3.7-7.4)
[2019-06-13] MEDS: ONDANSETRON 16 MG in SODIUM CHLORIDE 0.9% 50 ML IVPB SCH ×2 (11:01→19:41)
[2019-06-13] MEDS: ALPRAZolam 0.25 MG TAB PO PRN ×2 (15:00→23:24)
[2019-06-13] MEDS: VENCLEXTA 100 MG PO SCH (17:44)
[2019-06-13] MEDS: VORICONAZOLE 50 MG TABLET PO SCH (17:45)
--- NOTE | 2019-06-13 18:53 | P.PN ---
Subjective Progress Note Date: 06/13/19 acute myeloid leukemia recurrent AML interval history: as of 06/13/2019, patient continues to have episodes of fever, tenderness over the Mediport site patient has been tachycardic infectious disease consult In follow-up today patient has complaints of an intermittent upset stomach, food smells and taste are terrible, MAXIMUM TEMPERATURE of 100.3, pancultures ordered, no antibiotics just yet. She did have an ultrasound of her right chest wall to evaluate hematoma, status post port placement, everything is stable, Surgeon did follow up with patient, no acute intervention other than supportive care. Patient's oral irritation is gone, she denies any other bleeding, sore throat, cough, abdominal pain or cramping, suprapubic pain, dysuria, hematuria, diarrhea or swelling. patient had a spike of fever continues to be on antibiotics. We'll consult infectious disease. Pertinent oncology history: Mrs. Garay is a very pleasant 48-year-old female patient of Dr. Lyle who was initially diagnosed with AML in 2018. She presented to [facility] with petechial lesions on her lower extremities, noted after spider bite. Her only other symptom was progressively worsening generalized fatigue. Routine lab work showed leukocytosis with thrombocytopenia and anemia. Peripheral smear showed strict circulating blasts, bone marrow biopsy and aspirate was consistent with acute myeloid leukemia. Patient went through induction chemotherapy with 7+14 February 2018. She completed consolidation with high-dose araC and started rydapt due to FLT 3 positive cytogenetics. Patient completed treatment and had done well until late Apr. She presented with the same symptoms of fatigue and bruising. 05/14/19 bone marrow showed recurrent AML + for CBFB inversion, trans location 16;16, FLT3 negative. She was seen by Dr. Paz with plan for allo SCT. She has required multiple platelet transfusions and will likely continue to do so until she has treatment for the same. She is admitted today to begin treatment. She has no complaints on a 14 point review of systems other than bruising. She also had a port placed with bruising in the chest area. This will be ultrasounded for monitoring, port is not accessible at this time. Patient denies any other bleeding . Objective - Vital Signs Vital signs: Vital Signs Temp 97.9 F 06/13/19 15:15 Pulse 107 H 06/13/19 12:14 Resp 14 06/13/19 12:14 BP 125/85 06/13/19 12:14 Pulse Ox 96 06/13/19 12:14 Intake & Output 06/12/19 06/13/19 06/13/19 18:59 06:59 18:59 Intake Total 6601 299 6042 Balance 6952 835 7673 Intake: Intake, IV Titration 1350 1300 Amount Cefepime 2 gm In Sodium 100 Chloride 0.9% 100 ml @ 200 mls/hr IVPB Q8HR NATHANAEL Rx#:[id number] Ondansetron 16 mg In 50 Sodium Chloride 0.9% 50 ml @ 232 mls/hr IVPB DAILY NATHANAEL Rx#:[id number] Sodium Chloride 0.9% 1, 1200 1200 000 ml @ 150 mls/hr IV . Q6H40M NATHANAEL Rx#:[id number] azaCITIDine 130 mg In 100 Sodium Chloride 0.9% 100 ml @ 200 mls/hr IV Q24H NATHANAEL Rx#:[id number] Oral 600 Blood Product 0 304 500 Platelet Irr Pheresis 0 304 Acda1 Unit [id number] Rc Irr Cpda1 Unit 250 [id number] Other: Voiding Method Toilet Toilet Toilet # Voids 3 3 - Exam The patient appeared well nourished and normally developed. Vital signs as documented. Head exam is unremarkable. No scleral icterus or corneal arcus noted. Neck is without jugular venous distension, thyromegaly, or carotid bruits. Carotid upstrokes are brisk bilaterally. Lungs are clear to auscultation and percussion. Cardiac exam reveals the PMI to be normally sized and situated. Rhythm is regular. First and second heart sounds normal. No murmurs, rubs or gallops. Abdominal exam reveals normal bowel sounds, no masses, no organomegaly and no aortic enlargement. Extremities are nonedematous and both femoral and pedal pulses are normal. - Labs CBC & Chem 7: 06/13/19 06:44 06/13/19 06:44 Labs: Abnormal Lab Results - Last 24 Hours (Table) 06/12/19 06/12/19 06/12/19 Range/Units 22:19 22:19 22:19 WBC 0.3 L* (3.8-10.6) k/uL RBC 1.93 L (3.80-5.40) m/uL Hgb 6.3 L* (11.4-16.0) gm/dL Hct 17.3 L* (34.0-46.0) % RDW 16.5 H (11.5-15.5) % Plt Count 28 L D (150-450) k/uL Fibrinogen 562 H (200-500) mg/dL Chloride (98-107) mmol/L Creatinine (0.52-1.04) mg/dL Glucose 171 H (74-99) mg/dL Uric Acid 1.8 L (3.7-7.4) mg/dL Calcium (8.4-10.2) mg/dL Phosphorus 1.2 L (2.5-4.5) mg/dL Lactate Dehydrogenase 2149 H (313-618) U/L Total Protein 6.2 L (6.3-8.2) g/dL Albumin 3.4 L (3.5-5.0) g/dL Crossmatch 06/13/19 06/13/19 06/13/19 Range/Units 00:27 06:44 06:44 WBC 0.2 L* (3.8-10.6) k/uL RBC 1.91 L (3.80-5.40) m/uL Hgb 6.2 L* (11.4-16.0) gm/dL Hct 17.4 L* (34.0-46.0) % RDW 16.3 H (11.5-15.5) % Plt Count 31 L (150-450) k/uL Fibrinogen (200-500) mg/dL Chloride 108 H (98-107) mmol/L Creatinine 0.48 L (0.52-1.04) mg/dL Glucose 164 H (74-99) mg/dL Uric Acid 1.2 L (3.7-7.4) mg/dL Calcium 8.1 L (8.4-10.2) mg/dL Phosphorus 1.6 L (2.5-4.5) mg/dL Lactate Dehydrogenase (313-618) U/L Total Protein 6.1 L (6.3-8.2) g/dL Albumin 3.3 L (3.5-5.0) g/dL Crossmatch See Detail Microbiology - Last 24 Hours (Table) 06/10/19 13:02 Blood Culture - Preliminary Blood No Growth after 72 hours Assessment and Plan Assessment: Impression and plan: (1) Acute myeloid leukemia: - relapsed or refractory disease. . 7 daily doses of Vidaza IV with daily oral venetoclax with antifungal as a potentiating agent. Treatment started 06/09/2019. Patient is at a very high risk tumor lysis syndrome, these labs been ordered every 4 hours for the first 48 hours. Aggressive hydration. Labs reviewed today, everything looks well from a tumor lysis perspective Daily follow up Supportive medications - patient has already met transplant team at [facility], Dr Paz. had an extensive discussion with the patient, brother is ready to get HLA type being tested - plan for transplant evaluation soon after discharge. she has an appointment in 4 weeks. (2) Pancytopenia due to antineoplastic chemotherapy Narrative/Plan: Conservative blood transfusions. Transfuse for hemoglobin less than 7, 1 unit irradiated PRBCs today for hemoglobin of 6.6 Platelet count less than 10,000 or if symptomatic. No intervention for white blood cell counts at this time. - continue transfusions. Hemoglobin above 7 and platelets about 10,000. (3) neutropenic fever: tender Mediport site: seroma/infection: Fever reported, tachycardia: pancultures Patient's temp 101.3 F. Tylenol administered. Vancomycin 1 GM IVPB Q 24 Hours. Cefepime 2G IVPB Q 8 hours. - oral and IV scheduled chemo - follow up on the cultures - infectious disease consult. 4. Mediport site tenderness with seroma will not use it for now. - infectious disease consult. - site is stable. Patient counseled at length. Transfusions as required. 5. tachycardia, likely secondary to sepsis, infectious disease consulted. Activity as tolerated, diet as tolerated. GI prophylaxis No aspirin, NSAIDs, anticoagulation because of low platelets 5. migraines. 6. Transfusion of platelets to keep platelets about 10,000 and hemoglobin above 7. 7. and extensive counseling provided. Thank you for allowing me to participate in the care of your patient. Sherwin Mauro MD Net Making Supervisor, [facility] Hematology Oncology [id number] , [address] [place] [address] Office: [phone] Time with Patient: Greater than 30
[2019-06-13] MEDS ORDERED: VANCOMYCIN TROUGH DUE 1 EACH MISC MISCELLANE ONE (21:00)
[2019-06-13] MEDS: SODIUM CHLORIDE 0.9% IV SCH (21:04)
[2019-06-13] MEDS: AZACITIDINE IV SCH (21:04)
[2019-06-14] MEDS: CEFEPIME 2 GM in SODIUM CHLORIDE 0.9% 100 ML IVPB SCH ×3 (00:12→17:36)
[2019-06-14] MEDS: SALT AND SODA MOUTHWASH 1,000 ML PO SCH ×5 (01:59→21:02)
[2019-06-14] MEDS: SODIUM CHLORIDE 0.9% 1,000 ML IV SCH ×4 (05:17→14:58)
[2019-06-14] MEDS: VANCOMYCIN 1,250 MG in SODIUM CHLORIDE 0.9% 250 ML IVPB SCH ×3 (05:17→22:24)
[2019-06-14 06:51] LABS: HGB 7.2 gm/dL (11.4-16.0); MCH 32.8 pg (25.0-35.0); MCHC 36.3 g/dL (31.0-37.0); MCV 90.6 fL (80.0-100.0); RBC 2.19 m/uL (3.80-5.40); RDW 15.5 % (11.5-15.5)
[2019-06-14] MEDS: HYDROcodone/APAP 5-325MG 1 EACH TAB PO PRN ×2 (06:51→15:57)
[2019-06-14] MEDS: ALPRAZolam 0.25 MG TAB PO PRN ×3 (06:51→20:57)
[2019-06-14 06:59] LABS: Albumin 3.1 g/dL (3.5-5.0); Chloride 110 mmol/L (98-107); Glucose 104 mg/dL (74-99); Potassium 3.5 mmol/L (3.5-5.1); Sodium 142 mmol/L (137-145); Total Protein 5.9 g/dL (6.3-8.2); Uric Acid 1.3 mg/dL (3.7-7.4)
[2019-06-14 07:00] LABS: ALT 35 U/L (9-52); AST 27 U/L (14-36); African American GFR (CKD) >90 (>60 ml/min/1.73 sqM); Alkaline Phosphatase 50 U/L (38-126); Anion Gap 8 mmol/L; Blood Urea Nitrogen 13 mg/dL (7-17); Calcium 8.1 mg/dL (8.4-10.2); Carbon Dioxide 24 mmol/L (22-30); Non-African American GFR(CKD) >90 (>60 ml/min/1.73 sqM); Phosphorus 1.7 mg/dL (2.5-4.5); Total Bilirubin 0.7 mg/dL (0.2-1.3)
[2019-06-14 07:53] LABS: HCT 19.8 % (34.0-46.0); WBC 0.4 k/uL (3.8-10.6)
[2019-06-14 08:47] LABS: Platelet Count 14 k/uL (150-450)
[2019-06-14] MEDS: CHOLECALCIFEROL 1,000 UNIT TAB PO SCH (10:07)
[2019-06-14] MEDS: ALLOPURINOL 300 MG TAB PO SCH ×2 (10:07→20:57)
[2019-06-14] MEDS: MULTIVITAMINS, THERA 1 EACH TAB PO SCH (10:07)
[2019-06-14 12:04] VITALS: BMI 21.7
--- NOTE | 2019-06-14 12:43 | P.CONS ---
History of Present Illness - Reason for Consult Consult date: 06/14/19 - Chief Complaint Med-a-Port site - History of Present Illness 48-year-old female with a known history of acute myelogenous leukemia was diagnosed originally in 2018. She underwent induction chemotherapy with 7+3 regimen to an February 2018 and did complete consolidative chemotherapy with high- dose araC and Rydapt. The patient appeared to be in remission until April 2019 which point in time she has significant fatigue and then it evidence of significant bruising. 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 Because of the recurrence she is noticing by Dr. Paz with plans for an allogeneic stem cell transplantation.. The patient did have the port place a right anterior chest wall that resulted in a very large hematoma that was somewhat painful and is currently non- usable. With concerns to that as well as some low-grade temperature the consultation was requested. The patient's pro time relates that she feels tired and weak and has had some mild change of her respiratory status. She had a minimal cough but seems to be a bit more short of breath, she is not labored but just does not feel normal. She certainly has progressive anemia which is worsening her fatigue and is receiving large fluids due to her current chemotherapy. She is denying significant discomforts in her chest and no pain when she takes breaths she has no pleuritic discomfort. She's having no chills or rigors. Just feels poorly overall. No active bleeding is noted at this time. Review of Systems HEENT:Denies headache or acute visual change. Denies sinus or mouth discomforts. Denies neck stiffness or pain. Denies significant oral cavity pain. Denies difficulty on swallowing. Lungs: Does not have cough or sputum production but just feels mildly labored with her breathing is no hemoptysis Cardiovascular: Denies significant shortness of breath, chest pain, chest wall pain, orthopnea, dyspnea on exertion, syncope Gastrointestinal:Denies nausea, vomiting, diarrhea, constipation, hematemesis, melena, hematochezia. No no significant change of bowel habit noticed. Musculoskeletal: denies significant myalgias or arthralgias. No new joint swelling. Denies new back pain. Skin: No open lesions or rash, easy bruising has evidence of the difficulties with the discomfort of the Rdhsoh-k-Swon. Neuro: Denies headache or visual change. Denies any new onset weakness or difficulty with ambulation. Denies falls or seizures. Psychiatric:Denies anxiety or depression. Endocrine: Jhoan pelletier has been able to maintain her weight although has had a general decline of her weight over time. Past Medical History Past Medical History: Cancer, GERD/Reflux Additional Past Medical History / Comment(s): AML-first diagnosed in December 2017 and had chemotherapy, pancytopenia, current reoccurrence AML, allergic rhinnitis, gerd with first round chemotherapy. History of Any Multi-Drug Resistant Organisms: None Reported Past Surgical History: No Surgical Hx Reported Additional Past Surgical History / Comment(s): 06/04/19 mediport, wisdom teeth removed, bone marrow aspirations/biopsies X 4, picc line, Past Anesthesia/Blood Transfusion Reactions: No Reported Reaction, Blood Transfusion Reaction Additional Past Anesthesia/Blood Transfusion Reaction / Comm: Once when receiving platlets/packed RBC pt had mild fever during infusion/treated with tylenol. Past Psychological History: No Psychological Hx Reported Additional Psychological History / Comment(s): Pt resides with her spouse. She is independent. . Less traveled to [facility] in the summer, her works [place] about 3 months a year and she has tried to visit him yearly either in [place] or [place]. No children. No animals. The experience Smoking Status: Never smoker Past Alcohol Use History: None Reported Past Drug Use History: None Reported - Past Family History Mother Family Medical History: No Reported History Additional Family Medical History / Comment(s): Maternal grandmother had pancreatic cancer. Father Family Medical History: No Reported History Additional Family Medical History / Comment(s): paternal grandmother leukemia Medications and Allergies Home Medications and Allergies Comment(s): Current Medications Acetaminophen (Tylenol Tab) 650 mg PO Q6HR PRN PRN Reason: Fever and/ or MILD Pain Last Admin: 06/12/19 19:18 Dose: 650 mg Documented by: Hydrocodone Bitart/Acetaminophen ([place] 5-325) 1 each PO Q4HR PRN PRN Reason: MODERATE Pain Last Admin: 06/14/19 06:51 Dose: 1 each Documented by: Allopurinol (Zyloprim) 300 mg PO BID NATHANAEL Stop: 06/15/19 21:01 Last Admin: 06/14/19 10:07 Dose: 300 mg Documented by: Alprazolam (Xanax) 0.25 mg PO TID PRN PRN Reason: Anxiety Last Admin: 06/14/19 06:51 Dose: 0.25 mg Documented by: Cholecalciferol (Vitamin D3 (25 Mcg = 1000 Iu)) 5,000 unit PO DAILY [facility] Last Admin: 06/14/19 10:07 Dose: 5,000 unit Documented by: Azacitidine 130 mg/ Sodium (Chloride) 100 mls @ 200 mls/hr IV Q24H [facility] Stop: 06/15/19 21:29 Last Admin: 06/13/19 21:04 Dose: 200 mls/hr Documented by: Sodium Chloride (Saline 0.9%) 1,000 mls @ 150 mls/hr IV .Q6H40M [facility] Last Admin: 06/14/19 12:18 Dose: 150 mls/hr Documented by: Cefepime HCl 2 gm/ Sodium (Chloride) 100 mls @ 200 mls/hr IVPB Q8HR [facility] Last Admin: 06/14/19 10:09 Dose: 200 mls/hr Documented by: Vancomycin HCl 1,250 mg/ (Sodium Chloride) 250 mls @ 125 mls/hr IVPB Q8H [facility] Last Admin: 06/14/19 05:17 Dose: 125 mls/hr Documented by: Ondansetron HCl 16 mg/ Sodium (Chloride) 58 mls @ 232 mls/hr IVPB DAILY@2000 [facility] Stop: 06/15/19 20:01 Last Admin: 06/13/19 19:41 Dose: 232 mls/hr Documented by: Loperamide HCl (Imodium) 2 mg PO QID PRN PRN Reason: Diarrhea Magnesium Hydroxide (Milk Of Magnesia) 2,400 mg PO DAILY PRN PRN Reason: Constipation Multivitamins (Theragran) 1 each PO DAILY [facility] Last Admin: 06/14/19 10:07 Dose: 1 each Documented by: Non-Formulary Medication (Norethindrone-Ethinyl Estrad [Ortho-Novum 7-7-7-28 Tablet]) 1 tab PO DAILY [facility] Last Admin: 06/14/19 10:06 Dose: Not Given Documented by: Venclexta ( Venetoclax) 100 Mg Tablet 4 each PO DAILY@1800 [facility] Last Admin: 06/13/19 17:44 Dose: 4 each Documented by: Voriconazole 50 Mg (Tablet) 2 each PO DAILY@1800 NATHANAEL Last Admin: 06/13/19 17:45 Dose: 2 each Documented by: Ondansetron HCl (Zofran) 4 mg IVP Q6HR PRN PRN Reason: Nausea And Vomiting Last Admin: 06/11/19 21:31 Dose: 4 mg Documented by: Sodium Bicarbonate () 5 ml PO 5XD NATHANAEL Last Admin: 06/14/19 12:19 Dose: 5 ml Documented by: Home Medications Medication Instructions Recorded Confirmed Type Biotin 1 tab PO DAILY 06/02/19 06/04/19 History Cholecalciferol [Vitamin D3 (25 5,000 unit PO DAILY 06/02/19 06/04/19 History Mcg = 1000 Iu)] Multivitamins, Thera [Multivitamin 1 tab PO DAILY 06/02/19 06/04/19 History (formulary)] Norethindrone-Ethinyl Estrad 1 tab PO DAILY 06/02/19 06/04/19 History [Ortho-Novum 7-7-7-28 Tablet] Rhodiolia Rosea Root 400 mg PO DAILY 06/02/19 06/04/19 History Allergies Allergy/AdvReac Type Severity Reaction Status Date / Time sulfamethoxazole Allergy Rash/Hives Verified 06/04/19 11:52 [From Bactrim] trimethoprim [From Bactrim] Allergy Rash/Hives Verified 06/04/19 11:52 Physical Exam Vitals: Vital Signs Temp Pulse Resp BP BP Pulse Ox 06/14/19 11:25 97.2 F L 111 H 18 123/77 93 L 06/14/19 04:00 97.2 F L 115 H 14 106/58 91 L 06/13/19 23:52 97.0 F L 108 H 14 122/74 95 06/13/19 20:30 97.0 F L 107 H 16 135/78 99 06/13/19 15:15 97.9 F Intake and Output 06/13/19 06/14/19 06/14/19 22:59 06:59 14:59 Other: Voiding Method Toilet Toilet Toilet # Voids 2 2 Weight 60.9 kg HEENT: Anicteric conjunctiva are pink and moist nasal mucosa grossly intact without significant lesions, there is no thrush. Neck: The neck is supple without significant lymphadenopathy or thyromegaly. Lungs: They're symmetrical bilaterally entry, there are crackles at the left base to almost the mid zone, right is relatively clear no wheezing no dullness o r egophony Heart: Regular rate and rhythm with an audible S1-S2, no S3 no S4. There is no significant murmur click or rub, PMI was nondisplaced. Abdomen: Positive bowel sounds soft and nontender without palpable masses or organomegaly. There was no guarding or rebound. Extremities: The upper extremities have excellent pulses they are symmetric, no significant petechiae or telangiectasia. No splinter hemorrhages were noted. The lower extremities are free from significant edema. The peripheral pulses were 2+ and symmetric. Neuro: Awake alert oriented to person place and time. There are no acute new gross focal sensory motor deficits. The skin is without rash or breakdown. Dvmift-q-Qtph has evidence of a large circumferential hematoma that is not very tender, it is not warm there is no cellulitis there's no expressible purulence. Results CBC & Chem 7: 06/14/19 06:27 06/14/19 06:27 Labs: Abnormal Lab Results - Last 24 Hours (Table) 06/14/19 06/14/19 Range/Units 06:27 06:27 WBC 0.4 L* (3.8-10.6) k/uL RBC 2.19 L (3.80-5.40) m/uL Hgb 7.2 L (11.4-16.0) gm/dL Hct 19.8 L* (34.0-46.0) % Plt Count 14 L* D (150-450) k/uL Chloride 110 H (98-107) mmol/L Glucose 104 H (74-99) mg/dL Uric Acid 1.3 L (3.7-7.4) mg/dL Calcium 8.1 L (8.4-10.2) mg/dL Phosphorus 1.7 L (2.5-4.5) mg/dL Total Protein 5.9 L (6.3-8.2) g/dL Albumin 3.1 L (3.5-5.0) g/dL Microbiology - Last 24 Hours (Table) 06/12/19 22:19 Blood Culture - Preliminary Blood No Growth after 24 hours 06/10/19 13:02 Blood Culture - Preliminary Blood No Growth after 72 hours Laboratory Results WBC 0.4 k/uL (3.8-10.6) L* 06/14/19 06:27 RBC 2.19 m/uL (3.80-5.40) L 06/14/19 06:27 Hgb 7.2 gm/dL (11.4-16.0) L 06/14/19 06:27 Hct 19.8 % (34.0-46.0) L* 06/14/19 06:27 MCV 90.6 fL (80.0-100.0) 06/14/19 06:27 MCH 32.8 pg (25.0-35.0) 06/14/19 06:27 MCHC 36.3 g/dL (31.0-37.0) 06/14/19 06:27 RDW 15.5 % (11.5-15.5) 06/14/19 06:27 Plt Count 14 k/uL (150-450) L* D 06/14/19 06:27 Neutrophils % ICE BAG ASSEMBLER 06/11/19 08:05 Neutrophils % (Manual) 6 % 06/10/19 19:25 Band Neutrophils % 1 % 06/10/19 07:58 Lymphocytes % [employer] BAG ASSEMBLER 06/11/19 08:05 Lymphocytes % (Manual) 47 % 06/10/19 19:25 Monocytes % ICE BAG ASSEMBLER 06/11/19 08:05 Monocytes % (Manual) 4 % 06/10/19 19:25 Eosinophils % ICE BAG ASSEMBLER 06/11/19 08:05 Eosinophils % (Manual) 1 % 06/10/19 07:58 Basophils % ICE BAG ASSEMBLER 06/11/19 08:05 Basophils % (Manual) 1 % 06/10/19 04:05 Metamyelocytes % 2 % 06/10/19 19:25 Myelocytes % 1 % 06/10/19 19:25 Blast Cells % 40 % H* 06/10/19 19:25 Neutrophils # ICE BAG ASSEMBLER 06/12/19 22:19 Neutrophils # (Manual) 0.10 k/uL (1.3-7.7) L* 06/10/19 19:25 Lymphocytes # ICE BAG ASSEMBLER 06/11/19 08:05 Lymphocytes # (Manual) 0.80 k/uL (1.0-4.8) L 06/10/19 19:25 Monocytes # ICE BAG ASSEMBLER 06/11/19 08:05 Monocytes # (Manual) 0.07 k/uL (0-1.0) 06/10/19 19:25 Eosinophils # ICE BAG ASSEMBLER 06/11/19 08:05 Eosinophils # (Manual) 0.03 k/uL (0-0.7) 06/10/19 07:58 Basophils # ICE BAG ASSEMBLER 06/11/19 08:05 Basophils # (Manual) 0.06 k/uL (0-0.2) 06/10/19 04:05 Metamyelocytes # (Man) 0.03 k/uL (0) H 06/10/19 19:25 Myelocytes # (Manual) 0.02 k/uL (0) H 06/10/19 19:25 Blast Cells # (Man) 0.68 k/uL (0) H 06/10/19 19:25 Nucleated RBCs 0 /100 WBC (0-0) 06/10/19 19:25 Differential Comment . 06/14/19 06:27 Manual Slide Review Performed 06/14/19 06:27 RBC Morphology Normal 06/14/19 06:27 Hypochromasia (manual) Present 06/11/19 08:05 Poikilocytosis (manual Present 06/09/19 10:42 Anisocytosis Slight 06/13/19 06:44 Anisocytosis (manual) Present 06/11/19 08:05 Macrocytosis Slight 06/10/19 19:25 Fibrinogen 562 mg/dL (200-500) H 06/12/19 22:19 Sodium 142 mmol/L (137-145) 06/14/19 06:27 Potassium 3.5 mmol/L (3.5-5.1) 06/14/19 06:27 Chloride 110 mmol/L (98-107) H 06/14/19 06:27 Carbon Dioxide 24 mmol/L (22-30) 06/14/19 06:27 Anion Gap 8 mmol/L 06/14/19 06:27 BUN 13 mg/dL (7-17) 06/14/19 06:27 Creatinine 0.63 mg/dL (0.52-1.04) 06/14/19 06:27 Est GFR (CKD-EPI)AfAm >90 (>60 ml/min/1.73 sqM) 06/14/19 06:27 Est GFR (CKD-EPI)NonAf >90 (>60 ml/min/1.73 sqM) 06/14/19 06:27 Glucose 104 mg/dL (74-99) H 06/14/19 06:27 Plasma Lactic Acid Kwasi 2.0 mmol/L (0.7-2.0) 06/12/19 22:19 Uric Acid 1.3 mg/dL (3.7-7.4) L 06/14/19 06:27 Calcium 8.1 mg/dL (8.4-10.2) L 06/14/19 06:27 Phosphorus 1.7 mg/dL (2.5-4.5) L 06/14/19 06:27 Magnesium 2.3 mg/dL (1.6-2.3) 06/12/19 22:19 Total Bilirubin 0.7 mg/dL (0.2-1.3) 06/14/19 06:27 AST 27 U/L (14-36) 06/14/19 06:27 ALT 35 U/L (9-52) 06/14/19 06:27 Alkaline Phosphatase 50 U/L (38-126) 06/14/19 06:27 Lactate Dehydrogenase 2149 U/L (313-618) H 06/12/19 22:19 Total Protein 5.9 g/dL (6.3-8.2) L 06/14/19 06:27 Albumin 3.1 g/dL (3.5-5.0) L 06/14/19 06:27 Vancomycin Trough 15.0 ug/mL 06/13/19 21:22 Blood Type AB Positive 06/13/19 00:27 Blood Type Recheck AB Pos 06/13/19 00:27 Bld Type Recheck Status No 06/13/19 00:27 Antibody Screen NEGATIVE 06/13/19 00:27 Crossmatch See Detail 06/13/19 00:27 Transfuse Platelets 06/12/19 06/12/19 12:36 Spec Expiration Date 06/16/2019232606/13/19 00:27 Microbiology 06/12/19 22:19 Blood Blood Culture - Preliminary No Growth after 24 hours 06/10/19 13:02 Blood Blood Culture - Preliminary No Growth after 72 hours 06/10/19 14:20 Urine,Voided Urine Culture - Final Assessment and Plan (1) Hematoma Current Visit: Yes Status: Acute Code(s): T14.8XXA - OTHER INJURY OF UNSPECIFIED BODY REGION, INITIAL ENCOUNTER SNOMED Code(s): 408827407 (2) Pancytopenia due to antineoplastic chemotherapy Current Visit: Yes Status: Acute Priority: High Code(s): D61.810 - ANTINEOPLASTIC CHEMOTHERAPY INDUCED PANCYTOPENIA; T45.1X5A - ADVERSE EFFECT OF ANTINEOPLASTIC AND IMMUNOSUP DRUGS, INIT SNOMED Code(s): 616318485929087 (3) Acute leukemia Current Visit: No Status: Acute Code(s): C95.00 - ACUTE LEUKEMIA OF UNSP CELL TYPE NOT ACHIEVE REMISSION SNOMED Code(s): 17829434 (4) Shortness of breath Narrative/Plan: Very pleasant 48-year-old woman with history of the acute myelogenous leukemia who is had recurrence and is now undergoing reinduction chemotherapy with plans for an allogenic stem cell transplant. She is tolerating chemotherapy relatively well she is admitted for fever 100.6 several days ago this has resolved. There is evidence as noted by the surgical note of the hematoma to the Hbihlx-h-Uppc site of right anterior chest wall. It is not very tender and does not appear to be infected at this time. However with the current status of the immune system lack of inflammation is part of the difficulties and close monitoring continues. She over does have evidence of some mild shortness of breath and crackles into the left base of the lung and consequently I'm concerned about fluid given her significant fluid intake that she is having. And with her status over is concerned for possible underlying infection. She is receiving broad-spectrum antibiotic therapy with cefepime and vancomycin and antifungal therapy with voriconazole given her current persistent and ongoing neutropenic status. Without change antibiotic therapy at this point in time. The utilizing when necessary warm compresses to the chest try to help with the hematoma to the Bcbmnc-y-Vlss site. Cultures are all negative so far. If there is evidence of some fluid overload diuretic therapy may be helpful. Current Visit: Yes Status: Acute Code(s): R06.02 - SHORTNESS OF BREATH SNOMED Code(s): 612097727
--- NOTE | 2019-06-14 13:23 | XR ---
EXAMINATION TYPE: XR chest 2V DATE OF EXAM: 06/14/2019 COMPARISON: 06/10/2019 HISTORY: Chest pain TECHNIQUE: Frontal and lateral views of the chest are obtained. FINDINGS: Perihilar and basilar infiltrates are noted. There is also pulmonary venous congestion and small effu sions since prior examination. No evidence for pneumothorax. The cardiac silhouette size is within normal limits. The osseous structures are grossly intact. IMPRESSION: 1. Perihilar and basilar infiltrates are noted. There is also pulmonary venous congestion and small effusions since prior examination.
[2019-06-14] MEDS ORDERED: FUROSEMIDE 10 MG/ML 2 ML VIAL IV STA (15:12)
[2019-06-14] MEDS: VORICONAZOLE 50 MG TABLET PO SCH (18:05)
[2019-06-14] MEDS: VENCLEXTA 100 MG PO SCH (18:05)
--- NOTE | 2019-06-14 19:40 | P.PN ---
Subjective Progress Note Date: 06/14/19 acute myeloid leukemia recurrent AML interval history: as of 06/13/2019, patient continues to have episodes of fever, tenderness over the Mediport site patient has been tachycardic infectious disease consult In follow-up today patient has complaints of an intermittent upset stomach, food smells and taste are terrible, MAXIMUM TEMPERATURE of 100.3, pancultures ordered, no antibiotics just yet. She did have an ultrasound of her right chest wall to evaluate hematoma, status post port placement, everything is stable, Surgeon did follow up with patient, no acute intervention other than supportive care. Patient's oral irritation is gone, she denies any other bleeding, sore throat, cough, abdominal pain or cramping, suprapubic pain, dysuria, hematuria, diarrhea or swelling. patient had a spike of fever continues to be on antibiotics. infectious disease recommendations appreciated. As of 06/14/2019, she continues to have on and off fevers, fatigue had some nausea, shortness of breath, had a chest x-ray done that showed bilateral infiltrates and some effusion. Pertinent oncology history: Mrs. Garay is a very pleasant 48-year-old female patient of Dr. Lyle who was initially diagnosed with AML in 2018. She presented to [facility] with petechial lesions on her lower extremities, noted after spider bite. Her only other symptom was progressively worsening generalized fatigue. Routine lab work showed leukocytosis with thrombocytopenia and anemia. Peripheral smear showed strict circulating blasts, bone marrow biopsy and aspirate was consistent with acute myeloid leukemia. Patient went through induction chemotherapy with 7+14 February 2018. She completed consolidation with high-dose araC and started rydapt due to FLT 3 positive cytogenetics. Patient completed treatment and had done well until late Apr. She presented with the same symptoms of fatigue and bruising. 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 She was seen by Dr. Paz with plan for allo SCT. She has required multiple platelet transfusions and will likely continue to do so until she has treatment for the same. She is admitted today to begin treatment. She has no complaints on a 14 point review of systems other than bruising. She also had a port placed with bruising in the chest area. This will be ultrasounded for monitoring, port is not accessible at this time. Patient denies any other bleeding . Objective - Vital Signs Vital signs: Vital Signs Temp 98.2 F 06/14/19 18:17 Pulse 128 H 06/14/19 18:17 Resp 18 06/14/19 17:47 BP 137/87 06/14/19 18:17 Pulse Ox 94 L 06/14/19 18:17 Intake & Output 06/14/19 06/14/19 06/15/19 06:59 18:59 06:59 Intake Total 1300 Balance 1300 Weight 60.9 kg Intake: Intake, IV Titration 1300 Amount Cefepime 2 gm In Sodium 100 Chloride 0.9% 100 ml @ 200 mls/hr IVPB Q8HR [facility] Rx#:[id number] Sodium Chloride 0.9% 1, 1200 000 ml @ 75 mls/hr IV . [id number] [facility] Rx#:[id number] Blood Product 0 Platelet Irr Pheresis 0 Acda1 Unit [id number] Other: Voiding Method Toilet Toilet # Voids 2 - Exam The patient appeared well nourished and normally developed. Vital signs as documented. Head exam is unremarkable. No scleral icterus or corneal arcus noted. Neck is without jugular venous distension, thyromegaly, or carotid brui ts. Carotid upstrokes are brisk bilaterally. Lungs are clear to auscultation and percussion. Cardiac exam reveals the PMI to be normally sized and situated. Rhythm is regular. First and second heart sounds normal. No murmurs, rubs or gallops. Abdominal exam reveals normal bowel sounds, no masses, no organomegaly and no aortic enlargement. Extremities are nonedematous and both femoral and pedal pulses are normal. - Labs CBC & Chem 7: 06/14/19 06:27 06/14/19 06:27 Labs: Abnormal Lab Results - Last 24 Hours (Table) 06/14/19 06/14/19 Range/Units 06:27 06:27 WBC 0.4 L* (3.8-10.6) k/uL RBC 2.19 L (3.80-5.40) m/uL Hgb 7.2 L (11.4-16.0) gm/dL Hct 19.8 L* (34.0-46.0) % Plt Count 14 L* D (150-450) k/uL Chloride 110 H (98-107) mmol/L Glucose 104 H (74-99) mg/dL Uric Acid 1.3 L (3.7-7.4) mg/dL Calcium 8.1 L (8.4-10.2) mg/dL Phosphorus 1.7 L (2.5-4.5) mg/dL Total Protein 5.9 L (6.3-8.2) g/dL Albumin 3.1 L (3.5-5.0) g/dL Microbiology - Last 24 Hours (Table) 06/10/19 13:02 Blood Culture - Preliminary Blood No Growth after 96 hours 06/12/19 22:19 Blood Culture - Preliminary Blood No Growth after 24 hours Assessment and Plan Assessment: Impression and plan: (1) Acute myeloid leukemia: - relapsed or refractory disease. . 7 daily doses of Vidaza IV with daily oral venetoclax with antifungal as a potentiating agent. Treatment started 06/09/2019. Patient is at a very high risk tumor lysis syndrome, these labs been ordered ev randell 4 hours for the first 48 hours. Aggressive hydration. Labs reviewed today, everything looks well from a tumor lysis perspective Daily follow up Supportive medications - patient has already met transplant team at [facility], Dr Paz. had an extensive discussion with the patient, brother is ready to get HLA type being tested - plan for transplant evaluation soon after discharge. she has an appointment in 4 weeks. (2) Pancytopenia due to antineoplastic chemotherapy Narrative/Plan: Conservative blood transfusions. Transfuse for hemoglobin less than 7, 1 unit irradiated PRBCs today for hemoglobin of 6.6 Platelet count less than 10,000 or if symptomatic. No intervention for white blood cell counts at this time. - continue transfusions. Hemoglobin above 7 and platelets about 10,000. - patient continues to be transfusion dependent, received PRBC and platelets. (3) neutropenic fever: tender Mediport site: seroma/infection: Fever reported, tachycardia: pancultures Patient's temp 101.3 F. Tylenol administered. Vancomycin 1 GM IVPB Q 24 Hours. Cefepime 2G IVPB Q 8 hours. - oral and IV scheduled chemo - follow up on the cultures - infectious disease consult. 4. Mediport site tenderness with seroma will not use it for now. - infectious disease consult. - site is stable. Patient counseled at length. Transfusions as required. 5. shortness of breath,tachycardia, chest x-ray showing bilateral infiltrates and pleural effusion, likely secondary to sepsis, infectious disease consulted. - patient is on antibiotics, antifungal and acyclovir - appreciate recommendations of Dr. Brown. Activity as tolerated, diet as tolerated. GI prophylaxis No aspirin, NSAIDs, anticoagulation because of low platelets 5. migraines. 6. Transfusion of platelets to keep platelets about 10,000 and hemoglobin above 7. 7. and extensive counseling provided. Thank you for allowing me to participate in the care of your patient. Sherwin Mauro MD [employer], [facility] On[facility] [id number], [address] [place] [address] Office: [phone] Time with Patient: Greater than 30
[2019-06-14] MEDS: ACYCLOVIR 200 MG CAP PO SCH (20:57)
[2019-06-14] MEDS: ONDANSETRON 16 MG in SODIUM CHLORIDE 0.9% 50 ML IVPB SCH (20:58)
[2019-06-14] MEDS: SODIUM CHLORIDE 0.9% IV SCH (21:16)
[2019-06-14] MEDS: AZACITIDINE IV SCH (21:16)
[2019-06-15] MEDS: CEFEPIME 2 GM in SODIUM CHLORIDE 0.9% 100 ML IVPB SCH ×3 (00:03→17:57)
[2019-06-15] MEDS: SALT AND SODA MOUTHWASH 1,000 ML PO SCH ×5 (00:04→20:44)
[2019-06-15] MEDS: HYDROcodone/APAP 5-325MG 1 EACH TAB PO PRN ×2 (00:16→08:35)
[2019-06-15] MEDS: SODIUM CHLORIDE 0.9% 1,000 ML IV SCH ×2 (05:05→05:13)
[2019-06-15] MEDS: VANCOMYCIN 1,250 MG in SODIUM CHLORIDE 0.9% 250 ML IVPB SCH ×3 (05:13→22:38)
[2019-06-15 07:44] LABS: MCH 33.3 pg (25.0-35.0); MCHC 37.1 g/dL (31.0-37.0); MCV 89.6 fL (80.0-100.0); Mean Platelet Volume 6.1; RBC 1.89 m/uL (3.80-5.40); RDW 15.7 % (11.5-15.5)
[2019-06-15 07:50] LABS: ALT 33 U/L (9-52); AST 17 U/L (14-36); African American GFR (CKD) >90 (>60 ml/min/1.73 sqM); Albumin 3.3 g/dL (3.5-5.0); Alkaline Phosphatase 53 U/L (38-126); Anion Gap 9 mmol/L; Blood Urea Nitrogen 11 mg/dL (7-17); Calcium 8.4 mg/dL (8.4-10.2); Carbon Dioxide 26 mmol/L (22-30); Chloride 100 mmol/L (98-107); Glucose 111 mg/dL (74-99); Non-African American GFR(CKD) >90 (>60 ml/min/1.73 sqM); Phosphorus 2.4 mg/dL (2.5-4.5); Potassium 3.2 mmol/L (3.5-5.1); Sodium 135 mmol/L (137-145); Total Bilirubin 1.4 mg/dL (0.2-1.3); Total Protein 6.2 g/dL (6.3-8.2)
[2019-06-15 07:56] LABS: WBC 0.5 k/uL (3.8-10.6)
[2019-06-15 08:02] LABS: HCT 16.9 % (34.0-46.0); HGB 6.3 gm/dL (11.4-16.0)
[2019-06-15 08:03] LABS: Platelet Count 23 k/uL (150-450)
[2019-06-15] MEDS: ACYCLOVIR 200 MG CAP PO SCH ×2 (08:21→20:43)
[2019-06-15] MEDS: MULTIVITAMINS, THERA 1 EACH TAB PO SCH (08:21)
[2019-06-15] MEDS: CHOLECALCIFEROL 1,000 UNIT TAB PO SCH (08:21)
[2019-06-15] MEDS: ALLOPURINOL 300 MG TAB PO SCH ×2 (08:21→20:43)
--- NOTE | 2019-06-15 12:23 | US ---
EXAMINATION TYPE: US venous doppler duplex UE LT DATE OF EXAM: 06/15/2019 COMPARISON: NONE CLINICAL HISTORY: increased swelling possible DVT. swelling at elbow of left arm SIDE PERFORMED: Left Left Arm: Appears negative for DVT unable to view superficial veins within forearm due to bandages from IV site IMPRESSION: 1. No diagnostic evidence of DVT as visualized.
[2019-06-15] MEDS ORDERED: VANCOMYCIN TROUGH DUE 1 EACH MISC MISCELLANE ONE (13:00)
[2019-06-15] MEDS: METOPROLOL SUCCINATE (ER) 25 MG TAB.ER.24H PO SCH (13:16)
--- NOTE | 2019-06-15 13:23 | P.CRDCN ---
History of Present Illness History of present illness: HISTORY OF PRESENTING ILLNESS This is a pleasant 48-year-old male past medical history significant for leukemia first diagnosed in 02/2018 with reoccurrence. She presented to the hospital to begin her course of chemotherapy treatment. She does not follow in the office with a deputy sheriff/investigator for any reason. She denies prior history of hypertension, coronary artery disease, dyslpidemia or diabetes mellitus. We have been asked to see him in consultation for persistent tachycardia. She is seen and examined sitting up in bed with spouse at the bedside. She states she can feel her her racing when she gets up to use the restroom. Yesterday morning when she woke up she noticed she was quite short of breath at rest causing her to have to sit up in order to breath. Chest xray obtained yesterday revealed perihilar and basilar infiltrates with pulmonary venous congestion and small ef fusion. She was given a dose of IV lasix and did notice a mild improvement in her shortness of breath. She has no lower extremity edema but does notice her left arm is puffy and painful. She denies chest pain, dizziness, nausea or vomiting. Telemetry tracings reviewed reveal persistent sinus tachycardia. DIAGNOSTICS No EKG obtained on this admission. Laboratory reviewed, WBC 0.5, hemoglobin 6.3, platelets 23, sodium 135, potassium 3.2, creatinine 0.61 and magnesium 2.3. She takes no daily cardiac medications. Most recent echocardiogram December 2017 reveals preserved LV systolic function with EF greater then 55% and mild TR. REVIEW OF SYSTEMS At the time of my exam: CONSTITUTIONAL: Denies fever or chills. CARDIOVASCULAR: Denies chest pain, shortness of breath, orthopnea, PND or palpitations. RESPIRATORY: Denies cough. GASTROINTESTINAL: Denies abdominal pain, diarrhea, constipation, nausea or vomiting. MUSCULOSKELETAL: Denies myalgias. NEUROLOGIC: Denies numbness, tingling or weakness. ENDOCRINE: Denies fatigue, weight change, polydipsia or polyurina. GENITOURINARY: Denies burning, hematuria or urgency with micturation. HEMATOLOGIC: Denies history of anemia or bleeding. PHYSICAL EXAMINATION Blood pressure 132/76 heart rate 120 afebrile and maintaining oxygen saturaiton on nasal cannula. CONSTITUTIONAL: No apparent distress. HEENT: Head is normocephalic. Pupils are equal, round. Sclerae anicteric. Mucous membranes of the mouth are moist. No JVD. No carotid bruit. CHEST EXAMINATION: Lungs are clear to auscultation. No chest wall tenderness is noted on palpation or with deep breathing. HEART EXAMINATION: Regular rate and rhythm. S1, S2 heard. No murmurs, gallops or rub. Tachycardic. ABDOMEN: Soft, nontender. Positive bowel sounds. EXTREMITIES: 2+ peripheral pulses, no lower extremity edema, left upper extremity non-pitting edema and no calf tenderness. NEUROLOGIC EXAMINATION: Patient is awake, alert and oriented x3. ASSESSMENT Acute myeloid leukemia Pancytopenia Febrile illness Elevated right sided pressures on echo PLAN Check a d-dimer and CTA if elevated to rule out a PE given her elevated right sided pressures, tachycardia and shortness of breath. Initiate on toprol 25 mg daily, first dose now. Tachycardia and shortness of breath also could be secondary to anemic state. She is in the process of being transfused. Thank you kindly for this consultation. Nurse Practitioner note has been reviewed, I agree with a documented findings and plan of care. Patient was seen and examined. Past Medical History Past Medical History: Cancer, GERD/Reflux Additional Past Medical History / Comment(s): AML-first diagnosed in December 2017 and had chemotherapy, pancytopenia, current reoccurrence AML, allergic rhinnitis, gerd with first round chemotherapy. History of Any Multi-Drug Resistant Organisms: None Reported Past Surgical History: No Surgical Hx Reported Additional Past Surgical History / Comment(s): 06/04/19 mediport, wisdom teeth removed, bone marrow aspirations/biopsies X 4, picc line, Past Anesthesia/Blood Transfusion Reactions: No Reported Reaction, Blood Transfusion Reaction Additional Past Anesthesia/Blood Transfusion Reaction / Comment(s): Once when receiving platlets/packed RBC pt had mild fever during infusion/treated with tylenol. Past Psychological History: No Psychological Hx Reported Additional Psychological History / Comment(s): Pt resides with her spouse. She is independent. . Less traveled to [facility] in the summer, her works [place] about 3 months a year and she has tried to visit him yearly either in [place] or [facility]. No children. No animals. The experience Smoking Status: Never smoker Past Alcohol Use History: None Reported Past Drug Use History: None Reported - Past Family History Mother Family Medical History: No Reported History Additional Family Medical History / Comment(s): Maternal grandmother had pancreatic cancer. Father Family Medical History: No Reported History Additional Family Medical History / Comment(s): paternal grandmother leukemia Medications and Allergies Home Medications Medication Instructions Recorded Confirmed Type Biotin 1 tab PO DAILY 06/02/19 06/04/19 History Cholecalciferol [Vitamin D3 (25 5,000 unit PO DAILY 06/02/19 06/04/19 History Mcg = 1000 Iu)] Multivitamins, Thera [Multivitamin 1 tab PO DAILY 06/02/19 06/04/19 History (formulary)] Norethindrone-Ethinyl Estrad 1 tab PO DAILY 06/02/19 06/04/19 History [Ortho-Novum 7-7-7-28 Tablet] Rhodiolia Rosea Root 400 mg PO DAILY 06/02/19 06/04/19 History Allergies Allergy/AdvReac Type Severity Reaction Status Date / Time sulfamethoxazole Allergy Rash/Hives Verified 06/04/19 11:52 [From Bactrim] trimethoprim [From Bactrim] Allergy Rash/Hives Verified 06/04/19 11:52 Physical Exam Vitals: Vital Signs Temp Pulse Pulse Resp BP BP BP 06/15/19 12:09 98.8 F 120 H 17 132/76 06/15/19 08:04 97.8 F 122 H 17 127/74 06/15/19 07:25 122 H 17 06/15/19 05:00 98.3 F 120 H 16 129/87 06/15/19 00:22 98.4 F 139 H 16 131/73 06/14/19 23:25 131 H 16 06/14/19 22:18 98.9 F 128 H 16 137/87 06/14/19 21:00 98.9 F 131 H 16 129/75 06/14/19 18:17 98.2 F 128 H 137/87 06/14/19 17:47 97.8 F 120 H 18 142/88 06/14/19 17:37 97.4 F L 129 H 16 128/81 Pulse Ox 06/15/19 12:09 91 L 06/15/19 08:04 94 L 06/15/19 07:25 06/15/19 05:00 97 06/15/19 00:22 91 L 06/14/19 23:25 06/14/19 22:18 92 L 06/14/19 21:00 92 L 06/14/19 18:17 94 L 06/14/19 17:47 95 06/14/19 17:37 94 L Intake and Output 06/14/19 06/15/19 06/15/19 22:59 06:59 14:59 Intake Total 2794 1040 Balance 2794 1040 Intake: Intake, IV Titration 800 450 Amount Cefepime 2 gm In Sodium 100 Chloride 0.9% 100 ml @ 200 mls/hr IVPB Q8HR [facility] Rx#:[id number] Ondansetron 16 mg In 50 Sodium Chloride 0.9% 50 ml @ 232 mls/hr IVPB DAILY@2000 [facility] Rx#: [id number] Sodium Chloride 0.9% 1, 300 450 000 ml @ 75 mls/hr IV . [id number] [facility] Rx#:[id number] Vancomycin 1,250 mg In 250 Sodium Chloride 0.9% 250 ml @ 125 mls/hr IVPB Q8H [facility] Rx#:[id number] azaCITIDine 130 mg In 100 Sodium Chloride 0.9% 100 ml @ 200 mls/hr IV Q24H [facility] Rx#:[id number] Oral 1790 590 Blood Product 204 Platelet Irr Pheresis 204 Acda1 Unit [id number] Other: Voiding Method Toilet Toilet Toilet # Voids 3 2 Results 06/15/19 06:46 06/15/19 06:46 Cardiac Enzymes 06/15/19 Range/Units 06:46 AST 17 (14-36) U/L CBC 06/15/19 Range/Units 06:46 WBC 0.5 L* (3.8-10.6) k/uL RBC 1.89 L (3.80-5.40) m/uL Hgb 6.3 L* (11.4-16.0) gm/dL Hct 16.9 L* (34.0-46.0) % Plt Count 23 L D (150-450) k/uL Comprehensive Metabolic Panel 06/15/19 Range/Units 06:46 Sodium 135 L (137-145) mmol/L Potassium 3.2 L (3.5-5.1) mmol/L Chloride 100 (98-107) mmol/L Carbon Dioxide 26 (22-30) mmol/L BUN 11 (7-17) mg/dL Creatinine 0.61 (0.52-1.04) mg/dL Glucose 111 H (74-99) mg/dL Calcium 8.4 (8.4-10.2) mg/dL AST 17 (14-36) U/L ALT 33 (9-52) U/L Alkaline Phosphatase 53 (38-126) U/L Total Protein 6.2 L (6.3-8.2) g/dL Albumin 3.3 L (3.5-5.0) g/dL Current Medications Generic Name Dose Route Start Last Admin Trade Name Freq PRN Reason Stop Dose Admin Acetaminophen 650 mg 06/09/19 19:12 06/12/19 19:18 Tylenol Tab PO 650 mg Q6HR PRN Administration Fever and/ or MILD Pain Hydrocodone Bitart/Acetaminophen 1 each 06/11/19 18:23 06/15/19 08:35 [place] 5-325 PO 1 each Q4HR PRN Administration MODERATE Pain Acyclovir 400 mg 06/14/19 21:00 06/15/19 08:21 Zovirax PO 400 mg BID [facility] Administration Allopurinol 300 mg 06/09/19 09:00 06/15/19 08:21 Zyloprim PO 06/15/19 21:01 300 mg BID [facility] Administration Alprazolam 0.25 mg 06/09/19 12:59 06/14/19 20:57 Xanax PO 0.25 mg TID PRN Administration Anxiety Cholecalciferol 5,000 unit 06/10/19 09:00 06/15/19 08:21 Vitamin D3 (25 Mcg = 1000 Iu) PO 5,000 unit DAILY [facility] Administration Azacitidine 130 mg/ Sodium 100 mls @ 200 mls/hr 06/09/19 21:00 06/14/19 21:16 Chloride IV 06/15/19 21:29 200 mls/hr Q24H [facility] Administration Sodium Chloride 1,000 mls @ 75 mls/hr 06/09/19 09:00 06/15/19 05:13 Saline 0.9% IV 75 mls/hr .[id number] [facility] Administration Cefepime HCl 2 gm/ Sodium 100 mls @ 200 mls/hr 06/10/19 18:00 06/15/19 08:22 Chloride IVPB 200 mls/hr Q8HR [facility] Administration Vancomycin HCl 1,250 mg/ 250 mls @ 125 mls/hr 06/12/19 14:00 06/15/19 05:13 Sodium Chloride IVPB 125 mls/hr Q8H [facility] Administration Ondansetron HCl 16 mg/ Sodium 58 mls @ 232 mls/hr 06/13/19 20:00 06/14/19 20:58 Chloride IVPB 06/15/19 20:01 232 mls/hr DAILY@1999 [facility] Administration Loperamide HCl 2 mg 06/09/19 19:10 Imodium PO QID PRN Diarrhea Magnesium Hydroxide 2,400 mg 06/09/19 19:11 Milk Of Magnesia PO DAILY PRN Constipation Metoprolol Succinate 25 mg 06/15/19 12:00 Toprol Xl PO DAILY [facility] Multivitamins 1 each 06/10/19 09:00 06/15/19 08:21 Theragran PO 1 each DAILY [facility] Administration Norethindrone- 1 tab 06/10/19 09:00 06/14/19 10:06 Ethinyl Estrad [ PO Not Given Ortho-Novum 7-7-7-28 DAILY [facility] Tablet] 1 Tab) Venclexta ( 4 each 06/09/19 18:00 06/14/19 18:05 Venetoclax) 100 Mg PO 4 each Tablet DAILY@1800 [facility] Administration Voriconazole 50 Mg 2 each 06/09/19 18:00 06/14/19 18:05 Tablet PO 2 each DAILY@1800 [facility] Administration Ondansetron HCl 4 mg 06/09/19 19:10 06/11/19 21:31 Zofran IVP 4 mg Q6HR PRN Administration Nausea And Vomiting Sodium Bicarbonate 5 ml 06/09/19 20:00 06/15/19 05:13 PO 5 ml 5XD [facility] Administration Intake and Output 06/14/19 06/15/19 06/15/19 22:59 06:59 14:59 Intake Total 2794 1040 Balance 2794 1040 Intake: Intake, IV Titration 800 450 Amount Cefepime 2 gm In Sodium 100 Chloride 0.9% 100 ml @ 200 mls/hr IVPB Q8HR [facility] Rx#:[id number] Ondansetron 16 mg In 50 Sodium Chloride 0.9% 50 ml @ 232 mls/hr IVPB DAILY@1999 [facility] Rx#: [id number] Sodium Chloride 0.9% 1, 300 450 000 ml @ 75 mls/hr IV . [id number] [facility] Rx#:[id number] Vancomycin 1,250 mg In 250 Sodium Chloride 0.9% 250 ml @ 125 mls/hr IVPB Q8H [facility] Rx#:[id number] azaCITIDine 130 mg In 100 Sodium Chloride 0.9% 100 ml @ 200 mls/hr IV Q24H [facility] Rx#:[id number] Oral 1790 590 Blood Product 204 Platelet Irr Pheresis 204 Acda1 Unit [id number] Other: Voiding Method Toilet Toilet Toilet # Voids 3 2 06/15/19 06:46 06/15/19 06:46
--- NOTE | 2019-06-15 15:07 | CT ---
EXAMINATION TYPE: CT angio chest DATE OF EXAM: 06/15/2019 COMPARISON: Chest x-ray dated 06/14/2019 HISTORY: SOB CT DLP: 194.5 mGycm. Automated Exposure Control for Dose Reduction was Utilized. CONTRAST: CTA scan of the thorax is performed with IV Contrast, patient injected with 50 mL of Isovue 370, pulm onary embolism protocol. MIP Images are created on CT scanner and reviewed. FINDINGS: LUNGS: There is diffuse interlobular septal thickening. Few nodular opacities are seen of the lungs s uch as in the peripheral right upper lobe on series 5 image 54 measuring 4 mm and throughout the left upper lobe such as on images 56 and 57. These are also seen in the lingula. Small bilateral pleural effusions, left greater than right and associated subsegmental atelectasis are present. The tracheobr onchial tree is patent. MEDIASTINUM: There is suboptimal enhancement of the pulmonary artery and its branches, there is no CT evidence for central pulmonary embolism. There are no greater than 1 cm hilar or mediastinal lymph nodes. Left paratracheal lymph node just below the thyroid gland appears enlarged measuring 1.2 cm in short axis on image 17. Strand-like density throughout the mediastinum may represent numerous nonenl arged mediastinal lymph nodes or small amount of fluid. Slight pectus excavatum deformity. No cardiom egaly or pericardial effusion is seen. OTHER: Fluid is seen surrounding the right chest wall Mediport that appears slightly high density. Pu nctate focus of air is also noted. The liver is elongated extending into the left upper quadrant. IMPRESSION: 1. Suboptimal bolus timing possibly secondary to a component of congestive heart failure as there are pleural effusions and findings of fluid overload with interstitial pulmonary edema. No central pulmo nary embolus is seen. 2. Scattered nodular densities within the lungs could be on the basis of confluent pulmonary edema or true pulmonary nodules however infectious etiology should be considered given the multifocality. 3. Fluid/seroma or subcutaneous injection surrounds the right chest wall Mediport.
[2019-06-15] MEDS ORDERED: Potassium Replacement Protocol 1 EACH MISC MISCELLANE PRN (15:13)
[2019-06-15] MEDS ORDERED: FUROSEMIDE 10 MG/ML 4 ML VIAL IV STA (15:13)
[2019-06-15] MEDS: POTASSIUM CHLORIDE ER 20 MEQ TAB.ER PO SCH ×2 (17:56→20:42)
[2019-06-15] MEDS: VORICONAZOLE 50 MG TABLET PO SCH (17:59)
[2019-06-15] MEDS: VENCLEXTA 100 MG PO SCH (17:59)
--- NOTE | 2019-06-15 18:40 | P.PN ---
Subjective Progress Note Date: 06/15/19 Principal diagnosis: recurrent AML In follow-up today patient's left upper extremity is swollen, she is still having easy bruising but the bruising around her port insertion site is improving, swelling is decreasing, patient is having no other symptoms of bleeding, she does feel tired, she did have some anxiety this morning, she is also noted to be sustaining a heart rate in the 120 range, increasing into the 150s whenever she ambulates which does make it difficult for her to get around. No fevers, oral irritation, mild nausea, no vomiting, no cough, she will get short of breath on exertion, no abdominal pain or cramping, dysuria, hematuria, diarrhea or swelling in the lower extremities, rashes or pain. Objective - Vital Signs Vital signs: Vital Signs Temp 97.8 F 06/15/19 08:04 Pulse 122 H 06/15/19 08:04 Resp 17 06/15/19 08:04 BP 127/74 06/15/19 08:04 Pulse Ox 94 L 06/15/19 08:04 Intake & Output 06/14/19 06/15/19 06/15/19 18:59 06:59 18:59 Intake Total 1300 3834 Balance 1300 3834 Weight 60.9 kg Intake: Intake, IV Titration 1300 1250 Amount Cefepime 2 gm In Sodium 100 100 Chloride 0.9% 100 ml @ 200 mls/hr IVPB Q8HR [facility] Rx#:[id number] Ondansetron 16 mg In 50 Sodium Chloride 0.9% 50 ml @ 232 mls/hr IVPB DAILY@2000 NATHANA[facility] Rx#: [id number] Sodium Chloride 0.9% 1, 1200 750 000 ml @ 75 mls/hr IV . [id number] [facility]NA[facility] Rx#:[id number] Vancomycin 1,250 mg In 250 Sodium Chloride 0.9% 250 ml @ 125 mls/hr IVPB Q8H [facility] Rx#:[id number] azaCITIDine 130 mg In 100 Sodium Chloride 0.9% 100 ml @ 200 mls/hr IV Q24H [facility]HA[facility] Rx#:[id number] Oral 2380 Blood Product 0 204 Platelet Irr Pheresis 0 204 Acda1 Unit [id number] Other: Voiding Method Toilet Toilet Toilet # Voids 2 - Constitutional General appearance: Present: average body habitus, cooperative, no acute distress - EENT Eyes: Present: anicteric sclerae, EOMI ENT: Present: hearing grossly normal, normal oropharynx - Respiratory Respiratory: bilateral: CTA - Cardiovascular Details: tachy, regular rhythm Abnormal Heart Sounds: Absent: systolic murmur, diastolic murmur, rub, S3 Gallop, S4 Gallop, click, other - Peripheral edema leg Peripheral Edema: bilateral: None - Gastrointestinal General gastrointestinal: Present: normal bowel sounds, soft - Integumentary Integumentary Comment(s): bruising in known areas of trauma Integumentary: Present: pale - Neurologic Neurologic: Present: CNII-XII intact - Musculoskeletal Musculoskeletal: Present: strength equal bilaterally - Psychiatric Psychiatric: Present: A&O x's 3, appropriate affect, intact judgment & insight - Labs CBC & Chem 7: 06/15/19 06:46 06/15/19 06:46 Labs: Abnormal Lab Results - Last 24 Hours (Table) 06/13/19 06/15/19 06/15/19 Range/Units 00:27 06:46 06:46 WBC 0.5 L* (3.8-10.6) k/uL RBC 1.89 L (3.80-5.40) m/uL Hgb 6.3 L* (11.4-16.0) gm/dL Hct 16.9 L* (34.0-46.0) % MCHC 37.1 H (31.0-37.0) g/dL RDW 15.7 H (11.5-15.5) % Plt Count 23 L D (150-450) k/uL Sodium 135 L (137-145) mmol/L Potassium 3.2 L (3.5-5.1) mmol/L Glucose 111 H (74-99) mg/dL Uric Acid 1.0 L (3.7-7.4) mg/dL Phosphorus 2.4 L (2.5-4.5) mg/dL Total Bilirubin 1.4 H (0.2-1.3) mg/dL Total Protein 6.2 L (6.3-8.2) g/dL Albumin 3.3 L (3.5-5.0) g/dL Crossmatch See Detail Microbiology - Last 24 Hours (Table) 06/12/19 22:19 Blood Culture - Preliminary Blood No Growth after 48 hours 06/10/19 13:02 Blood Culture - Preliminary Blood No Growth after 96 hours - Imaging and Cardiology CT scan - chest: report reviewed Assessment and Plan (1) Acute myeloblastic leukemia Narrative/Plan: Unfortunate relapse disease. 7 daily doses of Vidaza IV with daily oral venetoclax with antifungal as a potentiating agent. Treatment started 06/09/2019, IV to complete tonight, cont oral No evidence of tumor lysis, fluids decreased. Daily follow up Supportive medications Current Visit: Yes Status: Acute Priority: High Code(s): C92.00 - ACUTE MYELOBLASTIC LEUKEMIA, NOT HAVING ACHIEVED REMISSION SNOMED Code(s): 89421961 (2) Pancytopenia due to antineoplastic chemotherapy Narrative/Plan: Conservative blood transfusions. Transfuse for hemoglobin less than 7, 1 unit irradiated PRBCs today for hemoglobin of 6.3 Platelet count less than 10,000 or if symptomatic. No intervention for white blood cell counts at this time. Current Visit: Yes Status: Acute Priority: High Code(s): D61.810 - ANTINEOPLASTIC CHEMOTHERAPY INDUCED PANCYTOPENIA; T45.1X5A - ADVERSE EFFECT OF A NTINEOPLASTIC AND IMMUNOSUP DRUGS, INIT SNOMED Code(s): 050224383206919 (3) Tachycardia Narrative/Plan: Cardiology consulted. Reviewed Cardiology consultation, appreciate recommendations and treatments. CTA was reviewed, thankfully no PE. Patient was given Lasix and started on beta anila. Current Visit: Yes Status: Acute Priority: High Code(s): R00.0 - TACHYCARDIA, UNSPECIFIED SNOMED Code(s): 2648174 Plan: Right upper extremity swelling-no DVT. Going to get IVs out of the patient's LUE arm, swelling is down around her port so we should be able to access now.
[2019-06-15] MEDS: ALPRAZolam 0.25 MG TAB PO PRN (20:43)
[2019-06-15] MEDS: ONDANSETRON 16 MG in SODIUM CHLORIDE 0.9% 50 ML IVPB SCH (20:45)
--- NOTE | 2019-06-15 20:51 | P.PN ---
Subjective Progress Note Date: 06/15/19 48-year-old female with a known history of acute myelogenous leukemia was diagnosed originally in 2018. She underwent induction chemotherapy with 7+3 regimen to an February 2018 and did complete consolidative chemotherapy with high- dose araC and Rydapt. The patient appeared to be in remission until April 2019 which point in time she has significant fatigue and then it evidence of significant bruising. 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 Because of the recurrence she is noticing by Dr. Paz with plans for an allogeneic stem cell transplantation.. The patient did have the port place a right anterior chest wall that resulted in a very large hematoma that was somewhat painful and is currently non- usable. With concerns to that as well as some low-grade temperature the consultation was requested. The patient's pro time relates that she feels tired and weak and has had some mild change of her respiratory status. She had a minimal cough but seems to be a bit more short of breath, she is not labored but just does not feel normal. She certainly has progressive anemia which is worsening her fatigue and is receiving large fluids due to her current chemotherapy. She is denying significant discomforts in her chest and no pain when she takes breaths she has no pleuritic discomfort. She's having no chills or rigors. Just feels poorly overall. No active bleeding is noted at this time. 06/15/2019 the patient feels better than yesterday. With reduction of IV fluids and diuretic therapy she is now without labored breathing feels better is not having cough and having no further fever or chills. She completes her chemot herapy soon. She has been seen by cardiology and diuretic therapy continues. Objective - Vital Signs Vital signs: Vital Signs Temp 97.9 F 06/15/19 17:50 Pulse 126 H 06/15/19 17:50 Resp 18 06/15/19 17:50 BP 144/86 06/15/19 17:50 Pulse Ox 97 06/15/19 17:50 Intake & Output 06/15/19 06/15/19 06/16/19 06:59 18:59 06:59 Intake Total 3834 1960 Balance 3834 1960 Intake: Intake, IV Titration 1250 1000 Amount Cefepime 2 gm In Sodium 100 100 Chloride 0.9% 100 ml @ 200 mls/hr IVPB Q8HR [facility] Rx#:[id number] Ondansetron 16 mg In 50 Sodium Chloride 0.9% 50 ml @ 232 mls/hr IVPB DAILY@2000 [facility] Rx#: [id number] Sodium Chloride 0.9% 1, 750 650 000 ml @ 75 mls/hr IV . [id number] [facility] Rx#:[id number] Vancomycin 1,250 mg In 250 250 Sodium Chloride 0.9% 250 ml @ 125 mls/hr IVPB Q8H [facility] Rx#:[id number] azaCITIDine 130 mg In 100 Sodium Chloride 0.9% 100 ml @ 200 mls/hr IV Q24H [facility] Rx#:[id number] Oral 2380 650 Blood Product 204 310 Platelet Irr Pheresis 204 Acda1 Unit [id number] Rc Irr As1 Unit 310 [id number] Other: Voiding Method Toilet Toilet # Voids 2 4 - Exam HEENT: Anicteric conjunctiva are pink and moist nasal mucosa grossly intact without significant lesions, there is no thrush. Neck: The neck is supple without significant lymphadenopathy or thyromegaly. Lungs: They're symmetrical bilaterally entry, there is improvement of the basilar crackles especially to the left lower lobe Heart: Regular rate and rhythm with an audible S1-S2, no S3 no S4. There is no significant murmur click or rub, PMI was nondisplaced. Abdomen: Positive bowel sounds soft and nontender without palpable masses or organomegaly. There was no guarding or rebound. Extremities: The upper extremities have excellent pulses they are symmetric, no significant petechiae or telangiectasia. No splinter hemorrhages were noted. The lower extremities are free from significant edema. The peripheral pulses were 2+ and symmetric. Neuro: Awake alert oriented to person place and time. There are no acute new gross focal sensory motor deficits. The skin is without rash or breakdown. Yklkgs-r-Yyuq has evidence of a large circumferential hematoma that is not very tender, it is not warm there is no cellulitis there's no expressible purulence. - Labs CBC & Chem 7: 06/15/19 06:46 06/15/19 06:46 Labs: Abnormal Lab Results - Last 24 Hours (Table) 06/13/19 06/15/19 06/15/19 Range/Units 00:27 06:46 06:46 WBC 0.5 L* (3.8-10.6) k/uL RBC 1.89 L (3.80-5.40) m/uL Hgb 6.3 L* (11.4-16.0) gm/dL Hct 16.9 L* (34.0-46.0) % MCHC 37.1 H (31.0-37.0) g/dL RDW 15.7 H (11.5-15.5) % Plt Count 23 L D (150-450) k/uL D-Dimer (<0.60) mg/L FEU Sodium 135 L (137-145) mmol/L Potassium 3.2 L (3.5-5.1) mmol/L Glucose 111 H (74-99) mg/dL Uric Acid 1.0 L (3.7-7.4) mg/dL Phosphorus 2.4 L (2.5-4.5) mg/dL Total Bilirubin 1.4 H (0.2-1.3) mg/dL Total Protein 6.2 L (6.3-8.2) g/dL Albumin 3.3 L (3.5-5.0) g/dL Crossmatch See Detail 06/15/19 Range/Units 12:03 WBC (3.8-10.6) k/uL RBC (3.80-5.40) m/uL Hgb (11.4-16.0) gm/dL Hct (34.0-46.0) % MCHC (31.0-37.0) g/dL RDW (11.5-15.5) % Plt Count (150-450) k/uL D-Dimer 1.46 H (<0.60) mg/L FEU Sodium (137-145) mmol/L Potassium (3.5-5.1) mmol/L Glucose (74-99) mg/dL Uric Acid (3.7-7.4) mg/dL Phosphorus (2.5-4.5) mg/dL Total Bilirubin (0.2-1.3) mg/dL Total Protein (6.3-8.2) g/dL Albumin (3.5-5.0) g/dL Crossmatch Microbiology - Last 24 Hours (Table) 06/10/19 13:02 Blood Culture - Preliminary Blood No Growth after 120 hours 06/12/19 22:19 Blood Culture - Preliminary Blood No Growth after 48 hours Laboratory Results WBC 0.5 k/uL (3.8-10.6) L* 06/15/19 06:46 RBC 1.89 m/uL (3.80-5.40) L 06/15/19 06:46 Hgb 6.3 gm/dL (11.4-16.0) L* 06/15/19 06:46 Hct 16.9 % (34.0-46.0) L* 06/15/19 06:46 MCV 89.6 fL (80.0-100.0) 06/15/19 06:46 MCH 33.3 pg (25.0-35.0) 06/15/19 06:46 MCHC 37.1 g/dL (31.0-37.0) H 06/15/19 06:46 RDW 15.7 % (11.5-15.5) H 06/15/19 06:46 Plt Count 23 k/uL (150-450) L D 06/15/19 06:46 Neutrophils % QUALITY PROCESS LEAD 06/11/19 08:05 Neutrophils % (Manual) 6 % 06/10/19 19:25 Band Neutrophils % 1 % 06/10/19 07:58 Lymphocytes % QUALITY PROCESS LEAD 06/11/19 08:05 Lymphocytes % (Manual) 47 % 06/10/19 19:25 Monocytes % QUALITY PROCESS LEAD 06/11/19 08:05 Monocytes % (Manual) 4 % 06/10/19 19:25 Eosinophils % QUALITY PROCESS LEAD 06/11/19 08:05 Eosinophils % (Manual) 1 % 06/10/19 07:58 Basophils % QUALITY PROCESS LEAD 06/11/19 08:05 Basophils % (Manual) 1 % 06/10/19 04:05 Metamyelocytes % 2 % 06/10/19 19:25 Myelocytes % 1 % 06/10/19 19:25 Blast Cells % 40 % H* 06/10/19 19:25 Neutrophils # QUALITY PROCESS LEAD 06/12/19 22:19 Neutrophils # (Manual) 0.10 k/uL (1.3-7.7) L* 06/10/19 19:25 Lymphocytes # QUALITY PROCESS LEAD 06/11/19 08:05 Lymphocytes # (Manual) 0.80 k/uL (1.0-4.8) L 06/10/19 19:25 Monocytes # QUALITY PROCESS LEAD 06/11/19 08:05 Monocytes # (Manual) 0.07 k/uL (0-1.0) 06/10/19 19:25 Eosinophils # QUALITY PROCESS LEAD 06/11/19 08:05 Eosinophils # (Manual) 0.03 k/uL (0-0.7) 06/10/19 07:58 Basophils # QUALITY PROCESS LEAD 06/11/19 08:05 Basophils # (Manual) 0.06 k/uL (0-0.2) 06/10/19 04:05 Metamyelocytes # (Man) 0.03 k/uL (0) H 06/10/19 19:25 Myelocytes # (Manual) 0.02 k/uL (0) H 06/10/19 19:25 Blast Cells # (Man) 0.68 k/uL (0) H 06/10/19 19:25 Nucleated RBCs 0 /100 WBC (0-0) 06/10/19 19:25 Differential Comment 06/15/19 06:46 Manual Slide Review Performed 06/15/19 06:46 RBC Morphology Normal 06/15/19 06:46 Hypochromasia (manual) Present 06/11/19 08:05 Poikilocytosis (manual Present 06/09/19 10:42 Anisocytosis Slight 06/13/19 06:44 Anisocytosis (manual) Present 06/11/19 08:05 Macrocytosis Slight 06/10/19 19:25 Fibrinogen 562 mg/dL (200-500) H 06/12/19 22:19 D-Dimer 1.46 mg/L FEU (<0.60) H 06/15/19 12:03 Sodium 135 mmol/L (137-145) L 06/15/19 06:46 Potassium 3.2 mmol/L (3.5-5.1) L 06/15/19 06:46 Chloride 100 mmol/L (98-107) 06/15/19 06:46 Carbon Dioxide 26 mmol/L (22-30) 06/15/19 06:46 Anion Gap 9 mmol/L 06/15/19 06:46 BUN 11 mg/dL (7-17) 06/15/19 06:46 Creatinine 0.61 mg/dL (0.52-1.04) 06/15/19 06:46 Est GFR (CKD-EPI)AfAm >90 (>60 ml/min/1.73 sqM) 06/15/19 06:46 Est GFR (CKD-EPI)NonAf >90 (>60 ml/min/1.73 sqM) 06/15/19 06:46 Glucose 111 mg/dL (74-99) H 06/15/19 06:46 Plasma Lactic Acid Kwasi 2.0 mmol/L (0.7-2.0) 06/12/19 22:19 Uric Acid 1.0 mg/dL (3.7-7.4) L 06/15/19 06:46 Calcium 8.4 mg/dL (8.4-10.2) 06/15/19 06:46 Phosphorus 2.4 mg/dL (2.5-4.5) L 06/15/19 06:46 Magnesium 2.3 mg/dL (1.6-2.3) 06/12/19 22:19 Total Bilirubin 1.4 mg/dL (0.2-1.3) H 06/15/19 06:46 AST 17 U/L (14-36) 06/15/19 06:46 ALT 33 U/L (9-52) 06/15/19 06:46 Alkaline Phosphatase 53 U/L (38-126) 06/15/19 06:46 Lactate Dehydrogenase 2149 U/L (313-618) H 06/12/19 22:19 Total Protein 6.2 g/dL (6.3-8.2) L 06/15/19 06:46 Albumin 3.3 g/dL (3.5-5.0) L 06/15/19 06:46 Vancomycin Trough 16.8 ug/mL 06/15/19 12:03 Blood Type AB Positive 06/13/19 00:27 Blood Type Recheck AB Pos 06/13/19 00:27 Bld Type Recheck Status No 06/13/19 00:27 Antibody Screen NEGATIVE 06/13/19 00:27 Crossmatch See Detail 06/13/19 00:27 Transfuse Platelets 06/14/19 06/14/19 09:25 Spec Expiration Date 06/16/2019 5622 06/13/19 00:27 Microbiology 06/10/19 13:02 Blood Blood Culture - Preliminary No Growth after 120 hours 06/12/19 22:19 Blood Blood Culture - Preliminary No Growth after 48 hours 06/10/19 14:20 Urine,Voided Urine Culture - Final Assessment and Plan (1) Hematoma Current Visit: Yes Status: Acute Code(s): T14.8XXA - OTHER INJURY OF UNSPECIFIED BODY REGION, INITIAL ENCOUNTER SNOMED Code(s): 764748349 (2) Pancytopenia due to antineoplastic chemotherapy Current Visit: Yes Status: Acute Priority: High Code(s): D61.810 - ANTINEOPLASTIC CHEMOTHERAPY INDUCED PANCYTOPENIA; T45.1X5A - ADVERSE EFFECT OF ANTINEOPLASTIC AND IMMUNOSUP DRUGS, INIT SNOMED Code(s): 722930637869124 (3) Acute leukemia Current Visit: No Status: Acute Code(s): C95.00 - ACUTE LEUKEMIA OF UNSP CELL TYPE NOT ACHIEVE REMISSION SNOMED Code(s): 96328052 (4) Shortness of breath Narrative/Plan: Very pleasant 48-year-old woman with history of the acute myelogenous leukemia who is had recurrence and is now undergoing reinduction chemotherapy with plans for an allogenic stem cell transplant. She is tolerating chemotherapy relatively well she is admitted for fever 100.6 several days ago this has resolved. There is evidence as noted by the surgical note of the hematoma to the Zivgqt-a-Vlff site of right anterior chest wall. It is not very tender and does not appear to be infected at this time. However with the current status of the immune system lack of inflammation is part of the difficulties and close monitoring continues. She over does have evidence of some mild shortness of elías ath and crackles into the left base of the lung and consequently I'm concerned about fluid given her significant fluid intake that she is having. And with her status over is concerned for possible underlying infection. She is receiving broad-spectrum antibiotic therapy with cefepime and vancomycin and antifungal therapy with voriconazole given her current persistent and ongoing neutropenic status. Without change antibiotic therapy at this point in time. The utilizing when necessary warm compresses to the chest try to help with the hematoma to the Jxoatf-q-Rmbe site. Cultures are all negative so far. If there is evidence of some fluid overload diuretic therapy may be helpful. 06/15/2019 because of the chest x-ray showed evidence of fluid and Lasix was given. Patient feeling better today. CT angiogram was obtained today which concurred to the pulmonary edema and effusions. She's been seen by cardiology and further diuretic therapy is being utilized this time. She is otherwise f eeling relatively improved and less short of breath today. The oncology team was able to access her Zxtozo-v-Eqxy, hopefully we'll remove the IVs to her left arm due to some edema to the limb. There are no plans for outpatient intravenous antibiotic therapy at this time. Current Visit: Yes Status: Acute Code(s): R06.02 - SHORTNESS OF BREATH SNOMED Code(s): 143747255
[2019-06-15] MEDS: SODIUM CHLORIDE 0.9% IV SCH (21:09)
[2019-06-15] MEDS: AZACITIDINE IV SCH (21:09)
[2019-06-15 21:13] VITALS: RESP 16
[2019-06-16] MEDS: CEFEPIME 2 GM in SODIUM CHLORIDE 0.9% 100 ML IVPB SCH ×2 (00:09→10:14)
[2019-06-16] MEDS: SALT AND SODA MOUTHWASH 1,000 ML PO SCH ×2 (00:09→05:11)
[2019-06-16] MEDS: VANCOMYCIN 1,250 MG in SODIUM CHLORIDE 0.9% 250 ML IVPB SCH (05:11)
[2019-06-16 05:27] VITALS: BP 99/64; PULSE 116; TEMP 98.2
[2019-06-16 08:53] LABS: HCT 20.2 % (34.0-46.0); HGB 7.3 gm/dL (11.4-16.0); MCH 32.2 pg (25.0-35.0); MCHC 36.2 g/dL (31.0-37.0); MCV 89.1 fL (80.0-100.0); Mean Platelet Volume 6.9; RBC 2.27 m/uL (3.80-5.40); RDW 15.2 % (11.5-15.5)
[2019-06-16 09:00] LABS: ALT 35 U/L (9-52); AST 14 U/L (14-36); African American GFR (CKD) >90 (>60 ml/min/1.73 sqM); Albumin 3.1 g/dL (3.5-5.0); Alkaline Phosphatase 49 U/L (38-126); Anion Gap 5 mmol/L; Blood Urea Nitrogen 15 mg/dL (7-17); Calcium 8.4 mg/dL (8.4-10.2); Carbon Dioxide 30 mmol/L (22-30); Chloride 103 mmol/L (98-107); Glucose 108 mg/dL (74-99); Non-African American GFR(CKD) >90 (>60 ml/min/1.73 sqM); Phosphorus 2.1 mg/dL (2.5-4.5); Potassium 3.4 mmol/L (3.5-5.1); Sodium 138 mmol/L (137-145); Total Bilirubin 1.1 mg/dL (0.2-1.3); Total Protein 5.9 g/dL (6.3-8.2); Uric Acid 1.3 mg/dL (3.7-7.4)
[2019-06-16 09:02] LABS: WBC 0.5 k/uL (3.8-10.6)
--- NOTE | 2019-06-16 09:40 | ECHOF ---
Referral Reason:tachycardia, chemo MEASUREMENTS -------- HEIGHT: 167.6 cm WEIGHT: 60.8 kg BP: 127/74 RVIDd: 2.3 cm (< 3.3) IVSd: 1.0 cm (0.6 - 1.1) LVIDd: 4.2 cm (3.9 - 5.3) LVPWd: 1.0 cm (0.6 - 1.1) IVSs: 1.5 cm LVIDs: 2.5 cm LVPWs: 1.3 cm LA Diam: 3.4 cm (2.7 - 3.8) LAESV Index (A-L): 24.28 ml/m Ao Diam: 3.0 cm (2.0 - 3.7) AV Cusp: 2.1 cm (1.5 - 2.6) MV EXCURSION: 15.459 mm (> 18.000) MV EF SLOPE: 219 mm/s (70 - 150) EPSS: 0.6 cm MV E Valente: 1.44 m/s MV DecT: 129 ms MV A Valente: 1.36 m/s MV E/A Ratio: 1.06 AV maxP.72 mmHg AV meanP.73 mmHg RAP: 5.00 mmHg RVSP: 59.02 mmHg FINDINGS -------- Resting tachycardia (HR>100bpm). This was a technically adequate study. The left ventricular size is normal. Left ventricular wall thickness is normal. Left ventricular systolic function is hyperdynamic with an estimated EF of >70%. The right ventricle is normal in size. Normal LA size by volume 22+/-6 ml/m2. The right atrium is normal in size. Interatrial and interventricular septum intact. The aortic valve is trileaflet and appears structurally normal. LVOT obstruction with max gradient 18 and mean gradient and mean gradient of 9 mm/Hg Qebp-zp-trsrilth mitral regurgitation is present. Mild tricuspid regurgitation present. There is severe pulmonary hypertension. The right ventricul ar systolic pressure, as measured by Doppler, is 59.02mmHg. Trace/mild (physiologic) pulmonic regurgitation. The aortic root size is normal. Normal inferior vena cava with normal inspiratory collapse consistent with estimated right atrial pre ssure of 5 mmHg. There is no pericardial effusion. CONCLUSIONS -------- 1. Resting tachycardia (HR>100bpm). 2. This was a technically adequate study. 3. The left ventricular size is normal. 4. Left ventricular wall thickness is normal. 5. Left ventricular systolic function is hyperdynamic with an estimated EF of >70%. 6. The right ventricle is normal in size. 7. Normal LA size by volume 22+/-6 ml/m2. 8. The right atrium is normal in size. 9. Interatrial and interventricular septum intact. 10. The aortic valve is trileaflet and appears structurally normal. 11. LVOT obstruction with max gradient 18 and mean gradient and mean gradient of 9 mm/Hg 12. Wloc-vn-vfjhfaju mitral regurgitation is present. 13. Mild tricuspid regurgitation present. 14. There is severe pulmonary hypertension. 15. The right ventricular systolic pressure, as measured by Doppler, is 59.02mmHg. 16. Trace/mild (physiologic) pulmonic regurgitation. 17. The aortic root size is normal. 18. Normal inferior vena cava with normal inspiratory collapse consistent with estimated right atrial pressure of 5 mmHg. 19. There is no pericardial effusion. CIVIL CLERK: KATJA Crowell
[2019-06-16] MEDS: MULTIVITAMINS, THERA 1 EACH TAB PO SCH (10:15)
[2019-06-16] MEDS: CHOLECALCIFEROL 1,000 UNIT TAB PO SCH (10:15)
[2019-06-16] MEDS: METOPROLOL SUCCINATE (ER) 25 MG TAB.ER.24H PO SCH (10:15)
[2019-06-16] MEDS: ACYCLOVIR 200 MG CAP PO SCH (10:16)
[2019-06-16 11:29] LABS: Platelet Count 11 k/uL (150-450); Poikilocytosis (M) Present
--- NOTE | 2019-06-16 18:44 | P.DS ---
Providers Date of admission: 06/09/19 09:16 Expected date of discharge: 06/16/19 Attending physician: Allen Lyle Consults: 06/09/19 17:37 Consult Physician Routine Consulting Provider: Viri Bowens Consult Reason/Comments: Post operative seroma or hematoma at infusaport site per ultrasound. Do you want consulting provider notified?: Yes 06/12/19 21:15 Consult Physician Routine Consulting Provider: Andrea Winkler Consult Reason/Comments: Neutropenic Fever, chemo, AML Do you want consulting provider notified?: Yes 06/15/19 10:28 Consult Physician Routine Consulting Provider: Yifan Curtis Consult Reason/Comments: tacycardia and change in p waves post chemo Do you want consulting provider notified?: Already Contacted Primary care physician: Stated None - Discharge Diagnosis(es) (1) Acute myeloblastic leukemia Status: Acute Priority: High (2) Pancytopenia due to antineoplastic chemotherapy Status: Acute Priority: High (3) Tachycardia Status: Acute Priority: High Hospital Course: Admitted for treatment of AML. She required Cardiology evaluation for sustained tachycardia-started BB and diruesed, doing well. ID for febrile neutropenia. Pt tolerated IV and oral treatment well, mild SE, managed with medications. She required transfusions. Pt completed her 1st cycle last night and wants to go home. She is eating and drinking, ambulating to bathroom without MYRIAM, no bleeding or pain, mild DIAL. Assessment: WD,WN,A&Ox4, NAD, bruising on extremities and right chest wall stable, LUE swelling improved, BBS CTA, respirations unlabored, mild tachycardia, regular rhythm, abd soft, non-tender BS+, no swelling in legs. Health Concerns: Pt has no concerns Reviewed neutropenic precautions, bleeding precautions Pertinent Studies: CTA SOB- neg for PE Doppler LUE for swelling- neg for DVT ECHO-LVEF>70% Patient Condition at Discharge: Fair Plan - Discharge Summary Discharge Rx Participant: No New Discharge Prescriptions: New Acyclovir 400 mg PO BID #60 tablet Levofloxacin [Levaquin] 500 mg PO DAILY #30 tab Metoprolol Succinate [Toprol XL] 25 mg PO DAILY #30 tab No Action Multivitamins, Thera [Multivitamin (formulary)] 1 tab PO DAILY Cholecalciferol [Vitamin D3 (25 Mcg = 1000 Iu)] 5,000 unit PO DAILY Norethindrone-Ethinyl Estrad [Ortho-Novum 7-7-7-28 Tablet] 1 tab PO DAILY Rhodiolia Rosea Root 400 mg PO DAILY Biotin 1 tab PO DAILY Discharge Medication List Biotin 1 tab PO DAILY 06/02/19 [History] Cholecalciferol [Vitamin D3 (25 Mcg = 1000 Iu)] 5,000 unit PO DAILY 06/02/19 [History] Multivitamins, Thera [Multivitamin (formulary)] 1 tab PO DAILY 06/02/19 [History] Norethindrone-Ethinyl Estrad [Ortho-Novum 7-7-7-28 Tablet] 1 tab PO DAILY 06/02/19 [History] Rhodiolia Rosea Root 400 mg PO DAILY 06/02/19 [History] Acyclovir 400 mg PO BID #60 tablet 06/16/19 [Rx] Levofloxacin [Levaquin] 500 mg PO DAILY #30 tab 06/16/19 [Rx] Metoprolol Succinate [Toprol XL] 25 mg PO DAILY #30 tab 06/16/19 [Rx] Follow up Appointment(s)/Referral(s): Allen Lyle MD [STAFF PHYSICIAN] - 06/17/19 8:15 am Activity/Diet/Wound Care/Special Instructions: Monitor for fever-100.4F or higher go to ER Activity as tolerated Diet as tolerated Handwashing Avoid ill contacts Salt and soda oral mouth rinse 5 x's day Bleeding precautions-no aspirin, NSAIDs, aleve, advil, ibuprofen, motrin NEW blood pressure/heart rate medication: PLEASE monitor heart rate and BP twice a day and write down Discharge Disposition: HOME SELF-CARE Pending Studies Pending Results: no pending results attests: I have seen and examined patient, performed H&P, developed impression and plan, discussed with dictator, agree with dictation, documented as a scribe.
--- NOTE | 2019-06-16 20:42 | P.PN ---
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 She underwent induction chemotherapy with 7+3 regimen to an February 2018 and did complete consolidative chemotherapy with high- dose araC and Rydapt. The patient appeared to be in remission until April 2019 which point in time she has significant fatigue and then it evidence of significant bruising. 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 Because of the recurrence she is noticing by Dr. Paz with plans for an allogeneic stem cell transplantation.. The patient did have the port place a right anterior chest wall that resulted in a very large hematoma that was somewhat painful and is currently non- usable. With concerns to that as well as some low-grade temperature the consultation was requested. The patient's pro time relates that she feels tired and weak and has had some mild change of her respiratory status. She had a minimal cough but seems to be a bit more short of breath, she is not labored but just does not feel normal. She certainly has progressive anemia which is worsening her fatigue and is receiving large fluids due to her current chemotherapy. She is denying significant discomforts in her chest and no pain when she takes breaths she has no pleuritic discomfort. She's having no chills or rigors. Just feels poorly overall. No active bleeding is noted at this time. 06/15/2019 the patient feels better than yesterday. With reduction of IV fluids and diuretic therapy she is now without labored breathing feels better is not having cough and having no further fever or chills. She completes her chemot herapy soon. She has been seen by cardiology and diuretic therapy continues. 06/16/2019 patient is now considerably improved. Her labor breathing is completely resolved. Her left upper extremity edema is also improved but not completely resolved. She is ready for discharge to home. Objective - Vital Signs Vital signs: Vital Signs Temp 98.2 F 06/16/19 05:00 Pulse 116 H 06/16/19 05:00 Resp 16 06/16/19 08:20 BP 99/64 06/16/19 05:00 Pulse Ox 93 L 06/16/19 05:00 Intake & Output 06/16/19 06/16/19 06/17/19 06:59 18:59 06:59 Intake Total 2050 450 Balance 2050 450 Intake: Intake, IV Titration 950 Amount Cefepime 2 gm In Sodium 100 Chloride 0.9% 100 ml @ 200 mls/hr IVPB Q8HR NATHANAEL Rx#:[id number] Ondansetron 16 mg In 50 Sodium Chloride 0.9% 50 ml @ 232 mls/hr IVPB DAILY@2000 NATHANAEL Rx#: [id number] Sodium Chloride 0.9% 1, 450 000 ml @ 75 mls/hr IV . [id number] NATHANAEL Rx#:[id number] Vancomycin 1,250 mg In 250 Sodium Chloride 0.9% 250 ml @ 125 mls/hr IVPB Q8H NATHANAEL Rx#:[id number] azaCITIDine 130 mg In 100 Sodium Chloride 0.9% 100 ml @ 200 mls/hr IV Q24H NATHANAEL Rx#:[id number] Oral 1100 450 Other: Voiding Method Toilet Toilet # Voids 3 - Exam HEENT: Anicteric conjunctiva are pink and moist nasal mucosa grossly intact without significant lesions, there is no thrush. Neck: The neck is supple without significant lymphadenopathy or thyromegaly. Lungs: They're symmetrical bilaterally entry, essentially clear respiration is heard today. Heart: Regular rate and rhythm with an audible S1-S2, no S3 no S4. There is no significant murmur click or rub, PMI was nondisplaced. Abdomen: Positive bowel sounds soft and nontender without palpable masses or organomegaly. There was no guarding or rebound. Extremities: The upper extremities have excellent pulses they are symmetric, no significant petechiae or telangiectasia. No splinter hemorrhages were noted. The lower extremities are free from significant edema. The peripheral pulses were 2+ and symmetric. Neuro: Awake alert oriented to person place and time. There are no acute new gross focal sensory motor deficits. The skin is without rash or breakdown. Nlbmnm-d-Cbug has evidence of a large circumferential hematoma that is not very tender, it is not warm there is no cellulitis there's no expressible purulence. The oncology team was able to access the port and the patient is very pleased that this has occurred. - Labs CBC & Chem 7: 06/16/19 07:43 06/16/19 07:43 Labs: Abnormal Lab Results - Last 24 Hours (Table) 06/16/19 06/16/1919 Range/Units 07:43 07:43 07:43 WBC 0.5 L* (3.8-10.6) k/uL RBC 2.27 L (3.80-5.40) m/uL Hgb 7.3 L (11.4-16.0) gm/dL Hct 20.2 L (34.0-46.0) % Plt Count 11 L* D (150-450) k/uL Potassium 3.4 L (3.5-5.1) mmol/L Glucose 108 H (74-99) mg/dL Uric Acid 1.3 L (3.7-7.4) mg/dL Phosphorus 2.1 L (2.5-4.5) mg/dL Total Protein 5.9 L (6.3-8.2) g/dL Albumin 3.1 L (3.5-5.0) g/dL Free T3 pg/mL 2.6 L (2.8-5.3) pg/ml Microbiology - Last 24 Hours (Table) 06/10/19 13:02 Blood Culture - Final Blood No Growth after 144 hours 06/12/19 22:19 Blood Culture - Preliminary Blood No Growth after 72 hours Microbiology Entire Visit 06/10/19 13:02 Blood Blood Culture - Final No Growth after 144 hours 06/12/19 22:19 Blood Blood Culture - Preliminary No Growth after 72 hours 06/10/19 14:20 Urine,Voided Urine Culture - Final Microbiology 06/10/19 13:02 Blood Blood Culture - Final No Growth after 144 hours 06/12/19 22:19 Blood Blood Culture - Preliminary No Growth after 72 hours 06/10/19 14:20 Urine,Voided Urine Culture - Final Assessment and Plan (1) Hematoma Status: Acute Code(s): T14.8XXA - OTHER INJURY OF UNSPECIFIED BODY REGION, INITIAL ENCOUNTER SNOMED Code(s): 931590309 (2) Pancytopenia due to antineoplastic chemotherapy Status: Acute Priority: High Code(s): D61.810 - ANTINEOPLASTIC CHEMOTHERAPY INDUCED PANCYTOPENIA; T45.1X5A - ADVERSE EFFECT OF ANTINEOPLASTIC AND IMMUNOSUP DRUGS, INIT SNOMED Code(s): 925070014383224 (3) Acute leukemia Status: Acute Code(s): C95.00 - ACUTE LEUKEMIA OF UNSP CELL TYPE NOT ACHIEVE REMISSION SNOMED Code(s): 65242351 (4) Shortness of breath Narrative/Plan: Very pleasant 48-year-old woman with history of the acute myelogenous leukemia who is had recurrence and is now undergoing reinduction chemotherapy with plans for an allogenic stem cell transplant. She is tolerating chemotherapy relatively well she is admitted for fever 100.6 several days ago this has resolved. There is evidence as noted by the surgical note of the hematoma to the Ikjvxs-p-Aeol site of right anterior chest wall. It is not very tender and does not appear to be infected at this time. However with the current status of the immune system lack of inflammation is part of the difficulties and close monitoring continues. She over does have evidence of some mild shortness of breath and crackles into the left base of the lung and consequently I'm concerned about fluid given her significant fluid intake that she is having. And with her status over is concerned for possible underlying infection. She is receiving broad-spectrum antibiotic therapy with cefepime and vancomycin and antifungal therapy with voriconazole given her current persistent and ongoing neutropenic status. Without change antibiotic therapy at this point in time. The utilizing when necessary warm compresses to the chest try to help with the hematoma to the Qsxlmg-m-Ewdf site. Cultures are all negative so far. If there is evidence of some fluid overload diuretic therapy may be helpful. 06/15/2019 because of the chest x-ray showed evidence of fluid and Lasix was given. Patient feeling better today. CT angiogram was obtained today which concurred to the pulmonary edema and effusions. She's been seen by cardiology and further diuretic therapy is being utilized this time. She is otherwise feeling relatively improved and less short of breath today. The oncology team was able to access her Mhghvi-x-Chet, hopefully we'll remove the IVs to her left arm due to some edema to the limb. There are no plans for outpatient intravenous antibiotic therapy at this time. 07/13/2019 the patient is markedly improved and ready for discharge home. She'll have close follow-up with her oncology team as far as the ongoing blood product transfusions that she will require as she is recovering. She will be discharged on her standard prophylaxis which is currently Levaquin and acyclovir. No antibiotic therapy is needed. Her volume overload responded well to diuretic therapy and she feels better. Status: Acute Code(s): R06.02 - SHORTNESS OF BREATH SNOMED Code(s): 345686549
== END 2019-06-16 14:11 | disposition home or self-care (01) | DRG 837 ==
LOC: 3NMEDONC 09:16
PROVIDERS: ADMIT Internal Medicine Hematology & Oncology; ATTEND Internal Medicine Hematology & Oncology
DX: Z51.11 Encounter for antineoplastic chemotherapy (principal); D61.810 Antineoplastic chemotherapy induced pancytopenia; C92.00 Acute myeloblastic leukemia, not having achieved remission; J81.1 Chronic pulmonary edema; J90 Pleural effusion, not elsewhere classified; L76.32 Postprocedural hematoma of skin and subcutaneous tissue following other procedure; E87.70 Fluid overload, unspecified; G43.909 Migraine, unspecified, not intractable, without status migrainosus; T45.1X5A Adverse effect of antineoplastic and immunosuppressive drugs, initial encounter; Z80.0 Family history of malignant neoplasm of digestive organs; Z80.6 Family history of leukemia; Y83.8 Other surgical procedures as the cause of abnormal reaction of the patient, or of later complication, without mention of misadventure at the time of the procedure
CPT/HCPCS: 71046; 71275; 80053; 80202; 83605; 83615; 83735; 84100; 84443; 84481; 84550; 85025; 85379; 85384; 86850; 86900; 86901; 86920; 87040; 87086; 93005; 93306

== ENCOUNTER → 2019-06-24 | Outpatient (CLI) | payer OTHER ==
[~2019-06-24] MED LIST changes: +SODIUM CHLORIDE 0.9% 500 ML 500 ML in EMPTY BAG 1 BAG IV PRN; -VENETOCLAX PO SCH; -VORICONAZOLE PO SCH; +diphenhydrAMINE 50 MG/ML 1 ML VIAL IVP ONE; +methylPREDNISolone SOD SUCCI 125 MG/2 ML VIAL IV STA
[2019-06-24 12:06] VITALS: RESP 16
[2019-06-24 16:15] VITALS: BP 131/85; PULSE 100; TEMP 98.5
== END ==
LOC: PROCWHC3 11:31
PROVIDERS: ATTEND Internal Medicine Hematology & Oncology
DX: D69.59 Other secondary thrombocytopenia (principal)
CPT/HCPCS: 86900; 86901; 86850; 86920; 96375; 36430; P9016; P9035; J1200; J2930

== ENCOUNTER → 2019-07-07 | Outpatient (CLI) | payer OTHER ==
[~2019-07-07] MED LIST changes: +methylPREDNISolone SOD SUCCI 125 MG/2 ML VIAL IV ONE; -methylPREDNISolone SOD SUCCI 125 MG/2 ML VIAL IV STA
[2019-07-07 09:21] VITALS: RESP 16
[2019-07-07 12:02] VITALS: BP 118/78; PULSE 94; TEMP 98.2
== END | disposition home or self-care (01) ==
LOC: PROCWHC3 08:54
PROVIDERS: ATTEND Internal Medicine Hematology & Oncology
DX: C95.00 Acute leukemia of unspecified cell type not having achieved remission (principal)
CPT/HCPCS: 36430; 86850; 86900; 86901; 86920; 96375

== ENCOUNTER → 2019-07-11 | Outpatient (CLI) | payer OTHER ==
[~2019-07-11] MED LIST changes: +diphenhydrAMINE 50 MG/ML 1 ML VIAL IVP NR; -diphenhydrAMINE 50 MG/ML 1 ML VIAL IVP ONE; +methylPREDNISolone SOD SUCCI 125 MG/2 ML VIAL IV NR; -methylPREDNISolone SOD SUCCI 125 MG/2 ML VIAL IV ONE
[2019-07-11 16:14] VITALS: BP 108/68; PULSE 98; RESP 16; TEMP 98.4
== END | disposition home or self-care (01) ==
LOC: PROCWHC3 14:19
PROVIDERS: ATTEND Internal Medicine Hematology & Oncology
DX: C92.00 Acute myeloblastic leukemia, not having achieved remission (principal)
CPT/HCPCS: 96374; 96375; 36430; P9035; J1200; J2930; J1642

== ENCOUNTER → 2019-07-14 | Outpatient (CLI) | payer OTHER ==
[~2019-07-14] MED LIST changes: -diphenhydrAMINE 50 MG/ML 1 ML VIAL IVP NR; +diphenhydrAMINE 50 MG/ML 1 ML VIAL IVP ONE; -methylPREDNISolone SOD SUCCI 125 MG/2 ML VIAL IV NR; +methylPREDNISolone SOD SUCCI 125 MG/2 ML VIAL IV STA
[2019-07-14 11:53] VITALS: BP 112/73; PULSE 88; RESP 16; TEMP 98.3
== END | disposition home or self-care (01) ==
LOC: PROCWHC3 09:59
PROVIDERS: ATTEND Internal Medicine Hematology & Oncology
DX: C92.00 Acute myeloblastic leukemia, not having achieved remission (principal)
CPT/HCPCS: 36430; 86850; 86900; 86901; 86920; 96375

== ENCOUNTER → 2019-07-17 | Outpatient (CLI) | payer OTHER ==
[~2019-07-17] MED LIST changes: -diphenhydrAMINE 50 MG/ML 1 ML VIAL IVP ONE; +diphenhydrAMINE 50 MG/ML 1 ML VIAL IVP STA; +methylPREDNISolone SOD SUCCI 125 MG/2 ML VIAL IV NR; -methylPREDNISolone SOD SUCCI 125 MG/2 ML VIAL IV STA
[2019-07-17 13:27] VITALS: RESP 16
[2019-07-17 15:42] VITALS: BP 113/74; PULSE 96; TEMP 98.7
== END | disposition home or self-care (01) ==
LOC: PROCWHC3 12:28
PROVIDERS: ATTEND Internal Medicine Hematology & Oncology
DX: C95.00 Acute leukemia of unspecified cell type not having achieved remission (principal)
CPT/HCPCS: 96375; 36430; P9035; P9037; J1200; J2930; J1642

== ENCOUNTER → 2019-07-20 | Outpatient (CLI) | payer OTHER ==
[~2019-07-20] MED LIST changes: +diphenhydrAMINE 50 MG/ML 1 ML VIAL IVP NR; -diphenhydrAMINE 50 MG/ML 1 ML VIAL IVP STA
[2019-07-20 13:19] VITALS: RESP 16
[2019-07-20 15:17] VITALS: BP 114/75; PULSE 89; TEMP 98.9
== END | disposition home or self-care (01) ==
LOC: PROCWHC3 13:07
PROVIDERS: ATTEND Internal Medicine Hematology & Oncology
DX: C95.00 Acute leukemia of unspecified cell type not having achieved remission (principal)
CPT/HCPCS: 86900; 86901; 86850; 86920; 96375; 36430; P9040; J1200; J2930; J1642

== ENCOUNTER → 2019-07-24 | Outpatient (CLI) | payer OTHER ==
[~2019-07-24] MED LIST changes: -diphenhydrAMINE 50 MG/ML 1 ML VIAL IVP NR; +diphenhydrAMINE 50 MG/ML 1 ML VIAL IVP ONE; -methylPREDNISolone SOD SUCCI 125 MG/2 ML VIAL IV NR; +methylPREDNISolone SOD SUCCI 125 MG/2 ML VIAL IV ONE
[2019-07-24 13:50] VITALS: BP 100/65
[2019-07-24 14:45] VITALS: PULSE 98; RESP 16; TEMP 98.3
== END | disposition home or self-care (01) ==
LOC: PROCWHC3 12:34
PROVIDERS: ATTEND Internal Medicine Hematology & Oncology
DX: D69.59 Other secondary thrombocytopenia (principal)
CPT/HCPCS: 96375; 36430; P9035; J1200; J2930; J1642

== ENCOUNTER → 2019-07-29 | Outpatient (CLI) | payer OTHER ==
[2019-07-29 08:37] VITALS: RESP 16
[2019-07-29 10:05] VITALS: BP 104/68; PULSE 97; TEMP 98.4
== END | disposition home or self-care (01) ==
LOC: PROCWHC3 08:15
PROVIDERS: ATTEND Internal Medicine Hematology & Oncology
DX: C95.00 Acute leukemia of unspecified cell type not having achieved remission (principal)
CPT/HCPCS: 86900; 86901; 86850; 86920; 96375; 36430; P9040; J1200; J2930; J1642

== ENCOUNTER → 2019-08-13 | Outpatient (CLI) | payer OTHER ==
--- NOTE | 2019-08-13 14:24 | XR ---
EXAMINATION TYPE: XR chest 2V DATE OF EXAM: 08/13/2019 COMPARISON: Prior chest x-ray 06/14/2019 HISTORY: Acute leukemia TECHNIQUE: Frontal and lateral views of the chest are obtained. FINDINGS: There is a Port-A-Cath in the right pectoral region and coursing via right subclavian appro ach to the level of the confluence of the right and left innominate veins. The catheter may be kinked proximally. The port. There is no focal air space opacity, pleural effusion, or pneumothorax seen. The cardiac silhouette size is within normal limits. The osseous structures are intact, there is mi ld spinal curvature. IMPRESSION: No acute cardiopulmonary process.
--- NOTE | 2019-08-18 10:41 | ECHOF ---
Referral Reason:C95.00 Acute leukemia of unspecified cell type MEASUREMENTS -------- HEIGHT: 167.6 cm WEIGHT: 56.2 kg BP: RVIDd: 2.5 cm (< 3.3) IVSd: 0.8 cm (0.6 - 1.1) LVIDd: 3.8 cm (3.9 - 5.3) LVPWd: 1.0 cm (0.6 - 1.1) IVSs: 1.2 cm LVIDs: 3.0 cm LVPWs: 1.3 cm LA Diam: 2.5 cm (2.7 - 3.8) LAESV Index (A-L): 19.68 ml/m Ao Diam: 2.8 cm (2.0 - 3.7) AV Cusp: 1.8 cm (1.5 - 2.6) MV EXCURSION: 14.577 mm (> 18.000) MV EF SLOPE: 86 mm/s (70 - 150) EPSS: 0.7 cm MV E Valente: 0.85 m/s MV DecT: 181 ms MV A Valente: 0.64 m/s MV E/A Ratio: 1.33 TAPSE: 19.78 mm FINDINGS -------- Sinus rhythm. This was a technically good study. The left ventricular size is normal. Left ventricular wall thickness is normal. Overall left vent ricular systolic function is normal with, an EF between 55 - 60 %. The right ventricle is normal in size. Normal LA size by volume 22+/-6 ml/m2. The right atrium is normal in size. Interatrial and interventricular septum intact. The aortic valve is trileaflet and appears structurally normal. There is trace to mild mitral regurgitation. The tricuspid valve appears structurally normal. Trace/mild (physiologic) pulmonic regurgitation. The aortic root size is normal. Normal inferior vena cava with normal inspiratory collapse consistent with estimated right atrial pre ssure of 5 mmHg. There is no pericardial effusion. CONCLUSIONS -------- 1. Sinus rhythm. 2. This was a technically good study. 3. The left ventricular size is normal. 4. Left ventricular wall thickness is normal. 5. Overall left ventricular systolic function is normal with, an EF between 55 - 60 %. 6. The right ventricle is normal in size. 7. Normal LA size by volume 22+/-6 ml/m2. 8. The right atrium is normal in size. 9. Interatrial and interventricular septum intact. 10. The aortic valve is trileaflet and appears structurally normal. 11. There is trace to mild mitral regurgitation. 12. The tricuspid valve appears structurally normal. 13. Trace/mild (physiologic) pulmonic regurgitation. 14. The aortic root size is normal. 15. Normal inferior vena cava with normal inspiratory collapse consistent with estimated right atrial pressure of 5 mmHg. 16. There is no pericardial effusion. DAY CARE SUPERVISOR: Michelle Lawrence RDCS
== END | disposition home or self-care (01) ==
LOC: RADECHMAIN 12:39
PROVIDERS: ATTEND Internal Medicine Hematology & Oncology
DX: Z01.818 Encounter for other preprocedural examination (principal); I08.8 Other rheumatic multiple valve diseases; C95.00 Acute leukemia of unspecified cell type not having achieved remission; Z91.09 Other allergy status, other than to drugs and biological substances
CPT/HCPCS: 71046; 93306; 94060; 94726; 94729

== ENCOUNTER → 2020-03-31 | Outpatient (CLI) | payer OTHER | END | disposition home or self-care (01) | LOC: LABWHC1 10:48 | PROVIDERS: ATTEND Surgery | DX: U07.1 COVID-19 (principal) | CPT/HCPCS: U0003; C9803 ==

== ENCOUNTER → 2023-06-28 | Outpatient (CLI) | payer OTHER ==
--- NOTE | 2023-07-02 21:20 | MM ---
Reason for Exam: Screening (asymptomatic). Last mammogram was performed 6 year(s) and 8 month(s) ago. Patient History: Menarche at age 15. Patient has no children. Postmenopausal. Risk Values: Christine 5 year model risk: 1.0%. NCI Lifetime model risk: 8.9%. Prior Study Comparison: 11/09/2016 Bilateral Screening Mammogram, [facility]. Tissue Density: There are scattered fibroglandular densities. Findings: Analyzed By CAD. There is no suspicious group of microcalcifications or new suspicious mass in either breast. Overall Assessment: Negative, BI-RAD 1 Management: Screening Mammogram of both breasts in 1 year. . Patient should continue monthly self-breast exams. A clinical breast exam by your physician is recommended on an annual basis. This exam should not preclude additional follow-up of suspicious palpable abnormalities. Note on Christine scores and lifetime risk: 1. A Christine score greater than 3% is considered moderate risk. If this is the case, consider specialist referral to assess eligibility for a risk reducing agent. 2. If overall lifetime risk for the development of breast cancer is 20% or higher, the patient may qualify for future screening with alternating mammogram and breast MRI. Electronically signed and approved by: Tee Hale M.D. Radiologist
== END | disposition home or self-care (01) ==
LOC: RADMAMWWP 13:40
PROVIDERS: ATTEND Obstetrics & Gynecology Obstetrics
DX: Z12.31 Encounter for screening mammogram for malignant neoplasm of breast (principal); Z78.0 Asymptomatic menopausal state
CPT/HCPCS: 77063; 77067